=== PATIENT | female | born 1960 | race Caucasian/White ===

== ENCOUNTER → 2018-12-06 | Outpatient (CLI) | payer MEDICAID, SELFPAY ==
[2018-12-04 07:07] VITALS: BMI 18.3
--- NOTE | 2018-12-06 15:07 | PFTCOMP ---
COMPLETE PULMONARY FUNCTION TEST INTERPRETATION Brief HPI: Patient is a 58 year old female, currently under the care of Dr. Castillo, who presents to [facility] for complete pulmonary function tests secondary to diagnosis of COPD. Respiratory therapist reports good effort and reproducible results. Interpretation: Forced expiration spirometry shows a very severe large airways obstructive ventilatory defect with an FEV1 of 24% predicted. There is a significant bronchodilator response in FVC by strict ATS criteria. Spirograms are of good quality and plateau slowly, indicating slowly emptying areas of the lungs. The respiratory flow volume loop shows decreased expiratory flow rates at all lung volumes consistent with airway obstruction. Lung volumes by body plethysmography show an elevated total lung capacity at 6.96 L, 154% predicted. FRC and RV are elevated out of proportion. Lung volume measurements are consistent with hyperinflation and air-trapping. Diffusion capacity by carbon monoxide is decreased at 30% predicted. The airway resistance is elevated. No previous pulmonary function tests were available for review. Impression: Partially reversible very severe large airways obstructive ventilatory defect with a symmetric reduction diffusing capacity, resulting in air trapping with hyperinflation, and in a pattern consistent with advanced COPD.
--- NOTE | 2018-12-06 15:11 | PFTCOMP_ITS ---
COMPLETE PULMONARY FUNCTION TEST INTERPRETATION Brief HPI: Patient is a 58 year old female, currently under the care of Dr. Castillo, who presents to [facility] for complete pulmonary function tests secondary to diagnosis of COPD. Respiratory therapist reports good effort and reproducible results. Interpretation: Forced expiration spirometry shows a very severe large airways obstructive ventilatory defect with an FEV1 of 24% predicted. There is a significant bronchodilator response in FVC by strict ATS criteria. Spirograms are of good quality and plateau slowly, indicating slowly emptying areas of the lungs. The respiratory flow volume loop shows decreased expiratory flow rates at all lung volumes consistent with airway obstruction. Lung volumes by body plethysmography show an elevated total lung capacity at 6.96 L, 154% predicted. FRC and RV are elevated out of proportion. Lung volume measurements are consistent with hyperinflation and air-trapping. Diffusion capacity by carbon monoxide is decreased at 30% predicted. The airway resistance is elevated. No previous pulmonary function tests were available for review. Impression: Partially reversible very severe large airways obstructive ventilatory defect with a symmetric reduction diffusing capacity, resulting in air trapping with hyperinflation, and in a pattern consistent with advanced COPD.
== END | disposition home or self-care (01) ==
LOC: PSN 07:18
PROVIDERS: Family Provider Nurse Practitioner Family; PCP Nurse Practitioner Family; Referring Provider Internal Medicine Critical Care Medicine; Visit Provider Internal Medicine Critical Care Medicine
DX: J44.9 Chronic obstructive pulmonary disease, unspecified (principal)
CPT/HCPCS: 94060; 94726; 94729

== ENCOUNTER → 2018-12-11 | Outpatient (CLI) | payer MEDICAID, SELFPAY ==
[2018-12-04 07:07] VITALS: BMI 18.3
[2018-12-11 08:30] VITALS: PULSE 100; PULSE 117; PULSE 120; PULSE 124; PULSE 136; PULSE 137; O2SAT 83; O2SAT 90; O2SAT 92; O2SAT 93
--- NOTE | 2018-12-11 09:08 | CPS ---
Pt arrived via wheelchair for her six minute walk. Pt arrived wearing 3L pulse dose oxygen and her SPO2 was 93%. Pt was then taken off of her home oxygen and her pulse ox remained at 92%. The six minute walk was initiated on room air and minute two pt was 83% on room air. Pt was placed on 3L and recovered to 92%. The rest of the walk was continued with 3L continuous flow oxygen. No assistive devices were used during the walk.
--- NOTE | 2018-12-12 10:24 | PCM.PSN.6M ---
PSN 6 Minute Walk Test - 6 Minute Walk Test 6 Minute Walk Test: 6 Minute Walk Test PSN:6-Minute Walk Test Start: 12/11/18 09:05 Freq: Status: Active Protocol: RESP.6MINW Document 12/11/18 08:30 [facility] (Rec: 12/11/18 09:10 [facility] [id number]) 6 Minute Walk Test Date Performed 12/11/18 Time Performed 08:30 Height 5 ft 2 in Weight: 100 lb Weight in Pounds 100.[address]: Manish Castillo Assistive device used: None Pre-test Oxygen Delivery Method Room Air Pulse Ox (%) 92 Pulse Rate (60-100 beats/min) 117 H Dyspnea Christopher Scale (0-10) 3 Exertion Christopher Scale (6-20) 8 1st minute Oxygen Delivery Method Room Air Pulse Ox (%) 90 Pulse Rate (60-100 beats/min) 136 H Reported Symptoms Increased Work of Breathing 2nd minute Oxygen Delivery Method Room Air Pulse Ox (%) 83 Pulse Rate (60-100 beats/min) 137 H Number of Rests Taken 1 Reported Symptoms Cyanotic Increased Work of Breathing 3rd minute Oxygen Flow Rate (L/min) (L/min) 3 Oxygen Delivery Method Nasal Cannula Pulse Ox (%) 93 Pulse Rate (60-100 beats/min) 120 H Number of Rests Taken 0 4th minute Oxygen Flow Rate (L/min) (L/min) 3 Oxygen Delivery Method Nasal Cannula Pulse Ox (%) 93 Pulse Rate (60-100 beats/min) 124 H Number of Rests Taken 0 5th minute Oxygen Flow Rate (L/min) (L/min) 3 Oxygen Delivery Method Nasal Cannula Pulse Ox (%) 90 Pulse Rate (60-100 beats/min) 117 H Number of Rests Taken 1 Reported Symptoms Increased Work of Breathing 6th minute Oxygen Flow Rate (L/min) (L/min) 3 Oxygen Delivery Method Nasal Cannula Pulse Ox (%) 92 Pulse Rate (60-100 beats/min) 124 H Number of Rests Taken 1 Reported Symptoms Increased Work of Breathing Post-test Oxygen Flow Rate (L/min) (L/min) 3 Oxygen Delivery Method Nasal Cannula Pulse Ox (%) 92 Pulse Rate (60-100 beats/min) 100 Dyspnea Christopher Scale (0-10) 5 Exertion Christopher Scale (6-20) 18 Full Laps Walked 6 Partial Lap, Number of Tiles Walked 30 Total Distance Walked (ft) 384 12/11/18 09:08 Cardiopulmonary Services by Precious Dasilva Pt arrived via wheelchair for her six minute walk. Pt arrived wearing 3L pulse dose oxygen and her SPO2 was 93%. Pt was then taken off of her home oxygen and her pulse ox remained at 92%. The six minute walk was initiated on room air and minute two pt was 83% on room air. Pt was placed on 3L and recovered to 92%. The rest of the walk was continued with 3L continuous flow oxygen. No assistive devices were used during the walk. Initialized on 12/11/18 09:08 - END OF NOTE - Interpretation Interpretation: The patient ambulated 384 feet over the course of 6 minutes beginning on room air without assistive devices. Pretesting oxygen saturation was noted to be 92% on room air. With ambulation, the edna oxygen saturation was 83%. 3 L/min of continuous flow supplemental oxygen was applied and the patient was able to complete the remainder of the test while maintaining appropriate oxygen saturations. The patient did develop physiologic tachycardia with exertion. There was evidence of impaired walk distance. - Recommendations Recommendations: 3 L/min of continuous flow supplemental oxygen should be utilized with exertion.
== END | disposition home or self-care (01) ==
LOC: PSN 08:20
PROVIDERS: Family Provider Nurse Practitioner Family; PCP Nurse Practitioner Family; Referring Provider Internal Medicine Critical Care Medicine; Visit Provider Internal Medicine Critical Care Medicine
DX: J96.11 Chronic respiratory failure with hypoxia (principal)
CPT/HCPCS: 94618

== ENCOUNTER → 2019-01-22 | Outpatient (CLI) | payer MEDICAID, SELFPAY ==
[2018-12-04 07:07] VITALS: BMI 18.3
--- NOTE | 2019-01-22 06:53 | CT_ITS ---
HISTORY: LUNG MASS, HX 20 YR SMOKER 1-2 PPD, QUIT 2012, COPD-OXYGEN 13/03 TECHNIQUE: Helically acquired images were obtained of the chest following the intravenous administration of 100 ml of Isovue 300 Iodinated contrast. as per pulmonary angiogram protocol with 2D MIP reconstructions. A radiation dose optimization technique was used for this scan. COMPARISON: None FINDINGS: # of images incl. paperwork: [id number] Pulmonary emphysema. 2 right upper lobe adjacent complex spiculated nodules. The more inferior lateral of these lesions is hyper enhancing centrally.. I believe this is contrast enhancement within a pulmonary artery, but could be calcification. As measured on the coronal images, the more inferior lateral of these 2 lesions, as measured on lung windows, measures 2.3 x 2.2 cm. Also measured on the coronal series, lung windows, the confluent adjoining more superior medial lesion within the right upper lobe measures 2 x 1.3 cm. There is some volume loss and extension of disease to the pleural margin. More peripherally and inferiorly within the right upper lobe, series 4 image 42, also as measured on the lung windows there is a 4 x 3 mm pulmonary nodule. With in the anterior aspect of the left lobe of the thyroid gland there is a hypodense lesion measuring 5 mm, that is likely a benign cyst. No effusions. Within the thoracic spinethere is a mild kyphosis. Some degenerative disc disease is present but minimal degree. Vertebral body height is mostly preserved. There is a subacute superior endplate fracture to the T5 vertebral body with some loss of height. There is additional old superior endplate vertebral body fractures to the T7 and T8 vertebral bodies with minimal wedging. Facets are well aligned. A right posterior-lateral T9 rib fracture is still healing. Heart is not enlarged. Thoracic aorta elongated with atherosclerotic plaque. No aneurysms, stenoses, dissections, nor occlusions. No axillary or mediastinal adenopathy. No pulmonary emboli. Within the lateral segment of the left hepatic lobe there is a 5 x 8 mm hypodense lesion. The adrenal glands are not enlarged. Visualized portions of the pancreas, and spleen are normal. Hypodense cortical lesion within the left kidney statistically represents a benign cyst Some atherosclerotic disease is present within the right renal artery near its origin causing a stenosis of less than 50%. CT/Chest WITH Contrast IMPRESSION: No pulmonary embolism, aortic aneurysm, or aortic dissection. 2 adjacent right upper lobe spiculated pulmonary nodules. One of these measures 2.3 x 2.2 cm. Most superior posterior medially, the second lesion measures 2 x 1.3 cm. These are suspicious for lung malignancy in this patient with severe pulmonary emphysema. It is possible that there is some calcification within the more inferior of the 2 lesions, which would indicate a more benign, non-malignant process Similar hyperdense areas are much less conspicuous within the second lesion. I believe the hyperdense portions of these lesions are arterial enhancement, but they could be calcifications. Comparison then a previous imaging to assess for change would be useful. A noncontrast CT just through these areas to assess for calcification versus enhancement may be beneficial. A PET/CT could also be beneficial. Individualized dose optimization techniques were used for this CT. at 2995 Reported and signed by: Farhad Schmidt MD Electronically Signed: Farhad Schmidt MD at 21:53 EDT Tel , Service support ,
== END | disposition home or self-care (01) ==
PROVIDERS: Family Provider Nurse Practitioner Family; PCP Nurse Practitioner Family; Referring Provider Internal Medicine Critical Care Medicine; Visit Provider Internal Medicine Critical Care Medicine
DX: R91.8 Other nonspecific abnormal finding of lung field (principal)
CPT/HCPCS: 71260; Q9967

== ENCOUNTER → 2019-02-18 | Outpatient (CLI) | payer MEDICAID, SELFPAY ==
[2019-01-28 08:28] VITALS: BMI 20.8
--- NOTE | 2019-02-18 08:15 | PET_ITS ---
EXAMINATION: FDG PET/CT INDICATIONS: A 68-year-old female with reported history of pulmonary nodularity. COMPARISON EXAMINATION: CT of the chest report dated 01/22/19 INDEX LESION SIZE SUV INTERPRETATION Right upper hemithorax, right upper lobe 22.4-mm (frame 190) 5.2 Fulfills quantitative criteria for viable neoplasm Left thoracic perihilum 9.5-mm (frame 176) 3.4 Fulfills borderline quantitative criteria for viable neoplasm Right upper hemithorax, linear 1.6 Quantitative criteria for viable neoplasm are not fulfilled TECHNIQUE: Following the intravenous administration of 12.32 mCi of F-18 deoxyglucose via the left antecubital fossa, multiplanar image acquisitions of the neck, chest, abdomen and pelvis to level of mid thigh, obtained at one hour post radiopharmaceutical administration contemporaneously interpreted with the current CT of the neck, chest, abdomen and pelvis to level of mid thigh, dated 02/18/[address] of the chest report dated 01/22/19 reveal: SERUM GLUCOSE LEVEL: 110 mg/dl. HEIGHT: 62 inches. WEIGHT: 110 lbs. FINDINGS: 1. Focal increased glucose metabolism is demonstrated in the right mid posterior lung field, right upper lobe, adjacent to the major fissure generating a calculated maximal standard uptake value of 5.2. The maximal axial diameter of the corresponding parenchymal density on review of CT of the chest dated 02/18/19 is 22.4-mm (AP). 2. Asymmetric enhanced FDG distribution is demonstrated in the left thoracic perihilum rendering a calculated maximal standard uptake value of 3.4. Borderline quantitative criteria for centrally located thoracic/mediastinal viable neoplasm are fulfilled. The maximal axial diameter of the corresponding metabolic, morphologic abnormality on review of CT of the chest dated 02/18/19 is 9.5-mm. 3. A linear increase in radiopharmaceutical concentration is defined in the right upper hemithorax pulmonary parenchyma, right upper lobe, contiguous and/or adjacent to the aforementioned right lung abnormality. The calculated maximal standard uptake value is 1.6. 4. Normal physiologic distribution of the radiopharmaceutical is apparent in the hepatic (2.5) and splenic parenchyma, both renal units, bladder and visualized intestinal tract. The visualized portion of the cerebral cortex demonstrate symmetric and preserved glucose metabolism. Diffuse radiopharmaceutical concentration is noted in all four quadrants of the abdomen and pelvis. Pertinent CT findings are as follows: CHEST: Emphysematous change is noted in the bilateral upper-mid lung zones. There are no additional parenchymal densities-nodules defined in the right-left hemithorax demonstrating discernible increased glucose metabolism. There is atherosclerotic calcification defined in the thoracic aorta without evidence of dilatation-aneurysm formation. Coronary arterial calcification is observed. Bilateral axillary and mediastinal soft tissue densities are non-glucose avid. ABDOMEN AND PELVIS: There is atherosclerotic calcification defined in the abdominal aorta without evidence of dilatation-aneurysm formation. Pelvic arterial calcification is observed. Bilateral inguinal soft tissue densities with fatty hilus formation are non-glucose avid. SKELETAL: Degenerative changes are noted in the cervical, thoracic and lumbar spine. PET/PET/CT Tumor Base -Thigh Init IMPRESSION: 1. ABNORMAL EXAMINATION INDICATIVE OF MALIGNANT VIABLE NEOPLASM. 2. Increased glucose concentration noted in the right mid hemithorax pulmonary parenchyma, right upper lobe, fulfills quantitative criteria for viable neoplasm. 3. Facilitated FDG uptake noted in the left thoracic perihilum fulfills borderline quantitative criteria for viable neoplasm. (Aletha et al, Journal of Clinical Oncology 16:2142, 1998). 4. The linear increase in FDG concentration noted in the right upper hemithorax pulmonary parenchyma, right upper lobe, oriented in the longitudinal plane, does not fulfill quantitative criteria for malignant transformation. 5. No other quantitatively significant hypermetabolic abnormalities are noted. There is no definitive scintigraphic evidence of distant metastatic disease. Electronic Signature Hermann Resendiz D.O. Electronically Signed: Hermann Resendiz DO at 8:01 EDT Tel , Service support ,
== END | disposition home or self-care (01) ==
LOC: ONC 07:42
PROVIDERS: Family Provider Nurse Practitioner Family; PCP Nurse Practitioner Family; Referring Provider Internal Medicine Critical Care Medicine; Visit Provider Internal Medicine Critical Care Medicine
DX: R91.1 Solitary pulmonary nodule (principal)
CPT/HCPCS: 78815; A9552

== ENCOUNTER → 2019-07-01 | Outpatient (CLI) | payer MEDICAID, SELFPAY ==
[2019-04-26 09:42] VITALS: BMI 20.8
[2019-06-18 08:57] VITALS: BMI 21.9
--- NOTE | 2019-07-01 08:30 | PET_ITS ---
EXAMINATION: FDG PET CT INDICATIONS: A 59-year-old female with history of pulmonary nodularity. COMPARISON EXAMINATION: Prior FDG PET study dated 02/18/19. INDEX LESION SIZE SUV INTERPRETATION PERSISTENT: Right upper hemithorax pulmonary parenchyma-right upper lobe 11.5 mm nodular (frame 192) compared to 12.9 mm, 02/18/19 3.2 compared to 5.2, 02/18/19 Fulfills quantitative criteria for viable neoplasm, short-term reevaluation with FDG PET CT imaging recommended at a minimum PREVIOUS: Left thoracic perihilum Demonstrates metabolic resolution on the current examination TECHNIQUE: Following the intravenous administration of 15 mCi of F-18 deoxyglucose, multiplanar image acquisitions of the neck, chest, abdomen and pelvis to level of mid thigh, obtained at one hour post radiopharmaceutical administration contemporaneously interpreted with the current CT of the neck, chest, abdomen and pelvis to level of mid thigh, dated 07/01/19 via coregistration and prior FDG PET study dated 02/18/19 reveal: FINDINGS: 1. Redefined increased glucose concentration is observed in the right upper hemithorax pulmonary parenchyma-right upper lobe generating a current calculated maximum standard uptake value is 3.2 compared to 5.2 defined on the FDG PET study dated 02/18/19. The maximal axial diameter of the nodular component of the current parenchymal density on review of CT of the chest dated 07/01/19 is 11.5 mm (AP). 2. Normal physiologic distribution of the radiopharmaceutical is apparent in the hepatic (2.8/2.6) and splenic parenchyma, both renal units, bladder and visualized intestinal tract. There is uniform distribution of the radiopharmaceutical concentration defined in the visualized cerebellar hemispheres and cerebral cortical structures.? Diffuse intestinal tract activity is noted throughout all four quadrants of the abdominal-pelvic retroperitoneum, mesentery consistent with normal physiologic distribution of the radiopharmaceutical. The previously described left thoracic perihilar increase in FDG distribution noted on the FDG PET study dated 02/18/19 is not apparent on the current examination. The prior defined morphologic-anatomic changes noted on CT of the neck, chest, abdomen and pelvis manifest on the FDG PET CT study dated 02/18/19 are essentially unchanged on the present examination. PET/PET/CT Tumor Base -Thigh Init IMPRESSION: 1. Facilitated FDG concentration redefined in the right upper hemithorax pulmonary parenchyma, right upper lobe continues to fulfill quantitative criteria for viable neoplasm, which may necessitate histopathologic investigation. If a conservative management approach is undertaken in view of the decrease in the quantitative degree of uptake on the present examination, repeat FDG PET CT imaging in three-six months is recommended. (Kathleenu, Journal of Nuclear Medicine 45:88, P2004. Sakshi, Seminars in Thoracic and Cardiovascular Surgery 14:292, 2002). 2. There is interim metabolic resolution of the prior defined left thoracic perihilar hypermetabolic focus. 3. Overall, compared to the prior FDG PET study dated 02/18/19, there is continued demonstration of viable neoplasm within the context right upper hemithorax-right upper lobe, which may necessitate histopathologic investigation. If a conservative management is undertaken, repeat FDG PET CT imaging in three-six months is recommended. There is interim metabolic resolution of the left thoracic perihilar hypermetabolic abnormality. Electronic Signature Hermann Resendiz D.O. Electronically Signed: Hermann Resendiz DO at 23:50 EST Tel , Service support ,
== END | disposition home or self-care (01) ==
PROVIDERS: Family Provider Nurse Practitioner Family; PCP Nurse Practitioner Family; Referring Provider Internal Medicine Critical Care Medicine; Visit Provider Internal Medicine Critical Care Medicine
DX: R91.1 Solitary pulmonary nodule (principal)
CPT/HCPCS: 78815; A9552

== ENCOUNTER 2023-06-03 09:00 | Emergency (ER) | payer MEDICAID, SELFPAY ==
[2019-04-26 09:42] VITALS: BMI 20.8
[2023-06-03 09:01] VITALS: BP 136/91; PULSE 115; RESP 26; TEMP 36.6; O2SAT 95
--- NOTE | 2023-06-03 09:17 | EKG12_ITS ---
Test Reason : SOB Blood Pressure : / mmHG Vent. Rate : 099 BPM Atrial Rate : 099 BPM P-R Int : 122 ms QRS Dur : 078 ms QT Int : 344 ms P-R-T Axes : 080 073 083 degrees QTc Int : 441 ms Normal sinus rhythm with sinus arrhythmia Normal ECG Confirmed by PHILIP SAHA, DIONNA ([id number]), editor trade journal ROSA PATEL ([id number]) on 06/05/2023 2:25:31 PM Referred By: Confirmed By:DIONNA PALACIOS MD
--- NOTE | 2023-06-03 09:17 | RAD_ITS ---
INDICATION: dyspnea EXAMINATION/TECHNIQUE: X-RAY - XR Chest 1 View COMPARISON: FINDINGS: LINES/DEVICES: None. LUNGS: There is severe over aeration consistent with COPD. There is a left suprahilar left suprahilar opacity 2.03 cm transverse which could represent scarring or tiny focus of infiltrate. Other etiology cannot be excluded. MEDIASTINUM AND CARDIOVASCULAR STRUCTURES: Cardiac silhouette not enlarged. Central airways and mediastinal contour are unremarkable. BONES AND SOFT TISSUES: Unremarkable. RAD/Chest 1 View (Portable) IMPRESSION: Severe COPD. Left upper lobe scarring versus small focus of infiltrate. Mass cannot be completely excluded. Electronically Signed: Vishal López MD at 10:10 EDT ,
--- NOTE | 2023-06-03 09:18 | ED.VIS.DYS ---
HPI History of Present Illness Chief Complaint: Shortness of Breath Informant: patient and spouse/S.O. Narrative Narrative: Very pleasant 62-year-old female presenting to the emergency room with chief complaint of dyspnea. Patient has a longstanding history of COPD, former smoker, and wears 2 to 3 L nasal cannula normally. She saw her primary care doctor on Monday was given a prescription for tapering dose of prednisone as well as azithromycin. She states she has finished the azithromycin but has not had any change in her breathing. Her sputum production has been unchanged. She notes she took a breathing treatment of DuoNeb this morning. She denies any fever. Patient has not had to go up on her oxygen. She is not experiencing any URI symptoms. No vomiting or diarrhea. [facility] Medical History Acute abdominal pain Acute exacerbation of emphysema Anxiety Arthritis Atypical chest pain Bacteremia Breast mass Bronchitis COPD (chronic obstructive pulmonary disease) Dependence on supplemental oxygen GERD (gastroesophageal reflux disease) Lung mass Lung nodule Mass of multiple sites of right breast Neck pain Osteopenia Osteoporosis Otalgia of right ear Palate abnormality Pre-operative cardiovascular examination Rhinosinusitis Rib fracture Rib pain Tick bite Wasting generalized Wheezing Home Medications albuterol sulfate 2.5 mg/3 mL (0.083 %) solution for nebulization 2.5 mg inhalation Q4H PRN Sob &/Or Wheezing 10/03/18 [History Last Taken Unknown] albuterol sulfate 90 mcg/actuation aerosol inhaler (Ventolin HFA) 2 puff inhalation Q4H PRN Sob &/Or Wheezing 10/03/18 [History Last Taken Unknown] ipratropium 0.5 mg-albuterol 3 mg (2.5 mg base)/3 mL nebulization soln 3 ml inhalation Q8H 10/03/18 [History Last Taken Unknown] Allergy/AdvReac Type Severity Reaction Status Date / Time ciprofloxacin [From Cipro] Allergy Intermediate SOB Verified 06/03/23 09:05 fluticasone Allergy Mild Ashtma, Verified 06/03/23 09:04 [From Advair Diskus] Itching, Pruritus, Rash metronidazole [From Flagyl] Allergy Mild Verified 06/03/23 09:04 penicillin G Allergy Mild Verified 06/03/23 09:04 salmeterol Allergy Mild Ashtma, Verified 06/03/23 09:04 [From Advair Diskus] Itching, Pruritus, Rash sulfamethoxazole Allergy Mild Rash Verified 06/03/23 09:04 [From Bactrim] trimethoprim [From Bactrim] Allergy Mild Rash Verified 06/03/23 09:04 Penicillins Allergy Swelling Verified 06/03/23 09:04 Family History Father Colon cancer Surgical History History of bilateral tubal ligation History of colonoscopy History of partial colectomy Social History Smoking Status: Former smoker Tobacco: How many years used: 20 how long ago did patient quit smokin years second hand exposure: No alcohol intake: current alcohol intake frequency: holidays/special occasions only substance use type: does not use caffeine: Yes ROS ROS ED Constitutional Constitutional ED: Denies chills, fever(s) or weight loss Eyes Eyes: Denies change in vision or diplopia ENT ENT ED: Denies ear pain, rhinorrhea or sore throat Cardiovascular Cardiovascular: Denies chest pain, orthopnea, palpitations or racing heartbeat Respiratory/Chest Respiratory/Chest: Reports cough, dyspnea, dyspnea on exertion and sputum; Denies orthopnea Gastrointestinal Gastrointestinal: Denies abdominal pain, diarrhea, melena, nausea or vomiting Genitourinary Genitourinary ED: Denies dysuria, hematuria or urinary frequency Musculoskeletal Musculoskeletal: Denies arthralgias or myalgias Integumentary Denies abscess or rash Neurologic Neurologic: Denies headache(s) or weakness Psychiatric Psychiatric: Denies anxiety, depression, suicidal ideation or suicidal thoughts Endocrine Endocrinology: Denies polydipsia, polyphagia or polyuria Allergic/Immunologic Allergic/Immunologic ED: Denies mouth swelling, tongue swelling or urticaria EXAM Physical Exam Const Vital Signs: 06/03/23 09:01 06/03/23 09:38 06/03/23 09:38 Temperature 98 F Temperature Source Temporal Pulse Rate 115 H 97 Respiratory Rate 26 H 18 Respiratory Effort Respiratory Depth Respiratory Pattern Normal Blood Pressure 136/91 H Blood Pressure Mean 106 Pulse Ox 95 96 Oxygen Delivery Method Nasal Cannula Nasal Cannula Oxygen Flow Rate (L/min) 2 06/03/23 09:46 06/03/23 09:47 06/03/23 09:47 Temperature 97.0 F L Temperature Source Temporal Pulse Rate 100 Respiratory Rate 14 Respiratory Effort Short of Breath Respiratory Depth Normal Respiratory Pattern Normal Blood Pressure 132/84 H Blood Pressure Mean 100 Pulse Ox 97 Oxygen Delivery Method Nasal Cannula Nasal Cannula Nasal Cannula Oxygen Flow Rate (L/min) 2.5 2.5 2.5 Positive well nourished, well developed and cachectic General Appearance ED: well developed and cachectic Nutritional Appearance: cachectic HEENT Reports normocephalic, head/scalp atraumatic and moist mucous membranes Eyes PERRL and EOMs intact bilaterally Neck no lymphadenopathy, supple and no JVD Resp Resp Narrative: Patient has conversational dyspnea. She is wearing 3 L nasal cannula. No rhonchi noted. She does have some pursed lip breathing. Auscultation: diminished lung sounds Cardio regular rate, regular rhythm and no murmurs Rate: tachycardic GI normal to inspection, nondistended, normoactive bowel sounds and non-tender Palpation: soft Back/Spine no CVA tenderness and normal ROM Extremity normal to inspection General Extremety ED: Negative for edema General Extremity: Negative for edema Neuro oriented x3 and CN's II-XII intact bilaterally Sensorium / Orientation: alert Motor Exam: strength 5/5 throughout Psych mental status grossly normal Mood & Affect: Negative for depressed or tearful Skin no rashes or lesions noted and no wounds MDM MDM Lab Data Attestation: I reviewed the patient's lab results. Labs: Laboratory Results - last 24 hr 06/03/23 09:32 WBC 6.5 RBC 4.62 Hgb 13.6 Hct 41.8 MCV 90.5 MCH 29.4 MCHC 32.5 RDW Std Deviation 39.9 RDW Coeff of Stephanie 12.1 Plt Count 381 MPV 9.1 Immature Gran % (Auto) 0.300 Neut % (Auto) 60.1 Lymph % (Auto) 30.0 [place] % (Auto) 9.4 Eos % (Auto) 0.0 Baso % (Auto) 0.2 Absolute Neuts (auto) 3.9 Absolute Lymphs (auto) 1.95 Nucleated RBC % 0 EKG Initial EKG: Attestation: I personally reviewed and interpreted this EKG as follows: Comments: Normal sinus rhythm with a ventricular rate of 99 bpm. No concerning features of ACS noted Discharge Plan Triage Chief Complaint: Shortness of Breath ED Provider: Jose Stringer Dx/Rx/DC Orders Prescriptions: No Action ipratropium-albuterol 0.5 mg-3 mg(2.5 mg base)/3 mL solution for nebulization 3 ml INHALATION Q8H albuterol sulfate 2.5 mg /3 mL (0.083 %) solution for nebulization 2.5 mg INHALATION Q4H PRN (Reason: Sob &/Or Wheezing) Ventolin HFA 90 mcg/actuation HFA aerosol inhaler 2 puff INHALATION Q4H PRN (Reason: Sob &/Or Wheezing) Primary Care Provider: Maci Thibodeaux NP Referrals: Maci Thibodeaux NP, [employer] [Primary Care Provider] -
--- NOTE | 2023-06-03 09:25 | NURSING ---
NO OLD EKGS
[2023-06-03] MEDS: Albuterol 2.5 MG/3 ML VIAL.NEB. INHALATION (09:34)
[2023-06-03] MEDS: Ipratropium/Albuterol Sulfate 3 ML AMPUL.NEB INHALATION (09:34)
[2023-06-03 09:38] VITALS: PULSE 97; RESP 18; O2SAT 96
[2023-06-03 09:42] LABS: Absolute Lymphocyte Count 1.95 X10^3/uL (0.83-4.51); Absolute Neutrophil Count 3.9 X10^3/uL (2.0-7.7); Basophil# 0.01 X10^3/uL; Basophil% 0.2 % (0-1); Hematocrit 41.8 % (37-47); Hemoglobin 13.6 g/dL (12.0-15.0); Lymphocyte # 1.95 X10^3/ul (0.83-4.51); Mean Corp Hgb Conc 32.5 g/dL (32-36); Mean Corpuscular Hgb 29.4 pg (27.0-32.0); Mean Corpuscular Volume 90.5 fL (81-99); Mean Platelet Vol. 9.1 fl (6.2-12.0); Monocyte# 0.61 X10^3/uL; Monocyte% 9.4 % (0-10); NRBC Flagged by Analyzer 0 % (0-5); Neutrophil % 60.1 % (47-70); Platelet Count 381 K/mm3 (150-450); RBC Distribution Width CV 12.1 % (11.6-14.6); RBC Distribution Width SD 39.9 fl (35.1-43.9); Red Blood Count 4.62 M/mm3 (4.2-5.4); White Blood Count 6.5 K/mm3 (4.4-11.0)
[2023-06-03] MEDS: MethylPREDNISolone 125 MG/2 ML Vial IV (09:44)
[2023-06-03 09:45] VITALS: BMI 15.2
[2023-06-03 09:46] VITALS: BP 132/84; PULSE 100; RESP 14; TEMP 36.1; O2SAT 97
[2023-06-03 10:11] LABS: Anion Gap 6 (5-15); BUN 6 mg/dL (7-18); BUN/Creat Ratio 25.6 RATIO (10-20); Calcium,Total 6.5 mg/dL (8.5-10.1); Chloride 116 mmol/L (98-107); Creatinine, Serum 0.23 mg/dL (0.55-1.02); EST Glomerular Filtration Rate 320 mL/min (>60); Est Glom Filt Rate - Afr Amer 388 mL/min (>60); Estimated Creatinine Clearance 155.22 ml/min; Glucose 79 mg/dL (74-106); Potassium 2.6 mmol/L (3.5-5.1); Sodium Level 144 mmol/L (136-145); Troponin-I HS < 3 pg/mL (3.0-54.0)
[2023-06-03 10:42] LABS: Magnesium 1.6 mg/dL (1.6-2.6)
[2023-06-03 10:48] LABS: AST(SGOT) 8 U/L (15-37); Alanine Aminotransfer ALT/SGPT 18 U/L (13-56); Albumin, Serum 2.5 g/dL (3.2-5.0); Alkaline Phosphatase 63 U/L (45-117); Bilirubin, Direct 0.11 mg/dL (0.00-0.30); Globulin 2.3 g/dL (2.2-4.2); Protein, Total 4.8 g/dL (6.4-8.2)
[2023-06-03 11:03] LABS: Ionized Calcium 5.05 mg/dL (4.36-5.20)
[2023-06-03 11:40] VITALS: BP 142/86; PULSE 116; RESP 24; O2SAT 96
[2023-06-03] MEDS: Potassium Chloride 10mEq/100mL 10 MEQ/100 ML IV.SOLN. 100 MEQ IV BOLUS (11:46)
[2023-06-03] MEDS: Potassium Chloride Oral Soln 20 MEQ/15 ML UDC 40 MEQ PO (11:46)
[2023-06-03] MEDS: Calcium Gluconate IV 1 GM in 0.9% Normal Saline (100mL Bag) 100 ML IV (11:57)
[2023-06-03] MEDS: 0.9% Normal Saline (1000mL) 1,000 ML 100 ML IV (11:57)
[2023-06-03 13:18] VITALS: PULSE 88; RESP 20
== END 2023-06-03 13:41 | disposition home or self-care (01) ==
PROVIDERS: Emergency Provider Emergency Medicine; PCP Nurse Practitioner Family; Visit Provider Emergency Medicine
DX: J43.9 Emphysema, unspecified (principal); Z87.891 Personal history of nicotine dependence; Z99.81 Dependence on supplemental oxygen
CPT/HCPCS: 36415; 71045; 80048; 80076; 82330; 83735; 84484; 85025; 93005; 94640; 96365; 96366; 96368; 96375; 99283; J7030; A4216; J0612

== ENCOUNTER 2023-12-13 14:03 | Emergency (ER) | payer MEDICAID, SELFPAY ==
[2019-04-26 09:42] VITALS: BMI 20.8
[2023-12-13 14:04] VITALS: BP 110/95; PULSE 109; RESP 14; TEMP 36.6; O2SAT 93
--- NOTE | 2023-12-13 14:43 | EX.ED.DYSGE1 ---
HPI History of Present Illness Chief Complaint: Abd Pain [facility] Medical History (Updated 12/13/23 @ 17:[address] Kulwinder Rockwell, DO) Acute abdominal pain Acute exacerbation of emphysema Anxiety Arthritis Atypical chest pain Bacteremia Breast mass Bronchitis COPD (chronic obstructive pulmonary disease) Dependence on supplemental oxygen GERD (gastroesophageal reflux disease) Lung mass Lung nodule Mass of multiple sites of right breast Neck pain Osteopenia Osteoporosis Otalgia of right ear Palate abnormality Pre-operative cardiovascular examination Rhinosinusitis Rib fracture Rib pain Tick bite Wasting generalized Wheezing Home Medications albuterol sulfate 2.5 mg/3 mL (0.083 %) solution for nebulization 2.5 mg inhalation Q4H PRN Sob &/Or Wheezing 10/03/18 [History Last Taken Unknown] albuterol sulfate 90 mcg/actuation aerosol inhaler (Ventolin HFA) 2 puff inhalation Q4H PRN Sob &/Or Wheezing 10/03/18 [History Last Taken Unknown] ipratropium 0.5 mg-albuterol 3 mg (2.5 mg base)/3 mL nebulization soln 3 ml inhalation Q8H 10/03/18 [History Last Taken Unknown] calcium carbonate 1,200 mg (2 x 600 mg calcium (1,500 mg)) PO DAILY #20 tabs 06/03/23 [Rx Last Taken Unknown] potassium chloride 20 mEq tablet,extended release 40 meq (2 x 20 mEq) PO DAILY #14 tabs 06/03/23 [Rx Last Taken Unknown] prednisone 20 mg tablet 60 mg (3 x 20 mg) PO DAILY #15 TABLETS 06/03/23 [Rx Last Taken Unknown] Allergy/AdvReac Type Severity Reaction Status Date / Time ciprofloxacin [From Cipro] Allergy Intermediate SOB Verified 12/13/23 14:04 fluticasone Allergy Mild Ashtma, Verified 12/13/23 14:04 [From Advair Diskus] Itching, Pruritus, Rash metronidazole [From Flagyl] Allergy Mild Verified 12/13/23 14:04 penicillin G Allergy Mild Verified 12/13/23 14:04 salmeterol Allergy Mild Ashtma, Verified 12/13/23 14:04 [From Advair Diskus] Itching, Pruritus, Rash sulfamethoxazole Allergy Mild Rash Verified 12/13/23 14:04 [From Bactrim] trimethoprim [From Bactrim] Allergy Mild Rash Verified 12/13/23 14:04 Penicillins Allergy Swelling Verified 12/13/23 14:04 Family History Father Colon cancer Surgical History History of bilateral tubal ligation History of colonoscopy History of partial colectomy Social History Smoking Status: Former smoker Tobacco: How many years used: 20 how long ago did patient quit smokin years second hand exposure: No alcohol intake: current alcohol intake frequency: holidays/special occasions only substance use type: does not use caffeine: Yes EXAM Physical Exam Const Vital Signs: 12/13/23 14:04 12/13/23 14:04 12/13/23 16:00 Temperature 97.9 F 97.9 F Temperature Source Temporal Temporal Pulse Rate 109 H 109 H 102 H Respiratory Rate 14 14 18 Respiratory Pattern Blood Pressure 110/95 H 110/95 H 119/82 H Blood Pressure Mean 100 100 93 Pulse Ox 93 93 97 Oxygen Delivery Method Nasal Cannula Nasal Cannula Oxygen Flow Rate (L/min) 3 3 12/13/23 17:23 12/13/23 17:22 Temperature 98.7 F Temperature Source Pulse Rate 111 H 107 H Respiratory Rate 18 18 Respiratory Pattern Normal Blood Pressure 95/77 Blood Pressure Mean 83 Pulse Ox 94 Oxygen Delivery Method Oxygen Flow Rate (L/min) MDM MDM MDM Narrative Medical decision making narrative: HISTORY OF PRESENT ILLNESS: 63-year-old female presents with abdominal pain and constipation. Notes 4 days of abdominal pain and decreased bowel movements. Last bowel movement was 2 days ago. She denies any melena hematochezia. She denies any vomiting. Denies any fever. No chest pain. Notes history of GERD, breast cancer. Denies any vaginal bleeding or discharge. REVIEW OF SYSTEMS: Pertinent positives: Abdominal pain, constipation Pertinent negatives: Chest pain, fever, urinary complaints, back pain, syncope PHYSICAL EXAM: Nursing triage notes reviewed, Vital signs reviewed Constitutional: please see mdm HENT: MMM Eyes: Pupils equal round and reactive to light, Extraocular muscles intact Neck: No stridor, no JVD, full neck ROM Lungs: Clear to auscultation, No wheezing or rales. No increased work of breathing, no conversational dyspnea, no accessory muscle use, no nasal flaring. No respiratory distress noted Heart: Regular rate and rhythm, No murmurs, No rubs and No gallops, 2+ distal pulses (radial, femoral, posterior tibial) in all extremities Abdomen: Soft, there is no obvious or reproducible tenderness, rigidity, rebound or guarding, no obvious peritoneal signs, no palpable pulsatile abdominal masses, no auscultated abdominal bruit : No CVAT Extremities: No edema Neuro: No focal neurological deficits, cranial nerves II through XII intact, 5/5 strength in all extremities. Intact sensation to light touch in all extremities, 2+ reflexes bilateral patella tendons. Normal gait. No ataxia. Skin: No rash or lesions noted MEDICAL DECISION MAKING: Chief Complaint: Abdominal pain External records reviewed: CT scan of the abdomen pelvis from 2016 shows sigmoid diverticulitis with abscess involving the wall of the colon and microperforation Factors affecting care: History of diverticulitis, history of multiple abdominal surgeries including a partial colectomy Social determinants of health: none History obtained from others: The patient's Consults: none [facility] Narrative: Patient was initially tachycardic otherwise afebrile nontoxic-appearing saturating well on baseline 3 L oxygen. Abdominal exam was overall benign without peritoneal signs, intact bowel sounds, no distention or obvious tenderness palpated. I considered the following differential diagnosis: AAA, small bowel obstruction, abdominal perforation, appendicitis, pancreatitis, hepatobiliary pathology (acute cholecystitis), mesenteric ischemia, pathology (ie nephrolithiasis, pyelonephritis). I obtained a broad lab and imaging workup to further elucidate the etiology of the patient complaint ALL IMAGES (IF OBTAINED) HAVE BEEN PERSONALLY REVIEWED AND INTERPRETED BY MYSELF. CT scan of the abdomen pelvis shows no concerning surgical abnormalities Lipase is wnl indicating no pancreatic inflammation. CBC without leukocytosis, severe anemia, no thrombocytopenia. BMP with mild hyponatremia, no electrolyte abnormalities, there is no anion gap to suggest endorgan perfusion and no signs of metabolic acidosis LFTs show no evidence of hepatobiliary pathology. Urinalysis shows no evidence of urinary inflammation suggestive of UTI The synthesis of the patient's history, physical exam, labs images suggest no acute left abdomen etiology. The likely pathology the patient presentation is secondary to constipation. Will prescribe a bowel regimen and give strict return precautions and follow-up instructions. The patient and/or family, caregivers express understanding. The patient and/or family, caregivers agrees with the plan. Shared decision making: I will have a discussion with the patient and or visitors regarding risk/benefits of further testing or admission. They will be made aware of of the risk/benefits inherent in this decision they will be given the opportunity to voice understanding. Total critical care time today provided was at least 0 minutes. This excludes separately billable procedures. Critical care time (if documented) is secondary to the patient having high probability of clinically significant/life threatening deterioration in the patient's condition which required my urgent intervention. Impression: 1. abdominal pain 2. Hyponatremia 3. Constipation Dispo: Discharge home This note was generated with [employer] dictation software. It may contain incorrect words, spelling, and punctuation that were not noted in review of the chart prior to signing. Lab Data Labs: Laboratory Results - last 24 hr 12/13/23 12/13/23 15:00 16:55 WBC 5.2 RBC 4.60 Hgb 13.4 Hct 40.3 MCV 87.6 MCH 29.1 MCHC 33.3 RDW Std Deviation 39.8 RDW Coeff of Stephanie 12.5 Plt Count 251 MPV 9.0 Immature Gran % (Auto) 0.400 Neut % (Auto) 55.5 Lymph % (Auto) 32.1 [place] % (Auto) 9.3 Eos % (Auto) 1.9 Baso % (Auto) 0.8 Absolute Neuts (auto) 2.9 Absolute Lymphs (auto) 1.66 Nucleated RBC % 0 Sodium 135 L Potassium 3.7 Chloride 103 Carbon Dioxide 27.0 Anion Gap 5 BUN 5 L Creatinine 0.39 L Estim Creat Clear Calc 86.33 Est GFR (MDRD) Af Amer 212 Est GFR (MDRD) Non-Af 175 BUN/Creatinine Ratio 12.7 Glucose 94 Lactic Acid 0.7 Calcium 8.8 Total Bilirubin 0.90 Direct Bilirubin 0.23 AST 13 L ALT 16 Alkaline Phosphatase 63 Total Protein 6.9 Albumin 3.7 Globulin 3.2 Urine Color Yellow Urine Clarity Clear Urine pH 7.0 Ur Specific [place] 1.010 Urine Protein Negative Urine Glucose (UA) Normal Urine Ketones 5 H Urine Occult Blood Negative Urine Nitrite Negative Urine Bilirubin Negative Urine Urobilinogen Normal Ur Leukocyte Esterase Negative Urine RBC 0 SEEN Urine WBC 0 SEEN Ur Squamous Epith Cells 0 SEEN Urine Bacteria 0 SEEN Urine Mucus 0 SEEN Radiography Diagnostic Testing: Clinical Impression(s) from Imaging Studies Abdomen/Pelvis CT 12/13/23 14:45 IMPRESSION: No bowel obstruction or inflammation. Normal appendix. Constipation. No urinary calculi. No hydronephrosis. Atherosclerosis. Emphysema. Electronically Signed: Tawanda Richter MD at 16:37 EDT , Discharge Plan Triage Chief Complaint: Abd Pain ED Provider: Kulwinder Rockwell Dx/Rx/DC Orders Clinical Impression: Constipation Instructions: ED Constipation (Adult) Prescriptions: No Action ipratropium-albuterol 0.5 mg-3 mg(2.5 mg base)/3 mL solution for nebulization 3 ml INHALATION Q8H albuterol sulfate 2.5 mg /3 mL (0.083 %) solution for nebulization 2.5 mg INHALATION Q4H PRN (Reason: Sob &/Or Wheezing) Ventolin HFA 90 mcg/actuation HFA aerosol inhaler 2 puff INHALATION Q4H PRN (Reason: Sob &/Or Wheezing) prednisone 20 mg tablet 60 mg PO DAILY Qty: 15 0RF potassium chloride 20 mEq tablet extended release 40 meq PO DAILY Qty: 14 0RF calcium carbonate 600 mg calcium (1,500 mg) tablet 1,200 mg PO DAILY Qty: 20 0RF Primary Care Provider: Maci Thibodeaux NP Referrals: Maci Thibodeaux NP, CARDIOLOGY NURSE PRACTITIONER-C [Primary Care Provider] - Activity Restrictions/Additional Instructions: Thank you for trusting us with your care today! Your lab and imaging workup was reassuring today. There is no signs of acute life-threatening or surgical pathology in your abdomen. Your CT scan was consistent with constipation. I recommend beginning a bowel regimen which consists of MiraLAX, Colace, senna as well as fiber 1 cereal daily until desired consistency of bowels are achieved. Please take Tylenol (2 pills, 650 mg), ibuprofen (2 pills, 400 mg) every 6 hours as needed for pain and fever control. Please return to the emergency department if your symptoms change or worsen. Please follow with your primary care physician for further outpatient evaluation and management. Disposition Disposition: Home, Self Care
--- NOTE | 2023-12-13 14:45 | CT_ITS ---
STUDY: CT ABDOMEN AND PELVIS WITH CONTRAST REASON FOR EXAM: Female, 63 years old. Abdominal pain. Constipation. RADIATION DOSAGE (If Supplied By Facility): CTDIvol = ( 5 ) mGy, DLP = ( 209 ) mGycm TECHNIQUE: Transaxial images were obtained through the abdomen and pelvis without oral contrast. 75 ml of Isovue-370 contrast was administered. Sagittal and coronal images were reconstructed. Individualized dose optimization techniques were used for this CT. COMPARISON: No relevant prior comparison study available FINDINGS: LOWER THORAX: There is atelectasis at the lung bases. There are emphysematous changes noted. The visualized portions of the heart and pericardium are within normal limits. GALLBLADDER / BILE DUCTS: There are no calcified gallstones present. There is no intrahepatic biliary duct dilatation. The common bile duct is normal in caliber. There are no calcified ductal stones. LIVER: The liver is within normal limits. There are no suspicious hepatic lesions. SPLEEN: The spleen is normal in size. PANCREAS: The pancreas is within normal limits. ADRENAL GLANDS: The adrenal glands are within normal limits. KIDNEYS / BLADDER: There are no renal or ureteral stones. There is no hydronephrosis. There is a simple cyst in the left kidney. This is benign and does not require follow-up. The urinary bladder is partially distended and appears grossly unremarkable. STOMACH / BOWEL: Normal visualized stomach. There are surgical clips noted in the sigmoid colon, consistent with prior bowel resection. There is no bowel obstruction or inflammation. There is a large amount of stool in the colon, consistent with constipation. The appendix is visualized and appears normal. PERITONEUM/RETROPERITONEUM: There is no abdominal or pelvic free air, free fluid or fluid collection. There is no abnormal soft tissue mass identified. There is no abdominal or pelvic lymphadenopathy. VESSELS: There are atherosclerotic calcifications noted in the aorta and its branches. The aorta is normal in caliber. The IVC is unremarkable. BONES: There are no destructive osseous lesions. SOFT TISSUES: The visualized soft tissues are within normal limits. CT/Abdomen/Pelvis W IV Cont ONLY IMPRESSION: No bowel obstruction or inflammation. Normal appendix. Constipation. No urinary calculi. No hydronephrosis. Atherosclerosis. Emphysema. Electronically Signed: Tawanda Richter MD at 16:37 EDT ,
[2023-12-13] MEDS: 0.9% Normal Saline (1000mL) 1,000 ML 1000 ML IV (15:04)
[2023-12-13] MEDS: Ketorolac 15 MG/ML Vial IV (15:04)
[2023-12-13] MEDS: Ondansetron 4 MG/2 ML Vial IV (15:04)
[2023-12-13 15:06] VITALS: BMI 14.6
[2023-12-13 15:14] LABS: Absolute Lymphocyte Count 1.66 X10^3/uL (0.83-4.51); Absolute Neutrophil Count 2.9 X10^3/uL (2.0-7.7); Basophil# 0.04 X10^3/uL; Basophil% 0.8 % (0-1); Eosinophils% 1.9 % (0-5); Hematocrit 40.3 % (37-47); Hemoglobin 13.4 g/dL (12.0-15.0); Lymphocyte # 1.66 X10^3/ul (0.83-4.51); Lymphocyte % 32.1 % (19-41); Mean Corp Hgb Conc 33.3 g/dL (32-36); Mean Corpuscular Hgb 29.1 pg (27.0-32.0); Mean Corpuscular Volume 87.6 fL (81-99); Monocyte# 0.48 X10^3/uL; Monocyte% 9.3 % (0-10); NRBC Flagged by Analyzer 0 % (0-5); Neutrophil # 2.87 X10^3/uL (2.7-7.7); Neutrophil % 55.5 % (47-70); Platelet Count 251 K/mm3 (150-450); RBC Distribution Width CV 12.5 % (11.6-14.6); RBC Distribution Width SD 39.8 fl (35.1-43.9); White Blood Count 5.2 K/mm3 (4.4-11.0)
[2023-12-13 15:35] LABS: AST(SGOT) 13 U/L (15-37); Alanine Aminotransfer ALT/SGPT 16 U/L (13-56); Albumin, Serum 3.7 g/dL (3.2-5.0); Alkaline Phosphatase 63 U/L (45-117); Anion Gap 5 (5-15); BUN 5 mg/dL (7-18); BUN/Creat Ratio 12.7 RATIO (10-20); Bilirubin, Direct 0.23 mg/dL (0.00-0.30); Calcium,Total 8.8 mg/dL (8.5-10.1); Chloride 103 mmol/L (98-107); Creatinine, Serum 0.39 mg/dL (0.55-1.02); EST Glomerular Filtration Rate 175 mL/min (>60); Est Glom Filt Rate - Afr Amer 212 mL/min (>60); Estimated Creatinine Clearance 86.33 ml/min; Globulin 3.2 g/dL (2.2-4.2); Glucose 94 mg/dL (74-106); Potassium 3.7 mmol/L (3.5-5.1); Protein, Total 6.9 g/dL (6.4-8.2); Sodium Level 135 mmol/L (136-145)
[2023-12-13 15:37] LABS: Lactic Acid 0.7 mmol/L (0.4-1.9)
[2023-12-13 16:00] VITALS: BP 119/82; PULSE 102; RESP 18; O2SAT 97
[2023-12-13 17:00] LABS: Bacteria 0 SEEN /hpf (None Seen); Mucous, Urine 0 SEEN /hpf (<or=2+); Red Blood Cells-Urine 0 SEEN /hpf (0-5); Squamous Epithelial Cells - UA 0 SEEN /hpf (5-10); White Blood Cells 0 SEEN /hpf (0-5)
[2023-12-13 17:04] LABS: Color, Urine Yellow (Yellow); Glucose, Dipstick Normal (Normal); Ketone-Dipstick 5 mg/dl (Negative); Leukocyte Esterase-Dipstick Negative /ul (Negative); Nitrite-Dipstick Negative (Negative); Occult Blood-Urine Negative /ul (Negative); Protein-Dipstick Negative (Negative); Urine Bilirubin Dipstick Negative (Negative); Urine Clarity Clear (Clear); Urine Urobilinogen Normal (Normal)
[2023-12-13] MEDS: Ipratropium/Albuterol Sulfate 3 ML AMPUL.NEB INHALATION (17:20)
[2023-12-13 17:22] VITALS: PULSE 107; RESP 18
[2023-12-13 17:23] VITALS: BP 95/77; PULSE 111; RESP 18; TEMP 37.1; O2SAT 94
== END 2023-12-13 18:00 | disposition home or self-care (01) ==
PROVIDERS: Emergency Provider Emergency Medicine; PCP Nurse Practitioner Family; Visit Provider Emergency Medicine
DX: K59.00 Constipation, unspecified (principal); J43.9 Emphysema, unspecified; E87.1 Hypo-osmolality and hyponatremia; Z87.891 Personal history of nicotine dependence; K21.9 Gastro-esophageal reflux disease without esophagitis; Z90.49 Acquired absence of other specified parts of digestive tract; Z87.19 Personal history of other diseases of the digestive system
CPT/HCPCS: 74177; 80048; 80076; 81001; 83605; 85025; 94640; 96361; 96374; 96375; 99282; J7030; Q9967; J2405

== ENCOUNTER 2024-01-30 08:49 | Emergency (ER) | payer MEDICAID, SELFPAY ==
[2019-04-26 09:42] VITALS: BMI 20.8
[2024-01-30] VITALS (9 sets, daily range): BP systolic 95–131; BP diastolic 72–97; PULSE 81–117; RESP 16–20; TEMP 36.4–36.7; O2SAT 90–99; BMI 20.2
--- NOTE | 2024-01-30 08:59 | EX.ED.DYSGE1 ---
HPI History of Present Illness Chief Complaint: Abd Pain [facility] Medical History (Updated 12/21/23 @ 00:01 by Background Russ) Wasting generalized Anxiety Otalgia of right ear Rhinosinusitis Bronchitis Acute exacerbation of emphysema COPD (chronic obstructive pulmonary disease) GERD (gastroesophageal reflux disease) Arthritis Neck pain Osteoporosis Osteopenia Mass of multiple sites of right breast Breast mass Palate abnormality Wheezing Rib pain Atypical chest pain Acute abdominal pain Bacteremia Lung nodule Lung mass Tick bite Rib fracture Pre-operative cardiovascular examination Dependence on supplemental oxygen Home Medications ?Medication ?Instructions ?Recorded ?Last Taken ?Type albuterol sulfate 2.5 mg/3 mL 2.5 mg inhalation Q4H PRN Sob &/Or 10/03/18 Unknown History (0.083 %) solution for nebulization Wheezing albuterol sulfate 90 mcg/actuation 2 puff inhalation Q4H PRN Sob &/Or 10/03/18 Unknown History aerosol inhaler (Ventolin HFA) Wheezing ipratropium 0.5 mg-albuterol 3 mg 3 ml inhalation Q8H 10/03/18 Unknown History (2.5 mg base)/3 mL nebulization soln calcium carbonate 1,200 mg (2 x 600 mg calcium 06/03/23 Unknown Rx (1,500 mg)) PO DAILY #20 tabs potassium chloride 20 mEq 40 meq (2 x 20 mEq) PO DAILY #14 06/03/23 Unknown Rx tablet,extended release tabs prednisone 20 mg tablet 60 mg (3 x 20 mg) PO DAILY #15 06/03/23 Unknown Rx TABLETS Allergy/AdvReac Type Severity Reaction Status Date / Time ciprofloxacin (From Cipro) Allergy Intermediate SOB Verified 01/30/24 08:50 fluticasone (From Advair Allergy Mild Ashtma, Verified 01/30/24 08:50 Diskus) Itching, Pruritus, Rash metronidazole (From Flagyl) Allergy Mild Verified 01/30/24 08:50 penicillin G Allergy Mild Verified 01/30/24 08:50 salmeterol (From Advair Allergy Mild Ashtma, Verified 01/30/24 08:50 Diskus) Itching, Pruritus, Rash sulfamethoxazole (From Allergy Mild Rash Verified 01/30/24 08:50 Bactrim) trimethoprim (From Bactrim) Allergy Mild Rash Verified 01/30/24 08:50 Penicillins Allergy Swelling Verified 01/30/24 08:50 Family History Father Colon cancer Surgical History History of colonoscopy History of bilateral tubal ligation History of partial colectomy Social History Smoking Status: Former smoker Tobacco: How many years used: 20 how long ago did patient quit smokin years second hand exposure: No alcohol intake: current alcohol intake frequency: holidays/special occasions only substance use type: does not use caffeine: Yes EXAM Physical Exam Const Vital Signs: 01/30/24 08:50 01/30/24 10:41 01/30/24 11:57 Temperature 98.1 F 97.6 F L Temperature Source Temporal Pulse Rate 117 H 103 H 81 Respiratory Rate 20 H 16 18 Blood Pressure 131/97 H 108/82 H 110/79 Blood Pressure Mean 108 91 89 Pulse Ox 90 98 98 Oxygen Delivery Method Nasal Cannula Nasal Cannula Oxygen Flow Rate (L/min) 3 MDM MDM MDM Narrative Medical decision making narrative: HISTORY OF PRESENT ILLNESS: 63 year old female presents with abdominal pain. Notes 1 week of worsening abdominal pain, rectal pain. Notes no vomiting, no fever, notes decreased urination along the same time course. Notes pain acutely worsened last night. Notes pain in her rectum. Denies any hematochezia or melena. Denies any burning with urination, frequency or urgency. Denies any vaginal bleeding or discharge. Reports prior history of partial colectomy. States she has been taking a bowel regimen every other day. REVIEW OF SYSTEMS: All other systems reviewed and are negative except as noted in the history of present illness. At least 10 review of systems reviewed and are negative except as noted in history of present illness. PHYSICAL EXAM: Nursing triage notes reviewed, Vital signs reviewed Constitutional: please see mdm HENT: MMM Eyes: Pupils equal round and reactive to light, Extraocular muscles intact Neck: No stridor, no JVD, full neck ROM Lungs: Clear to auscultation, No wheezing or rales. No increased work of breathing, no conversational dyspnea, no accessory muscle use, no nasal flaring. No respiratory distress noted Heart: Regular rate and rhythm, No murmurs, No rubs and No gallops, 2+ distal pulses (radial, femoral, posterior tibial) in all extremities Abdomen: Soft, no appreciable tenderness. No rigidity, rebound or guarding, no obvious peritoneal signs, no palpable pulsatile abdominal masses, no auscultated abdominal bruit : No CVAT Extremities: No edema Neuro: No focal neurological deficits, cranial nerves II through XII intact, 5/5 strength in all extremities. Intact sensation to light touch in all extremities, 2+ reflexes bilateral patella tendons. Normal gait. No ataxia. Skin: No rash or lesions noted MEDICAL DECISION MAKING: Chief Complaint: abdominal pain External records reviewed: T scan of the abdomen pelvis from November 2023 shows no bowel obstruction or inflammation, normal appendix, noted constipation Factors affecting care: History of partial colectomy COPD, constipation, GERD Social determinants of health: History obtained from others: Consults: none MDM Narrative: Patient was initially tachycardic otherwise hemodynamically stable saturating well on 3 L nasal cannula (baseline oxygen). Abdominal exam benign with no appreciable tenderness distention guarding or rebound. No peritoneal signs. I considered the following differential diagnosis: AAA, small bowel obstruction, abdominal perforation, appendicitis, pancreatitis, hepatobiliary pathology (acute cholecystitis), mesenteric ischemia, abnormalities such as pyelonephritis, nephrolithiasis I obtained a broad lab and imaging workup to further elucidate the etiology patient complaints. Treat patient medically with IV fluid, Toradol and Zofran ALL IMAGES (IF OBTAINED) HAVE BEEN PERSONALLY REVIEWED AND INTERPRETED BY MYSELF. CT scan of the abdomen pelvis shows no evidence of obvious obstruction and perforation, no evidence of constipation or fecal impaction Urinalysis shows no evidence of urinary inflammation suggestive of UTI LFTs without evidence of pedal bleed obstruction although there is noted mild hyperbilirubinemia BMP without evidence of significant electrolyte abnormalities, no anion gap, no acute kidney injury. Lipase is wnl indicating no pancreatic inflammation. CBC without leukocytosis, severe anemia, no thrombocytopenia. The synthesis of the patient's history, physical exam, abdomen suggest constipation. Will give Fleet enema, mag citrate and bowel regiment for home-going. Strict return precaution were discussed. GI follow-up discussed. I see nothing that would suggest an acute abdomen at this time. Based on history physical exam, risk factors, my suspicion for bowel obstruction, incarcerated hernia, perforated viscus, acute cholecystitis, appendicitis is very low. There is no evidence of peritonitis sepsis or toxicity at this time. I feel the patient can be managed as an outpatient with follow-up with her/his primary physician in the next 24 to 48 hours or soon as possible. Instructions have been given for the patient to return to the ED for worsening pain, anorexia, high fevers, intractable vomiting or bleeding. The patient and/or family, caregivers express understanding. The patient and/or family, caregivers agrees with the plan. Total critical care time today provided was at least 0 minutes. This excludes separately billable procedures. Critical care time (if documented) is secondary to the patient having high probability of clinically significant/life threatening deterioration in the patient's condition which required my urgent intervention. Shared decision making: I will have a discussion with the patient and or visitors regarding risk/benefits of further testing or admission. They will be made aware of of the risk/benefits inherent in this decision they will be given the opportunity to voice understanding. Impression: 1. Constipation 2. Hyponatremia 3. Hyperbilirubinemia Disposition: Discharge Kulwinder Rockwell DO This note was generated with [employer] dictation software. It may contain incorrect words, spelling, and punctuation that were not noted in review of the chart prior to signing. Lab Data Labs: Laboratory Results - last 24 hr 01/30/24 01/30/24 09:30 10:34 WBC 6.7 RBC 5.06 Hgb 15.1 H Hct 45.2 MCV 89.3 MCH 29.8 MCHC 33.4 RDW Std Deviation 39.3 RDW Coeff of Stephanie 12.0 Plt Count 289 MPV 8.9 Immature Gran % (Auto) 1.700 H Neut % (Auto) 66.9 Lymph % (Auto) 21.5 [place] % (Auto) 9.2 Eos % (Auto) 0.5 Baso % (Auto) 0.2 Absolute Neuts (auto) 4.5 Absolute Lymphs (auto) 1.43 Nucleated RBC % 0 Sodium 130 L Potassium 4.6 Chloride 100 Carbon Dioxide 26.0 Anion Gap 4 L BUN 8 Creatinine 0.48 L Est GFR (MDRD) Af Amer 170 Est GFR (MDRD) Non-Af 140 BUN/Creatinine Ratio 16.7 Glucose 99 Calcium 9.4 Total Bilirubin 1.20 H AST 26 ALT 27 Alkaline Phosphatase 53 Total Protein 6.8 Albumin 3.6 Globulin 3.2 Albumin/Globulin Ratio 1.1 Lipase 16 Urine Color Yellow Urine Clarity Cloudy Urine pH 8.0 Ur Specific [place] 1.015 Urine Protein Negative Urine Glucose (UA) Normal Urine Ketones Negative Urine Occult Blood Negative Urine Nitrite Negative Urine Bilirubin Negative Urine Urobilinogen Normal Ur Leukocyte Esterase Negative Urine RBC 0 SEEN Urine WBC 0-5 SEEN Ur Squamous Epith Cells 0 SEEN Amorphous Sediment 2+ Urine Bacteria 1+ Urine Mucus 0 SEEN Radiography Diagnostic Testing: Clinical Impression(s) from Imaging Studies Abdomen/Pelvis CT 01/30/24 10:50 IMPRESSION: Stable examination. No acute abnormality is seen. Electronically Signed: Froilan Frye MD at 11:14 EDT , Discharge Plan Triage Chief Complaint: Abd Pain ED Provider: Kulwinder Rockwell Dx/Rx/DC Orders Instructions: ED Constipation (Adult) Prescriptions: No Action ipratropium-albuterol 0.5 mg-3 mg(2.5 mg base)/3 mL solution for nebulization 3 ml INHALATION Q8H albuterol sulfate 2.5 mg /3 mL (0.083 %) solution for nebulization 2.5 mg INHALATION Q4H PRN (Reason: Sob &/Or Wheezing) Ventolin HFA 90 mcg/actuation HFA aerosol inhaler 2 puff INHALATION Q4H PRN (Reason: Sob &/Or Wheezing) prednisone 20 mg tablet 60 mg PO DAILY Qty: 15 0RF potassium chloride 20 mEq tablet extended release 40 meq PO DAILY Qty: 14 0RF calcium carbonate 600 mg calcium (1,500 mg) tablet 1,200 mg PO DAILY Qty: 20 0RF Primary Care Provider: Maci Thibodeaux NP Referrals: Darvin Henao DO [Med Staff - Active Staff] - Maci Thibodeaux NP, [facility] [Primary Care Provider] - Activity Restrictions/Additional Instructions: Thank you for trusting us with your care today! Please begin a daily bowel regimen. This consists of Colace, senna, MiraLAX, Metamucil daily, every day until desired consistency of stool is reached. In addition to bowel regimen please go to local grocery store and obtain fiber 1 cereal. Please eat a bowl of fiber 1 cereal daily. Please return to the emergency department if your symptoms change or worsen. Please follow with your Gastroenterology for further outpatient evaluation and management. Print Language: Albanian Disposition Disposition: Home, Self Care
[2024-01-30] MEDS: 0.9% Normal Saline (1000mL) 1,000 ML 999 ML IV (09:31)
--- NOTE | 2024-01-30 09:31 | EKG12_ITS ---
Test Reason : SOB Blood Pressure : / mmHG Vent. Rate : 060 BPM Atrial Rate : 060 BPM P-R Int : 204 ms QRS Dur : 120 ms QT Int : 444 ms P-R-T Axes : 085 -66 003 degrees QTc Int : 444 ms Atrial-paced rhythm Left axis deviation Pulmonary disease pattern Right bundle branch block Abnormal ECG Confirmed by Saurav Cooper [id number]), graphics editor CESAR QUESADA ([id number]) on 01/31/2024 8:56:29 AM Also confirmed by Saurav Cooper [id number]), graphics editor CESAR QUESADA ([id number]) on 04/04/2024 10:21:26 AM Referred By: FABIEN Confirmed By:Saurav Cooper
[2024-01-30] MEDS: Ondansetron 4 MG/2 ML Vial IV (09:32)
[2024-01-30] MEDS: Ketorolac 15 MG/ML Vial IV (09:33)
[2024-01-30 09:50] LABS: Absolute Lymphocyte Count 1.43 X10^3/uL (0.83-4.51); Absolute Neutrophil Count 4.5 X10^3/uL (2.0-7.7); Basophil# 0.01 X10^3/uL; Basophil% 0.2 % (0-1); Eosinophil# 0.03 X10^3/uL; Eosinophils% 0.5 % (0-5); Hematocrit 45.2 % (37-47); Hemoglobin 15.1 g/dL (12.0-15.0); Lymphocyte # 1.43 X10^3/ul (0.83-4.51); Lymphocyte % 21.5 % (19-41); Mean Corp Hgb Conc 33.4 g/dL (32-36); Mean Corpuscular Hgb 29.8 pg (27.0-32.0); Mean Corpuscular Volume 89.3 fL (81-99); Mean Platelet Vol. 8.9 fl (6.2-12.0); Monocyte# 0.61 X10^3/uL; Monocyte% 9.2 % (0-10); NRBC Flagged by Analyzer 0 % (0-5); Neutrophil # 4.46 X10^3/uL (2.7-7.7); Neutrophil % 66.9 % (47-70); Platelet Count 289 K/mm3 (150-450); RBC Distribution Width SD 39.3 fl (35.1-43.9); Red Blood Count 5.06 M/mm3 (4.2-5.4); White Blood Count 6.7 K/mm3 (4.4-11.0)
[2024-01-30 10:27] LABS: ALB/GLOB Ratio 1.1 RATIO (0.9-2.4); AST(SGOT) 26 U/L (15-37); Alanine Aminotransfer ALT/SGPT 27 U/L (13-56); Albumin, Serum 3.6 g/dL (3.2-5.0); Alkaline Phosphatase 53 U/L (45-117); Anion Gap 4 (5-15); BUN 8 mg/dL (7-18); BUN/Creat Ratio 16.7 RATIO (10-20); Calcium,Total 9.4 mg/dL (8.5-10.1); Chloride 100 mmol/L (98-107); Creatinine, Serum 0.48 mg/dL (0.55-1.02); EST Glomerular Filtration Rate 140 mL/min (>60); Est Glom Filt Rate - Afr Amer 170 mL/min (>60); Globulin 3.2 g/dL (2.2-4.2); Glucose 99 mg/dL (74-106); Lipase 16 U/L (13-75); Potassium 4.6 mmol/L (3.5-5.1); Protein, Total 6.8 g/dL (6.4-8.2); Sodium Level 130 mmol/L (136-145)
[2024-01-30 10:39] LABS: Mucous, Urine 0 SEEN /hpf (<or=2+); Red Blood Cells-Urine 0 SEEN /hpf (0-5); Squamous Epithelial Cells - UA 0 SEEN /hpf (5-10)
[2024-01-30 10:42] LABS: Color, Urine Yellow (Yellow); Glucose, Dipstick Normal (Normal); Ketone-Dipstick Negative (Negative); Leukocyte Esterase-Dipstick Negative /ul (Negative); Nitrite-Dipstick Negative (Negative); Occult Blood-Urine Negative /ul (Negative); Protein-Dipstick Negative (Negative); Specific Gravity, Urine 1.015 (1.002-1.030); Urine Bilirubin Dipstick Negative (Negative); Urine Clarity Cloudy (Clear); Urine Urobilinogen Normal (Normal)
[2024-01-30 10:47] LABS: Amorphous Sediment 2+; Bacteria 1+ /hpf (None Seen); White Blood Cells 0-5 SEEN /hpf (0-5)
--- NOTE | 2024-01-30 10:50 | CT_ITS ---
STUDY: CT ABDOMEN AND PELVIS WITH CONTRAST REASON FOR EXAM: Female, 63 years old. Abdominal pain RADIATION DOSAGE (If Supplied By Facility): CTDIvol = ( 7.22 ) mGy, DLP = ( 200.52 ) mGycm TECHNIQUE: Transaxial images were obtained from the dome of the diaphragm to the symphysis pubis without oral contrast. IV 70mL Isovue-300 was administered. Sagittal and coronal images were reconstructed. Individualized dose optimization techniques were used for this CT. COMPARISON: Comparison is made with prior study December 13, 2023. FINDINGS: The visualized lung bases are unremarkable. The visualized portions of the heart are within normal limits. Normal liver. Normal gallbladder and extrahepatic biliary system. Normal spleen. Normal pancreas. Normal bilateral adrenal glands. Normal right kidney. Stable left renal cysts. Normal visualized stomach. Normal small intestine. Surgical anastomosis is seen in the region of the sigmoid colon. The appendix is visualized and appears normal. There is diffuse atherosclerotic calcification of the abdominal aorta, without a demonstrated aneurysm. Normal inferior vena cava. Normal retroperitoneum. Normal urinary bladder. Normal abdominal wall. Loss of the normal lumbar lordosis. CT/Abdomen/Pelvis W IV Cont ONLY IMPRESSION: Stable examination. No acute abnormality is seen. Electronically Signed: Froilan Frye MD at 11:14 EDT ,
[2024-01-30] MEDS: Fleet Enema 133 ML RC (11:55)
[2024-01-30] MEDS: Magnesium Citrate 300 ML 150 ML PO (11:55)
== END 2024-01-30 12:13 | disposition home or self-care (01) ==
PROVIDERS: Emergency Provider Emergency Medicine; PCP Nurse Practitioner Family; Visit Provider Emergency Medicine
DX: R10.9 Unspecified abdominal pain (principal); J44.9 Chronic obstructive pulmonary disease, unspecified; E87.1 Hypo-osmolality and hyponatremia; Z87.891 Personal history of nicotine dependence; E80.6 Other disorders of bilirubin metabolism; K59.00 Constipation, unspecified; K21.9 Gastro-esophageal reflux disease without esophagitis; Z90.49 Acquired absence of other specified parts of digestive tract
CPT/HCPCS: 74177; 80053; 81001; 83690; 85025; 93005; 96361; 96374; 96375; 99282; J7030; Q9967; A4216; J2405

== ENCOUNTER 2024-04-01 09:02 | Inpatient (IN) | payer MEDICAID, SELFPAY ==
[2019-04-26 09:42] VITALS: BMI 20.8
[2024-04-01] VITALS (51 sets, daily range): BP systolic 70–135; BP diastolic 51–94; PULSE 87–130; RESP 12–94; TEMP 36.1–37; O2SAT 93–100; BMI 16.0; BMI 14.7
--- NOTE | 2024-04-01 09:05 | CPS ---
Patient placed on BiPAP. Patient only tolerated for 2-3 minutes.
--- NOTE | 2024-04-01 09:09 | EKG12_ITS ---
Test Reason : SOB Blood Pressure : / mmHG Vent. Rate : 121 BPM Atrial Rate : 121 BPM P-R Int : 136 ms QRS Dur : 074 ms QT Int : 314 ms P-R-T Axes : 086 077 082 degrees QTc Int : 445 ms Sinus tachycardia Nonspecific ST abnormality Abnormal ECG Confirmed by PHILIP SAHA, DIONNA ([id number]), editor school photograph VLAD LU ([id number]) on 04/03/2024 9:30:19 AM Referred By: Confirmed By:DIONNA PALACIOS MD
--- NOTE | 2024-04-01 09:11 | EDS_ITS ---
HPI History of Present Illness Chief Complaint: Shortness of Breath Informant: patient and EMS Narrative Narrative: 63-year-old female history of oxygen dependent COPD presenting to the emergency room with respiratory failure. Patient states that yesterday she began to experience breathing difficulty. This progressed throughout the night. She called EMS who noted that her oxygen levels were around 80%. Patient typically wears 3 L nasal cannula. She notes a slight increase in cough as well as nausea without vomiting. She does not have a transplant case manager. She denies any history of coronary artery disease/CHF. She does not wear BiPAP/CPAP at night. No r eported fever. [facility] Medical History (Updated 04/01/24 @ 14:[address] Jose Stringer, ) Wasting generalized Anxiety Otalgia of right ear Rhinosinusitis Bronchitis Acute exacerbation of emphysema COPD (chronic obstructive pulmonary disease) GERD (gastroesophageal reflux disease) Arthritis Neck pain Osteoporosis Osteopenia Mass of multiple sites of right breast Breast mass Palate abnormality Wheezing Rib pain Atypical chest pain Acute abdominal pain Bacteremia Lung nodule Lung mass Tick bite Rib fracture Pre-operative cardiovascular examination Dependence on supplemental oxygen Home Medications ?Medication ?Instructions ?Recorded ?Last Taken ?Type albuterol sulfate 2.5 mg/3 mL 2.5 mg inhalation Q4H PRN Sob &/Or 10/03/18 Unknown History (0.083 %) solution for nebulization Wheezing albuterol sulfate 90 mcg/actuation 2 puff inhalation Q4H PRN Sob &/Or 10/03/18 Unknown History aerosol inhaler (Ventolin HFA) Wheezing ipratropium 0.5 mg-albuterol 3 mg 3 ml inhalation Q8H 10/03/18 Unknown History (2.5 mg base)/3 mL nebulization soln calcium carbonate 1,200 mg (2 x 600 mg calcium 06/03/23 Unknown Rx (1,500 mg)) PO DAILY #20 tabs potassium chloride 20 mEq 40 meq (2 x 20 mEq) PO DAILY #14 06/03/23 Unknown Rx tablet,extended release tabs prednisone 20 mg tablet 60 mg (3 x 20 mg) PO DAILY #15 06/03/23 Unknown Rx TABLETS Allergy/AdvReac Type Severity Reaction Status Date / Time ciprofloxacin (From Cipro) Allergy Intermediate SOB Verified 04/01/24 09:10 fluticasone (From Advair Allergy Mild Ashtma, Verified 04/01/24 09:10 Diskus) Itching, Pruritus, Rash metronidazole (From Flagyl) Allergy Mild Verified 04/01/24 09:10 penicillin G Allergy Mild Verified 04/01/24 09:10 salmeterol (From Advair Allergy Mild Ashtma, Verified 04/01/24 09:10 Diskus) Itching, Pruritus, Rash sulfamethoxazole (From Allergy Mild Rash Verified 04/01/24 09:10 Bactrim) trimethoprim (From Bactrim) Allergy Mild Rash Verified 04/01/24 09:10 Penicillins Allergy Swelling Verified 04/01/24 09:10 Family History Father Colon cancer Surgical History History of colonoscopy History of bilateral tubal ligation History of partial colectomy Social History Smoking Status: Former smoker Tobacco: How many years used: 20 how long ago did patient quit smokin years second hand exposure: No alcohol intake: current alcohol intake frequency: holidays/special occasions only substance use type: does not use caffeine: Yes ROS ROS ED Constitutional Constitutional ED: Denies chills, fever(s) or weight loss Eyes Eyes: Denies change in vision or diplopia ENT ENT ED: Denies ear pain, rhinorrhea or sore throat Cardiovascular Cardiovascular: Denies chest pain, orthopnea, palpitations or racing heartbeat Respiratory/Chest Respiratory/Chest: Reports cough, dyspnea and dyspnea on exertion; Denies orthopnea Gastrointestinal Gastrointestinal: Denies abdominal pain, diarrhea, nausea or vomiting Genitourinary Genitourinary ED: Denies dysuria, hematuria or urinary frequency Musculoskeletal Musculoskeletal: Denies arthralgias or myalgias Integumentary Denies abscess or rash Neurologic Neurologic: Denies headache(s) or weakness Psychiatric Psychiatric: Denies anxiety, depression, suicidal ideation or suicidal thoughts Endocrine Endocrinology: Denies polydipsia, polyphagia or polyuria Allergic/Immunologic Allergic/Immunologic ED: Denies mouth swelling, tongue swelling or urticaria EXAM Physical Exam Const Vital Signs: 04/01/24 09:05 04/01/24 09:06 04/01/24 09:09 Temperature 96.9 F L Temperature Source Temporal Pulse Rate 125 H Respiratory Rate 42 H Respiratory Effort Respiratory Depth Respiratory Pattern Blood Pressure 135/80 H Blood Pressure Mean 98 Pulse Ox 95 95 Oxygen Delivery Method Nasal Cannula Nasal Cannula Oxygen Flow Rate (L/min) 4 4 Fraction of Inspired Oxygen (FIO2) 35 04/01/24 09:11 04/01/24 09:20 04/01/24 09:45 Temperature Temperature Source Pulse Rate 130 H Respiratory Rate 21 H Respiratory Effort Short of Breath Labored Respiratory Depth Shallow Respiratory Pattern Tachypnea Blood Pressure Blood Pressure Mean Pulse Ox 96 Oxygen Delivery Method Nasal Cannula Nasal Cannula Oxygen Flow Rate (L/min) 4 4 Fraction of Inspired Oxygen (FIO2) 04/01/24 09:50 04/01/24 10:05 04/01/24 10:37 Temperature Temperature Source Pulse Rate 123 H 125 H Respiratory Rate 18 12 Respiratory Effort Respiratory Depth Respiratory Pattern Normal Blood Pressure 126/83 H Blood Pressure Mean 97 Pulse Ox 93 93 93 Oxygen Delivery Method Nasal Cannula Room Air Oxygen Flow Rate (L/min) 3 Fraction of Inspired Oxygen (FIO2) 35 04/01/24 10:37 04/01/24 10:39 04/01/24 10:42 Temperature Temperature Source Pulse Rate 122 H 128 H 121 H Respiratory Rate 94 H 24 H 25 H Respiratory Effort Respiratory Depth Respiratory Pattern Blood Pressure 134/86 H 119/76 112/70 Blood Pressure Mean 102 90 84 Pulse Ox 98 97 Oxygen Delivery Method Nasal Cannula Mechanical Ventilator Mechanical Ventilator Oxygen Flow Rate (L/min) 4 Fraction of Inspired Oxygen (FIO2) 04/01/24 10:55 04/01/24 10:55 04/01/24 11:10 Temperature Temperature Source Pulse Rate 121 H 102 H Respiratory Rate 14 14 13 Respiratory Effort Respiratory Depth Respiratory Pattern Blood Pressure 93/74 108/69 Blood Pressure Mean 80 82 Pulse Ox 98 98 Oxygen Delivery Method Mechanical Ventilator Mechanical Ventilator Oxygen Flow Rate (L/min) Fraction of Inspired Oxygen (FIO2) 35 04/01/24 11:15 04/01/24 11:37 04/01/24 11:50 Temperature Temperature Source Pulse Rate 128 H 108 H 114 H Respiratory Rate 14 16 13 Respiratory Effort Respiratory Depth Respiratory Pattern Blood Pressure 106/94 H 83/59 L 93/69 Blood Pressure Mean 98 67 77 Pulse Ox 98 97 98 Oxygen Delivery Method Mechanical Ventilator Mechanical Ventilator Mechanical Ventilator Oxygen Flow Rate (L/min) Fraction of Inspired Oxygen (FIO2) 04/01/24 12:00 04/01/24 12:09 04/01/24 12:24 Temperature 97.9 F Temperature Source Pulse Rate 110 H 110 H 101 H Respiratory Rate 14 14 12 Respiratory Effort Respiratory Depth Respiratory Pattern Blood Pressure 94/68 94/68 74/57 L Blood Pressure Mean 76 76 62 Pulse Ox 97 98 100 Oxygen Delivery Method Mechanical Ventilator Mechanical Ventilator Oxygen Flow Rate (L/min) Fraction of Inspired Oxygen (FIO2) 04/01/24 12:34 04/01/24 13:00 04/01/24 13:51 Temperature Temperature Source Pulse Rate 101 H 101 H 101 H Respiratory Rate 12 14 12 Respiratory Effort Respiratory Depth Respiratory Pattern Blood Pressure 81/62 L 89/65 L Blood Pressure Mean 68 73 Pulse Ox 99 99 100 Oxygen Delivery Method Mechanical Ventilator Mechanical Ventilator Oxygen Flow Rate (L/min) Fraction of Inspired Oxygen (FIO2) 35 04/01/24 14:00 Temperature Temperature Source Pulse Rate 95 Respiratory Rate 18 Respiratory Effort Respiratory Depth Respiratory Pattern Blood Pressure 99/72 Blood Pressure Mean 81 Pulse Ox 100 Oxygen Delivery Method Mechanical Ventilator Oxygen Flow Rate (L/min) Fraction of Inspired Oxygen (FIO2) Positive well nourished, well developed and cachectic General Appearance ED: well developed and cachectic Nutritional Appearance: cachectic HEENT Reports normocephalic, head/scalp atraumatic and moist mucous membranes Eyes PERRL and EOMs intact bilaterally Neck no lymphadenopathy, supple and no JVD Resp Resp Narrative: Patient has significantly increased work of breathing. Minimal air movement. Cardio regular rate, regular rhythm and no murmurs Rate: tachycardic GI normal to inspection, nondistended, normoactive bowel sounds and non-tender Palpation: soft Back/Spine no CVA tenderness and normal ROM Extremity normal to inspection General Extremety ED: Negative for edema General Extremity: Negative for edema Neuro oriented x3 and CN's II-XII intact bilaterally Sensorium / Orientation: alert Motor Exam: strength 5/5 throughout Psych mental status grossly normal Mood & Affect: Negative for depressed or tearful Skin no rashes or lesions noted and no wounds MDM MDM MDM Narrative Medical decision making narrative: Differential diagnosis includes but not limited to COPD exacerbation, cardiac dysrhythmia, CHF, pneumonia, viral syndrome, bronchitis, acid-base disturbance, pneumothorax, ACS, Patient was unable to tolerate BiPAP. She received breathing treatments and supplemental oxygen and Solu-Medrol. ABG shows a pH of 7.327 pCO2 59.2 pO2 126 bicarb 31 White count returns at 14.6 hemoglobin 13.7 platelet count of 292. Anion gap of 5 BUN of 14 creatinine 0.36. Lactic acid 1.6 total CK1 2 08/21/2011 troponin is 60 my independent interpretation of the chest x-ray is COPD changes with possible small apical pneumothorax noted on the right. Patient developed hypoxemia into the low 80s. I discussed with her and the patient regarding her next steps. The patient states she is becoming fatigued and having a harder time breathing. She does not wish BiPAP and I mentioned that the really the next option would be intubation. I explained her this would not be involved to being placed on a ventilator and sedated. She notes understanding and consents to this. Patient to underwent RSI using etomidate and succinylcholine. Endotracheal tube was placed without any difficulty and secured. Good color change was noted. Diminished breath sounds again noticed bilaterally. My independent interpretation of the postintubation films is again probable right apical pneumothorax with endotracheal tube placement. Patient had an extremely hard time being sedated. We tried propofol with minimal success. We tried to fentanyl and Precedex. She responded well with Versed and eventually was kept sedated using fentanyl and the Precedex. CTA of the chest demonstrates right-sided pneumothorax no pulmonary embolism. Spoke with the who consents to chest tube placement. I spoke with Dr. Gomez from general surgery who will be following the chest tube. We can place a 20 [place] chest tube. Patient received a bolus of Versed and rocuronium. The right chest wall was washed with Betadine and allowed to dry. He was sterilely prepped. Chest landmarks identified and using the standard technique a right sided 20 [place] chest tube was placed and sutured into place. A [place] of air was heard when I entered the pleural space. Petroleum gauze placed and then chest tube secured. Plaintiff interpretation of the post chest tube placement x-ray demonstrates adequate placement of the chest tube. There is improvement of the pneumothorax. At this point patient will be admitted to the intensive care unit. History & Record Review Discussion w/independent historian: EMS personnel, Patient and Significant other Lab Data Attestation: I reviewed the patient's lab results. Labs: Laboratory Results - last 24 hr 04/01/24 09:25 WBC 14.6 H RBC 4.54 Hgb 13.7 Hct 41.7 MCV 91.9 MCH 30.2 MCHC 32.9 RDW Std Deviation 42.0 RDW Coeff of Stephanie 12.5 Plt Count 292 MPV 9.0 Immature Gran % (Auto) 0.300 Neut % (Auto) 90.3 H Lymph % (Auto) 4.0 L Mcminn % (Auto) 5.3 Eos % (Auto) 0.0 Baso % (Auto) 0.1 Absolute Neuts (auto) 13.2 H Absolute Lymphs (auto) 0.59 L Nucleated RBC % 0 Sodium 137 Potassium 4.1 Chloride 101 Carbon Dioxide 31.0 Anion Gap 5 BUN 14 Creatinine 0.36 L Estim Creat Clear Calc 102.85 Est GFR (MDRD) Af Amer 234 Est GFR (MDRD) Non-Af 193 BUN/Creatinine Ratio 38.7 H Glucose 125 H Lactic Acid 1.6 Calcium 9.3 Total Bilirubin 0.80 Direct Bilirubin 0.22 AST 68 H ALT 35 Alkaline Phosphatase 70 Total Creatine Kinase 1211 H Troponin I High Sens 60 H Total Protein 7.9 Albumin 4.2 Globulin 3.7 Triglycerides 32 ABG Data ABG results: ABG 04/01/24 04/01/24 09:27 11:48 Specimen Type ART Cancelled Sample Site L Radial Cancelled pH 7.33 L Cancelled Bicarbonate Actual 31.0 H Cancelled Total CO2 33 Cancelled Base Excess 5 H Cancelled O2 Saturation 99 Cancelled O2 % 4.0 Cancelled ABG pCO2 59.2 H Cancelled ABG pO2 126 H Cancelled Pj Test Cancelled Respiration Rate Cancelled O2 Delivery Device Cannula Cancelled Liter Flow Cancelled Minute Volume Cancelled Vent Mode Not entered Cancelled Inspiratory Time Cancelled Expiratory Time Cancelled Tidal Volume Cancelled Mean Airway Pressure Cancelled POC PEEP Cancelled Peak Inspir Pressure Cancelled POC Pressure Suppt Cancelled Pressure Control Cancelled Pressure High Cancelled Pressure Low Cancelled Time High Cancelled Time Low Cancelled EPAP Cancelled IPAP Cancelled Blood Gas Comments Cancelled Crit Call To/Read Back Cancelled Blood Gas Notified Whom Cancelled Blood Gas Notified Time Cancelled Clinical Comments Cancelled Radiography Diagnostic Testing: Clinical Impression(s) from Imaging Studies Chest X-Ray 04/01/24 09:39 IMPRESSION: Hyperinflation and COPD with right apical pneumothorax. Correlation with a CT scan is recommended. Electronically Signed: Froilan Frye MD at 9:58 EDT , Chest CTA 04/01/24 10:34 IMPRESSION: Hyperinflation and emphysematous changes worse in the upper lobes. Fibrocalcific scarring in the right upper lobe as well as a irregular density with scirrhous appearance in the posterior right upper lobe. A neoplastic process should BE ruled out. Increased markings at the lung bases suggestive of scarring. Right pneumothorax as described. No evidence of pulmonary embolism. Electronically Signed: Froilan Frye MD at 13:32 EDT , Chest X-Ray 04/01/24 10:40 IMPRESSION: The tip of the endotracheal tube is at 7.4 cm proximal to the zarina. An orogastric tube is seen with the tip below the left hemidiaphragm. Stable persistent right apical pneumothorax. Loculated pneumothorax in the right costophrenic angle. Electronically Signed: Froilan Frye MD at 11:05 EDT , EKG Initial EKG: Attestation: I personally reviewed and interpreted this EKG as follows: Comments: Sinus tachycardia ventricular rate of 121 bpm Management Discussion w/another healthcare provider: Hospitalist (Dr. Lucas) and Gasoline Finisher (Dr. Gomez) Discharge Plan Dx/Rx/DC Orders Clinical Impression: COPD with acute exacerbation, Pneumothorax on right, Respiratory failure Disposition Disposition: Acute Care [facility]
[2024-04-01] MEDS: Ondansetron 4 MG/2 ML Vial IV (09:20)
[2024-04-01] MEDS: MethylPREDNISolone 125 MG/2 ML Vial 60 MG IV (09:21)
[2024-04-01] MEDS: Ipratropium/Albuterol Sulfate 3 ML AMPUL.NEB INHALATION ×4 (09:22→22:05)
[2024-04-01] MEDS: Albuterol 2.5 MG/3 ML VIAL.NEB. INHALATION (09:22)
[2024-04-01] MEDS: 0.9% Normal Saline (1000mL) 1,000 ML 150 ML IV (09:23)
[2024-04-01 09:30] LABS: Base Excess 5 mmol/L (-2 to +2); Blood Gas Specimen Type ART; Mode Not entered; O2 Delivery Device Cannula; PO2 126 mmHG (75-100); SITE L Radial; SO2 99 % (95-99); Total Carbon Dioxide 33 mmol/L; pCO2 59.2 mmHg (35-45); pH 7.33 (7.35-7.45)
[2024-04-01 09:33] LABS: Absolute Lymphocyte Count 0.59 X10^3/uL (0.83-4.51); Absolute Neutrophil Count 13.2 X10^3/uL (2.0-7.7); Basophil# 0.02 X10^3/uL; Basophil% 0.1 % (0-1); Hematocrit 41.7 % (37-47); Hemoglobin 13.7 g/dL (12.0-15.0); Lymphocyte # 0.59 X10^3/ul (0.83-4.51); Mean Corp Hgb Conc 32.9 g/dL (32-36); Mean Corpuscular Hgb 30.2 pg (27.0-32.0); Mean Corpuscular Volume 91.9 fL (81-99); Monocyte# 0.78 X10^3/uL; Monocyte% 5.3 % (0-10); NRBC Flagged by Analyzer 0 % (0-5); Neutrophil # 13.19 X10^3/uL (2.7-7.7); Neutrophil % 90.3 % (47-70); POSITIVE DIFFERENTIAL YES; Platelet Count 292 K/mm3 (150-450); RBC Distribution Width CV 12.5 % (11.6-14.6); Red Blood Count 4.54 M/mm3 (4.2-5.4); White Blood Count 14.6 K/mm3 (4.4-11.0)
--- NOTE | 2024-04-01 09:39 | RAD_ITS ---
STUDY: X-RAY CHEST REASON FOR EXAM: Female, 63 years old. Respiratory failure TECHNIQUE: Single AP portable view of the chest. COMPARISON: Comparison is made with prior study June 03, 2023. FINDINGS: EKG electrodes are seen. There is hyperinflation of the lungs consistent with chronic obstructive lung disease (COPD). Findings suggestive of a small right apical pneumothorax measuring approximately 5%. There is evidence of scarring at the lung bases with blunting of both costophrenic angles. A linear density seen along the medial aspect of the right upper lobe suggestive of scarring. Questionable 1.3 cm nodule in the medial right upper lobe. Correlation with a CT scan is recommended for further evaluation. Normal size heart. Normal mediastinum and scarlet. There is prominence of the pulmonary hilar arteries without peripheral pulmonary vascular congestion, suggesting pulmonary hypertension. There is atherosclerotic calcification of the aortic arch with tortuosity. There are diffuse degenerative changes of the visualized thoracic spine. Normal visualized ribs, clavicles, and shoulders. There is no demonstrated abnormality of the visualized soft tissue structures of the upper abdomen. RAD/Chest 1 View (Portable) IMPRESSION: Hyperinflation and COPD with right apical pneumothorax. Correlation with a CT scan is recommended. Electronically Signed: Froilan Frye MD at 9:58 EDT ,
[2024-04-01 10:00] LABS: AST(SGOT) 68 U/L (15-37); Alanine Aminotransfer ALT/SGPT 35 U/L (13-56); Albumin, Serum 4.2 g/dL (3.2-5.0); Alkaline Phosphatase 70 U/L (45-117); Anion Gap 5 (5-15); BUN 14 mg/dL (7-18); BUN/Creat Ratio 38.7 RATIO (10-20); Bilirubin, Direct 0.22 mg/dL (0.00-0.30); Calcium,Total 9.3 mg/dL (8.5-10.1); Chloride 101 mmol/L (98-107); Creatinine, Serum 0.36 mg/dL (0.55-1.02); EST Glomerular Filtration Rate 193 mL/min (>60); Est Glom Filt Rate - Afr Amer 234 mL/min (>60); Estimated Creatinine Clearance 102.85 ml/min; Globulin 3.7 g/dL (2.2-4.2); Glucose 125 mg/dL (74-106); Potassium 4.1 mmol/L (3.5-5.1); Protein, Total 7.9 g/dL (6.4-8.2); Sodium Level 137 mmol/L (136-145); Troponin-I HS 60 pg/mL (3.0-54.0)
[2024-04-01 10:03] LABS: Lactic Acid 1.6 mmol/L (0.4-1.9)
--- NOTE | 2024-04-01 10:34 | CT_ITS ---
STUDY: CTA CHEST REASON FOR EXAM: Female, 63 years old. Possible pulmonary embolism. RADIATION DOSAGE (If Supplied By Facility): CTDIvol = ( 3.67 ) mGy, DLP = ( 121.48 ) mGycm TECHNIQUE: The examination was performed with the intravenous administration of IV 100mL [id number]-370. Post-processing of the angiographic images was performed, with multiplanar reformation and 3D reconstruction. Individualized dose optimization techniques were used for this CT. COMPARISON: None. FINDINGS: An endotracheal tube is in situ. An orogastric tube is seen with the tip in the stomach. Normal enhancement of the main pulmonary artery and right and left pulmonary arteries. Normal enhancement of the bilateral peripheral pulmonary arteries. There is no demonstrated pulmonary embolism. There is atherosclerotic calcification of the aortic arch with tortuosity. There is no demonstrated aortic dissection. There are calcifications of the coronary arteries. Normal mediastinum. Normal hilar regions. Normal visualized trachea and bronchi. The lungs are hyper expanded, with flattening of the hemidiaphragms. Diffuse emphysematous changes with multiple bulla formation worse in the upper lobes. There is a right apical pneumothorax measuring approximately 5-10%. This extends laterally into the lateral aspect of the right lower lobe anteriorly. There is a 1 cm x 1.7 cm fibrocalcific density in the right upper lobe. There is evidence of scarring in the posterior aspect of the right lower lobe with the sclera''s appearance. A neoplastic process cannot be excluded. Correlation with a PET scan is recommended if clinically indicated. Normal chest wall structures. Osteopenia of the thoracic vertebrae. 50% loss of height of the T1 and T5 vertebrae. Normal visualized upper abdomen. CT/CTA Chest W/WO Contrast IMPRESSION: Hyperinflation and emphysematous changes worse in the upper lobes. Fibrocalcific scarring in the right upper lobe as well as a irregular density with scirrhous appearance in the posterior right upper lobe. A neoplastic process should BE ruled out. Increased markings at the lung bases suggestive of scarring. Right pneumothorax as described. No evidence of pulmonary embolism. Electronically Signed: Froilan Frye MD at 13:32 EDT ,
[2024-04-01] MEDS: Etomidate 20 MG/10 ML Vial 12 MG IV (10:37)
[2024-04-01] MEDS: Succinylcholine Chloride 200 MG/10 ML Vial 50 MG IV (10:37)
--- NOTE | 2024-04-01 10:40 | RAD_ITS ---
STUDY: X-RAY CHEST REASON FOR EXAM: Female, 63 years old. Intubation TECHNIQUE: Single AP portable view of the chest. COMPARISON: Comparison is made with prior study done earlier today. FINDINGS: An endotracheal tube is in situ. The tip is at 7.4 cm proximal to zarina. An orogastric tube is seen with the tip below left hemidiaphragm. Stable hyperinflation and COPD. Stable 5% right apical pneumothorax. Loculated pneumothorax in the right costophrenic angle. Normal size heart. Normal mediastinum and scarlet. Normal visualized pulmonary arteries. There is atherosclerotic calcification of the aortic arch with tortuosity. Normal visualized thoracic spine. Normal visualized ribs, clavicles, and shoulders. There is no demonstrated abnormality of the visualized soft tissue structures of the upper abdomen. RAD/Chest 1 View (Portable) IMPRESSION: The tip of the endotracheal tube is at 7.4 cm proximal to the zarina. An orogastric tube is seen with the tip below the left hemidiaphragm. Stable persistent right apical pneumothorax. Loculated pneumothorax in the right costophrenic angle. Electronically Signed: Froilan Frye MD at 11:05 EDT ,
[2024-04-01] MEDS: Propofol 10MG/Ml 1,000 MG/100 ML Bottle 2.4 MG CONT INF (10:42)
[2024-04-01] MEDS: Propofol 200 MG/20 ML Vial 40 MG IV BOLUS (10:46)
[2024-04-01] MEDS: fentaNYL 100 MCG/2 ML Ampul 50 MCG IV ×2 (10:55→11:23)
[2024-04-01] MEDS: fentaNYL drip 100 ML 5 MCG CONT INF (11:01)
[2024-04-01] MEDS: dexMEDEtomidine 400 MCG in 0.9% Normal Saline (100mL Bag) 96 ML CONT INF (11:09)
[2024-04-01] MEDS: Midazolam 5 MG/ML Syringe IV ×2 (11:59→13:58)
--- NOTE | 2024-04-01 12:10 | ED.RN ---
DR. WYMAN, RT, CHARGE NURSE AND MEDIC AT BEDSIDE FOR INTUBATION. AT 1037 12 OF ETOMIDATE AND 50 OF SUCCINYLCHOLINE WERE GIVEN. DR WYMAN PLACED A 7.5 ET TUBE AT 22CM. A 16F OG WAS ALSO PLACED. RESTRAINTS INITIATED AT 1040. PROPOFOL DRIP STARTED AT 1042. PT STILL RESTLESS AND AGITATED, MD AWARE. ADDITIONAL MEDS ORDERED AND GIVEN TO HELP (SEE MAR). PRECEDEX AND FENTANYL DRIPS INITIATED WHEN ABLE AND TRITIATED UP NEEDED/PER PROTOCOL PER PATIENTS RASS SCORE. MD AWARE OF PATIENT AGITATION, MORE ONE TIME DOSE MEDS ORDERED (SEE MAR). PATIENT CURRENTLY RESTING COMFORTABLY. PRIMARY RN, RT AND CHARGE NURSE STILL AT BEDSIDE.
[2024-04-01 13:30] LABS: CPK Total, Creatine Kinase 1211 U/L (26-192); Triglycerides 32 mg/dL
[2024-04-01] MEDS: Lidocaine 1% (20 ml mdv) 20 ML Vial 5 ML INFILT (13:32)
[2024-04-01] MEDS: Rocuronium Bromide 50 MG/5 ML Vial 40 MG IV (13:58)
--- NOTE | 2024-04-01 14:19 | RAD_ITS ---
STUDY: X-RAY CHEST REASON FOR EXAM: Female, 63 years old. CHEST TUBE PLACEMENT TECHNIQUE: Single AP portable view of the chest. COMPARISON: Comparison is made with prior study done earlier today. FINDINGS: A right-sided chest tube has been placed with the tip in the superior medial aspect of the right upper lobe. Hyperinflation. No evidence of a pneumothorax at this time. The tip of the endotracheal tube is at 4.5 sinus proximal to the zarina. Nasogastric tube is seen with the tip in the body of the stomach just distal to the gastroesophageal junction. RAD/Chest 1 View IMPRESSION: Status post right-sided chest tube placement. The tip is in the medial aspect of the right upper lobe. No evidence of pneumothorax on this time. Electronically Signed: Froilan Frye MD at 14:37 EDT ,
--- NOTE | 2024-04-01 14:35 | PCM.HP.STD ---
HPI - General General Date of Admission: 04/01/24 Date of Service: 04/01/24 Chief Complaint: Shortness of breath HPI Narrative KENA CORONA, is a 63 F who presented to the emergency department at [facility] on 04/01/2024 with a chief complaint of shortness of breath. Unable to get any history from the patient as she was intubated and sedated at time of my evaluation however ER documentation indicates that her shortness of breath started the day prior to presentation and progressed through the night. She called EMS and was noted that her oxygen levels were around 80% on her baseline 3 L nasal cannula. She also reported some slight increase in cough as well as some nausea without vomiting. 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 She denied any fever. She did not tolerate BiPAP and eventually required intubation and mechanical ventilation in the emergency department. She underwent rapid sequence intubation using abdominally and succinylcholine and the ET tube was placed without any difficulty. CTA of the chest and postintubation x-ray show right-sided pneumothorax for which a chest tube was placed but was negative for PE. General surgery was called from the emergency department and Dr. Stringer spoke with Dr. Gomez who agreed with large bore chest tube placement and will follow on the floor. Vital signs showed sats that were initially stable on on 4 L nasal cannula however the patient was fatiguing and she was trialed on BiPAP however did not tolerate this. Due to her worsening respiratory status she was intubated and placed on mechanical ventilation. Her heart rate was initially 125 but improved into the low 100s after intubation., Blood pressure was 135/80, respiratory was 42. CBC showed a slight leukocytosis with a white count of 14.6 and a left shift with a 90.3% neutrophilia. Her ABG showed a pH of 7.33 with a pCO2 of 59.2 and a pO2 of 126. We have no previous ABG for comparison. Chemistry panel showed normal electrolytes, renal function. Her AST was slightly elevated at 68 with normal ALT. Bilirubin was normal. CK was slightly elevated at 1211 and initial troponin was 60 with no EKG changes. Her BNP was 120. [facility] Medical History (Updated 04/01/24 @ 14:[address] Radha Lucas DO) Wasting generalized Anxiety Otalgia of right ear Rhinosinusitis Bronchitis Acute exacerbation of emphysema COPD (chronic obstructive pulmonary disease) GERD (gastroesophageal reflux disease) Arthritis Neck pain Osteoporosis Osteopenia Mass of multiple sites of right breast Breast mass Palate abnormality Wheezing Rib pain Atypical chest pain Acute abdominal pain Bacteremia Lung nodule Lung mass Tick bite Rib fracture Pre-operative cardiovascular examination Dependence on supplemental oxygen Home Medications ?Medication ?Instructions ?Recorded ?Last Taken ?Type albuterol sulfate 2.5 mg/3 mL 2.5 mg inhalation Q4H PRN Sob &/Or 10/03/18 Unknown History (0.083 %) solution for nebulization Wheezing albuterol sulfate 90 mcg/actuation 2 puff inhalation Q4H PRN Sob &/Or 10/03/18 Unknown History aerosol inhaler (Ventolin HFA) Wheezing ipratropium 0.5 mg-albuterol 3 mg 3 ml inhalation Q8H 10/03/18 Unknown History (2.5 mg base)/3 mL nebulization soln calcium carbonate 1,200 mg (2 x 600 mg calcium 06/03/23 Unknown Rx (1,500 mg)) PO DAILY #20 tabs potassium chloride 20 mEq 40 meq (2 x 20 mEq) PO DAILY #14 06/03/23 Unknown Rx tablet,extended release tabs prednisone 20 mg tablet 60 mg (3 x 20 mg) PO DAILY #15 06/03/23 Unknown Rx TABLETS Allergy/AdvReac Type Severity Reaction Status Date / Time ciprofloxacin (From Cipro) Allergy Intermediate SOB Verified 04/01/24 09:10 fluticasone (From Advair Allergy Mild Ashtma, Verified 04/01/24 09:10 Diskus) Itching, Pruritus, Rash metronidazole (From Flagyl) Allergy Mild Verified 04/01/24 09:10 penicillin G Allergy Mild Verified 04/01/24 09:10 salmeterol (From Advair Allergy Mild Ashtma, Verified 04/01/24 09:10 Diskus) Itching, Pruritus, Rash sulfamethoxazole (From Allergy Mild Rash Verified 04/01/24 09:10 Bactrim) trimethoprim (From Bactrim) Allergy Mild Rash Verified 04/01/24 09:10 Penicillins Allergy Swelling Verified 04/01/24 09:10 Family History Father Colon cancer Surgical History History of colonoscopy History of bilateral tubal ligation History of partial colectomy Social History Smoking Status: Former smoker Tobacco: How many years used: 20 how long ago did patient quit smokin years second hand exposure: No alcohol intake: current alcohol intake frequency: holidays/special occasions only substance use type: does not use caffeine: Yes ROS Review of Systems ROS Unobtainable: due to endotracheal tube Vital Signs Vital Signs Vital Signs: 04/01/24 09:05 04/01/24 09:06 04/01/24 09:09 Temperature 96.9 F L Temperature Source Temporal Pulse Rate 125 H Respiratory Rate 42 H Respiratory Effort Respiratory Depth Respiratory Pattern Blood Pressure 135/80 H Blood Pressure Mean 98 Pulse Ox 95 95 Oxygen Delivery Method Nasal Cannula Nasal Cannula Oxygen Flow Rate (L/min) 4 4 Fraction of Inspired Oxygen (FIO2) 35 04/01/24 09:11 04/01/24 09:20 04/01/24 09:45 Temperature Temperature Source Pulse Rate 130 H Respiratory Rate 21 H Respiratory Effort Short of Breath Labored Respiratory Depth Shallow Respiratory Pattern Tachypnea Blood Pressure Blood Pressure Mean Pulse Ox 96 Oxygen Delivery Method Nasal Cannula Nasal Cannula Oxygen Flow Rate (L/min) 4 4 Fraction of Inspired Oxygen (FIO2) 04/01/24 09:50 04/01/24 10:05 04/01/24 10:37 Temperature Temperature Source Pulse Rate 123 H 125 H Respiratory Rate 18 12 Respiratory Effort Respiratory Depth Respiratory Pattern Normal Blood Pressure 126/83 H Blood Pressure Mean 97 Pulse Ox 93 93 93 Oxygen Delivery Method Nasal Cannula Room Air Oxygen Flow Rate (L/min) 3 Fraction of Inspired Oxygen (FIO2) 35 04/01/24 10:37 04/01/24 10:39 04/01/24 10:42 Temperature Temperature Source Pulse Rate 122 H 128 H 121 H Respiratory Rate 94 H 24 H 25 H Respiratory Effort Respiratory Depth Respiratory Pattern Blood Pressure 134/86 H 119/76 112/70 Blood Pressure Mean 102 90 84 Pulse Ox 98 97 Oxygen Delivery Method Nasal Cannula Mechanical Ventilator Mechanical Ventilator Oxygen Flow Rate (L/min) 4 Fraction of Inspired Oxygen (FIO2) 04/01/24 10:55 04/01/24 10:55 04/01/24 11:10 Temperature Temperature Source Pulse Rate 121 H 102 H Respiratory Rate 14 14 13 Respiratory Effort Respiratory Depth Respiratory Pattern Blood Pressure 93/74 108/69 Blood Pressure Mean 80 82 Pulse Ox 98 98 Oxygen Delivery Method Mechanical Ventilator Mechanical Ventilator Oxygen Flow Rate (L/min) Fraction of Inspired Oxygen (FIO2) 35 04/01/24 11:15 04/01/24 11:37 04/01/24 11:50 Temperature Temperature Source Pulse Rate 128 H 108 H 114 H Respiratory Rate 14 16 13 Respiratory Effort Respiratory Depth Respiratory Pattern Blood Pressure 106/94 H 83/59 L 93/69 Blood Pressure Mean 98 67 77 Pulse Ox 98 97 98 Oxygen Delivery Method Mechanical Ventilator Mechanical Ventilator Mechanical Ventilator Oxygen Flow Rate (L/min) Fraction of Inspired Oxygen (FIO2) 04/01/24 12:00 04/01/24 12:09 04/01/24 12:24 Temperature 97.9 F Temperature Source Pulse Rate 110 H 110 H 101 H Respiratory Rate 14 14 12 Respiratory Effort Respiratory Depth Respiratory Pattern Blood Pressure 94/68 94/68 74/57 L Blood Pressure Mean 76 76 62 Pulse Ox 97 98 100 Oxygen Delivery Method Mechanical Ventilator Mechanical Ventilator Oxygen Flow Rate (L/min) Fraction of Inspired Oxygen (FIO2) 04/01/24 12:34 04/01/24 13:00 04/01/24 13:51 Temperature Temperature Source Pulse Rate 101 H 101 H 101 H Respiratory Rate 12 14 12 Respiratory Effort Respiratory Depth Respiratory Pattern Blood Pressure 81/62 L 89/65 L Blood Pressure Mean 68 73 Pulse Ox 99 99 100 Oxygen Delivery Method Mechanical Ventilator Mechanical Ventilator Oxygen Flow Rate (L/min) Fraction of Inspired Oxygen (FIO2) 35 04/01/24 14:00 Temperature Temperature Source Pulse Rate 95 Respiratory Rate 18 Respiratory Effort Respiratory Depth Respiratory Pattern Blood Pressure 99/72 Blood Pressure Mean 81 Pulse Ox 100 Oxygen Delivery Method Mechanical Ventilator Oxygen Flow Rate (L/min) Fraction of Inspired Oxygen (FIO2) Weight Weight: 39.7 kg Body Mass Index (BMI) 16.0 Physical Exam Const no apparent distress; Negative for alert, oriented x3, average body habitus, healthy appearing or well nourished Constitutional Narrative: Cachectic, white female, lying in bed intubated and sedated, appears stable on mechanical ventilation, appears chronically ill HEENT normocephalic, head/scalp atraumatic and moist oral mucous membranes HEENT Narrative: ET tube and OG in place, dentition is poor, temporal wasting is present Eyes Eyes Narrative: Pupils are pinpoint, significant arcus senilis, scleral icterus Neck no lymphadenopathy and supple Neck Narrative: Trachea midline, no thyroid enlargement Resp no retractions and no use of accessory muscles Resp Narrative: Markedly diminished diffusely, poor air movement Auscultation: Negative for rales, rhonchi or wheezes Cardio regular rate, regular rhythm, S1 normal heart sound, S2 normal heart sound, no murmurs, no rub, no gallops and no clicks GI normal to inspection, nondistended, normoactive bowel sounds, soft to palpation and non-tender GI Narrative: Scaphoid abdomen Extremity no clubbing, cyanosis or edema Extremity Narrative: Markedly decreased muscle mass Skin skin turgor normal, no jaundice, no petechiae and no mottling Skin Narrative: Skin is thin with scattered ecchymosis, no significant wounds noted Neuro Neuro Narrative: Patient is intubated and sedated Psych Psych Narrative: Patient is intubated and sedated Results Lab / Micro Data 04/01/24 09:25 04/01/24 09:25 Labs: Laboratory Results - last 24 hr 04/01/24 09:25: WBC 14.6 H, RBC 4.54, Hgb 13.7, Hct 41.7, MCV 91.9, MCH 30.2, MCHC 32.9, RDW Std Deviation 42.0, RDW Coeff of Stephanie 12.5, Plt Count 292, MPV 9.0, Immature Gran % (Auto) 0.300, Neut % (Auto) 90.3 H, Lymph % (Auto) 4.0 L, Izard % (Auto) 5.3, Eos % (Auto) 0.0, Baso % (Auto) 0.1, Absolute Neuts (auto) 13.2 H, Absolute Lymphs (auto) 0.59 L, Nucleated RBC % 0, Sodium 137, Potassium 4.1, Chloride 101, Carbon Dioxide 31.0, Anion Gap 5, BUN 14, Creatinine 0.36 L, Estim Creat Clear Calc 102.85, Est GFR (MDRD) Af Amer 234, Est GFR (MDRD) Non-Af 193, BUN/Creatinine Ratio 38.7 H, Glucose 125 H, Lactic Acid 1.6, Calcium 9.3, Total Bilirubin 0.80, Direct Bilirubin 0.22, AST 68 H, ALT 35, Alkaline Phosphatase 70, Total Creatine Kinase 1211 H, Troponin I High Sens 60 H, Total Protein 7.9, Albumin 4.2, Globulin 3.7, Triglycerides 32 ABG Data ABG results: ABG 04/01/24 04/01/24 09:27 11:48 Specimen Type ART Cancelled Sample Site L Radial Cancelled pH 7.33 L Cancelled Bicarbonate Actual 31.0 H Cancelled Total CO2 33 Cancelled Base Excess 5 H Cancelled O2 Saturation 99 Cancelled O2 % 4.0 Cancelled ABG pCO2 59.2 H Cancelled ABG pO2 126 H Cancelled Pj Test Cancelled Respiration Rate Cancelled O2 Delivery Device Cannula Cancelled Liter Flow Cancelled Minute Volume Cancelled Vent Mode Not entered Cancelled Inspiratory Time Cancelled Expiratory Time Cancelled Tidal Volume Cancelled Mean Airway Pressure Cancelled POC PEEP Cancelled Peak Inspir Pressure Cancelled POC Pressure Suppt Cancelled Pressure Control Cancelled Pressure High Cancelled Pressure Low Cancelled Time High Cancelled Time Low Cancelled EPAP Cancelled IPAP Cancelled Blood Gas Comments Cancelled Crit Call To/Read Back Cancelled Blood Gas Notified Whom Cancelled Blood Gas Notified Time Cancelled Clinical Comments Cancelled Imaging Radiology Impression Chest X-Ray 04/01/24 09:39 IMPRESSION: Hyperinflation and COPD with right apical pneumothorax. Correlation with a CT scan is recommended. Electronically Signed: Froilan Frye MD at 9:58 EDT , Chest CTA 04/01/24 10:34 IMPRESSION: Hyperinflation and emphysematous changes worse in the upper lobes. Fibrocalcific scarring in the right upper lobe as well as a irregular density with scirrhous appearance in the posterior right upper lobe. A neoplastic process should BE ruled out. Increased markings at the lung bases suggestive of scarring. Right pneumothorax as described. No evidence of pulmonary embolism. Electronically Signed: Froilan Frye MD at 13:32 EDT , Chest X-Ray 04/01/24 10:40 IMPRESSION: The tip of the endotracheal tube is at 7.4 cm proximal to the zarina. An orogastric tube is seen with the tip below the left hemidiaphragm. Stable persistent right apical pneumothorax. Loculated pneumothorax in the right costophrenic angle. Electronically Signed: Froilan Frye MD at 11:05 EDT , Assessment & Plan Assessment/Plan (1) Acute on chronic respiratory failure with hypoxia and hypercapnia: (2) Pneumothorax on right: (3) Severe chronic obstructive pulmonary disease: (4) COPD with acute exacerbation: (5) Leukocytosis: (6) Pulmonary cachexia due to COPD: (7) Elevated CK: PLAN: Plan Acute on chronic hypoxic and hypercapnic respiratory failure secondary to acute exacerbation of COPD/+/-superimposed infection -Based on ABG-hypercapnia appears to be chronic -Based on PFTs from 2019 patient would meet criteria for hospice and extubation may be very difficult -FEV1 was 24% predicted -Patient requires 3 L of oxygen [id number] at baseline -Etiology for acute exacerbation is unclear at this time -Will check cultures--> urine is UA suggestive of infection, sputum, and blood -Start broad-spectrum antibiotics-With vancomycin, Zosyn, and azithromycin for now and narrow as able -IV steroids 40 every 8 for now -Check respiratory viral panel -Check strep pneumo and Legionella antigens -Scheduled and as needed nebulizers -Daily sedation vacation with mechanical ventilation weaning protocol -Continue fentanyl and Precedex for now as blood pressure and heart rate seem to be stable after intubation -Check echocardiogram -Pulmonary/critical care medicine consultation Elevated CK -etiology is unclear -will cycle Elevated troponin -Cycle cardiac enzymes -Check echocardiogram -highly suspicious that this is related to acute process with hypoxia Right-sided pneumothorax -Chest tube in place -Wall suction -Consult general surgery for assistance with chest tube management per discussion with ER physician his case was already discussed with Dr. Gomez -Check a.m. chest x-ray Leukocytosis -Likely related to the above -Rule out infection -may be stress response from hypoxia Pulmonary cachexia -highly suspect severe malnutrition -consult dietitian -Start tube feed as soon as possible COPD -Most recent PFTs we have here are from 2019 at which time she had an FEV1 of 24% predicted -Based on this patient would qualify for hospice -Pulmonary toilet as above -It appears patient has been noncompliant with visits as of late DVT prophylaxis -Enoxaparin as ordered CODE STATUS -Full as was verified by emergency department physician prior to intubation and chest tube placement however overall prognosis extremely poor and the patient does not show clinical improvement hospice conversation would be extremely reasonable CCT >35'min without procedures Charges/Coding Procedures Hospitalists Procedures: [id number] Critical Care 1st Hr
[2024-04-01] MEDS: Cefazolin 1 GM/50 ML BAG IV (14:44)
--- NOTE | 2024-04-01 15:58 | ECHOD_ITS ---
Reason For Study: SOB Procedure This was a 2D Doppler, Color Flow transthoracic echocardiogram. Exam performed portable in ICU/CCU. Patient scanned sitting upright. Left Ventricle Normal LV size. Left ventricular systolic function is normal. The left ventricular ejection fraction is 65 %. No regional wall motion abnormalities noted. Right Ventricle Normal RV size. Normal systolic function. Atria Normal left atrium. Normal right atrium. Mitral Valve Normal mitral valve. Tricuspid Valve Normal tricuspid valve. Mild tricuspid valve insufficiency. Pulmonary artery systolic pressure is 25 mmHg. Aortic Valve Trisinus/trileaflet aortic valve. Pulmonic Valve Normal pulmonic valve. Great Vessels Normal aortic root. The pulmonary artery is normal size. Normal inferior vena cava. Pericardium/Pleural No pericardial effusion. MMode/2D Measurements & Calculations LVIDd: 3.4 cm IVSd: 0.68 cm Ao root diam: 2.4 cm LVIDs: 1.9 cm LVPWd: 0.78 cm RVDd: 2.8 cm FS: 43.3 % LAV(MOD-bp): 25.5 ml LA A4 area: 12.1 cm2 LA dimension(2D): 2.1 cm LAV(MOD-bp) Indexed: 19.7 ml/m2 LAV(MOD-sp2): 24.2 ml LAV(MOD-sp4): 25.4 ml TAPSE: 2.5 cm RA A4 area: 7.2 cm2 Doppler Measurements & Calculations MV E max rock: 74.6 cm/sec Lat Peak E' Rock: 16.2 cm/sec Med Peak E' Rock: 17.7 cm/sec MV A max rock: 69.4 cm/sec E/E' lat: 4.6 E/E' med: 4.2 MV E/A: 1.1 Ao V2 max: 111.7 cm/sec LV V1 max: 107.5 cm/sec PA V2 max: 83.4 cm/sec Ao max P.0 mmHg LV V1 max P.6 mmHg PI end-d rock: 162.5 cm/sec TR max rock: 237.1 cm/sec TR max P.5 mmHg ECHO/Echo Complete Interpretation Summary Normal LV size. Left ventricular systolic function is normal. No regional wall motion abnormalities noted. The left ventricular ejection fraction is 65 %. Structurally normal valves. Ordering Physician: Radha Lucas Referring Physician: Maci Thibodeaux Performed By: Mackenzie Salas RDCS
[2024-04-01 16:10] LABS: Mucous, Urine 0 SEEN /hpf (<or=2+); Squamous Epithelial Cells - UA 0 SEEN /hpf (5-10)
[2024-04-01 16:14] LABS: Base Excess 1 mmol/L (-2 to +2); Bicarbonate 27.7 mmol/L (22-26); Blood Gas Specimen Type ART; Mode AC; O2 Delivery Device Not entered; PEEP 5; PO2 59 mmHG (75-100); RR 12; SITE R Brach; SO2 84 % (95-99); Total Carbon Dioxide 30 mmol/L; pCO2 63.3 mmHg (35-45); pH 7.25 (7.35-7.45)
[2024-04-01 16:17] LABS: Color, Urine Yellow (Yellow); Glucose, Dipstick Normal (Normal); Ketone-Dipstick 50 mg/dl (Negative); Leukocyte Esterase-Dipstick 25 /ul (Negative); Nitrite-Dipstick Negative (Negative); Occult Blood-Urine 250 /ul (Negative); Protein-Dipstick 30 mg/dl (Negative); Urine Bilirubin Dipstick Negative (Negative); Urine Clarity Clear (Clear); Urine Urobilinogen Normal (Normal)
[2024-04-01] MEDS: Cefepime HCl 2 GM in 0.9% Normal Saline (100mL MB+) 100 ML IV ×2 (16:25→22:06)
[2024-04-01 16:29] LABS: Bacteria 1+ /hpf (None Seen); Red Blood Cells-Urine 25-50 SEEN /hpf (0-5); White Blood Cells 10-25 SEEN /hpf (0-5)
[2024-04-01] MEDS: 0.9% Normal Saline (1000mL) 1,000 ML 999 ML IV (16:32)
[2024-04-01 16:39] LABS: Troponin-I HS 67 pg/mL (3.0-54.0)
[2024-04-01 16:44] LABS: CPK Total, Creatine Kinase 875 U/L (26-192)
[2024-04-01] MEDS: Pantoprazole Sodium 40 MG in 0.9% Normal Saline (100mL MB+) 100 ML 330 MG IV (17:08)
--- NOTE | 2024-04-01 17:36 | EX.PCM.CON.S ---
Assessment & Plan Assessment/Plan (1) Pneumothorax on right: PLAN: Patient is 63-year-old female who presented with right pneumothorax in the setting of respiratory failure. Patient was emergently intubated and then a thoracostomy tube was placed by emergency medicine. Patient is found in the ICU in relatively stable condition with a normal heart rate and blood pressure on the monitor. Most recent blood gases does suggest ongoing respiratory acidosis and some hypoxemia. Chest tube appears to be in good position with review of patient's most recent chest x-ray and I do not see any signs of air leak on her waterseal chamber. Agree with current settings at -20 cm water and continuous suction. Given patient's probable variable ventilator demands would not recommend weaning the chest tube until patient is either extubated or vent settings appear stable. Please obtain chest x-ray for a.m. Will continue to follow. Saurav Gomez MD General Surgery Endocrine Surgery Pager: [facility] [address] [place] [address], [facility], [address] [place] [id number] Office: [phone] HPI Consult Data Date of Consult: 04/01/24 HPI Narrative Reason for Consultation: Right pneumothorax HPI Narrative: KENA CORONA, is a 63 F who presented to [facility] earlier today in respiratory failure. She ultimately required emergent intubation by emergency medicine. During her workup chest x-ray found her to exhibit evidence of a right pneumothorax but CT follow-up was recommended by radiology. The CT scan was obtained and indeed showed presence of a apical right pneumothorax. It was at this time that emergency medicine reached out and consult to me to discuss management of the situation and I readily agreed that a thoracostomy tube was prudent given that the patient would be on positive pressure ventilation for an undetermined period of time. Chest tube was placed by emergency medicine and the hospitalist service admitted the patient to the ICU. Patient has apparent history of COPD and is dependent on home oxygen therapy at baseline. Given her sedated status she is of limited help as a historian but denies any prior experience of pneumothorax. FORMERLY [facility], [facility] Medical History (Updated 04/01/24 @ 14:[address] Radha Lucas DO) Wasting generalized Anxiety Otalgia of right ear Rhinosinusitis Bronchitis Acute exacerbation of emphysema COPD (chronic obstructive pulmonary disease) GERD (gastroesophageal reflux disease) Arthritis Neck pain Osteoporosis Osteopenia Mass of multiple sites of right breast Breast mass Palate abnormality Wheezing Rib pain Atypical chest pain Acute abdominal pain Bacteremia Lung nodule Lung mass Tick bite Rib fracture Pre-operative cardiovascular examination Dependence on supplemental oxygen Home Medications ?Medication ?Instructions ?Recorded ?Last Taken ?Type albuterol sulfate 2.5 mg/3 mL 2.5 mg inhalation Q4H PRN Sob &/Or 10/03/18 Unknown History (0.083 %) solution for nebulization Wheezing albuterol sulfate 90 mcg/actuation 2 puff inhalation Q4H PRN Sob &/Or 10/03/18 Unknown History aerosol inhaler (Ventolin HFA) Wheezing ipratropium 0.5 mg-albuterol 3 mg 3 ml inhalation Q8H 10/03/18 Unknown History (2.5 mg base)/3 mL nebulization soln calcium carbonate 1,200 mg (2 x 600 mg calcium 06/03/23 Unknown Rx (1,500 mg)) PO DAILY #20 tabs potassium chloride 20 mEq 40 meq (2 x 20 mEq) PO DAILY #14 06/03/23 Unknown Rx tablet,extended release tabs prednisone 20 mg tablet 60 mg (3 x 20 mg) PO DAILY #15 06/03/23 Unknown Rx TABLETS Allergy/AdvReac Type Severity Reaction Status Date / Time ciprofloxacin (From Cipro) Allergy Intermediate SOB Verified 04/01/24 09:10 fluticasone (From Advair Allergy Mild Ashtma, Verified 04/01/24 09:10 Diskus) Itching, Pruritus, Rash metronidazole (From Flagyl) Allergy Mild Verified 04/01/24 09:10 penicillin G Allergy Mild Verified 04/01/24 09:10 salmeterol (From Advair Allergy Mild Ashtma, Verified 04/01/24 09:10 Diskus) Itching, Pruritus, Rash sulfamethoxazole (From Allergy Mild Rash Verified 04/01/24 09:10 Bactrim) trimethoprim (From Bactrim) Allergy Mild Rash Verified 04/01/24 09:10 Penicillins Allergy Swelling Verified 04/01/24 09:10 Family History Father Colon cancer Surgical History History of colonoscopy History of bilateral tubal ligation History of partial colectomy Social History Smoking Status: Former smoker Tobacco: How many years used: 20 how long ago did patient quit smokin years second hand exposure: No alcohol intake: current alcohol intake frequency: holidays/special occasions only substance use type: does not use caffeine: Yes Physical Exam Const Constitutional Narrative: Initially alert and tries to communicate despite having a endotracheal tube in place Nutritional Appearance: cachectic Chest Chest Narrative: Chest tube with right-sided thoracostomy in place. There is scant serosanguineous drainage in the tubing. Connections all appear appropriate. Patient's thoracostomy is placed to Pleur-evac system at -20 cm water. There is no visible airleak in the waterseal chamber. Resp Resp Narrative: Normal respiratory rate Lab / Micro Data 04/01/24 09:25 04/01/24 09:25 Labs: Laboratory Results - last 24 hr 04/01/24 09:25: WBC 14.6 H, RBC 4.54, Hgb 13.7, Hct 41.7, MCV 91.9, MCH 30.2, MCHC 32.9, RDW Std Deviation 42.0, RDW Coeff of Stephanie 12.5, Plt Count 292, MPV 9.0, Immature Gran % (Auto) 0.300, Neut % (Auto) 90.3 H, Lymph % (Auto) 4.0 L, [place] % (Auto) 5.3, Eos % (Auto) 0.0, Baso % (Auto) 0.1, Absolute Neuts (auto) 13.2 H, Absolute Lymphs (auto) 0.59 L, Nucleated RBC % 0, Sodium 137, Potassium 4.1, Chloride 101, Carbon Dioxide 31.0, Anion Gap 5, BUN 14, Creatinine 0.36 L, Estim Creat Clear Calc 102.85, Est GFR (MDRD) Af Amer 234, Est GFR (MDRD) Non-Af 193, BUN/Creatinine Ratio 38.7 H, Glucose 125 H, Lactic Acid 1.6, Calcium 9.3, Total Bilirubin 0.80, Direct Bilirubin 0.22, AST 68 H, ALT 35, Alkaline Phosphatase 70, Total Creatine Kinase 1211 H, Troponin I High Sens 60 H, B-Natriuretic Peptide 120.0 H, Total Protein 7.9, Albumin 4.2, Globulin 3.7, Triglycerides 32 04/01/24 15:50: Total Creatine Kinase 875 H, Troponin I High Sens 67 H, Urine Color Yellow, Urine Clarity Clear, Urine pH 6.0, Ur Specific [place] 1.010, Urine Protein 30 H, Urine Glucose (UA) Normal, Urine Ketones 50 H, Urine Occult Blood 250 H, Urine Nitrite Negative, Urine Bilirubin Negative, Urine Urobilinogen Normal, Ur Leukocyte Esterase 25 H, Urine RBC 25-50 SEEN, Urine WBC 10-25 SEEN, Ur Squamous Epith Cells 0 SEEN, Urine Bacteria 1+, Urine Mucus 0 SEEN Micro: Microbiology 04/01/24 15:30 Mucosa - Nose SARS-CoV-2, Influenza & RSV (PCR) - Final ABG Data ABG results: ABG 04/01/24 04/01/24 04/01/24 09:27 11:48 16:09 Specimen Type ART Cancelled ART Sample Site L Radial Cancelled R Brach pH 7.33 L Cancelled 7.25 L Bicarbonate Actual 31.0 H Cancelled 27.7 H Total CO2 33 Cancelled 30 Base Excess 5 H Cancelled 1 O2 Saturation 99 Cancelled 84 L O2 % 4.0 Cancelled 30.0 ABG pCO2 59.2 H Cancelled 63.3 H ABG pO2 126 H Cancelled 59 L Pj Test Cancelled Respiration Rate Cancelled 12 O2 Delivery Device Cannula Cancelled Not entered Liter Flow Cancelled Minute Volume Cancelled Vent Mode Not entered Cancelled AC Inspiratory Time Cancelled Expiratory Time Cancelled Tidal Volume Cancelled 300.0 Mean Airway Pressure Cancelled POC PEEP Cancelled 5 Peak Inspir Pressure Cancelled POC Pressure Suppt Cancelled Pressure Control Cancelled Pressure High Cancelled Pressure Low Cancelled Time High Cancelled Time Low Cancelled EPAP Cancelled IPAP Cancelled Blood Gas Comments Cancelled Crit Call To/Read Back Cancelled Blood Gas Notified Whom Cancelled Blood Gas Notified Time Cancelled Clinical Comments Cancelled Imaging Radiology Impression Chest X-Ray 04/01/24 09:39 IMPRESSION: Hyperinflation and COPD with right apical pneumothorax. Correlation with a CT scan is recommended. Electronically Signed: Froilan Frye MD at 9:58 EDT , Chest CTA 04/01/24 10:34 IMPRESSION: Hyperinflation and emphysematous changes worse in the upper lobes. Fibrocalcific scarring in the right upper lobe as well as a irregular density with scirrhous appearance in the posterior right upper lobe. A neoplastic process should BE ruled out. Increased markings at the lung bases suggestive of scarring. Right pneumothorax as described. No evidence of pulmonary embolism. Electronically Signed: Froilan Frye MD at 13:32 EDT , Chest X-Ray 04/01/24 10:40 IMPRESSION: The tip of the endotracheal tube is at 7.4 cm proximal to the zarina. An orogastric tube is seen with the tip below the left hemidiaphragm. Stable persistent right apical pneumothorax. Loculated pneumothorax in the right costophrenic angle. Electronically Signed: Froilan Frye MD at 11:05 EDT , Chest X-Ray 04/01/24 14:19 IMPRESSION: Status post right-sided chest tube placement. The tip is in the medial aspect of the right upper lobe. No evidence of pneumothorax on this time. Electronically Signed: Froilan Frye MD at 14:37 EDT , Charges/Coding Visit Charges Inpatient E&M: 05888 Init Hosp L2
[2024-04-01 17:37] LABS: Base Excess -2 mmol/L (-2 to +2); Bicarbonate 24.6 mmol/L (22-26); Blood Gas Specimen Type ART; Mode AC; O2 Delivery Device Not entered; PEEP 5; PO2 68 mmHG (75-100); RR 12; SITE R Brach; SO2 91 % (95-99); Total Carbon Dioxide 26 mmol/L; pCO2 51.2 mmHg (35-45); pH 7.29 (7.35-7.45)
[2024-04-01 17:42] LABS: M R Staph aureus DNA By PCR Negative (Negative); Probe Check PASS; Specimen Processing Control PASS
[2024-04-01] MEDS: Vancomycin IV 1,000 MG/200 ML BAG 200 MG IV (17:42)
[2024-04-01 18:40] LABS: Troponin-I HS 63 pg/mL (3.0-54.0)
[2024-04-01 18:47] LABS: Lactic Acid 1.6 mmol/L (0.4-1.9)
--- NOTE | 2024-04-01 20:08 | PCM.RX.CS ---
Consult Antibiotic Management Pharmacy has been consulted to manage selected antibiotic: Vancomycin Type of Intervention Type of Consult: New start Suspected Infection Suspected Infection: Pneumonia Labs Labs: Sodium 137 mmol/L (136-145) 04/01/24 09:25 Potassium 4.1 mmol/L (3.5-5.1) 04/01/24 09:25 Chloride 101 mmol/L (98-107) 04/01/24 09:25 Carbon Dioxide 31.0 mmol/L (21.0-32.0) 04/01/24 09:25 Anion Gap 5 (5-15) 04/01/24 09:25 BUN 14 mg/dL (7-18) 04/01/24 09:25 Creatinine 0.36 mg/dL (0.55-1.02) L 04/01/24 09:25 Est GFR (MDRD) Af Amer 234 mL/min (>60) 04/01/24 09:25 Est GFR (MDRD) Non-Af 193 mL/min (>60) 04/01/24 09:25 BUN/Creatinine Ratio 38.7 RATIO (10-20) H 04/01/24 09:25 Glucose 125 mg/dL (74-106) H 04/01/24 09:25 Microbiology Microbiology: Microbiology 04/01/24 15:30 Mucosa - Nose Respiratory Panel (PCR) - Final 04/01/24 15:30 Mucosa - Nose SARS-CoV-2, Influenza & RSV (PCR) - Final Goal Trough Goal Trough: 15-20 mcg/mL Pharmacy Plan for Drug Dosing Pharmacy Plan for Drug Dosing: NEW START IV VANCOMYCIN Consulting Physician: Dr. Mirian Lucas Indication: respiratory failure/ pneumonia Goal Trough: 15-20 SrCr: 0.36 CrCl: 102 mL/min Comments: Patient had loading dose of 1000mg IV x1 ordered and administered 04/01 @1742 Vancomycin Dose: 500mg IV Q8h to start 04/02/24 @0200 Pending Level: 04/02/24 @1730, prior to 4th total dose per protocol Pharmacy Service will continue to monitor and adjust dosing as required.
[2024-04-01] MEDS: Norepinephrine 8 MG in 0.9% Normal Saline (250mL Bag) 242 ML 9.4 MG CONT INF (21:15)
[2024-04-01] MEDS: Chlorhexidine 15 ML PO (22:06)
[2024-04-01] MEDS: fentaNYL drip 100 ML 7.5 MCG CONT INF (23:09)
[2024-04-01] MEDS: Azithromycin 500 MG in Dextrose 5%-Water (250mL Bag) 250 ML 250 MG IV (23:17)
[2024-04-01 23:24] LABS: Troponin-I HS 48 pg/mL (3.0-54.0)
[2024-04-02] VITALS (44 sets, daily range): BP systolic 76–141; BP diastolic 55–87; PULSE 77–135; RESP 8–24; TEMP 36–36.8; O2SAT 91–100; BMI 16.2
[2024-04-02] MEDS: Vancomycin IV 500 MG/100 ML BAG 100 MG IV ×3 (01:51→22:40)
[2024-04-02] MEDS: Ipratropium/Albuterol Sulfate 3 ML AMPUL.NEB INHALATION ×6 (02:28→22:08)
[2024-04-02] MEDS: dexMEDEtomidine 400 MCG in 0.9% Normal Saline (100mL Bag) 96 ML 6.9 MCG CONT INF (04:00)
--- NOTE | 2024-04-02 05:55 | RAD_ITS ---
INDICATION: R PTX EXAMINATION/TECHNIQUE: X-RAY - XR Chest 1 View COMPARISON: April 01, 2024. FINDINGS: LINES/DEVICES: Endotracheal tube 4.7 cm above the zarina. . Enteric tube tip projects in the stomach with side port in the distal esophagus. Right thoracostomy tube remains in place. LUNGS: Lungs symmetrically hyperexpanded. No visible pneumothorax. Mild bilateral costophrenic angle atelectasis. No consolidation or florid edema. MEDIASTINUM AND CARDIOVASCULAR STRUCTURES: Cardiac silhouette not enlarged. Mild aortic atherosclerosis. BONES AND SOFT TISSUES: Unremarkable. RAD/Chest 1 View (Portable) IMPRESSION: Right thoracostomy tube remains in place without visible pneumothorax. Hyperlucent lungs and hyperexpansion compatible with chronic obstructive pulmonary disease. Finding may limit visualization of small pneumothoraces. Enteric tube tip projects in the stomach with side port in the distal esophagus. Consider 6 cm advancement and reimaging if gastric side port placement is desired. Electronically Signed: Tung Mercer MD at 6:04 EDT ,
[2024-04-02 05:59] LABS: Absolute Lymphocyte Count 0.45 X10^3/uL (0.83-4.51); Absolute Neutrophil Count 8.9 X10^3/uL (2.0-7.7); Basophil# 0.01 X10^3/uL; Basophil% 0.1 % (0-1); Hematocrit 33.8 % (37-47); Hemoglobin 11.1 g/dL (12.0-15.0); Lymphocyte # 0.45 X10^3/ul (0.83-4.51); Lymphocyte % 4.6 % (19-41); Mean Corp Hgb Conc 32.8 g/dL (32-36); Mean Corpuscular Hgb 30.3 pg (27.0-32.0); Mean Corpuscular Volume 92.3 fL (81-99); Mean Platelet Vol. 9.4 fl (6.2-12.0); Monocyte# 0.43 X10^3/uL; Monocyte% 4.4 % (0-10); NRBC Flagged by Analyzer 0 % (0-5); Neutrophil # 8.86 X10^3/uL (2.7-7.7); Neutrophil % 90.4 % (47-70); POSITIVE DIFFERENTIAL YES; Platelet Count 173 K/mm3 (150-450); RBC Distribution Width CV 12.4 % (11.6-14.6); RBC Distribution Width SD 42.1 fl (35.1-43.9); Red Blood Count 3.66 M/mm3 (4.2-5.4); White Blood Count 9.8 K/mm3 (4.4-11.0)
--- NOTE | 2024-04-02 06:16 | EX.PCM.CONCC ---
Assessment & Plan Assessment/Plan (1) Pulmonary cachexia due to COPD: (2) Acute on chronic respiratory failure with hypoxia and hypercapnia: (3) Pneumothorax on right: (4) COPD with acute exacerbation: PLAN: Plan RECOMMENDATIONS: 1. Proceed with a trial of extubation this morning. 2. Once extubated, wean supplemental oxygen to maintain saturations at or above 90%. 3. Bedside swallow evaluation with dietary advancement as tolerated. 4. PT/OT evaluations. 5. Continue scheduled bronchodilators and IV steroids. 6. Continue empiric antibiotics, pending finalized infectious workup. 7. Chest tube to waterseal with plans to obtain follow-up chest imaging tomorrow morning. IMPRESSIONS: 1. Acute on chronic respiratory failure with hypoxemia and hypercapnia/spontaneous pneumothorax The patient presented to the hospital with shortness of breath in the setting of the known history of end-stage obstructive lung disease and chronic hypoxemic respiratory failure with a baseline 3 L/min oxygen requirement. She is already on maximum triple therapy inhaler regimen as an outpatient. The patient was initiated on antimicrobials, bronchodilators and steroids. Her presentation was complicated by the development of a small right apical pneumothorax, which required tube thoracotomy. Her pneumothorax has resolved. The patient has done well from a respiratory perspective and passed her spontaneous breathing trial this morning. Accordingly, plan to proceed with a trial of extubation. Her follow-up chest x-ray demonstrates no evidence of residual pneumothorax. Therefore, chest tube can be placed to waterseal. 2. End-stage COPD with pulmonary cachexia and known lung mass The patient would certainly be a candidate for referral to palliative care medicine and/or initiation of hospice care services, based upon her limited lung function and residual symptoms, despite being on maximum therapy. This can be discussed further with the patient upon successful extubation. TIME: 40 minutes of critical care time, independent of procedures, was spent addressing the patient's acute on chronic respiratory failure with hypoxemia and hypercapnia, spontaneous pneumothorax, review of all data and collaboration with the care team. HPI Consult Data Date of Consult: 04/02/24 HPI Narrative Reason for Consultation: Respiratory failure HPI Narrative: The patient is a 63-year-old female, with a history as outlined below, who presented to the emergency department via EMS on April 01 with shortness of breath. History pertinent to her hospitalization was obtained primarily via chart review, as the patient is currently intubated and mechanically ventilated. The patient was previously under the care of myself in the pulmonary medicine clinic, but has been lost to routine follow-up since May 2020. She has a known history of end-stage COPD and was previously on triple therapy inhaler regimen with Symbicort and Spiriva. In addition, she has a history of chronic hypoxemic respiratory failure with a baseline oxygen requirement of 3 L/min in 2019. The patient has a well-documented history of a lung mass which had been present for multiple years. Despite the suspicious nature of the mass, the patient elected not to pursue any form of workup. On presentation to the emergency department, the patient was documented to be afebrile but was notably tachycardic and tachypneic. Initial laboratory evaluation revealed an elevated white blood cell count of 15,000. Chemistry profile was unremarkable. Lactate was within normal limits. Troponin was mildly increased at 60 with a BNP of 120. Urinalysis was positive for leukocyte esterase and 1+ urine bacteria. Blood and urine cultures were collected. Respiratory viral panel was negative. COVID PCR was negative. The patient's respiratory status continued to decompensate in the emergency department. The patient refused BiPAP but was agreeable to intubation, which was ultimately performed. CTA chest showed no evidence for pulmonary embolism. The lungs were hyperinflated with diffuse emphysematous changes along with a 1.7 cm density in the right upper lobe and a right apical pneumothorax, which was small. A chest tube was subsequently placed. The patient was initiated on empiric antimicrobials along with scheduled bronchodilators and steroids. She was admitted to the medical intensive care unit for further management. This morning, the patient was alert and appropriately interactive. She did well on her spontaneous breathing trial. There is no definitive evidence of residual pneumothorax noted on chest imaging. No airleak was noted in the patient's Pleur-evac. Therefore, the patient was extubated without complication. ON LICENSE OF [facility] Medical History (Updated 04/01/24 @ 14:[address] Radha Lucas DO) Wasting generalized Anxiety Otalgia of right ear Rhinosinusitis Bronchitis Acute exacerbation of emphysema COPD (chronic obstructive pulmonary disease) GERD (gastroesophageal reflux disease) Arthritis Neck pain Osteoporosis Osteopenia Mass of multiple sites of right breast Breast mass Palate abnormality Wheezing Rib pain Atypical chest pain Acute abdominal pain Bacteremia Lung nodule Lung mass Tick bite Rib fracture Pre-operative cardiovascular examination Dependence on supplemental oxygen Home Medications ?Medication ?Instructions ?Recorded ?Last Taken ?Type albuterol sulfate 2.5 mg/3 mL 2.5 mg inhalation Q4H PRN Sob &/Or 10/03/18 Unknown History (0.083 %) solution for nebulization Wheezing albuterol sulfate 90 mcg/actuation 2 puff inhalation Q4H PRN Sob &/Or 10/03/18 Unknown History aerosol inhaler (Ventolin HFA) Wheezing ipratropium 0.5 mg-albuterol 3 mg 3 ml inhalation Q8H 10/03/18 Unknown History (2.5 mg base)/3 mL nebulization soln calcium carbonate 1,200 mg (2 x 600 mg calcium 06/03/23 Unknown Rx (1,500 mg)) PO DAILY #20 tabs potassium chloride 20 mEq 40 meq (2 x 20 mEq) PO DAILY #14 06/03/23 Unknown Rx tablet,extended release tabs prednisone 20 mg tablet 60 mg (3 x 20 mg) PO DAILY #15 06/03/23 Unknown Rx TABLETS Allergy/AdvReac Type Severity Reaction Status Date / Time ciprofloxacin (From Cipro) Allergy Intermediate SOB Verified 04/01/24 09:10 fluticasone (From Advair Allergy Mild Ashtma, Verified 04/01/24 09:10 Diskus) Itching, Pruritus, Rash metronidazole (From Flagyl) Allergy Mild Verified 04/01/24 09:10 penicillin G Allergy Mild Verified 04/01/24 09:10 salmeterol (From Advair Allergy Mild Ashtma, Verified 04/01/24 09:10 Diskus) Itching, Pruritus, Rash sulfamethoxazole (From Allergy Mild Rash Verified 04/01/24 09:10 Bactrim) trimethoprim (From Bactrim) Allergy Mild Rash Verified 04/01/24 09:10 Penicillins Allergy Swelling Verified 04/01/24 09:10 Family History Father Colon cancer Surgical History History of colonoscopy History of bilateral tubal ligation History of partial colectomy Social History Smoking Status: Former smoker Tobacco: How many years used: 20 how long ago did patient quit smokin years second hand exposure: No alcohol intake: current alcohol intake frequency: holidays/special occasions only substance use type: does not use caffeine: Yes ROS Review of Systems ROS Unobtainable: due to endotracheal tube Physical Exam Const Constitutional Narrative: Intubated and mechanically ventilated. Currently tolerating spontaneous mode mechanical ventilation. HEENT normocephalic and head/scalp atraumatic Mouth: endotracheal tube in place and OG tube in place Eyes PERRL, EOMs intact bilaterally and conjunctivae normal Neck supple General: trachea midline Chest Chest Narrative: Increased AP diameter Resp Auscultation: diminished lung sounds; Negative for rales, rhonchi or wheezes Cardio regular rate and regular rhythm GI normal to inspection, nondistended, normoactive bowel sounds Extremity no clubbing, cyanosis or edema Skin no rashes or lesions noted Neuro Neuro Narrative: Alert and able to follow commands appropriately. Lab / Micro Data 04/02/24 05:45 04/02/24 05:20 Labs: Laboratory Results - last 24 hr 04/01/24 09:25: WBC 14.6 H, RBC 4.54, Hgb 13.7, Hct 41.7, MCV 91.9, MCH 30.2, MCHC 32.9, RDW Std Deviation 42.0, RDW Coeff of Stephanie 12.5, Plt Count 292, MPV 9.0, Immature Gran % (Auto) 0.300, Neut % (Auto) 90.3 H, Lymph % (Auto) 4.0 L, Josephine % (Auto) 5.3, Eos % (Auto) 0.0, Baso % (Auto) 0.1, Absolute Neuts (auto) 13.2 H, Absolute Lymphs (auto) 0.59 L, Nucleated RBC % 0, Sodium 137, Potassium 4.1, Chloride 101, Carbon Dioxide 31.0, Anion Gap 5, BUN 14, Creatinine 0.36 L, Estim Creat Clear Calc 102.85, Est GFR (MDRD) Af Amer 234, Est GFR (MDRD) Non-Af 193, BUN/Creatinine Ratio 38.7 H, Glucose 125 H, Lactic Acid 1.6, Calcium 9.3, Total Bilirubin 0.80, Direct Bilirubin 0.22, AST 68 H, ALT 35, Alkaline Phosphatase 70, Total Creatine Kinase 1211 H, Troponin I High Sens 60 H, B-Natriuretic Peptide 120.0 H, Total Protein 7.9, Albumin 4.2, Globulin 3.7, Triglycerides 32 04/01/24 15:50: Total Creatine Kinase 875 H, Troponin I High Sens 67 H, Urine Color Yellow, Urine Clarity Clear, Urine pH 6.0, Ur Specific Elmer 1.010, Urine Protein 30 H, Urine Glucose (UA) Normal, Urine Ketones 50 H, Urine Occult Blood 250 H, Urine Nitrite Negative, Urine Bilirubin Negative, Urine Urobilinogen Normal, Ur Leukocyte Esterase 25 H, Urine RBC 25-50 SEEN, Urine WBC 10-25 SEEN, Ur Squamous Epith Cells 0 SEEN, Urine Bacteria 1+, Urine Mucus 0 SEEN, MRSA (PCR) Negative 04/01/24 18:05: Lactic Acid 1.6, Troponin I High Sens 63 H 04/01/24 22:40: Troponin I High Sens 48 04/02/24 05:45: WBC 9.8, RBC 3.66 L, Hgb 11.1 L, Hct 33.8 L, MCV 92.3, MCH 30.3, MCHC 32.8, RDW Std Deviation 42.1, RDW Coeff of Stephanie 12.4, Plt Count 173, MPV 9.4, Immature Gran % (Auto) 0.500, Neut % (Auto) 90.4 H, Lymph % (Auto) 4.6 L, Josephine % (Auto) 4.4, Eos % (Auto) 0.0, Baso % (Auto) 0.1, Absolute Neuts (auto) 8.9 H, Absolute Lymphs (auto) 0.45 L, Nucleated RBC % 0 Micro: Microbiology 04/01/24 15:50 Urine Catheter - Gray Streptococcus pneumoniae Antigen (M - Final 04/01/24 15:50 Urine Catheter - Gray Legionella Antigen - Final 04/01/24 15:30 Mucosa - Nose Respiratory Panel (PCR) - Final 04/01/24 15:30 Mucosa - Nose SARS-CoV-2, Influenza & RSV (PCR) - Final ABG Data ABG results: ABG 04/01/24 04/01/24 04/01/24 09:27 11:48 16:09 Specimen Type ART Cancelled ART Sample Site L Radial Cancelled R Brach pH 7.33 L Cancelled 7.25 L Bicarbonate Actual 31.0 H Cancelled 27.7 H Total CO2 33 Cancelled 30 Base Excess 5 H Cancelled 1 O2 Saturation 99 Cancelled 84 L O2 % 4.0 Cancelled 30.0 ABG pCO2 59.2 H Cancelled 63.3 H ABG pO2 126 H Cancelled 59 L Pj Test Cancelled Respiration Rate Cancelled 12 O2 Delivery Device Cannula Cancelled Not entered Liter Flow Cancelled Minute Volume Cancelled Vent Mode Not entered Cancelled AC Inspiratory Time Cancelled Expiratory Time Cancelled Tidal Volume Cancelled 300.0 Mean Airway Pressure Cancelled POC PEEP Cancelled 5 Peak Inspir Pressure Cancelled POC Pressure Suppt Cancelled Pressure Control Cancelled Pressure High Cancelled Pressure Low Cancelled Time High Cancelled Time Low Cancelled EPAP Cancelled IPAP Cancelled Blood Gas Comments Cancelled Crit Call To/Read Back Cancelled Blood Gas Notified Whom Cancelled Blood Gas Notified Time Cancelled Clinical Comments Cancelled 04/01/24 17:34 Specimen Type ART Sample Site R Brach pH 7.29 L Bicarbonate Actual 24.6 Total CO2 26 Base Excess -2 O2 Saturation 91 L O2 % 30.0 ABG pCO2 51.2 H ABG pO2 68 L Pj Test Respiration Rate 12 O2 Delivery Device Not entered Liter Flow Minute Volume Vent Mode AC Inspiratory Time Expiratory Time Tidal Volume 400.0 Mean Airway Pressure POC PEEP 5 Peak Inspir Pressure POC Pressure Suppt Pressure Control Pressure High Pressure Low Time High Time Low EPAP IPAP Blood Gas Comments Crit Call To/Read Back Blood Gas Notified Whom Blood Gas Notified Time Clinical Comments Imaging Radiology Impression Chest X-Ray 04/01/24 09:39 IMPRESSION: Hyperinflation and COPD with right apical pneumothorax. Correlation with a CT scan is recommended. Electronically Signed: Froilan Frye MD at 9:58 EDT , Chest CTA 04/01/24 10:34 IMPRESSION: Hyperinflation and emphysematous changes worse in the upper lobes. Fibrocalcific scarring in the right upper lobe as well as a irregular density with scirrhous appearance in the posterior right upper lobe. A neoplastic process should BE ruled out. Increased markings at the lung bases suggestive of scarring. Right pneumothorax as described. No evidence of pulmonary embolism. Electronically Signed: Froilan Frye MD at 13:32 EDT , Chest X-Ray 04/01/24 10:40 IMPRESSION: The tip of the endotracheal tube is at 7.4 cm proximal to the zarina. An orogastric tube is seen with the tip below the left hemidiaphragm. Stable persistent right apical pneumothorax. Loculated pneumothorax in the right costophrenic angle. Electronically Signed: Froilan Frye MD at 11:05 EDT , Chest X-Ray 04/01/24 14:19 IMPRESSION: Status post right-sided chest tube placement. The tip is in the medial aspect of the right upper lobe. No evidence of pneumothorax on this time. Electronically Signed: Froilan Frye MD at 14:37 EDT , Chest X-Ray 04/02/24 05:55 IMPRESSION: Right thoracostomy tube remains in place without visible pneumothorax. Hyperlucent lungs and hyperexpansion compatible with chronic obstructive pulmonary disease. Finding may limit visualization of small pneumothoraces. Enteric tube tip projects in the stomach with side port in the distal esophagus. Consider 6 cm advancement and reimaging if gastric side port placement is desired. Electronically Signed: Tung Mercer MD at 6:04 EDT , Charges/Coding Procedures Hospitalists Procedures: 10366 Critical Care 1st Hr
[2024-04-02 06:18] LABS: AST(SGOT) 55 U/L (15-37); Alanine Aminotransfer ALT/SGPT 36 U/L (13-56); Albumin, Serum 2.8 g/dL (3.2-5.0); Alkaline Phosphatase 47 U/L (45-117); Anion Gap 4 (5-15); BUN 10 mg/dL (7-18); BUN/Creat Ratio 31.9 RATIO (10-20); Calcium,Total 7.6 mg/dL (8.5-10.1); Chloride 109 mmol/L (98-107); Creatinine, Serum 0.31 mg/dL (0.55-1.02); EST Glomerular Filtration Rate 228 mL/min (>60); Est Glom Filt Rate - Afr Amer 276 mL/min (>60); Estimated Creatinine Clearance 120.09 ml/min; Globulin 2.8 g/dL (2.2-4.2); Glucose 143 mg/dL (74-106); Phosphorus 1.8 mg/dL (2.5-4.9); Potassium 3.6 mmol/L (3.5-5.1); Protein, Total 5.6 g/dL (6.4-8.2); Sodium Level 136 mmol/L (136-145); Thyroid Stim Hormone (TSH) 0.19 uIU/mL (0.358-3.74)
[2024-04-02] MEDS: Cefepime HCl 2 GM in 0.9% Normal Saline (100mL MB+) 100 ML IV ×3 (06:20→20:52)
[2024-04-02] MEDS: 0.9% Saline Lock 10 ML Syringe IV (06:20)
[2024-04-02] MEDS: Pantoprazole Sodium 40 MG in 0.9% Normal Saline (100mL MB+) 100 ML 330 MG IV (09:05)
[2024-04-02] MEDS: Potassium Phosphate 30 MMOL in 0.9% Normal Saline (250mL Bag) 250 ML 42 MMOL IV (09:35)
[2024-04-02] MEDS: Enoxaparin 30 MG/0.3 ML Syringe SC (09:36)
--- NOTE | 2024-04-02 09:44 | PN.HOSP_ITS ---
Subjective Subjective Doing well, she was extubated this morning. Chest tube was transition to waterseal Objective Data Objective Data Vital Signs: Vital Signs Temp Pulse Resp BP Pulse Ox O2 Del Method O2 Flow Rate 96.8 F L 83 14 83/63 L 100 Mechanical Ventilator 30 04/02/24 06:00 04/02/24 07:00 04/02/24 07:00 04/02/24 07:00 04/02/24 07:00 04/02/24 07:00 04/02/24 00:00 FiO2 30 04/02/24 07:00 Oxygen Flow Rate (L/min) 30 Oxygen Delivery Method Mechanical Ventilator Weight: 88 lb Body Mass Index (BMI) 16.2 Intake & Output: Intake and Output for Last 24 Hours 04/01/24 04/02/24 04/03/24 03:59 03:59 03:59 Intake Total 3170.70 / 3182.00 247.01 / 247.01 Output Total 350 / 350 300 / 300 Balance 2820.70 / 2832.00 -52.99 / -52.99 Lab / Micro Data 04/02/24 05:45 04/02/24 05:20 Labs: Laboratory Results - last 24 hr 04/01/24 09:25: Sodium 137, Potassium 4.1, Chloride 101, Carbon Dioxide 31.0, Anion Gap 5, BUN 14, Creatinine 0.36 L, Estim Creat Clear Calc 102.85, Est GFR (MDRD) Af Amer 234, Est GFR (MDRD) Non-Af 193, BUN/Creatinine Ratio 38.7 H, G lucose 125 H, Lactic Acid 1.6, Calcium 9.3, Total Bilirubin 0.80, Direct Bilirubin 0.22, AST 68 H, ALT 35, Alkaline Phosphatase 70, Total Creatine Kinase 1211 H, Troponin I High Sens 60 H, B-Natriuretic Peptide 120.0 H, Total Protein 7.9, Albumin 4.2, Globulin 3.7, Triglycerides 32 04/01/24 15:50: Total Creatine Kinase 875 H, Troponin I High Sens 67 H, Urine Color Yellow, Urine Clarity Clear, Urine pH 6.0, Ur Specific Ell[place] 1.010, U rine Protein 30 H, Urine Glucose (UA) Normal, Urine Ketones 50 H, Urine Occult Blood 250 H, Urine Nitrite Negative, Urine Bilirubin Negative, Urine Urobilinogen Normal, Ur Leukocyte Esterase 25 H, Urine RBC 25-50 SEEN, Urine WBC 10-25 SEEN, Ur Squamous Epith Cells 0 SEEN, Urine Bacteria 1+, Urine Mucus 0 SEEN, MRSA (PCR) Negative 04/01/24 18:05: Lactic Acid 1.6, Troponin I High Sens 63 H 04/01/24 22:40: Troponin I High Sens 48 04/02/24 05:20: Sodium 136, Potassium 3.6, Chloride 109 H, Carbon Dioxide 23.0, Anion Gap 4 L, BUN 10, Creatinine 0.31 L, Estim Creat Clear Calc 120.09, Est GFR (MDRD) Af Amer 276, Est GFR (MDRD) Non-Af 228, BUN/Creatinine Ratio 31.9 H, G lucose 143 H, Calcium 7.6 L, Phosphorus 1.8 L, Magnesium 2.0, Total Bilirubin 0.70, AST 55 H, ALT 36, Alkaline Phosphatase 47, Total Protein 5.6 L, Albumin 2.8 L, Globulin 2.8, Albumin/Globulin Ratio 1.0, TSH 0.19 L 04/02/24 05:45: WBC 9.8, RBC 3.66 L, Hgb 11.1 L, Hct 33.8 L, MCV 92.3, MCH 30.3, MCHC 32.8, RDW Std Deviation 42.1, RDW Coeff of Stephanie 12.4, Plt Count 173, MPV 9.4, Immature Gran % (Auto) 0.500, Neut % (Auto) 90.4 H, Lymph % (Auto) 4.6 L, O'Brien % (Auto) 4.4, Eos % (Auto) 0.0, Baso % (Auto) 0.1, Absolute Neuts (auto) 8.9 H, Absolute Lymphs (auto) 0.45 L, Nucleated RBC % 0 Micro: Microbiology 04/01/24 15:35 Sputum, Induced/Lukens Gram Stain - Final 04/01/24 15:50 Urine Catheter - Gray Streptococcus pneumoniae Antigen (M - Final 04/01/24 15:50 Urine Catheter - Gray Legionella Antigen - Final 04/01/24 15:30 Mucosa - Nose Respiratory Panel (PCR) - Final 04/01/24 15:30 Mucosa - Nose SARS-CoV-2, Influenza & RSV (PCR) - Final ABG Data ABG results: ABG 04/01/24 04/01/24 04/01/24 11:48 16:09 17:34 Specimen Type Cancelled ART ART Sample Site Cancelled R Brach R Brach pH Cancelled 7.25 L 7.29 L Bicarbonate Actual Cancelled 27.7 H 24.6 Total CO2 Cancelled 30 26 Base Excess Cancelled 1 -2 O2 Saturation Cancelled 84 L 91 L O2 % Cancelled 30.0 30.0 ABG pCO2 Cancelled 63.3 H 51.2 H ABG pO2 Cancelled 59 L 68 L Pj Test Cancelled Respiration Rate Cancelled 12 12 O2 Delivery Device Cancelled Not entered Not entered Liter Flow Cancelled Minute Volume Cancelled Vent Mode Cancelled AC AC Inspiratory Time Cancelled Expiratory Time Cancelled Tidal Volume Cancelled 300.0 400.0 Mean Airway Pressure Cancelled POC PEEP Cancelled 5 5 Peak Inspir Pressure Cancelled POC Pressure Suppt Cancelled Pressure Control Cancelled Pressure High Cancelled Pressure Low Cancelled Time High Cancelled Time Low Cancelled EPAP Cancelled IPAP Cancelled Blood Gas Comments Cancelled Crit Call To/Read Back Cancelled Blood Gas Notified Whom Cancelled Blood Gas Notified Time Cancelled Clinical Comments Cancelled Radiography Diagnostic Testing: Radiology Impression Chest X-Ray 04/01/24 09:39 IMPRESSION: Hyperinflation and COPD with right apical pneumothorax. Correlation with a CT scan is recommended. Electronically Signed: Froilan Frye MD at 9:58 EDT , Chest CTA 04/01/24 10:34 IMPRESSION: Hyperinflation and emphysematous changes worse in the upper lobes. Fibrocalcific scarring in the right upper lobe as well as a irregular density with scirrhous appearance in the posterior right upper lobe. A neoplastic process should BE ruled out. Increased markings at the lung bases suggestive of scarring. Right pneumothorax as described. No evidence of pulmonary embolism. Electronically Signed: Froilan Frye MD at 13:32 EDT , Chest X-Ray 04/01/24 10:40 IMPRESSION: The tip of the endotracheal tube is at 7.4 cm proximal to the zarina. An orogastric tube is seen with the tip below the left hemidiaphragm. Stable persistent right apical pneumothorax. Loculated pneumothorax in the right costophrenic angle. Electronically Signed: Froilan Frye MD at 11:05 EDT , Chest X-Ray 04/01/24 14:19 IMPRESSION: Status post right-sided chest tube placement. The tip is in the medial aspect of the right upper lobe. No evidence of pneumothorax on this time. Electronically Signed: Froilan Frye MD at 14:37 EDT , Chest X-Ray 04/02/24 05:55 IMPRESSION: Right thoracostomy tube remains in place without visible pneumothorax. Hyperlucent lungs and hyperexpansion compatible with chronic obstructive pulmonary disease. Finding may limit visualization of small pneumothoraces. Enteric tube tip projects in the stomach with side port in the distal esophagus. Consider 6 cm advancement and reimaging if gastric side port placement is desired. Electronically Signed: Tung Mercer MD at 6:04 EDT , Physical Exam Narrative General: Alert, Oriented x3, Cooperative, No apparent distress HEENT: Atraumatic, PERRLA, EOMI, Normocephalic Oral: Moist Mucosa Neck: Supple, No JVD Lungs: Diminished, poor air movement, No rhonchi, No wheeze, No rales Cardiovascular: Regular rate, Regular Rhythm, Normal S1, Normal S2, No murmurs Abdomen: Soft, Non Tender, Non-Distended, No Hepato-splenomegaly Extremities: No edema, Capillary Refill Less than 3 Seconds Skin: No rashes, No breakdown Musculoskeletal: No Tenderness to Palpation of Joints or Extremities Neurological: No focal neurological deficits, Motor Exam 5/5 strength throughout, Sensory exam intact to light touch and pain Psych/Mental Status: Normal Affect, Appropriate Assessment & Plan Assessment/Plan (1) Acute on chronic respiratory failure with hypoxia and hypercapnia: (2) Pneumothorax on right: (3) COPD with acute exacerbation: PLAN: Plan 1. Acute on chronic hypoxic and hypercapnic respiratory failure secondary to acute exacerbation of COPD with a right pneumothorax ? She was intubated in the ER on admission however this morning she was extubated and doing well. ? Pneumothorax has resolved and her chest tube was placed on waterseal ? Appreciate general surgery's assistance ? Cultures are pending for possible pneumonia, UA was suggestive of possible infection as well ? Continue with broad-spectrum antibiotics until culture data is available ? Continue with breathing treatments and Solu-Medrol ? Appreciate pulmonology's assistance ? Echo is pending, she did have elevated troponins which is also likely related to her elevated CK which is improving ? PFTs in 2019 demonstrated FEV1 of 24% 2. Low TSH ? Will obtain a T3 and T4 DVT: Lovenox Charges/Coding Visit Charges Inpatient E&M: 03754 Subs Hosp L2
--- NOTE | 2024-04-02 10:02 | PN.SURG_ITS ---
Subjective Subjective Patient evaluated resting comfortably in bed. She has been extubated this morning. She is currently on 3 liters of O2. She notes some shortness of breath, however she said it is her baseline. No concerns with the chest tube over night. Objective Data Objective Data Vital Signs: Vital Signs Temp Pulse Resp BP Pulse Ox O2 Del Method O2 Flow Rate 96.8 F L 83 14 83/63 L 100 Mechanical Ventilator 30 04/02/24 06:00 04/02/24 07:00 04/02/24 07:00 04/02/24 07:00 04/02/24 07:00 04/02/24 07:00 04/02/24 00:00 FiO2 30 04/02/24 07:00 Oxygen Flow Rate (L/min) 30 Oxygen Delivery Method Mechanical Ventilator Weight: 88 lb Body Mass Index (BMI) 16.2 Intake & Output: Intake and Output for Last 24 Hours 03/31/24 04/01/24 04/02/24 23:59 23:59 23:59 Intake Total 2743.56 / 2752.62 674.15 / 674.15 Output Total 350 / 350 300 / 300 Balance 2393.56 / 2402.62 374.15 / 374.15 Lab / Micro Data 04/02/24 05:45 04/02/24 05:20 Labs: Laboratory Results - last 24 hr 04/01/24 09:25: Lactic Acid 1.6, Total Creatine Kinase 1211 H, B-Natriuretic Peptide 120.0 H, Triglycerides 32 04/01/24 15:50: Total Creatine Kinase 875 H, Troponin I High Sens 67 H, Urine Color Yellow, Urine Clarity Clear, Urine pH 6.0, Ur Specific Parks 1.010, U rine Protein 30 H, Urine Glucose (UA) Normal, Urine Ketones 50 H, Urine Occult Blood 250 H, Urine Nitrite Negative, Urine Bilirubin Negative, Urine Urobilinogen Normal, Ur Leukocyte Esterase 25 H, Urine RBC 25-50 SEEN, Urine WBC 10-25 SEEN, Ur Squamous Epith Cells 0 SEEN, Urine Bacteria 1+, Urine Mucus 0 SEEN, MRSA (PCR) Negative 04/01/24 18:05: Lactic Acid 1.6, Troponin I High Sens 63 H 04/01/24 22:40: Troponin I High Sens 48 04/02/24 05:20: Sodium 136, Potassium 3.6, Chloride 109 H, Carbon Dioxide 23.0, Anion Gap 4 L, BUN 10, Creatinine 0.31 L, Estim Creat Clear Calc 120.09, Est GFR (MDRD) Af Amer 276, Est GFR (MDRD) Non-Af 228, BUN/Creatinine Ratio 31.9 H, G lucose 143 H, Calcium 7.6 L, Phosphorus 1.8 L, Magnesium 2.0, Total Bilirubin 0.70, AST 55 H, ALT 36, Alkaline Phosphatase 47, Total Protein 5.6 L, Albumin 2.8 L, Globulin 2.8, Albumin/Globulin Ratio 1.0, TSH 0.19 L 04/02/24 05:45: WBC 9.8, RBC 3.66 L, Hgb 11.1 L, Hct 33.8 L, MCV 92.3, MCH 30.3, MCHC 32.8, RDW Std Deviation 42.1, RDW Coeff of Stephanie 12.4, Plt Count 173, MPV 9.4, Immature Gran % (Auto) 0.500, Neut % (Auto) 90.4 H, Lymph % (Auto) 4.6 L, Frio % (Auto) 4.4, Eos % (Auto) 0.0, Baso % (Auto) 0.1, Absolute Neuts (auto) 8.9 H, Absolute Lymphs (auto) 0.45 L, Nucleated RBC % 0 Micro: Microbiology 04/01/24 15:35 Sputum, Induced/Lukens Gram Stain - Final 04/01/24 15:35 Sputum, Induced/Lukens Respiratory Culture - Preliminary GNR Poss Pseudomonas sp 04/01/24 15:50 Urine Catheter - Gray Streptococcus pneumoniae Antigen (M - Final 04/01/24 15:50 Urine Catheter - Gray Legionella Antigen - Final 04/01/24 15:30 Mucosa - Nose Respiratory Panel (PCR) - Final 04/01/24 15:30 Mucosa - Nose SARS-CoV-2, Influenza & RSV (PCR) - Final ABG Data ABG results: ABG 04/01/24 04/01/24 04/01/24 11:48 16:09 17:34 Specimen Type Cancelled ART ART Sample Site Cancelled R Brach R Brach pH Cancelled 7.25 L 7.29 L Bicarbonate Actual Cancelled 27.7 H 24.6 Total CO2 Cancelled 30 26 Base Excess Cancelled 1 -2 O2 Saturation Cancelled 84 L 91 L O2 % Cancelled 30.0 30.0 ABG pCO2 Cancelled 63.3 H 51.2 H ABG pO2 Cancelled 59 L 68 L Pj Test Cancelled Respiration Rate Cancelled 12 12 O2 Delivery Device Cancelled Not entered Not entered Liter Flow Cancelled Minute Volume Cancelled Vent Mode Cancelled AC AC Inspiratory Time Cancelled Expiratory Time Cancelled Tidal Volume Cancelled 300.0 400.0 Mean Airway Pressure Cancelled POC PEEP Cancelled 5 5 Peak Inspir Pressure Cancelled POC Pressure Suppt Cancelled Pressure Control Cancelled Pressure High Cancelled Pressure Low Cancelled Time High Cancelled Time Low Cancelled EPAP Cancelled IPAP Cancelled Blood Gas Comments Cancelled Crit Call To/Read Back Cancelled Blood Gas Notified Whom Cancelled Blood Gas Notified Time Cancelled Clinical Comments Cancelled Radiography Diagnostic Testing: Radiology Impression Chest CTA 04/01/24 10:34 IMPRESSION: Hyperinflation and emphysematous changes worse in the upper lobes. Fibrocalcific scarring in the right upper lobe as well as a irregular density with scirrhous appearance in the posterior right upper lobe. A neoplastic process should BE ruled out. Increased markings at the lung bases suggestive of scarring. Right pneumothorax as described. No evidence of pulmonary embolism. Electronically Signed: Froilan Frye MD at 13:32 EDT , Chest X-Ray 04/01/24 10:40 IMPRESSION: The tip of the endotracheal tube is at 7.4 cm proximal to the zarina. An orogastric tube is seen with the tip below the left hemidiaphragm. Stable persistent right apical pneumothorax. Loculated pneumothorax in the right costophrenic angle. Electronically Signed: Froilan Frye MD at 11:05 EDT , Chest X-Ray 04/01/24 14:19 IMPRESSION: Status post right-sided chest tube placement. The tip is in the medial aspect of the right upper lobe. No evidence of pneumothorax on this time. Electronically Signed: Froilan Frye MD at 14:37 EDT , Chest X-Ray 04/02/24 05:55 IMPRESSION: Right thoracostomy tube remains in place without visible pneumothorax. Hyperlucent lungs and hyperexpansion compatible with chronic obstructive pulmonary disease. Finding may limit visualization of small pneumothoraces. Enteric tube tip projects in the stomach with side port in the distal esophagus. Consider 6 cm advancement and reimaging if gastric side port placement is desired. Electronically Signed: Tung Mercer MD at 6:04 EDT , Physical Exam Chest Chest Narrative: Right chest- chest tube intact. No air leak noted. No discomfort or pain noted. Assessment & Plan Assessment/Plan (1) Pneumothorax on right: PLAN: I am seeing this patient in conjunction with Dr. Gomez. He has independently evaluated this patient. Chest tube placed to waterseal for today CXR ordered for tomorrow morning Probable removal of chest tube tomorrow We will continue to monitor this patient Charges/Coding Visit Charges Inpatient E&M: 01452 [facility] L1
--- NOTE | 2024-04-02 10:03 | CASEMGMT ---
SERGIO ESPINAL Assessment: Face to Face with pt for initial transition planning/care coordination assessment. RN KYLIE introduced self and role at [facility], pt voices understanding and consents to assessment. Pt is A&O x4 and answers all questions appropriately at this time. Pt sitting up in bed in no distress. Pt sitting at bedside, pt agreeable to answering questions with in room. Care providers, pharmacy, and demographics verified/updated. Strata: 2 Admitting Dx: SOB PCP: Carlos Eduardo Specialists: Denies Preferred Pharmacy: [facility] Insurance: [place] [facility] Prescription Benefit: yes LNOK: Living Arrangements: Pt lives with in a 1 story home with 2 steps to enter. ADLs: Pt I with ADLs and IADLs. Transportation: Pt states family provides transportation. DME: Portable tank, concentrator, rollator, shower bench. HHC/SNF: Denies Hx of SNF, states previously used HHC does not recall agency. States she is not interested in HHC again. Pt states no concerns with going home at time of dc. Pt states no further concerns/needs. Pt states uses [facility] for oxygen needs. CM to follow. Advised pt to ask CM if any further question/concerns/needs arise, voices understanding. Pt Goal: Home Plan: Home, CM to follow therapy and plan of care. Johanna HILL CM
[2024-04-02 11:25] LABS: Free T3 1.2 pg/mL (2.18-3.98)
[2024-04-02] MEDS: 0.9% Normal Saline (250mL Bag) 250 ML 15 ML IV (22:41)
[2024-04-03] VITALS (21 sets, daily range): BP systolic 102–138; BP diastolic 69–89; PULSE 94–121; RESP 8–25; TEMP 36.4–36.8; O2SAT 93–100
[2024-04-03] MEDS: Ipratropium/Albuterol Sulfate 3 ML AMPUL.NEB INHALATION (03:03)
[2024-04-03] MEDS: Vancomycin Trough/Random Due 1 LAB MC (03:54)
[2024-04-03 04:13] LABS: Vancomycin, Trough Level 13.4 ug/mL (5.0-15.0)
--- NOTE | 2024-04-03 04:35 | PCM.RX.CS ---
Consult Antibiotic Management Pharmacy has been consulted to manage selected antibiotic: Vancomycin Type of Intervention Type of Consult: Follow-up Suspected Infection Suspected Infection: Pneumonia Prior Doses of Antibiotics Prior Doses of Antibiotics Received/Current Regimen: Last dose of vancomycin 500 mg IV given 04/02 @ 2240 Labs Labs: Sodium 136 mmol/L (136-145) 04/02/24 05:20 Potassium 3.6 mmol/L (3.5-5.1) 04/02/24 05:20 Chloride 109 mmol/L (98-107) H 04/02/24 05:20 Carbon Dioxide 23.0 mmol/L (21.0-32.0) 04/02/24 05:20 Anion Gap 4 (5-15) L 04/02/24 05:20 BUN 10 mg/dL (7-18) 04/02/24 05:20 Creatinine 0.31 mg/dL (0.55-1.02) L 04/02/24 05:20 Est GFR (MDRD) Af Amer 276 mL/min (>60) 04/02/24 05:20 Est GFR (MDRD) Non-Af 228 mL/min (>60) 04/02/24 05:20 BUN/Creatinine Ratio 31.9 RATIO (10-20) H 04/02/24 05:20 Glucose 143 mg/dL (74-106) H 04/02/24 05:20 Vancomycin Trough 13.4 ug/mL (5.0-15.0) 04/03/24 03:45 Microbiology Microbiology: Microbiology 04/01/24 15:35 Sputum, Induced/Lukens Gram Stain - Final 04/01/24 15:35 Sputum, Induced/Lukens Respiratory Culture - Preliminary GNR Poss Pseudomonas sp 04/01/24 15:50 Urine Catheter - Gray Streptococcus pneumoniae Antigen (M - Final 04/01/24 15:50 Urine Catheter - Gray Legionella Antigen - Final 04/01/24 15:30 Mucosa - Nose Respiratory Panel (PCR) - Final 04/01/24 15:30 Mucosa - Nose SARS-CoV-2, Influenza & RSV (PCR) - Final Dosing Weight Weight used for dosin.9 kg Estimated Creatinine Clearance Estimated Creatinine Clearance: ~120 Goal Trough Goal Trough: 15-20 mcg/mL Pharmacy Plan for Drug Dosing Pharmacy Plan for Drug Dosing: Vancomycin trough = 13.4, drawn 5 hours after previous dose, will increase to 750 mg Q8H Pharmacy Service will continue to monitor and adjust dosing as required. Follow-Up Labs Follow-Up Labs: Trough: Vancomycin Date/Time Labs Ordered Labs to be done on [date and time ordered]: 04/04 @ 0400
[2024-04-03] MEDS: Vancomycin HCl 750 MG in 0.9% Normal Saline (250mL Bag) 250 ML 250 MG IV (04:36)
--- NOTE | 2024-04-03 05:00 | RAD_ITS ---
INDICATION: right pneumothorax -- PORTABLE EXAMINATION/TECHNIQUE: X-RAY - XR Chest 1 View COMPARISON: Prior study dated: 04/02/2024 FINDINGS: LINES/DEVICES: Endotracheal tube removed. Right-sided chest tube in place. Cardiac leads overlie the chest. LUNGS: The lungs are hyperexpanded. Blunted costophrenic angles, similar to prior. No consolidation. No pneumothorax seen. MEDIASTINUM AND CARDIOVASCULAR STRUCTURES: Cardiac silhouette not enlarged. Central airways and mediastinal contour are unremarkable. BONES AND SOFT TISSUES: No acute abnormality. RAD/Chest 1 View (Portable) IMPRESSION: No acute pulmonary finding. No pneumothorax visualized, with chest tube in place. Electronically Signed: Gorge Shore MD at 6:17 EDT ,
[2024-04-03] MEDS: Cefepime HCl 2 GM in 0.9% Normal Saline (100mL MB+) 100 ML IV ×3 (05:46→21:04)
--- NOTE | 2024-04-03 07:06 | PN.HOSP_ITS ---
Reason for Visit Reason for Visit: Diagnoses Elevated white blood cell count, unspecified (04/01/24) Chronic obstructive pulmonary disease with (acute) exacerbation (04/01/24) Chronic obstructive pulmonary disease, unspecified (04/01/24) Pneumothorax, unspecified (04/01/24) Acute and chronic respiratory failure with hypoxia (04/01/24) Acute and chronic respiratory failure with hypercapnia (04/01/24) Cachexia (04/01/24) Abnormal levels of other serum enzymes (04/01/24) Subjective Subjective Chest tube removed today. Shortly after, patient started becoming very short of breath despite being on 3 L and high 90% saturations. Objective Data Objective Data Vital Signs: Vital Signs Temp Pulse Resp BP Pulse Ox O2 Del Method O2 Flow Rate 36.8 C 94 21 H 126/77 H 100 Nasal Cannula 3 04/03/24 05:00 04/03/24 07:00 04/03/24 07:00 04/03/24 07:00 04/03/24 07:00 04/03/24 07:00 04/03/24 07:00 FiO2 30 04/02/24 07:00 Oxygen Flow Rate (L/min) 3 Oxygen Delivery Method Nasal Cannula Weight: 39.916 kg Body Mass Index (BMI) 16.2 Intake & Output: Intake and Output for Last 24 Hours 04/01/24 04/02/24 04/03/24 23:59 23:59 23:59 Intake Total 2743.56 / 2752.62 2422.99 / 2422.99 465 / 465 Output Total 350 / 350 1100 / 1100 Balance 2393.56 / 2402.62 1322.99 / 1322.99 465 / 465 Lab / Micro Data Attestation: I reviewed the patient's lab results. 04/02/24 05:45 04/02/24 05:20 Labs: Laboratory Results - last 24 hr 04/02/24 05:20: Free T4 1.10, Free T3 pg/dL 1.2 L 04/03/24 03:45: Vancomycin Trough 13.4 Micro: Microbiology 04/01/24 15:35 Sputum, Induced/Lukens Gram Stain - Final 04/01/24 15:35 Sputum, Induced/Lukens Respiratory Culture - Preliminary GNR Poss Pseudomonas sp 04/01/24 15:50 Urine Catheter - Gray Streptococcus pneumoniae Antigen (M - Final 04/01/24 15:50 Urine Catheter - Gray Legionella Antigen - Final 04/01/24 15:30 Mucosa - Nose Respiratory Panel (PCR) - Final 04/01/24 15:30 Mucosa - Nose SARS-CoV-2, Influenza & RSV (PCR) - Final Radiography Diagnostic Testing: Radiology Impression Echocardiogram 04/01/24 15:58 Interpretation Summary Normal LV size. Left ventricular systolic function is normal. No regional wall motion abnormalities noted. The left ventricular ejection fraction is 65 %. Structurally normal valves. Ordering Physician: Radha Lucas Referring Physician: Maci Thibodeaux Performed By: Mackenzie Salas ROBER Chest X-Ray 04/03/24 05:00 IMPRESSION: No acute pulmonary finding. No pneumothorax visualized, with chest tube in place. Electronically Signed: Gorge Shore MD at 6:17 EDT Reading Location ID and State: [address] [place] [address] Tel , Service support , Physical Exam Const alert and no apparent distress Constitutional Narrative: Up in chair. Tachypneic. Conversational dyspnea. HEENT head/scalp atraumatic Resp Resp Narrative: Diminished breath sounds throughout. Faint wheeze. Cardio regular rate, regular rhythm, S1 normal heart sound and S2 normal heart sound GI normal to inspection, nondistended, normoactive bowel sounds, soft to palpation, non-tender and non-distended Extremity normal to inspection and no clubbing, cyanosis or edema Skin Skin Narrative: No rashes or lesions. Neuro no focal motor deficits Sensorium / Orientation: awake Psych affect normal Assessment & Plan Assessment/Plan (1) Acute on chronic respiratory failure with hypoxia and hypercapnia: (2) Pneumothorax on right: (3) COPD with acute exacerbation: PLAN: Plan Acute on chronic hypoxic and hypercapnic respiratory failure * baseline 3l/m oxygen requirement. * secondary to acute exacerbation of COPD with a right pneumothorax * She was intubated in the ER on the , extubated on the . * on empiric abx * CCM following. * acute dyspnea on the after CT removed. Follow up CXR showed no recurrence of PTX. * Add PRN albuterol nebs. Pneumothorax * noted on admission CXR. Likely 2/2 COPD. * since resolved. CT placed to [facility]. CT removed 04/03 Acute COPD exacerbation * on end-stage COPD. PFTs from 12/06/18: FEV1 24%. * on BDs, methylpred * wean oxygen as tolerated Gram negative pneumonia * sputum cutlure showing GNR, possible Pseudomonas * on abx with cefepime and vancomycin. Could discontinue vancomycin. Keep cefepime on until sensitivities identified. Elevated troponins * mild elevation likely due to demand ischemia from respiratory failure. * echo shows an EF 65% * no additional work up necessary. Low TSH * FT4 WNL. No additional work up. Severe protein calorie malnutrition * 2/2 to end-stage COPD * Ensure plus w meals. VTE prophylaxis: enoxaparin. Transfer to PCU. Charges/Coding Visit Charges Inpatient E&M: 55782 Subs Hosp L3
--- NOTE | 2024-04-03 07:25 | PN.CC_ITS ---
Assessment & Plan Assessment/Plan (1) Pulmonary cachexia due to COPD: (2) Acute on chronic respiratory failure with hypoxia and hypercapnia: (3) Pneumothorax on right: (4) COPD with acute exacerbation: PLAN: Plan RECOMMENDATIONS: 1. Continue supplemental oxygen at 3 L/min, per baseline requirement. 2. Discontinue vancomycin. Continue cefepime for now. 3. Transition from IV steroids to prednisone 40 mg daily, beginning this morning. 4. Although general surgery is following, I would be okay with removal of chest tube today. 5. Transition from DuoNebs to scheduled Atrovent aerosols. 6. Encourage incentive spirometer use and mobilize patient as tolerated. 7. The patient is medically stable for transfer out of the intensive care unit. IMPRESSIONS: 1. Acute on chronic respiratory failure with hypoxemia and hypercapnia/spontaneous pneumothorax The patient presented to the hospital with shortness of breath in the setting of a known history of end-stage obstructive lung disease and chronic hypoxemic respiratory failure with a baseline 3 L/min oxygen requirement. She is already on maximum triple therapy inhaler regimen as an outpatient. She appears to have an underlying gram-negative pneumonia, which is likely exacerbated her baseline obstructive lung disease. The patient was initiated on antimicrobials, bronchodilators and steroids. Her presentation was complicated by the development of a small right apical pneumothorax, which required tube thoracotomy. Her pneumothorax has resolved. Clinically, the patient improved from a respiratory perspective and was able to be extubated on April 02. She is doing well postextubation from a respiratory perspective. Chest tube can be removed today from my perspective. 2. End-stage COPD with pulmonary cachexia and known lung mass The patient would certainly be a candidate for referral to palliative care medicine and/or initiation of hospice care services, based upon her limited lung function and residual symptoms, despite being on maximum therapy. This note was generated with [employer] dictation software. It may contain incorrect words, spelling, and punctuation that were not noted in checking the note before signing. Subjective Subjective The patient was seen and examined at the bedside this morning. Events from the last 24 hours have been reviewed. The patient is currently afebrile, hemodynamically stable and maintaining appropriate oxygen saturations on 3 L/min via nasal cannula, which is her baseline requirement. No overnight issues were identified by the nursing staff. The patient has no overt complaints this morning. The patient does become tremulous and tachycardic with DuoNeb administration. Therefore, her aerosol treatment was transitioned to Atrovent this morning. The patient has been maintained on waterseal for the last 24 hours with no residual pneumothorax noted on chest imaging this morning. Objective Data Objective Data The patient's most recent lab work, culture data and imaging studies have all been personally reviewed. Preliminary sputum culture dated April 01 demonstrated a gram-negative danielle, possible Pseudomonas. Vital Signs: Vital Signs Temp Pulse Resp BP Pulse Ox O2 Del Method O2 Flow Rate 98.2 F 94 21 H 126/77 H 100 Nasal Cannula 3 04/03/24 05:00 04/03/24 07:00 04/03/24 07:00 04/03/24 07:00 04/03/24 07:00 04/03/24 07:00 04/03/24 07:00 FiO2 30 04/02/24 07:00 Oxygen Flow Rate (L/min) 3 Oxygen Delivery Method Nasal Cannula Weight: 88 lb Body Mass Index (BMI) 16.2 Intake & Output: Intake and Output for Last 24 Hours 04/01/24 04/02/24 04/03/24 23:59 23:59 23:59 Intake Total 2743.56 / 2752.62 2422.99 / 2422.99 465 / 465 Output Total 350 / 350 1100 / 1100 Balance 2393.56 / 2402.62 1322.99 / 1322.99 465 / 465 Lab / Micro Data Attestation: I reviewed the patient's lab results. 04/02/24 05:45 04/02/24 05:20 Labs: Laboratory Results - last 24 hr 04/02/24 05:20: Free T4 1.10, Free T3 pg/dL 1.2 L 04/03/24 03:45: Vancomycin Trough 13.4 Micro: Microbiology 04/01/24 15:35 Sputum, Induced/Lukens Gram Stain - Final 04/01/24 15:35 Sputum, Induced/Lukens Respiratory Culture - Preliminary GNR Poss Pseudomonas sp 04/01/24 15:50 Urine Catheter - Gray Streptococcus pneumoniae Antigen (M - Final 04/01/24 15:50 Urine Catheter - Gray Legionella Antigen - Final 04/01/24 15:30 Mucosa - Nose Respiratory Panel (PCR) - Final 04/01/24 15:30 Mucosa - Nose SARS-CoV-2, Influenza & RSV (PCR) - Final Radiography Diagnostic Testing: Radiology Impression Echocardiogram 04/01/24 15:58 Interpretation Summary Normal LV size. Left ventricular systolic function is normal. No regional wall motion abnormalities noted. The left ventricular ejection fraction is 65 %. Structurally normal valves. Ordering Physician: Radha Lucas Referring Physician: Maci Thibodeaux Performed By: Mackenzie Salas RDCS Chest X-Ray 04/03/24 05:00 IMPRESSION: No acute pulmonary finding. No pneumothorax visualized, with chest tube in place. Electronically Signed: Gorge Sohre MD at 6:17 EDT , Physical Exam Const alert and no apparent distress General Appearance: cooperative and frail HEENT normocephalic, head/scalp atraumatic and moist oral mucous membranes Eyes PERRL, EOMs intact bilaterally and conjunctivae normal Neck supple General: trachea midline Chest Chest Narrative: Increased AP diameter Chest: chest tube Resp Auscultation: diminished lung sounds; Negative for rales, rhonchi or wheezes Cardio regular rate and regular rhythm GI normal to inspection, nondistended, normoactive bowel sounds Extremity no clubbing, cyanosis or edema Skin no rashes or lesions noted Neuro oriented x3, CN's II-XII intact bilaterally and moves all extremities Psych cooperative and affect normal Charges/Coding Visit Charges Inpatient E&M: 81893 Subs Hosp L3
[2024-04-03] MEDS: Ipratropium 0.5 MG/2.5 ML SOLUTION INHALATION ×4 (07:41→19:46)
--- NOTE | 2024-04-03 09:30 | PCM.PN.SRG ---
Subjective Subjective Patient is a 63 y/o F I am following in conjunction with Dr. Gomez. Patient notes some difficulty this morning with shortness of breath. CXR this morning demonstrates right pneumothorax has resolved. She notes discomfort at the chest tube site. Objective Data Objective Data Vital Signs: Vital Signs Temp Pulse Resp BP Pulse Ox O2 Del Method O2 Flow Rate 97.7 F L 118 H 18 115/72 96 Nasal Cannula 1 04/03/24 08:00 04/03/24 08:00 04/03/24 08:00 04/03/24 08:00 04/03/24 08:00 04/03/24 08:00 04/03/24 08:00 FiO2 30 04/02/24 07:00 Oxygen Flow Rate (L/min) 1 Oxygen Delivery Method Nasal Cannula Weight: 88 lb Body Mass Index (BMI) 16.2 Intake & Output: Intake and Output for Last 24 Hours 04/01/24 04/02/24 04/03/24 23:59 23:59 23:59 Intake Total 2743.56 / 2752.62 2422.99 / 2422.99 465 / 465 Output Total 350 / 350 1100 / 1100 Balance 2393.56 / 2402.62 1322.99 / 1322.99 465 / 465 Lab / Micro Data 04/02/24 05:45 04/02/24 05:20 Labs: Laboratory Results - last 24 hr 04/02/24 05:20: Free T4 1.10, Free T3 pg/dL 1.2 L 04/03/24 03:45: Vancomycin Trough 13.4 Micro: Microbiology 04/01/24 15:35 Sputum, Induced/Lukens Gram Stain - Final 04/01/24 15:35 Sputum, Induced/Lukens Respiratory Culture - Final Pseudomonas aeruginosa 04/01/24 15:50 Urine Catheter - Gray Streptococcus pneumoniae Antigen (M - Final 04/01/24 15:50 Urine Catheter - Gray Legionella Antigen - Final 04/01/24 15:30 Mucosa - Nose Respiratory Panel (PCR) - Final 04/01/24 15:30 Mucosa - Nose SARS-CoV-2, Influenza & RSV (PCR) - Final Radiography Diagnostic Testing: Radiology Impression Echocardiogram 04/01/24 15:58 Interpretation Summary Normal LV size. Left ventricular systolic function is normal. No regional wall motion abnormalities noted. The left ventricular ejection fraction is 65 %. Structurally normal valves. Ordering Physician: Radha Lucas Referring Physician: Maci Thibodeaux Performed By: Mackenzie Salas RDCS Chest X-Ray 04/03/24 05:00 IMPRESSION: No acute pulmonary finding. No pneumothorax visualized, with chest tube in place. Electronically Signed: Gorge Shore MD at 6:17 EDT , Physical Exam Resp Resp Narrative: Right chest tube- Canister was connected to suction. No air leak was noted. Silk sutures were trimmed. Chest tube was completely pulled. Pressure dressing was applied with layered Vaseline gauze followed by Telfa and two Tegaderms. Single silk suture was left in place. Effort and Inspection: pursed lip breathing, labored and tripod positioning Auscultation: diminished lung sounds bilateral lower Assessment & Plan Assessment/Plan (1) Pneumothorax on right: PLAN: I am following this patient in conjunction with Dr. Gomez. He has independently evaluated this patient. CXR this morning showed resolution of the right pneumothorax Dr. Gomez pulled right chest tube this morning at bedside Plan to obtain repeat CXR in 6 hours We will continue to monitor this patient Charges/Coding Visit Charges Inpatient E&M: 79661 Subs Hosp L1
[2024-04-03] MEDS: Pantoprazole Sodium 40 MG in 0.9% Normal Saline (100mL MB+) 100 ML 300 MG IV (09:56)
[2024-04-03] MEDS: Enoxaparin 30 MG/0.3 ML Syringe SC (10:14)
--- NOTE | 2024-04-03 10:30 | RAD_ITS ---
INDICATION: tachypnea, post removal of chest tube EXAMINATION/TECHNIQUE: X-RAY - XR Chest 1 View COMPARISON: Previous of the same date done earlier. FINDINGS: LINES/DEVICES: Right chest tube has been removed. LUNGS: Lungs remain hyperinflated. Persistent blunting of the right costophrenic angle. No evidence of pneumothorax. MEDIASTINUM AND CARDIOVASCULAR STRUCTURES: Cardiac silhouette not enlarged. Central airways and mediastinal contour are unremarkable. BONES AND SOFT TISSUES: Stable soft tissues and osseous structures. RAD/Chest 1 View (Portable) IMPRESSION: Status post removal of right chest tube. No evidence of pneumothorax. Otherwise no significant change. Electronically Signed: Guerrero Alegre MD at 11:06 EDT ,
--- NOTE | 2024-04-03 14:00 | RAD_ITS ---
INDICATION: right pneumothorax -- PORTABLE EXAMINATION/TECHNIQUE: X-RAY - XR Chest 1 View COMPARISON: Prior study dated: 04/03/2024, 10:27 AM FINDINGS: LINES/DEVICES: None. LUNGS: The lungs remain hyperinflated. No definite pneumothorax. Persistent blunting of the right costophrenic angle. MEDIASTINUM AND CARDIOVASCULAR STRUCTURES: Cardiac silhouette not enlarged. Central airways and mediastinal contour are unremarkable. BONES AND SOFT TISSUES: Changes osseous structures. RAD/Chest 1 View (Portable) IMPRESSION: No significant change. No definite pneumothorax. Electronically Signed: Guerrero Alegre MD at 15:06 EDT ,
[2024-04-03] MEDS: 0.9% Normal Saline (250mL Bag) 250 ML 15 ML IV (14:50)
[2024-04-03] MEDS: Albuterol 2.5 MG/3 ML VIAL.NEB. INHALATION (19:55)
[2024-04-03] MEDS: 0.9% Saline Lock 10 ML Syringe IV (21:00)
[2024-04-04] VITALS (15 sets, daily range): BP systolic 118–132; BP diastolic 74–85; PULSE 86–115; RESP 16–26; TEMP 36.1–37.4; O2SAT 82–100
[2024-04-04] MEDS: Ipratropium 0.5 MG/2.5 ML SOLUTION INHALATION ×5 (02:32→19:21)
[2024-04-04] MEDS: 0.9% Saline Lock 10 ML Syringe IV ×2 (05:45→08:15)
[2024-04-04] MEDS: Cefepime HCl 2 GM in 0.9% Normal Saline (100mL MB+) 100 ML IV ×3 (05:45→21:29)
--- NOTE | 2024-04-04 07:35 | PN.SURG_ITS ---
Subjective Subjective Patient reports no changes overnight Objective Data Objective Data Vital Signs: Vital Signs Temp Pulse Resp BP Pulse Ox O2 Del Method O2 Flow Rate 97.2 F L 87 16 118/74 100 Nasal Cannula 2 04/04/24 04:48 04/04/24 04:48 04/04/24 04:48 04/04/24 04:48 04/04/24 04:48 04/04/24 04:48 04/04/24 04:48 FiO2 30 04/02/24 07:00 Oxygen Flow Rate (L/min) 2 Oxygen Delivery Method Nasal Cannula Weight: 88 lb Body Mass Index (BMI) 16.2 Intake & Output: Intake and Output for Last 24 Hours 04/02/24 04/03/24 04/04/24 23:59 23:59 23:59 Intake Total 2422.99 / 2422.99 1268.75 / 1268.75 100 / 100 Output Total 1100 / 1100 Balance 1322.99 / 1322.99 1268.75 / 1268.75 100 / 100 Lab / Micro Data 04/02/24 05:45 04/02/24 05:20 Micro: Microbiology 04/01/24 15:50 Blood Culture (Wb) - Left Forearm Blood Culture - Preliminary No growth in 48 hours. 04/01/24 15:35 Sputum, Induced/Lukens Gram Stain - Final 04/01/24 15:35 Sputum, Induced/Lukens Respiratory Culture - Final Pseudomonas aeruginosa 04/01/24 15:50 Urine Catheter - Gray Streptococcus pneumoniae Antigen (M - Final 04/01/24 15:50 Urine Catheter - Gray Legionella Antigen - Final 04/01/24 15:30 Mucosa - Nose Respiratory Panel (PCR) - Final 04/01/24 15:30 Mucosa - Nose SARS-CoV-2, Influenza & RSV (PCR) - Final Radiography Diagnostic Testing: Radiology Impression Chest X-Ray 04/03/24 10:30 IMPRESSION: Status post removal of right chest tube. No evidence of pneumothorax. Otherwise no significant change. Electronically Signed: Guerrero Alegre MD at 11:06 EDT , Chest X-Ray 04/03/24 14:00 IMPRESSION: No significant change. No definite pneumothorax. Electronically Signed: Guerrero Alegre MD at 15:06 EDT , Physical Exam Const oriented x3 and no apparent distress Resp normal respiratory effort Cardio regular rate and regular rhythm GI soft to palpation and non-tender Assessment & Plan Assessment/Plan (1) Pneumothorax on right: PLAN: Patient chest x-ray yesterday afternoon that showed no pneumothorax after chest tube removal. The patient reports no acute issues overnight. Okay for DC when okay with medicine. Juanito Christiansen MD Pager: [facility] [address] [place] [address], [address] [place] [address] Office:
--- NOTE | 2024-04-04 07:45 | PN.HOSP_ITS ---
Reason for Visit Reason for Visit: Diagnoses Elevated white blood cell count, unspecified (04/01/24) Chronic obstructive pulmonary disease with (acute) exacerbation (04/01/24) Chronic obstructive pulmonary disease, unspecified (04/01/24) Pneumothorax, unspecified (04/01/24) Acute and chronic respiratory failure with hypoxia (04/01/24) Acute and chronic respiratory failure with hypercapnia (04/01/24) Cachexia (04/01/24) Abnormal levels of other serum enzymes (04/01/24) Subjective Subjective Has been short of breath since yesterday. Objective Data Objective Data Vital Signs: Vital Signs Temp Pulse Resp BP Pulse Ox O2 Del Method O2 Flow Rate 36.2 C L 87 16 118/74 100 Nasal Cannula 2 04/04/24 04:48 04/04/24 04:48 04/04/24 04:48 04/04/24 04:48 04/04/24 04:48 04/04/24 04:48 04/04/24 04:48 FiO2 30 04/02/24 07:00 Oxygen Flow Rate (L/min) 2 Oxygen Delivery Method Nasal Cannula Weight: 39.916 kg Body Mass Index (BMI) 16.2 Intake & Output: Intake and Output for Last 24 Hours 04/02/24 04/03/24 04/04/24 23:59 23:59 23:59 Intake Total 2422.99 / 2422.99 1268.75 / 1268.75 100 / 100 Output Total 1100 / 1100 Balance 1322.99 / 1322.99 1268.75 / 1268.75 100 / 100 Lab / Micro Data 04/02/24 05:45 04/02/24 05:20 Micro: Microbiology 04/01/24 15:50 Blood Culture (Wb) - Left Forearm Blood Culture - Preliminary No growth in 48 hours. 04/01/24 15:35 Sputum, Induced/Lukens Gram Stain - Final 04/01/24 15:35 Sputum, Induced/Lukens Respiratory Culture - Final Pseudomonas aeruginosa 04/01/24 15:50 Urine Catheter - Gray Streptococcus pneumoniae Antigen (M - Final 04/01/24 15:50 Urine Catheter - Gray Legionella Antigen - Final 04/01/24 15:30 Mucosa - Nose Respiratory Panel (PCR) - Final 04/01/24 15:30 Mucosa - Nose SARS-CoV-2, Influenza & RSV (PCR) - Final Radiography Diagnostic Testing: Radiology Impression Chest X-Ray 04/03/24 10:30 IMPRESSION: Status post removal of right chest tube. No evidence of pneumothorax. Otherwise no significant change. Electronically Signed: Guerrero Alegre MD at 11:06 EDT Reading Location ID and State: [facility] / [place] Tel , Service support , Chest X-Ray 04/03/24 14:00 IMPRESSION: No significant change. No definite pneumothorax. Electronically Signed: Guerrero Alegre MD at 15:06 EDT , Physical Exam Const Constitutional Narrative: Up in bed, pursed lip breathing. alert. Resp Resp Narrative: diminished BS bilaterally. Cardio regular rate, regular rhythm, S1 normal heart sound and S2 normal heart sound GI normal to inspection, nondistended, normoactive bowel sounds, soft to palpation, non-tender and non-distended Neuro Sensorium / Orientation: awake and alert Assessment & Plan Assessment/Plan (1) Acute on chronic respiratory failure with hypoxia and hypercapnia: (2) Pneumothorax on right: (3) COPD with acute exacerbation: PLAN: Plan Acute on chronic hypoxic and hypercapnic respiratory failure * baseline 3l/m oxygen requirement. * secondary to acute exacerbation of COPD with a right pneumothorax * She was intubated in the ER on the , extubated on the . * on empiric abx * CCM following. * acute dyspnea on the after CT removed. Follow up CXR showed no recurrence of PTX. * Add PRN albuterol nebs. Pneumothorax * noted on admission CXR. Likely 2/2 COPD. * since resolved. CT placed to [facility]. CT removed 04/03 Acute COPD exacerbation * on end-stage COPD. PFTs from 12/06/18: FEV1 24%. * on BDs, methylpred * wean oxygen as tolerated Gram negative (pseudomonas) pneumonia * sputum cutlure showing GNR, possible Pseudomonas * on abx with cefepime. Could discontinue vancomycin. Keep cefepime on until sensitivities identified. Elevated troponins * mild elevation likely due to demand ischemia from respiratory failure. * echo shows an EF 65% * no additional work up necessary. Low TSH * FT4 WNL. No additional work up. Severe protein calorie malnutrition * 2/2 to end-stage COPD * Ensure plus w meals. VTE prophylaxis: enoxaparin. prognosis: long-term is poor. Recommended palliative treatment with liquid morphine and lorazepam to help with her dyspnea. Informed her that it will not fix the underlying process, but rather the intent is to make her comfortable. She was aggreable and also agreable to meeting with palliative care (she understands that this will be as outpt.) Charges/Coding Visit Charges Inpatient E&M: 32888 Subs Hosp L2
[2024-04-04] MEDS: predniSONE 20 MG Tablet 40 MG PO (08:14)
[2024-04-04] MEDS: Enoxaparin 30 MG/0.3 ML Syringe SC (08:14)
[2024-04-04] MEDS: Pantoprazole Sodium 40 MG in 0.9% Normal Saline (100mL MB+) 100 ML 330 MG IV (08:14)
[2024-04-04] MEDS: Ensure Plus High Protein 120 ML LIQUID PO ×3 (08:16→17:56)
[2024-04-04] MEDS: Albuterol 2.5 MG/3 ML VIAL.NEB. INHALATION ×3 (10:34→19:21)
[2024-04-04] MEDS: morphine (oral solution) 10MG/0.5ML Syringe 10 MG SL/PO ×2 (15:39→21:37)
--- NOTE | 2024-04-04 16:14 | CHAPLAIN ---
Type of Pastoral Visit _x__ Initial Visit ___ Follow-up Visit ___ On-call Visit ___ General Patient Visit ___ Spiritual Assessment ___ Family Conference ___ Bereavement ___ Rapid Response ___ Code Blue ___ Other (describe below) Pastoral Care Referral From _x__ Patient ___ Family ___ Nurse ___ Physician ___ Tableau Architect ___ Cyberathlete ___ Other (describe below) Sacrament/Intervention _x__ Active listening ___ Anointing ___ Mandaeism ___ Bereavement ___ Communion _x__ Karyn exploration ___ _x__ Life review _x__ Prayer ___ Reconciliation ___ Sacrament of Sick _x__ Supportive presence ___ Wedding ___ Other (describe below) Pastoral Comments patient is eager to speak to this millstone cleaner and makes statements that are positive and hopeful about karyn and knowing that God is helping me through this; pt is engaged in talking and reveals that her son recently and that it is very hard for her; pt has a mother that is also worried about her and still acts like the momma; pt gives credit to her mother for raising her to believe in God and his care for her; pt has regrets in life that she expresses but focus goes back to the positive blessings and the ways of karyn that guide her; pt welcomes prayer; pt is tearful after prayer and expresses thanks for the support
[2024-04-05] VITALS (14 sets, daily range): BP systolic 102–116; BP diastolic 68–79; PULSE 87–99; RESP 18–20; TEMP 36.5–37.2; O2SAT 92–99
[2024-04-05] MEDS: Albuterol 2.5 MG/3 ML VIAL.NEB. INHALATION ×2 (00:09→20:35)
[2024-04-05] MEDS: Cefepime HCl 2 GM in 0.9% Normal Saline (100mL MB+) 100 ML IV ×3 (05:41→21:54)
[2024-04-05] MEDS: morphine (oral solution) 10MG/0.5ML Syringe 10 MG SL/PO ×2 (05:48→14:17)
[2024-04-05 06:03] LABS: Absolute Lymphocyte Count 1.87 X10^3/uL (0.83-4.51); Absolute Neutrophil Count 3.6 X10^3/uL (2.0-7.7); Eosinophil# 0.03 X10^3/uL; Eosinophils% 0.5 % (0-5); Hematocrit 33.7 % (37-47); Hemoglobin 11.1 g/dL (12.0-15.0); Lymphocyte # 1.87 X10^3/ul (0.83-4.51); Lymphocyte % 30.5 % (19-41); Mean Corp Hgb Conc 32.9 g/dL (32-36); Mean Corpuscular Hgb 30.1 pg (27.0-32.0); Mean Corpuscular Volume 91.3 fL (81-99); Monocyte# 0.67 X10^3/uL; Monocyte% 10.9 % (0-10); NRBC Flagged by Analyzer 0 % (0-5); Neutrophil # 3.55 X10^3/uL (2.7-7.7); Neutrophil % 57.9 % (47-70); Platelet Count 201 K/mm3 (150-450); RBC Distribution Width CV 12.1 % (11.6-14.6); RBC Distribution Width SD 40.7 fl (35.1-43.9); Red Blood Count 3.69 M/mm3 (4.2-5.4); White Blood Count 6.1 K/mm3 (4.4-11.0)
[2024-04-05 06:36] LABS: Anion Gap 2 (5-15); BUN 11 mg/dL (7-18); BUN/Creat Ratio 33.5 RATIO (10-20); Calcium,Total 8.1 mg/dL (8.5-10.1); Chloride 102 mmol/L (98-107); Creatinine, Serum 0.33 mg/dL (0.55-1.02); EST Glomerular Filtration Rate 216 mL/min (>60); Est Glom Filt Rate - Afr Amer 262 mL/min (>60); Estimated Creatinine Clearance 112.81 ml/min; Glucose 86 mg/dL (74-106); Potassium 2.9 mmol/L (3.5-5.1); Sodium Level 138 mmol/L (136-145)
[2024-04-05] MEDS: Ipratropium 0.5 MG/2.5 ML SOLUTION INHALATION ×4 (07:10→19:50)
--- NOTE | 2024-04-05 08:10 | PN.HOSP_ITS ---
Reason for Visit Reason for Visit: Diagnoses Elevated white blood cell count, unspecified (04/01/24) Chronic obstructive pulmonary disease with (acute) exacerbation (04/01/24) Chronic obstructive pulmonary disease, unspecified (04/01/24) Pneumothorax, unspecified (04/01/24) Acute and chronic respiratory failure with hypoxia (04/01/24) Acute and chronic respiratory failure with hypercapnia (04/01/24) Cachexia (04/01/24) Abnormal levels of other serum enzymes (04/01/24) Subjective Subjective Feels that she is breathing better today. Feels that the morphine is helping her. Objective Data Objective Data Vital Signs: Vital Signs Temp Pulse Resp BP Pulse Ox O2 Del Method O2 Flow Rate 36.7 C 92 20 H 109/73 93 Nasal Cannula 2 04/05/24 04:04 04/05/24 04:04 04/05/24 04:04 04/05/24 04:04 04/05/24 04:04 04/05/24 04:04 04/05/24 04:04 FiO2 30 04/02/24 07:00 Oxygen Flow Rate (L/min) 2 Oxygen Delivery Method Nasal Cannula Weight: 39.916 kg Body Mass Index (BMI) 16.2 Intake & Output: Intake and Output for Last 24 Hours 04/03/24 04/04/24 04/05/24 23:59 23:59 23:59 Intake Total 1268.75 / 1268.75 1045 / 1045 100 / 100 Balance 1268.75 / 1268.75 1045 / 1045 100 / 100 Lab / Micro Data 04/05/24 05:29 04/05/24 05:29 Labs: Laboratory Results - last 24 hr 04/05/24 05:29: WBC 6.1, RBC 3.69 L, Hgb 11.1 L, Hct 33.7 L, MCV 91.3, MCH 30.1, MCHC 32.9, RDW Std Deviation 40.7, RDW Coeff of Stephanie 12.1, Plt Count 201, MPV 9.0, Immature Gran % (Auto) 0.200, Neut % (Auto) 57.9, Lymph % (Auto) 30.5, Davis % (Auto) 10.9 H, Eos % (Auto) 0.5, Baso % (Auto) 0.0, Absolute Neuts (auto) 3.6, Absolute Lymphs (auto) 1.87, Nucleated RBC % 0, Sodium 138, Potassium 2.9 L, Chloride 102, Carbon Dioxide 34.0 H, Anion Gap 2 L, BUN 11, Creatinine 0.33 L, Estim Creat Clear Calc 112.81, Est GFR (MDRD) Af Amer 262, Est GFR (MDRD) Non-Af 216, BUN/Creatinine Ratio 33.5 H, Glucose 86, Calcium 8.1 L Micro: Microbiology 04/01/24 15:50 Urine Catheter - Gray Urine Culture - Final Culture exhibits no growth. 04/01/24 15:50 Blood Culture (Wb) - Left Forearm Blood Culture - Preliminary No growth in 48 hours. 04/01/24 15:35 Sputum, Induced/Lukens Gram Stain - Final 04/01/24 15:35 Sputum, Induced/Lukens Respiratory Culture - Final Pseudomonas aeruginosa 04/01/24 15:50 Urine Catheter - Gray Streptococcus pneumoniae Antigen (M - Final 04/01/24 15:50 Urine Catheter - Gray Legionella Antigen - Final 04/01/24 15:30 Mucosa - Nose Respiratory Panel (PCR) - Final 04/01/24 15:30 Mucosa - Nose SARS-CoV-2, Influenza & RSV (PCR) - Final Physical Exam Const alert and no apparent distress Constitutional Narrative: Appears more comfortable. No conversational dyspnea. Is still doing some of the pursed lip breathing but not as consistent as it has been in the days prior. HEENT head/scalp atraumatic and moist oral mucous membranes Resp normal respiratory effort and no retractions Resp Narrative: Slightly improved aeration bilaterally. Cardio regular rate, regular rhythm, S1 normal heart sound and S2 normal heart sound GI normal to inspection, nondistended, normoactive bowel sounds, soft to palpation, non-tender and non-distended Neuro Sensorium / Orientation: awake and alert Assessment & Plan Assessment/Plan (1) Acute on chronic respiratory failure with hypoxia and hypercapnia: (2) Pneumothorax on right: (3) COPD with acute exacerbation: PLAN: Plan Acute on chronic hypoxic and hypercapnic respiratory failure * baseline 3l/m oxygen requirement. * secondary to acute exacerbation of COPD with a right pneumothorax * She was intubated in the ER on the , extubated on the . * on empiric abx * CCM following. * acute dyspnea on the [address] Follow up CXR showed no recurrence of PTX. * Add PRN albuterol nebs. Pneumothorax * noted on admission CXR. Likely 2/2 COPD. * [facility] resolved. [facility]03 Acute COPD exacerbation * on end-stage COPD. PFTs from 12/06/18: FEV1 24%. * on BDs, methylpred * wean oxygen as tolerated Gram negative (pseudomonas) pneumonia * sputum cutlure showing GNR, possible Pseudomonas * on abx with cefepime. Could discontinue vancomycin. Keep cefepime on until sensitivities identified. Elevated troponins * mild elevation likely due to demand ischemia from respiratory failure. * echo shows an EF 65% * no additional work up necessary. Low TSH * FT4 WNL. No additional work up. Severe protein calorie malnutrition * 2/2 to end-stage COPD * Ensure plus w meals. hypokalemia * replace VTE prophylaxis: enoxaparin. CODE STATUS: Verified with the patient. Previously was noted full code but she states that she actually has a DNR. Patient wishes to be DNR Comfort Care arrest no intubation. Disposition: To be determined. Patient still very tachypneic and does live by herself. I would like to give her at least another day or 2 if possible see how she does response to the steroids. Patient has noted increased aeration and air movement on exam. Plan will be for the patient to go home with palliative care and palliative care with see her at home. Charges/Coding Visit Charges Inpatient E&M: 25542 Subs Hosp L2
[2024-04-05] MEDS: Potassium Chloride Oral Tablet 20 MEQ 40 MEQ PO ×2 (08:22→17:09)
[2024-04-05] MEDS: Sodium Chloride 0.65% 1 SPRAY SPRAY.BTL NASAL (08:22)
[2024-04-05] MEDS: Enoxaparin 30 MG/0.3 ML Syringe SC (08:23)
[2024-04-05] MEDS: Ensure Plus High Protein 120 ML LIQUID PO ×2 (08:23→17:09)
[2024-04-05] MEDS: Senna/Docusate Sodium 1 Tablet 2 TABLET GT (08:23)
[2024-04-05] MEDS: predniSONE 20 MG Tablet 40 MG PO (08:23)
--- NOTE | 2024-04-05 10:07 | PCM.PN.INT ---
Assessment & Plan Assessment/Plan (1) Pulmonary cachexia due to COPD: (2) Acute on chronic respiratory failure with hypoxia and hypercapnia: (3) Pneumothorax on right: (4) COPD with acute exacerbation: PLAN: Plan RECOMMENDATIONS: 1. Continue supplemental oxygen at 3 L/min, per baseline requirement. 2. Okay to transition to Levaquin to complete 7 days of therapy. 3. Continue prednisone 40 mg daily, with plans for taper at discharge. 4. Continue scheduled aerosol treatments. 5. Encourage incentive spirometer use and mobilize patient as tolerated. 6. Agree with referral to palliative care medicine on outpatient basis. 7. The patient is medically stable from my perspective for discharge. Will sign off at this time. Please call with any additional questions. IMPRESSIONS: 1. Acute on chronic respiratory failure with hypoxemia and hypercapnia/spontaneous pneumothorax The patient presented to the hospital with shortness of breath in the setting of a known history of end-stage obstructive lung disease and chronic hypoxemic respiratory failure with a baseline 3 L/min oxygen requirement. She is already on maximum triple therapy inhaler regimen as an outpatient. She appears to have an underlying gram-negative pneumonia, which is likely exacerbated her baseline obstructive lung disease. The patient was initiated on antimicrobials, bronchodilators and steroids. Her presentation was complicated by the development of a small right apical pneumothorax, which required tube thoracotomy. Her pneumothorax has resolved. Clinically, the patient improved from a respiratory perspective and was able to be extubated on April 02. She is doing well postextubation from a respiratory perspective. Chest tube has been removed. Recommend continuing Levaquin to complete 7 days of therapy. The patient will require a prednisone taper at discharge. I agree with outpatient referral to palliative care medicine given the end-stage nature of her lung disease. 2. End-stage COPD with pulmonary cachexia and known lung mass The patient would certainly be a candidate for referral to palliative care medicine and/or initiation of hospice care services, based upon her limited lung function and residual symptoms, despite being on maximum therapy. This note was generated with [employer] dictation software. It may contain incorrect words, spelling, and punctuation that were not noted in checking the note before signing. Subjective Subjective The patient was seen and examined at the bedside this morning. Events from the last 24 hours have been reviewed. The patient is currently afebrile, hemodynamically stable and maintaining appropriate oxygen saturations on 2 L/min via nasal cannula. The patient is doing well from a respiratory perspective. I did have a conversation with her regarding her residual respiratory symptoms, despite being on a triple therapy inhaler regimen. I advocated that she proceed with outpatient evaluation by palliative care medicine, and the patient is in agreement. Objective Data Objective Data The patient's most recent lab work, culture data and imaging studies have all been personally reviewed. Sputum culture dated April 01 was positive for pansensitive Pseudomonas. Vital Signs: Vital Signs Temp Pulse Resp BP Pulse Ox O2 Del Method O2 Flow Rate 98.2 F 97 20 H 110/68 96 Nasal Cannula 2 04/05/24 08:15 04/05/24 08:15 04/05/24 08:41 04/05/24 08:15 04/05/24 08:41 04/05/24 08:41 04/05/24 08:41 FiO2 30 04/02/24 07:00 Oxygen Flow Rate (L/min) 2 Oxygen Delivery Method Nasal Cannula Weight: 88 lb Body Mass Index (BMI) 16.2 Intake & Output: Intake and Output for Last 24 Hours 04/03/24 04/04/24 04/05/24 23:59 23:59 23:59 Intake Total 1268.75 / 1268.75 1045 / 1045 100 / 100 Balance 1268.75 / 1268.75 1045 / 1045 100 / 100 Lab / Micro Data Attestation: I reviewed the patient's lab results. 04/05/24 05:29 04/05/24 05:29 Labs: Laboratory Results - last 24 hr 04/05/24 05:29: WBC 6.1, RBC 3.69 L, Hgb 11.1 L, Hct 33.7 L, MCV 91.3, MCH 30.1, MCHC 32.9, RDW Std Deviation 40.7, RDW Coeff of Stephanie 12.1, Plt Count 201, MPV 9.0, Immature Gran % (Auto) 0.200, Neut % (Auto) 57.9, Lymph % (Auto) 30.5, Guthrie % (Auto) 10.9 H, Eos % (Auto) 0.5, Baso % (Auto) 0.0, Absolute Neuts (auto) 3.6, Absolute Lymphs (auto) 1.87, Nucleated RBC % 0, Sodium 138, Potassium 2.9 L, Chloride 102, Carbon Dioxide 34.0 H, Anion Gap 2 L, BUN 11, Creatinine 0.33 L, Estim Creat Clear Calc 112.81, Est GFR (MDRD) Af Amer 262, Est GFR (MDRD) Non-Af 216, BUN/Creatinine Ratio 33.5 H, Glucose 86, Calcium 8.1 L Micro: Microbiology 04/01/24 15:50 Urine Catheter - Gray Urine Culture - Final Culture exhibits no growth. 04/01/24 15:50 Blood Culture (Wb) - Left Forearm Blood Culture - Preliminary No growth in 48 hours. 04/01/24 15:35 Sputum, Induced/Lukens Gram Stain - Final 04/01/24 15:35 Sputum, Induced/Lukens Respiratory Culture - Final Pseudomonas aeruginosa 04/01/24 15:50 Urine Catheter - Gray Streptococcus pneumoniae Antigen (M - Final 04/01/24 15:50 Urine Catheter - Gray Legionella Antigen - Final 04/01/24 15:30 Mucosa - Nose Respiratory Panel (PCR) - Final 04/01/24 15:30 Mucosa - Nose SARS-CoV-2, Influenza & RSV (PCR) - Final Radiography Diagnostic Testing: Radiology Impression Echocardiogram 04/01/24 15:58 Interpretation Summary Normal LV size. Left ventricular systolic function is normal. No regional wall motion abnormalities noted. The left ventricular ejection fraction is 65 %. Structurally normal valves. Ordering Physician: Radha Lucas Referring Physician: Maci Thibodeaux Performed By: Mackenzie Salas, RACHEL Chest X-Ray 04/03/24 05:00 IMPRESSION: No acute pulmonary finding. No pneumothorax visualized, with chest tube in place. Electronically Signed: Gorge Shore MD at 6:17 EDT Reading Location ID and State: [facility] / [place] Tel , Service support , Physical Exam Const alert and no apparent distress General Appearance: cooperative and frail HEENT normocephalic, head/scalp atraumatic and moist oral mucous membranes Eyes PERRL, EOMs intact bilaterally and conjunctivae normal Neck supple General: trachea midline Chest Chest Narrative: Increased AP diameter Chest: chest tube Resp Auscultation: diminished lung sounds; Negative for rales, rhonchi or wheezes Cardio regular rate and regular rhythm GI normal to inspection, nondistended, normoactive bowel sounds Extremity no clubbing, cyanosis or edema Skin no rashes or lesions noted Neuro oriented x3, CN's II-XII intact bilaterally and moves all extremities Psych Mood & Affect: anxious Charges/Coding Visit Charges Inpatient E&M: 15449 Subs Hosp L2
[2024-04-05] MEDS: Pantoprazole Sodium 40 MG in 0.9% Normal Saline (100mL MB+) 100 ML 330 MG IV (10:25)
[2024-04-05] MEDS: Ondansetron 4 MG/2 ML Vial IV (14:12)
[2024-04-05] MEDS: Acetaminophen 650 MG/20 ML UDC PO (21:52)
[2024-04-05] MEDS: 0.9% Saline Lock 10 ML Syringe IV (21:56)
[2024-04-06] VITALS (11 sets, daily range): BP systolic 106–125; BP diastolic 70–78; PULSE 75–111; RESP 14–22; TEMP 36.2–36.7; O2SAT 94–97
[2024-04-06] MEDS: Ipratropium 0.5 MG/2.5 ML SOLUTION INHALATION ×6 (00:47→23:10)
[2024-04-06] MEDS: 0.9% Saline Lock 10 ML Syringe IV ×3 (05:01→21:06)
[2024-04-06] MEDS: Cefepime HCl 2 GM in 0.9% Normal Saline (100mL MB+) 100 ML IV ×3 (05:02→21:07)
[2024-04-06 07:51] LABS: Anion Gap 3 (5-15); BUN 12 mg/dL (7-18); BUN/Creat Ratio 36.9 RATIO (10-20); Calcium,Total 8.1 mg/dL (8.5-10.1); Chloride 100 mmol/L (98-107); Creatinine, Serum 0.32 mg/dL (0.55-1.02); EST Glomerular Filtration Rate 219 mL/min (>60); Est Glom Filt Rate - Afr Amer 265 mL/min (>60); Estimated Creatinine Clearance 116.34 ml/min; Glucose 95 mg/dL (74-106); Potassium 3.5 mmol/L (3.5-5.1); Sodium Level 137 mmol/L (136-145)
--- NOTE | 2024-04-06 08:57 | PN.HOSP_ITS ---
Reason for Visit Reason for Visit: Diagnoses Elevated white blood cell count, unspecified (04/01/24) Chronic obstructive pulmonary disease with (acute) exacerbation (04/01/24) Chronic obstructive pulmonary disease, unspecified (04/01/24) Pneumothorax, unspecified (04/01/24) Acute and chronic respiratory failure with hypoxia (04/01/24) Acute and chronic respiratory failure with hypercapnia (04/01/24) Cachexia (04/01/24) Abnormal levels of other serum enzymes (04/01/24) Subjective Subjective Breathing better. Objective Data Objective Data Vital Signs: Vital Signs Temp Pulse Resp BP Pulse Ox O2 Del Method O2 Flow Rate 36.6 C 91 18 106/70 94 Nasal Cannula 2 04/06/24 05:00 04/06/24 07:15 04/06/24 07:15 04/06/24 05:00 04/06/24 07:15 04/06/24 07:15 04/06/24 07:15 FiO2 30 04/02/24 07:00 Oxygen Flow Rate (L/min) 2 Oxygen Delivery Method Nasal Cannula Weight: 39.916 kg Body Mass Index (BMI) 16.2 Intake & Output: Intake and Output for Last 24 Hours 04/04/24 04/05/24 04/06/24 23:59 23:59 23:59 Intake Total 1045 / 1045 1530 / 1530 300 / 300 Balance 1045 / 1045 1530 / 1530 300 / 300 Lab / Micro Data 04/05/24 05:29 04/06/24 07:19 Labs: Laboratory Results - last 24 hr 04/06/24 07:19: Sodium 137, Potassium 3.5, Chloride 100, Carbon Dioxide 34.0 H, Anion Gap 3 L, BUN 12, Creatinine 0.32 L, Estim Creat Clear Calc 116.34, Est GFR (MDRD) Af Amer 265, Est GFR (MDRD) Non-Af 219, BUN/Creatinine Ratio 36.9 H, Glucose 95, Calcium 8.1 L Micro: Microbiology 04/01/24 15:50 Urine Catheter - Gray Urine Culture - Final Culture exhibits no growth. 04/01/24 15:50 Blood Culture (Wb) - Left Forearm Blood Culture - Preliminary No growth in 48 hours. 04/01/24 15:35 Sputum, Induced/Lukens Gram Stain - Final 04/01/24 15:35 Sputum, Induced/Lukens Respiratory Culture - Final Pseudomonas aeruginosa 04/01/24 15:50 Urine Catheter - Gray Streptococcus pneumoniae Antigen (M - Final 04/01/24 15:50 Urine Catheter - Gray Legionella Antigen - Final 04/01/24 15:30 Mucosa - Nose Respiratory Panel (PCR) - Final 04/01/24 15:30 Mucosa - Nose SARS-CoV-2, Influenza & RSV (PCR) - Final Physical Exam Const alert and no apparent distress Constitutional Narrative: up in bed. no respiratory distress. no conversational dyspnea. no pursed lip breathing. Resp normal respiratory effort and no retractions Resp Narrative: diminished BS bilaterally. Cardio regular rate, regular rhythm, S1 normal heart sound and S2 normal heart sound Neuro Sensorium / Orientation: awake Assessment & Plan Assessment/Plan (1) Acute on chronic respiratory failure with hypoxia and hypercapnia: (2) Pneumothorax on right: (3) COPD with acute exacerbation: PLAN: Plan Acute on chronic hypoxic and hypercapnic respiratory failure * baseline 3l/m oxygen requirement. * secondary to acute exacerbation of COPD with a right pneumothorax * She was intubated in the ER on the , extubated on the . * on empiric abx * CCM following. * acute dyspnea on the after CT removed. Follow up CXR showed no recurrence of PTX. * Add PRN albuterol nebs. Pneumothorax * noted on admission CXR. Likely 2/2 COPD. * since resolved. CT placed to [facility]. CT removed 04/03 Acute COPD exacerbation * on end-stage COPD. PFTs from 12/06/18: FEV1 24%. * on BDs, methylpred * wean oxygen as tolerated Gram negative (pseudomonas) pneumonia * sputum cutlure showing GNR, possible Pseudomonas * on abx with cefepime. Could discontinue vancomycin. Keep cefepime on until sensitivities identified. Elevated troponins * mild elevation likely due to demand ischemia from respiratory failure. * echo shows an EF 65% * no additional work up necessary. Low TSH * FT4 WNL. No additional work up. Severe protein calorie malnutrition * 2/2 to end-stage COPD * Ensure plus w meals. hypokalemia * replace VTE prophylaxis: enoxaparin. CODE STATUS: Verified with the patient. Previously was noted full code but she states that she actually has a DNR. Patient wishes to be DNR Comfort Care arrest no intubation. Disposition: Anticipate discharge on 04/07 Charges/Coding Visit Charges Inpatient E&M: 66922 Subs Hosp L2
[2024-04-06] MEDS: predniSONE 20 MG Tablet 40 MG PO (09:32)
[2024-04-06] MEDS: Ensure Plus High Protein 120 ML LIQUID PO ×4 (09:32→21:05)
--- NOTE | 2024-04-06 11:39 | CASEMGMT ---
GUI received a call from Ada with [facility]. Ada said they received a referral for Hospice for patient. They reached out to patient's sister, but do not have a time to meet yet. GUI reviewed chart as SW was under the impression the referral was for Palliative and not Hospice. Physician was sitting by GUI and he confirmed referral was for Palliative, however patient was not interested. GUI let Ada know this information. Angelina Martinez MUSIC BOX MECHANIC [employer]ER
[2024-04-06] MEDS: Albuterol 2.5 MG/3 ML VIAL.NEB. INHALATION (14:36)
--- NOTE | 2024-04-06 18:46 | NURSING ---
Reviewed charting with Nuris Calderon RN
[2024-04-07] VITALS (7 sets, daily range): BP systolic 94–102; BP diastolic 70–77; PULSE 80–109; RESP 14–20; TEMP 36.2–36.9; O2SAT 95–99
[2024-04-07] MEDS: Ipratropium 0.5 MG/2.5 ML SOLUTION INHALATION ×3 (02:55→10:21)
[2024-04-07] MEDS: Cefepime HCl 2 GM in 0.9% Normal Saline (100mL MB+) 100 ML IV (05:47)
[2024-04-07] MEDS: 0.9% Saline Lock 10 ML Syringe IV (05:47)
[2024-04-07] MEDS: Ensure Plus High Protein 120 ML LIQUID PO (09:45)
[2024-04-07] MEDS: predniSONE 20 MG Tablet 40 MG PO (09:48)
--- NOTE | 2024-04-07 09:54 | NURSING ---
Pt refused Lovenox shot educated on the importance of taking this medication verbalized understanding. States that she gets nose bleeds when given Lovenox shot.
[2024-04-07] MEDS: Albuterol 2.5 MG/3 ML VIAL.NEB. INHALATION (10:17)
--- NOTE | 2024-04-07 10:22 | PCM.DC.SUM ---
Providers Date of Admission: 04/01/24 Primary Care Physician: ELIAS Ramirez Consultations 04/01/24 15:46 Consult: General Surgery Routine Consulting Provider: Saurav Gomez Reason for Consult: Right pneumothorax EMERGENT Consult: No MD Notified: Yes Date Notified: 04/01/24 Time Notified: 14:49 Method of Notification: ED Physician Initiated Consult: Manager Nuclear / Pulmonary Medicine Routine Consulting Provider: Intensivists/Pulmonary Med Reason for Consult: Acute on chronic hypoxic and hypercapnic respiratory failure EMERGENT Consult: No MD Notified: Yes Date Notified: 04/01/24 Time Notified: 16:07 Method of Notification: Verbal 04/04/24 12:13 Consult: Hospice / Palliative Care Routine Consulting Provider: [facility] Reason for Consult: palliative care. End-stage COPD. EMERGENT Consult: No MD Notified: Yes Date Notified: 04/04/24 Time Notified: 16:49 Method of Notification: Answering Service Reason For Visit: sob Diagnosis Discharge Diagnosis (1) Acute on chronic respiratory failure with hypoxia and hypercapnia: Status: Chronic Code(s): J96.21 - Acute and chronic respiratory failure with hypoxia; J96.22 - Acute and chronic respiratory failure with hypercapnia (2) Pneumothorax on right: Status: Acute Code(s): J93.9 - Pneumothorax, unspecified (3) COPD with acute exacerbation: Status: Chronic Code(s): J44.1 - Chronic obstructive pulmonary disease with (acute) exacerbation Plan Acute on chronic hypoxic and hypercapnic respiratory failure baseline 3l/m oxygen requirement. secondary to acute exacerbation of COPD with a right pneumothorax She was intubated in the ER on the , extubated on the . on empiric abx CCM following. acute dyspnea on the after CT removed. Follow up CXR showed no recurrence of PTX. Add PRN albuterol nebs. Pneumothorax noted on admission CXR. Likely 2/[address] placed to [facility]. CT removed 04/03 Acute COPD exacerbation on end-stage COPD. PFTs from 12/06/18: FEV1 24%. on BDs, prednisone taper wean oxygen as tolerated Gram negative (pseudomonas) pneumonia sputum cutlure showing Pseudomonas on abx with cefepime. Change to levofloxacin to complete 7 days of abx Elevated troponins mild elevation likely due to demand ischemia from respiratory failure. echo shows an EF 65% no additional work up necessary. Low TSH FT4 WNL. No additional work up. Severe protein calorie malnutrition 2/2 to end-stage COPD Ensure plus w meals. hypokalemia replace VTE prophylaxis: enoxaparin. CODE STATUS: Verified with the patient. Previously was noted full code but she states that she actually has a DNR. Patient wishes to be DNR Comfort Care arrest no intubation. Medications at Discharge Home Medications albuterol sulfate 2.5 mg/3 mL (0.083 %) solution for nebulization 2.5 mg inhalation Q4H PRN Sob &/Or Wheezing 10/03/18 albuterol sulfate 90 mcg/actuation aerosol inhaler (Ventolin HFA) 2 puff inhalation Q4H PRN Sob &/Or Wheezing 10/03/18 ipratropium 0.5 mg-albuterol 3 mg (2.5 mg base)/3 mL nebulization soln 3 ml inhalation Q8H 10/03/18 calcium carbonate 1,200 mg (2 x 600 mg calcium (1,500 mg)) PO DAILY #20 tabs 06/03/23 acetaminophen 650 mg/20.3 mL oral solution 1,000 mg (31.2308 mL) PO Q8H PRN PRN Pain 1-10 Or Fever #0 mL 04/07/24 food supplemt, lactose-reduced 0.08 gram-1.5 kcal/mL oral liquid (Ensure Plus High Protein) 120 ml PO 4X/DAY #30 mL 04/07/24 levofloxacin 500 mg tablet 500 mg PO DAILY #2 tabs 04/07/24 morphine concentrate 10 mg/0.5 mL oral syringe (FOR ORAL USE ONLY) 10 mg (0.5 mL) PO/SL Q2H PRN PRN dyspnea 5 days #50 ea 04/07/24 prednisone 10 mg tablet 10 mg PO DAILY #30 tabs 04/07/24 Hospital Course Procedures Intubation and - (Chest tube) Summary of Care Provided Minutes Spent on Discharge: 35 Hospital Course: Patient presents with shortness of breath diagnosed with a COPD exacerbation. Will start on antibiotics with cefepime. Patient developed a pneumothorax when she was here and did require chest tube. Chest tube subcu removed. Patient was slow to improve and was treated for COPD with bronchodilators as well as methylprednisolone. Suspect transitioned over to prednisone and has continued to do well. Patient will be discharged with 2 more days of levofloxacin. Is noted that she gets short of breath with her ciprofloxacin but to be 2 more days of levofloxacin as well as treating her COPD with prednisone taper. In all, her patient is pneumothorax is likely due to a burst of bleb from her COPD. With the patient's very advanced COPD, it was recommended for palliative care and patient was open to having palliative medication for her COPD. We did offer palliative care consult as outpatient but she subsequently declined that stating that she had been involved with palliative care previously. Patient is doing well enough to be discharged home, however given her very advanced COPD she has a high recidivism likelihood. Patient is hospice appropriate but not ready for hospice at this point in time. Physical Exam Const Constitutional Narrative: Up in a chair. On bronchodilators. HEENT normocephalic and head/scalp atraumatic Resp Resp Narrative: Diminished but overall improved aeration. Weight / BMI Weight Weight: 39.916 kg Body Mass Index (BMI) 16.2 ABG / Lab / Microbiology Data 04/05/24 05:29 04/06/24 07:19 Microbiology: Microbiology 04/01/24 15:50 Blood Culture (Wb) - Left Forearm Blood Culture - Final No growth in 5 days. 04/01/24 15:50 Urine Catheter - Gray Urine Culture - Final Culture exhibits no growth. 04/01/24 15:35 Sputum, Induced/Lukens Gram Stain - Final 04/01/24 15:35 Sputum, Induced/Lukens Respiratory Culture - Final Pseudomonas aeruginosa 04/01/24 15:50 Urine Catheter - Gray Streptococcus pneumoniae Antigen (M - Final 04/01/24 15:50 Urine Catheter - Gray Legionella Antigen - Final 04/01/24 15:30 Mucosa - Nose Respiratory Panel (PCR) - Final 04/01/24 15:30 Mucosa - Nose SARS-CoV-2, Influenza & RSV (PCR) - Final D/C Instructions Discharge Diet: No restrictions Meaningful Use Info Meaningful Use Meaningful Use Diagnoses (Choose all that apply): None applicable Ischemic Stroke Statin Dosing Therapy Reference: STATIN DOSE THERAPY REFERENCE: * Patients > 75 years receive moderate or high dose statin therapy. * Patients 75 years or YOUNGER should receive HIGH intensity statin dose unless contraindicated. You will be required to document reason for non-treatment if statin daily dose does not meet guidelines. HIGH DOSE STATIN THERAPY DAILY Atorvastatin > than or = to 40 mg Rosuvastatin > than or = to 20 mg Amlodipine + Atorvastatin > than or = to 2.5/40 mg Ezetimibe + Simvastatin 10/80 mg Simvastatin 80mg Discharge Plan Admission Admit Date/Time: 04/01/24 14:44 Primary Reason for Your Visit: Pneumothorax. Pneumonia. Attending Provider: Helio Brice Primary Care Provider: Maci Thibodeaux NP Consulting Providers: Radha Lucas; Uvaldo Medeiros; Saurav Gomez; Stan Dela Cruz; Cherie Ross; Nancy Tinsley; Corrine Alejandro AEROSPACE PHYSIOLOGICAL TECHNICIAN Instructions Additional Instructions / Restrictions: You had a pneumothorax, air outside your lung, that was likely due to a burst bleb from your COPD. That sealed itself off but you did require the chest tube release at air until that could happen. Complicating this is your flareup of your COPD to which will be on prednisone to help calm down the inflammation. Additionally you have a pneumonia which should have 2 more days of antibiotics. Because of your advanced COPD I started you on some medication, morphine, to help with symptoms. Side effects the underlying process but if you are having issues with shortness of breath it may help alleviate some of the symptoms though it will not correct the underlying process. Given this earlier COPD, as you know, it will not take much to get you worse. If you are feeling acutely short of breath, notify your physician or return to the emergency room. Discharge Orders/Prescriptions Prescriptions: New acetaminophen 650 mg/20.3 mL Solution 1,000 mg PO Q8H PRN PRN (Reason: Pain 1-10 Or Fever) Qty: 0 0RF Ensure Plus High Protein 0.08 gram-1.5 kcal/mL Liquid 120 ml PO 4X/DAY Qty: 30 0RF morphine concentrate 10 mg/0.5 mL Syringe 10 mg PO/SL Q2H PRN PRN (Reason: dyspnea) 5 Days Qty: 50 0RF levofloxacin 500 mg tablet 500 mg PO DAILY Qty: 2 0RF prednisone 10 mg tablet 10 mg PO DAILY Qty: 30 0RF Rx Instructions: 4 tabs daily for 3 days, then 3 tabs daily for 3 days, then 2 tabs daily for 3 days, then 1 tab daily for 3 days Continued ipratropium-albuterol 0.5 mg-3 mg(2.5 mg base)/3 mL solution for nebulization 3 ml INHALATION Q8H albuterol sulfate 2.5 mg /3 mL (0.083 %) solution for nebulization 2.5 mg INHALATION Q4H PRN (Reason: Sob &/Or Wheezing) Ventolin HFA 90 mcg/actuation HFA aerosol inhaler 2 puff INHALATION Q4H PRN (Reason: Sob &/Or Wheezing) calcium carbonate 600 mg calcium (1,500 mg) tablet 1,200 mg PO DAILY Qty: 20 0RF Discontinued prednisone 20 mg tablet 60 mg PO DAILY Qty: 15 0RF potassium chloride 20 mEq tablet extended release 40 meq PO DAILY Qty: 14 0RF Referrals / Follow Up: Maci Thibodeaux AEROSPACE PHYSIOLOGICAL TECHNICIAN, AEROSPACE PHYSIOLOGICAL TECHNICIAN-C [Primary Care Provider] - Within 2 Weeks Disposition Disposition (needs filled in before D/C Order can be placed): Home, Self Care
--- NOTE | 2024-04-08 13:33 | CASEMGMT ---
PA submitted through [facility] video for the Rx for the Ensure Enlive liquid. At this time, the PA was declined as Electronic prior authorization not supported as NDC is not payable. TC to [employer] and the associate gave the phone # for [facility]. TC to [facility] who states that they do not cover any form of the liquid protein drinks including the Ensure Enlive liquid. TC to the pt at this time. Pt states that she understands and that she is OK with paying OOP for this. The pt states that she already had bought some at [facility]. Pt was also educated about further purchasing options. Pt denies further questions or concerns at this time.
== END 2024-04-07 12:15 | disposition home or self-care (01) | DRG 133 ==
LOC: ED 14:29 → ICU 17:08 → PCU 04-03 13:37
PROVIDERS: Family Medicine; Internal Medicine; Admitting Provider Internal Medicine; Emergency Provider Emergency Medicine; PCP Nurse Practitioner Family
DX: J96.21 Acute and chronic respiratory failure with hypoxia (principal); E43 Unspecified severe protein-calorie malnutrition; J15.1 Pneumonia due to Pseudomonas; R64 Cachexia; I24.89 Other forms of acute ischemic heart disease; Z99.81 Dependence on supplemental oxygen; J44.1 Chronic obstructive pulmonary disease with (acute) exacerbation; J93.83 Other pneumothorax; J96.22 Acute and chronic respiratory failure with hypercapnia; E87.6 Hypokalemia; R94.6 Abnormal results of thyroid function studies; R91.8 Other nonspecific abnormal finding of lung field; Z68.1 Body mass index [BMI] 19.9 or less, adult; Z66 Do not resuscitate; Z79.51 Long term (current) use of inhaled steroids; Z79.52 Long term (current) use of systemic steroids; Z79.899 Other long term (current) drug therapy; Z87.891 Personal history of nicotine dependence
CPT/HCPCS: 31500; 31720; 36415; 36600; 71045; 71275; 80048; 80053; 80076; 80202; 81001; 82550; 82803; 83605; 83735; 83880; 84100; 84439; 84443; 84478; 84481; 84484; 85025; 87040; 87070; 87077; 87086; 87186; 87205; 87449; 87631; 87633; 87641; 93005; 93306; 94002; 94003; 94640; 94668; 97110; 97162; 97166; 97530; 97535; 99252; 99285; J7030; J7050; Q9967; A4216; G0463; J0330; J2405

== ENCOUNTER 2024-05-11 00:14 | Inpatient (IN) | payer MEDICAID, SELFPAY ==
[2019-04-26 09:42] VITALS: BMI 20.8
[2024-05-11] VITALS (49 sets, daily range): BP systolic 81–163; BP diastolic 60–117; PULSE 94–138; RESP 8–39; TEMP 36.1–37.1; O2SAT 91–100; BMI 14.8; BMI 15.7
--- NOTE | 2024-05-11 00:19 | ED.VIS.DYS ---
HPI History of Present Illness Chief Complaint: Shortness of Breath [facility] Medical History (Updated 05/11/24 @ 03:[address] Bouchra Randall MD) Pulmonary cachexia due to COPD Respiratory failure Severe chronic obstructive pulmonary disease Nicotine dependence, cigarettes, in remission Chronic hypoxemic respiratory failure Unintentional weight loss Wasting generalized Anxiety Otalgia of right ear Rhinosinusitis Bronchitis Acute exacerbation of emphysema COPD (chronic obstructive pulmonary disease) GERD (gastroesophageal reflux disease) Arthritis Neck pain Osteoporosis Osteopenia Mass of multiple sites of right breast Breast mass Palate abnormality Wheezing Rib pain Atypical chest pain Acute abdominal pain Bacteremia Lung nodule Lung mass Tick bite Rib fracture Pre-operative cardiovascular examination Dependence on supplemental oxygen Home Medications ?Medication ?Instructions ?Recorded ?Last Taken ?Type albuterol sulfate 2.5 mg/3 mL 2.5 mg inhalation Q4H PRN Sob &/Or 10/03/18 Unknown History (0.083 %) solution for nebulization Wheezing albuterol sulfate 90 mcg/actuation 2 puff inhalation Q4H PRN Sob &/Or 10/03/18 Unknown History aerosol inhaler (Ventolin HFA) Wheezing ipratropium 0.5 mg-albuterol 3 mg 3 ml inhalation Q8H 10/03/18 Unknown History (2.5 mg base)/3 mL nebulization soln calcium carbonate 1,200 mg (2 x 600 mg calcium 06/03/23 Unknown Rx (1,500 mg)) PO DAILY #20 tabs acetaminophen 650 mg/20.3 mL oral 1,000 mg (31.2308 mL) PO Q8H PRN 04/07/24 Unknown Rx solution PRN Pain 1-10 Or Fever #0 mL food supplemt, lactose-reduced 120 ml PO 4X/DAY #30 mL 04/07/24 Unknown Rx 0.08 gram-1.5 kcal/mL oral liquid (Ensure Plus High Protein) levofloxacin 500 mg tablet 500 mg PO DAILY #2 tabs 04/07/24 Unknown Rx morphine concentrate 10 mg/0.5 mL 10 mg (0.5 mL) PO/SL Q2H PRN PRN 04/07/24 Unknown Rx oral syringe (FOR ORAL USE ONLY) dyspnea 5 days #50 ea prednisone 10 mg tablet 10 mg PO DAILY #30 tabs 04/07/24 Unknown Rx Allergy/AdvReac Type Severity Reaction Status Date / Time ciprofloxacin (From Cipro) Allergy Intermediate SOB Verified 05/11/24 00:57 fluticasone (From Advair Allergy Mild Ashtma, Verified 05/11/24 00:57 Diskus) Itching, Pruritus, Rash metronidazole (From Flagyl) Allergy Mild Verified 05/11/24 00:57 penicillin G Allergy Mild Verified 05/11/24 00:57 salmeterol (From Advair Allergy Mild Ashtma, Verified 05/11/24 00:57 Diskus) Itching, Pruritus, Rash sulfamethoxazole (From Allergy Mild Rash Verified 05/11/24 00:57 Bactrim) trimethoprim (From Bactrim) Allergy Mild Rash Verified 05/11/24 00:57 Penicillins Allergy Swelling Verified 05/11/24 00:57 Family History Father Colon cancer Surgical History (Updated 04/15/24 @ 00:02 by Matheus Solano) History of colonoscopy History of bilateral tubal ligation History of partial colectomy Social History Smoking Status: Former smoker Tobacco: How many years used: 20 how long ago did patient quit smokin years second hand exposure: No alcohol intake: current alcohol intake frequency: holidays/special occasions only substance use type: does not use caffeine: Yes EXAM Physical Exam Const Vital Signs: 05/11/24 00:15 05/11/24 00:19 05/11/24 00:19 Temperature 97.7 F L 97.7 F L Temperature Source Temporal Temporal Pulse Rate 121 H 121 H Respiratory Rate 30 H 30 H Respiratory Effort Short of Breath Labored Accessory Muscle Use Nasal Flaring Retracting Respiratory Depth Normal Respiratory Pattern Normal Blood Pressure 163/117 H 163/117 H Blood Pressure Mean 132 132 Pulse Ox 96 95 Oxygen Delivery Method Nasal Cannula Nasal Cannula Nasal Cannula Oxygen Flow Rate (L/min) 4 4 Fraction of Inspired Oxygen (FIO2) 05/11/24 00:29 05/11/24 01:00 05/11/24 01:19 Temperature 98.2 F Temperature Source Oral Pulse Rate 128 H 126 H Respiratory Rate 20 H 25 H Respiratory Effort Respiratory Depth Respiratory Pattern Normal Blood Pressure 151/114 H Blood Pressure Mean 126 Pulse Ox 92 93 Oxygen Delivery Method Nasal Cannula Bi-pap Oxygen Flow Rate (L/min) 3 Fraction of Inspired Oxygen (FIO2) 30 05/11/24 01:28 05/11/24 02:10 05/11/24 02:12 Temperature Temperature Source Pulse Rate 117 H 138 H Respiratory Rate 24 H 26 H Respiratory Effort Short of Breath Accessory Muscle Use [place] Respiratory Depth Shallow Respiratory Pattern Tachypnea Tachypnea Blood Pressure 139/109 H Blood Pressure Mean 119 Pulse Ox 95 Oxygen Delivery Method Bi-pap Oxygen Flow Rate (L/min) Fraction of Inspired Oxygen (FIO2) 100 05/11/24 02:24 05/11/24 02:29 05/11/24 02:30 Temperature 98.7 F 97.0 F L Temperature Source Temporal Temporal Pulse Rate 111 H 121 H 121 H Respiratory Rate 10 L 20 H 20 H Respiratory Effort Respiratory Depth Respiratory Pattern Normal Blood Pressure 108/72 108/72 Blood Pressure Mean 84 84 Pulse Ox 100 100 98 Oxygen Delivery Method Mechanical Ventilator Mechanical Ventilator Oxygen Flow Rate (L/min) Fraction of Inspired Oxygen (FIO2) 100 100 100 05/11/24 02:40 Temperature 97.5 F L Temperature Source Temporal Pulse Rate 117 H Respiratory Rate 15 Respiratory Effort Respiratory Depth Respiratory Pattern Blood Pressure 140/89 H Blood Pressure Mean 106 Pulse Ox 99 Oxygen Delivery Method Mechanical Ventilator Oxygen Flow Rate (L/min) Fraction of Inspired Oxygen (FIO2) 100 MDM MDM MDM Narrative Medical decision making narrative: HISTORY OF PRESENT ILLNESS: 63-year-old female history of COPD, hypoxic respiratory failure presents with shortness of breath. Per EMS patient was 80% on arrival on 4 L. Per EMS gave 1 DuoNeb and route. The patient states she has had acute onset of shortness breath earlier today. She notes pain in the right side of her chest. Denies fever cough or chills. The patient denies recent surgery in the last 4 weeks or immobilization in the last 3 days, denies previous diagnosis of DVT or PE, hemoptysis, unilateral leg swelling or malignancy with treatment the last 6 months or palliative. No estrogen use noted. REVIEW OF SYSTEMS: Pertinent positives: Shortness of breath Pertinent negatives: leg swelling PHYSICAL EXAM: Nursing triage notes reviewed, Vital signs reviewed Constitutional: please see mdm HENT: MMM Eyes: Pupils equal round and reactive to light, Extraocular muscles intact Neck: No stridor, no JVD, full neck ROM Lungs: Increased work of breathing, conversational dyspnea, socially muscle use, tripoding, diminished breath sounds throughout, slight wheezing noted in bilateral lung saleem. Bilateral breath sounds Heart: Regular rate and rhythm, No murmurs, No rubs and No gallops, 2+ distal pulses (radial, femoral, posterior tibial) in all extremities Abdomen: Soft, there is no tenderness, rigidity, rebound or guarding, no obvious peritoneal signs, no palpable pulsatile abdominal masses, no auscultated abdominal bruit : No CVAT Extremities: No edema Neuro: No focal neurological deficits, cranial nerves II through XII intact, 5/5 strength in all extremities. Intact sensation to light touch in all extremities, 2+ reflexes bilateral patella tendons. Normal gait. No ataxia. Skin: No rash or lesions noted MEDICAL DECISION MAKING: Chief Complaint: Shortness of breath External records reviewed: Reviewed prior hospitalization, reviewed prior imaging, Factors affecting care: COPD, lung mass, pneumothorax Social determinants of health: none History obtained from others: Consults: n internal medicine (Dr. Randall), general surgery () MDM Narrative: The patient was initially hypertensive with a blood pressure 163/117, tachycardic with a heart rate of 121, tachypneic rate of 30 saturating 95% on nasal cannula at 4 L. Patient is cachectic and chronically ill in acute distress. The patient displayed increased work of breathing and as such was started patient on rescue BiPAP. Gave empiric COPD treatments (Solu-Medrol, DuoNebs) given poor air movement and physical exam suggestive of COPD exacerbation. I considered the following differential diagnosis: COPD exacerbation, pneumonia, COVID, ACS, arrhythmia, anemia, CHF, PE I obtained a broad lab and imaging workup to further elucidate etiology of patient complaint ALL IMAGES (IF OBTAINED) HAVE BEEN PERSONALLY REVIEWED AND INTERPRETED BY MYSELF. Chest x-ray was read and reviewed myself shows evidence of right-sided pneumothorax. Radiologist read my interpretation. ABG with respiratory acidosis with low pH and elevated CO2 patient continued to decompensate despite being on BiPAP. Her mental status became worse. The decision was made to intubate the patient. Please see below procedure note for Intubation went well. Patient tolerated well. No events while placing the patient on positive pressure ventilation. Chest tube was then placed in the right thorax. EKG showed sinus tachycardia rate of 118, left axis deviation, no STEMI High-sensitivity troponin is negative, no evidence of myocardial ischemia CBC without leukocytosis, severe anemia, no thrombocytopenia. BMP without hyponatremia, no other electrolyte maladies, no acute kidney injury BNP within normal suggestive of no heart failure The synthesis of the patient's history, physical exam, labs images suggest COPD exacerbation likely secondary to spontaneous pneumothorax. Given need for mechanical ventilation and chest tube management patient will need admission. Did discuss with general surgery Dr. Terry who agreed to a manage the patient's chest tube. Discussed case with Dr. Randall. Intubation: The procedure was performed by myself. Indications: altered mental status, hypoxia Procedure Description: Preoxygenated with BiPAP, use succinylcholine and etomidate, used video laryngoscopy, had a grade 1 view of the cords with first-pass success. Post-Procedure Assessment: Tracheal intubation was confirmed with breath sounds auscultated equally bilaterally; appropriate color change with end tidal CO2 detector and waveform capnography. The patient tolerated the procedure well with no immediate complications. Chest tube placement: Indications: Pneumothorax Consent: Healthcare agent Timeout: A timeout was performed The right chest wall was washed with chlorhexidine and allowed to dry. He was sterilely prepped. Chest landmarks identified and using the standard technique a right sided 8 Turkish chest tube was placed and sutured into place. A [place] of air was heard when I entered the pleural space. Petroleum gauze placed and then chest tube secured. My interpretation of the post chest tube placement x-ray demonstrates adequate placement of the chest tube with interval improvement of the pneumothorax. The patient and/or family, caregivers express understanding. The patient and/or family, caregivers agrees with the plan. Shared decision making: I will have a discussion with the patient and or visitors regarding risk/benefits of further testing or admission. They will be made aware of of the risk/benefits inherent in this decision they will be given the opportunity to voice understanding. Total critical care time today provided was at least 35 minutes. This excludes separately billable procedures. Critical care time (if documented) is secondary to the patient having high probability of clinically significant/life threatening deterioration in the patient's condition which required my urgent intervention. Impression: 1. Acute hypercapnic/hypoxic respiratory failure 2. History of COPD 3. Spontaneous pneumothorax Dispo: Admit to ICU This note was generated with [employer] [place] dictation software. It may contain incorrect words, spelling, and punctuation that were not noted in review of the chart prior to signing. Lab Data Labs: Laboratory Results - last 24 hr 05/11/24 00:40 WBC 10.2 RBC 4.47 Hgb 13.4 Hct 41.8 MCV 93.5 MCH 30.0 MCHC 32.1 RDW Std Deviation 42.8 RDW Coeff of Stephanie 12.4 Plt Count 396 MPV 8.3 Immature Gran % (Auto) 0.600 Neut % (Auto) 59.0 Lymph % (Auto) 29.5 [place]ade % (Auto) 9.7 Eos % (Auto) 0.4 Baso % (Auto) 0.8 Absolute Neuts (auto) 6.0 Absolute Lymphs (auto) 3.01 Nucleated RBC % 0 Sodium 134 L Potassium 4.1 Chloride 98 Carbon Dioxide 31.0 Anion Gap 5 BUN 8 Creatinine 0.37 L Estim Creat Clear Calc 92.76 Est GFR (MDRD) Af Amer 226 Est GFR (MDRD) Non-Af 186 BUN/Creatinine Ratio 21.4 H Glucose 166 H Calcium 9.6 Phosphorus 4.7 Magnesium 2.1 Troponin I High Sens < 3 L B-Natriuretic Peptide 13.1 ABG Data ABG results: ABG 05/11/24 00:37 Specimen Type ART Sample Site R Radial pH 7.24 L Bicarbonate Actual 32.1 H Total CO2 34 Base Excess 5 H O2 Saturation 97 O2 % 3.0 ABG pCO2 74.4 H* ABG pO2 105 H Pj Test Positive O2 Delivery Device Cannula Vent Mode Not entered Crit Call To/Read Back Yes Blood Gas Notified Whom Luli Blood Gas Notified Time 00:39:09 Radiography Diagnostic Testing: Clinical Impression(s) from Imaging Studies Chest X-Ray 05/11/24 00:27 IMPRESSION: Moderate right lateral pneumothorax with underlying chronic obstructive pulmonary disease Electronically Signed: Tung Mercer MD at 1:51 EDT , ADDENDUM: 05/11/24 0205 IMPRESSION: Moderate right lateral pneumothorax with underlying chronic obstructive pulmonary disease N.B. : The above Results were Read Back by Tung Mercer MD to Dr. Kulwinder Rockwell DO, and understanding confirmed on 05/11/2024 01:58:55 (ET). Electronically Signed: Tung Mercer MD at 1:51 EDT , Discharge Plan Triage Chief Complaint: Shortness of Breath ED Provider: Kulwinder Rockwell Dx/Rx/DC Orders Primary Care Provider: Maci Thibodeaux [employer]
--- NOTE | 2024-05-11 00:27 | EKG12_ITS ---
Test Reason : DYSRHYTHMIA Blood Pressure : / mmHG Vent. Rate : 118 BPM Atrial Rate : 118 BPM P-R Int : 132 ms QRS Dur : 078 ms QT Int : 326 ms P-R-T Axes : 089 056 090 degrees QTc Int : 456 ms Sinus tachycardia Otherwise normal ECG Confirmed by Saurav Cooper ([id number]), associate editor VLAD LU ([id number]) on 05/13/2024 10:50:38 AM Referred By: FABIEN Confirmed By:Saurav Cooper
--- NOTE | 2024-05-11 00:27 | RAD_ITS ---
We are attempting to reach an attending provider to discuss findings. An addendum with communication details will be sent when the communication is complete. INDICATION: SOB EXAMINATION/TECHNIQUE: X-RAY - XR Chest 1 View COMPARISON: April 03, 2024. FINDINGS: LINES/DEVICES: None. LUNGS: Moderate right lateral pneumothorax. Underlying bilateral pulmonary hyperexpansion with interstitial coarsening. No consolidation, edema or effusion. . MEDIASTINUM AND CARDIOVASCULAR STRUCTURES: Mediastinum is grossly midline. Cardiac silhouette not enlarged. Mild aortic atherosclerosis. BONES AND SOFT TISSUES: Unremarkable. RAD/Chest 1 View (Portable) IMPRESSION: Moderate right lateral pneumothorax with underlying chronic obstructive pulmonary disease Electronically Signed: Tung Mercer MD at 1:51 EDT ,
[2024-05-11 00:42] LABS: Allen Test Positive; Base Excess 5 mmol/L (-2 to +2); Bicarbonate 32.1 mmol/L (22-26); Blood Gas Specimen Type ART; Mode Not entered; O2 Delivery Device Cannula; PO2 105 mmHG (75-100); SITE R Radial; SO2 97 % (95-99); Total Carbon Dioxide 34 mmol/L; pCO2 74.4 mmHg (35-45); pH 7.24 (7.35-7.45)
[2024-05-11 00:47] LABS: Absolute Lymphocyte Count 3.01 X10^3/uL (0.83-4.51); Basophil# 0.08 X10^3/uL; Basophil% 0.8 % (0-1); Eosinophil# 0.04 X10^3/uL; Eosinophils% 0.4 % (0-5); Hematocrit 41.8 % (37-47); Hemoglobin 13.4 g/dL (12.0-15.0); Lymphocyte # 3.01 X10^3/ul (0.83-4.51); Lymphocyte % 29.5 % (19-41); Mean Corp Hgb Conc 32.1 g/dL (32-36); Mean Corpuscular Volume 93.5 fL (81-99); Mean Platelet Vol. 8.3 fl (6.2-12.0); Monocyte# 0.99 X10^3/uL; Monocyte% 9.7 % (0-10); NRBC Flagged by Analyzer 0 % (0-5); Neutrophil # 6.03 X10^3/uL (2.7-7.7); Platelet Count 396 K/mm3 (150-450); RBC Distribution Width CV 12.4 % (11.6-14.6); RBC Distribution Width SD 42.8 fl (35.1-43.9); Red Blood Count 4.47 M/mm3 (4.2-5.4); White Blood Count 10.2 K/mm3 (4.4-11.0)
[2024-05-11] MEDS: MethylPREDNISolone 125 MG/2 ML Vial IV (00:52)
[2024-05-11 01:02] LABS: BNP,B-Type NATRIURETIC PEPTIDE 13.1 pg/mL (0-100)
[2024-05-11 01:06] LABS: Anion Gap 5 (5-15); BUN 8 mg/dL (7-18); BUN/Creat Ratio 21.4 RATIO (10-20); Calcium,Total 9.6 mg/dL (8.5-10.1); Chloride 98 mmol/L (98-107); Creatinine, Serum 0.37 mg/dL (0.55-1.02); EST Glomerular Filtration Rate 186 mL/min (>60); Est Glom Filt Rate - Afr Amer 226 mL/min (>60); Estimated Creatinine Clearance 92.76 ml/min; Glucose 166 mg/dL (74-106); Potassium 4.1 mmol/L (3.5-5.1); Sodium Level 134 mmol/L (136-145); Troponin-I HS < 3 pg/mL (3.0-54.0)
[2024-05-11] MEDS: Ipratropium/Albuterol Sulfate 3 ML AMPUL.NEB INHALATION ×7 (01:28→22:42)
[2024-05-11] MEDS: Etomidate 20 MG/10 ML Vial 30 MG IV (02:14)
[2024-05-11] MEDS: Succinylcholine Chloride 200 MG/10 ML SYRINGE 100 MG IV (02:14)
--- NOTE | 2024-05-11 02:19 | RAD_ITS ---
INDICATION: SOB EXAMINATION/TECHNIQUE: X-RAY - XR Chest 1 View COMPARISON: Chest radiograph earlier on same day.. Subsequent chest radiograph on same day. FINDINGS: LINES/DEVICES: Endotracheal tube tip projects 5.6 cm above the zarina. Enteric tube subdiaphragmatic extending off the inferior study margin. LUNGS: Increased large right pneumothorax with partial right lung collapse. Underlying hyperlucent lungs, hyperexpansion and coarsened interstitium MEDIASTINUM AND CARDIOVASCULAR STRUCTURES: Cardiac silhouette not enlarged. Aortic atherosclerosis. BONES AND SOFT TISSUES: Unremarkable. RAD/Chest 1 View (Portable) IMPRESSION: Increased, large right pneumothorax with partial right lung atelectasis. Underlying chronic obstructive pulmonary disease. Support apparatus as above.. Electronically Signed: Tung Mercer MD at 3:47 EDT ,
[2024-05-11] MEDS: 0.9% Normal Saline (1000mL) 1,000 ML 999 ML IV (02:20)
[2024-05-11] MEDS: fentaNYL drip 100 ML 2.5 MCG CONT INF (02:35)
[2024-05-11] MEDS: Midazolam 5 MG/ML Syringe IV ×2 (02:43→03:06)
[2024-05-11] MEDS: Midazolam 50 MG in 0.9% Normal Saline (100mL Bag) 90 ML CONT INF (02:58)
[2024-05-11] MEDS: 0.9% Normal Saline (1000mL) 1,000 ML 125 ML IV (02:59)
--- NOTE | 2024-05-11 03:03 | PCM.HP.STD ---
HPI - General General Date of Admission: 05/11/24 Date of Service: 05/11/24 Chief Complaint: Dyspnea, right sided chest pain. HPI Narrative The patient is a 63 y/o F w/ PMHx: Severe protein calorie malnutrition, COPD w/ Chronic Hypoxic Respiratory Failure (home 3L NC baseline), Anxiety and Depression, GERD, Former tobacco use, recent discharge 04/07/2024 following acute on chronic hypoxic and hypercapnic respiratory failure presentation with a right pneumothorax with COPD acute exacerbation requiring transient intubation with associated concurrent gram-negative Pseudomonas pneumonia who presents to the [facility] ED on 05/11/24 with history of sudden acute onset dyspnea prompting EMS call noted to be 80% on 4 L nasal cannula with administration of DuoNeb on route with also noted right sided chest discomfort with no recent fevers, markedly changed or productive cough or chills prompting eventual ED evaluation. In the ED upon arrival patient was reported to have increased work of breathing with accessory muscle usage and conversational dyspnea with BiPAP initiated and ABG obtained with respiratory acidosis evident. Additional workup in the ED included T98.2, heart rate 126, BP 151/114, respiratory rate 25, knee 3% on BiPAP with 100% FiO2, T97.7, heart rate 121, BP 163/117, respiratory rate 30, 96% on 4 L initially, CBC with WBC 10.2, hemoglobin 13.4, MCV 8.3 without marked shift, ABG with pH 7.24, bicarb 32.1, pCO2 74.4, pO2 105 on nasal cannula, BMP with sodium 134, BUN/creatinine 8/0.37, glucose 166, troponin less than 3, BNP 13.1, chest x-ray with a moderate right lateral pneumothorax with underlying chronic obstructive pulmonary disease, rapid SARS COVID/influenza/RSV negative. In the ED patient ministered DuoNeb therapy as well as IV Solu-Medrol. Given patient's significant respiratory distress despite BiPAP usage patient administered Sustol choline as well as etomidate 30 mg IV x 1 and intubated and Gray catheter also placed. ED discussed case with General surgery and plan of care will be placement of pigtail for PTX per ED and surgery to manage on the floor with plan for chest tube to low intermittent wall suction. [facility] Medical History Pulmonary cachexia due to COPD Respiratory failure Severe chronic obstructive pulmonary disease Nicotine dependence, cigarettes, in remission Chronic hypoxemic respiratory failure Unintentional weight loss Wasting generalized Anxiety Otalgia of right ear Rhinosinusitis Bronchitis Acute exacerbation of emphysema COPD (chronic obstructive pulmonary disease) GERD (gastroesophageal reflux disease) Arthritis Neck pain Osteoporosis Osteopenia Mass of multiple sites of right breast Breast mass Palate abnormality Wheezing Rib pain Atypical chest pain Acute abdominal pain Bacteremia Lung nodule Lung mass Tick bite Rib fracture Pre-operative cardiovascular examination Dependence on supplemental oxygen Home Medications ?Medication ?Instructions ?Recorded ?Last Taken ?Type albuterol sulfate 2.5 mg/3 mL 2.5 mg inhalation Q4H PRN Sob &/Or 10/03/18 Unknown History (0.083 %) solution for nebulization Wheezing albuterol sulfate 90 mcg/actuation 2 puff inhalation Q4H PRN Sob &/Or 10/03/18 Unknown History aerosol inhaler (Ventolin HFA) Wheezing ipratropium 0.5 mg-albuterol 3 mg 3 ml inhalation Q8H 10/03/18 Unknown History (2.5 mg base)/3 mL nebulization soln calcium carbonate 1,200 mg (2 x 600 mg calcium 06/03/23 Unknown Rx (1,500 mg)) PO DAILY #20 tabs acetaminophen 650 mg/20.3 mL oral 1,000 mg (31.2308 mL) PO Q8H PRN 04/07/24 Unknown Rx solution PRN Pain 1-10 Or Fever #0 mL food supplemt, lactose-reduced 120 ml PO 4X/DAY #30 mL 04/07/24 Unknown Rx 0.08 gram-1.5 kcal/mL oral liquid (Ensure Plus High Protein) levofloxacin 500 mg tablet 500 mg PO DAILY #2 tabs 04/07/24 Unknown Rx morphine concentrate 10 mg/0.5 mL 10 mg (0.5 mL) PO/SL Q2H PRN PRN 04/07/24 Unknown Rx oral syringe (FOR ORAL USE ONLY) dyspnea 5 days #50 ea prednisone 10 mg tablet 10 mg PO DAILY #30 tabs 04/07/24 Unknown Rx Allergy/AdvReac Type Severity Reaction Status Date / Time ciprofloxacin (From Cipro) Allergy Intermediate SOB Verified 05/11/24 00:57 fluticasone (From Advair Allergy Mild Ashtma, Verified 05/11/24 00:57 Diskus) Itching, Pruritus, Rash metronidazole (From Flagyl) Allergy Mild Verified 05/11/24 00:57 penicillin G Allergy Mild Verified 05/11/24 00:57 salmeterol (From Advair Allergy Mild Ashtma, Verified 05/11/24 00:57 Diskus) Itching, Pruritus, Rash sulfamethoxazole (From Allergy Mild Rash Verified 05/11/24 00:57 Bactrim) trimethoprim (From Bactrim) Allergy Mild Rash Verified 05/11/24 00:57 Penicillins Allergy Swelling Verified 05/11/24 00:57 Family History Father Colon cancer Mother Heart disease Surgical History History of colonoscopy History of bilateral tubal ligation History of partial colectomy Social History (Updated 05/11/24 @ 03:[address] Bouchra Randall MD) household members: spouse Smoking Status: Former smoker Tobacco: How many years used: 20 how long ago did patient quit smokin years second hand exposure: No alcohol intake: current alcohol intake frequency: holidays/special occasions only substance use type: does not use caffeine: Yes ROS Review of Systems ROS Unobtainable: due to endotracheal tube Vital Signs Vital Signs Vital Signs: 05/11/24 00:15 05/11/24 00:19 05/11/24 00:19 Temperature 97.7 F L 97.7 F L Temperature Source Temporal Temporal Pulse Rate 121 H 121 H Respiratory Rate 30 H 30 H Respiratory Effort Short of Breath Labored Accessory Muscle Use Nasal Flaring Retracting Respiratory Depth Normal Respiratory Pattern Normal Blood Pressure 163/117 H 163/117 H Blood Pressure Mean 132 132 Pulse Ox 96 95 Oxygen Delivery Method Nasal Cannula Nasal Cannula Nasal Cannula Oxygen Flow Rate (L/min) 4 4 Fraction of Inspired Oxygen (FIO2) 05/11/24 00:29 05/11/24 01:00 05/11/24 01:19 Temperature 98.2 F Temperature Source Oral Pulse Rate 128 H 126 H Respiratory Rate 20 H 25 H Respiratory Effort Respiratory Depth Respiratory Pattern Normal Blood Pressure 151/114 H Blood Pressure Mean 126 Pulse Ox 92 93 Oxygen Delivery Method Nasal Cannula Bi-pap Oxygen Flow Rate (L/min) 3 Fraction of Inspired Oxygen (FIO2) 30 05/11/24 01:28 05/11/24 02:10 05/11/24 02:12 Temperature Temperature Source Pulse Rate 117 H 138 H Respiratory Rate 24 H 26 H Respiratory Effort Short of Breath Accessory Muscle Use Head [place] Respiratory Depth Shallow Respiratory Pattern Tachypnea Tachypnea Blood Pressure 139/109 H Blood Pressure Mean 119 Pulse Ox 95 Oxygen Delivery Method Bi-pap Oxygen Flow Rate (L/min) Fraction of Inspired Oxygen (FIO2) 100 05/11/24 02:24 05/11/24 02:29 05/11/24 02:40 Temperature 98.7 F 97.0 F L 97.5 F L Temperature Source Temporal Temporal Temporal Pulse Rate 111 H 121 H 117 H Respiratory Rate 10 L 20 H 15 Respiratory Effort Respiratory Depth Respiratory Pattern Blood Pressure 108/72 108/72 140/89 H Blood Pressure Mean 84 84 106 Pulse Ox 100 100 99 Oxygen Delivery Method Mechanical Ventilator Mechanical Ventilator Mechanical Ventilator Oxygen Flow Rate (L/min) Fraction of Inspired Oxygen (FIO2) 100 100 100 Weight Weight: 81 lb 2.082 oz Body Mass Index (BMI) 14.8 Physical Exam Narrative Physical Examination: General: Status post intubation, sedated, status post right-sided chest pigtail catheter placement, respiratory distress lessens since initial ED arrival. Skin: Normal color, normal turgor, no icterus, no cyanosis except for occasional stage ecchymoses, abrasion. HEENT: AT/NC, EOM unable to be assessed well given intubated and sedated status, PERRLA, moderately dry MM, intubated, no carotid bruits or JVD noted. Lungs: Severely diminished, greater bases, intubated, symmetric rise, still ongoing end expiratory wheezing, no marked rales or rhonchi, respiratory distress improved since initial ED arrival status post intubation. Heart: Mildly tachycardic with regular rhythm; no gallop, rub audible. Abdomen: Soft, cachectic habitus, no grimacing with palpation but intubated and sedated, no obvious distention, hypoactive BS, no appreciated HSM Extremities: No cyanosis, clubbing, or edema, evidence of muscle wasting, fat loss. Neurological: Status post intubation, sedated, status post right-sided chest pigtail catheter placement, respiratory distress lessens since initial ED arrival, cognitive function not baseline intact; pupils equally reactive to light and accommodation, cranial nerves unable to be assessed well given intubated and sedated status, strength accordingly severely globally decreased. Psychiatric: Affect appears sedated, no acute evidence of depressive or anxiety feelings. Results Lab / Micro Data 05/11/24 00:40 05/11/24 00:40 Labs: Laboratory Results - last 24 hr 05/11/24 00:40: WBC 10.2, RBC 4.47, Hgb 13.4, Hct 41.8, MCV 93.5, MCH 30.0, MCHC 32.1, RDW Std Deviation 42.8, RDW Coeff of Stephanie 12.4, Plt Count 396, MPV 8.3, Immature Gran % (Auto) 0.600, Neut % (Auto) 59.0, Lymph % (Auto) 29.5, Vance % (Auto) 9.7, Eos % (Auto) 0.4, Baso % (Auto) 0.8, Absolute Neuts (auto) 6.0, Absolute Lymphs (auto) 3.01, Nucleated RBC % 0, Sodium 134 L, Potassium 4.1, Chloride 98, Carbon Dioxide 31.0, Anion Gap 5, BUN 8, Creatinine 0.37 L, Estim Creat Clear Calc 92.76, Est GFR (MDRD) Af Amer 226, Est GFR (MDRD) Non-Af 186, BUN/Creatinine Ratio 21.4 H, Glucose 166 H, Calcium 9.6, Troponin I High Sens < 3 L, B-Natriuretic Peptide 13.1 Micro: Microbiology 05/11/24 00:35 Mucosa - Nasopharyngeal SARS-CoV-2, Influenza & RSV (PCR) - Final ABG Data ABG results: ABG 05/11/24 00:37 Specimen Type ART Sample Site R Radial pH 7.24 L Bicarbonate Actual 32.1 H Total CO2 34 Base Excess 5 H O2 Saturation 97 O2 % 3.0 ABG pCO2 74.4 H* ABG pO2 105 H Pj Test Positive O2 Delivery Device Cannula Vent Mode Not entered Crit Call To/Read Back Yes Blood Gas Notified Whom Luli Blood Gas Notified Time 00:39:09 Imaging Radiology Impression Chest X-Ray 05/11/24 00:27 IMPRESSION: Moderate right lateral pneumothorax with underlying chronic obstructive pulmonary disease Electronically Signed: Tung Mercer MD at 1:51 EDT , ADDENDUM: 05/11/24 0205 IMPRESSION: Moderate right lateral pneumothorax with underlying chronic obstructive pulmonary disease N.B. : The above Results were Read Back by Tung Mercer MD to Dr. Kulwinder Rockwell , DO, and understanding confirmed on 05/11/2024 01:58:55 (ET). Electronically Signed: Tung Mercer MD at 1:51 EDT , Assessment & Plan Assessment/Plan (1) Acute hypoxic on chronic hypercapnic respiratory failure: (2) COPD exacerbation: (3) Pneumothorax on right: PLAN: Plan The patient is a 63 y/o F w/ PMHx: Severe protein calorie malnutrition, COPD w/ Chronic Hypoxic Respiratory Failure (home 3L NC baseline), Anxiety and Depression, GERD, Former tobacco use, recent discharge 04/07/2024 following acute on chronic hypoxic and hypercapnic respiratory failure presentation with a right pneumothorax with COPD acute exacerbation requiring transient intubation with associated concurrent gram-negative Pseudomonas pneumonia who presents to the [facility] ED on 05/11/24 with history of sudden acute onset dyspnea prompting EMS call noted to be 80% on 4 L nasal cannula with administration of DuoNeb on route with also noted right sided chest discomfort with no recent fevers, markedly changed or productive cough or chills prompting eventual ED evaluation. #1. Acute Hypoxic and Hypercarbic Respiratory Failure on Chronic Hypoxic Respiratory Failure secondary to Acute on Chronic COPD Exacerbation and Concurrent Recurrent Acute Moderate Lateral Right Sided PTX: Will admit to the ICU, will request mixing machine operator consultation, will continue consultation with general surgery to manage chest tube, will continue intubated and sedated status, will continue surgery consultation initiated per ED for right sided pneumothorax management with planned repeat CXR in AM, maintain on ATC duonebs, PRN albuterol, IV methylprednisolone, HOB, IS parameters, to be cautious although presentation more likely secondary to PTX will obtain sputum Cx, respiratory viral panel, procalcitonin, MRSA screen requested, will hold on immediately abx therapy but low threshold to add if appropriate given suspect PTX primary catalyst but will defer to mixing machine operator. PT/OT/case management consulted for discharge planning. #2. Hyperglycemia, suspect stress response: Admission glucose 166, suspect stress response but to be cautious will obtain hemoglobin A1c. #3. Severe protein calorie malnutrition: Significant reduced BMI of 14, obvious muscle and fat loss, cachexia evident likely secondary to her underlying pulmonary disease, nutrition consulted for recommendations. #4. Known lung mass: Most recent CTPA 04/01/2024 with 1 cm x 1.7 cm fibrocalcific density in the right upper lobe with evidence of scarring the posterior aspect of the right lower lobe with a scleral's appearance, per pulmonary last evaluation recommendation for palliative care medicine involvement on an outpatient basis. #5. Anxiety and depression: Per current list does not appear to be on regimen but clarifying, will add if appropriate. #6. Former tobacco use: Encourage continued tobacco cessation. #7. GERD: Per current list does not appear to be on chronic regimen, will have as needed Mylanta regimen. #8. DVT prophylaxis: SCDs, hold chemoprophylaxis in case of intervention necessary per surgery given PTX. #9. CODE status: Patient HCPOA and living will are not in place but her is her medical decision-maker. He notes that she has been wanting to set these items up therefore discussed options and recommended they review with case management once able. Discussed CODE status at length including difference between FULL code, DNR-CCA and DNR-CC status. Following discussions about the differences in these status, requested DNR-CCA with intubation. Advanced Care Planning Face to Face Time: 16 minutes. Charges/Coding Visit Charges Inpatient E&M: 72357 Init Hosp L3 Procedures Hospitalists Procedures: [id number] Advncd Care Plan 30 Min
--- NOTE | 2024-05-11 03:08 | RAD_ITS ---
INDICATION: CHEST TUBE PLACEMENT EXAMINATION/TECHNIQUE: X-RAY - XR Chest 1 View COMPARISON: Chest radiographs earlier on same day.. FINDINGS: LINES/DEVICES: Endotracheal tube 5.3 cm above the zarina. Enteric tube extends subdiaphragmatic off the inferior study margin. Interval right thoracostomy tube placement.. LUNGS: Significantly decreased right pneumothorax and right lung reexpansion with minimal residual pneumothorax at the right costophrenic angle. Mild right basilar atelectasis. Underlying pulmonary hyperexpansion and interstitial coarsening. No effusion. MEDIASTINUM AND CARDIOVASCULAR STRUCTURES: Cardiac silhouette not enlarged. Aortic atherosclerosis. BONES AND SOFT TISSUES: Unremarkable. RAD/Chest 1 View (Portable) IMPRESSION: Right thoracostomy tube placement with significantly decreased pneumothorax and right lung reexpansion. Mild right basilar atelectasis. Electronically Signed: Tung Mercer MD at 3:49 EDT ,
[2024-05-11 03:29] LABS: Magnesium 2.1 mg/dL (1.6-2.6); Phosphorus 4.7 mg/dL (2.5-4.9)
--- NOTE | 2024-05-11 03:43 | ED.RN ---
updated on patient condition and has left for the evening
[2024-05-11 04:04] LABS: Procalcitonin 0.04 ng/mL (0.00-0.09)
--- NOTE | 2024-05-11 04:09 | CPS ---
[0037] Critical ABG results reported back to Dr. Rockwell in ER: PCO2=74.4. Dr. Rockwell agreeable to placing pt. on BiPAP due to pt.'s tripoding & evident breathing concerns.
[2024-05-11] MEDS: 0.9% Normal Saline (1000mL) 1,000 ML 100 ML IV (04:41)
[2024-05-11] MEDS: Pantoprazole Sodium 40 MG in 0.9% Normal Saline (100mL MB+) 100 ML 330 MG IV ×3 (04:41→22:25)
[2024-05-11] MEDS: Chlorhexidine 15 ML PO ×2 (04:44→08:30)
--- NOTE | 2024-05-11 04:48 | CON.PCM.CC_ITS ---
HPI Consult Data Date of Consult: 05/11/24 HPI Narrative HPI Narrative: Ms. Dukes is a 63 year-old female with severe emphysematous COPD, chronic hypoxemic and hypercapnic respiratory failure, GERD, active tobacco abuse and dependence, and cachexia who presents with acute on chronic hypoxemic and hypercapnic respiratory failure and recurrent right-sided pneumothorax. She was recently discharged on 04/07 after an admission at [place] for a right-sided pneumothorax, COPD exacerbation, and pseudomonas pneumonia vs. tracheitis, and she returns today after experiencing acute shortness of breath. Upon arrival to [facility], imaging was remarkable for another right-sided pneumothorax in the setting of respiratory distress and increased work of breathing, therefore she was transitioned from BiPAP to invasive mechanical ventilation after an ABG on supplemental oxygen revealed 7.//105. Chest tube was subsequently placed on the right side. On my examination, she is intubated, sedated, and with stable vital signs. [facility] Medical History Pulmonary cachexia due to COPD Respiratory failure Severe chronic obstructive pulmonary disease Nicotine dependence, cigarettes, in remission Chronic hypoxemic respiratory failure Unintentional weight loss Wasting generalized Anxiety Otalgia of right ear Rhinosinusitis Bronchitis Acute exacerbation of emphysema COPD (chronic obstructive pulmonary disease) GERD (gastroesophageal reflux disease) Arthritis Neck pain Osteoporosis Osteopenia Mass of multiple sites of right breast Breast mass Palate abnormality Wheezing Rib pain Atypical chest pain Acute abdominal pain Bacteremia Lung nodule Lung mass Tick bite Rib fracture Pre-operative cardiovascular examination Dependence on supplemental oxygen Home Medications ?Medication ?Instructions ?Recorded ?Last Taken ?Type albuterol sulfate 2.5 mg/3 mL 2.5 mg inhalation Q4H PRN Sob &/Or 10/03/18 Unknown History (0.083 %) solution for nebulization Wheezing albuterol sulfate 90 mcg/actuation 2 puff inhalation Q4H PRN Sob &/Or 10/03/18 Unknown History aerosol inhaler (Ventolin HFA) Wheezing ipratropium 0.5 mg-albuterol 3 mg 3 ml inhalation Q8H 10/03/18 Unknown History (2.5 mg base)/3 mL nebulization soln calcium carbonate 1,200 mg (2 x 600 mg calcium 06/03/23 Unknown Rx (1,500 mg)) PO DAILY #20 tabs acetaminophen 650 mg/20.3 mL oral 1,000 mg (31.2308 mL) PO Q8H PRN 04/07/24 Unknown Rx solution PRN Pain 1-10 Or Fever #0 mL food supplemt, lactose-reduced 120 ml PO 4X/DAY #30 mL 04/07/24 Unknown Rx 0.08 gram-1.5 kcal/mL oral liquid (Ensure Plus High Protein) levofloxacin 500 mg tablet 500 mg PO DAILY #2 tabs 04/07/24 Unknown Rx morphine concentrate 10 mg/0.5 mL 10 mg (0.5 mL) PO/SL Q2H PRN PRN 04/07/24 Unknown Rx oral syringe (FOR ORAL USE ONLY) dyspnea 5 days #50 ea prednisone 10 mg tablet 10 mg PO DAILY #30 tabs 04/07/24 Unknown Rx Allergy/AdvReac Type Severity Reaction Status Date / Time ciprofloxacin (From Cipro) Allergy Intermediate SOB Verified 05/11/24 00:57 fluticasone (From Advair Allergy Mild Ashtma, Verified 05/11/24 00:57 Diskus) Itching, Pruritus, Rash metronidazole (From Flagyl) Allergy Mild Verified 05/11/24 00:57 penicillin G Allergy Mild Verified 05/11/24 00:57 salmeterol (From Advair Allergy Mild Ashtma, Verified 05/11/24 00:57 Diskus) Itching, Pruritus, Rash sulfamethoxazole (From Allergy Mild Rash Verified 05/11/24 00:57 Bactrim) trimethoprim (From Bactrim) Allergy Mild Rash Verified 05/11/24 00:57 Penicillins Allergy Swelling Verified 05/11/24 00:57 Family History Father Colon cancer Mother Heart disease Surgical History History of colonoscopy History of bilateral tubal ligation History of partial colectomy Social History (Updated 05/11/24 @ 03:[address] Bouchra Randall MD) household members: spouse Smoking Status: Former smoker Tobacco: How many years used: 20 how long ago did patient quit smokin years second hand exposure: No alcohol intake: current alcohol intake frequency: holidays/special occasions only substance use type: does not use caffeine: Yes ROS ROS Narrative UNABLE TO OBTAIN PATIENT INTUBATED AND SEDATED Review of Systems ROS Unobtainable: due to endotracheal tube and due to mental status Objective Data Objective Data Vital Signs: Vital Signs Last response 3 Temperature 36.6 C 05/11/24 03:33 Temperature Source Temporal 05/11/24 03:33 Pulse Rate 126 H 05/11/24 04:25 Respiratory Rate 12 05/11/24 04:25 Respiratory Effort Short of Breath, Accessory Muscle Use, Head Bobbing 05/11/24 02:12 Respiratory Depth Shallow 05/11/24 02:12 Respiratory Pattern Normal 05/11/24 03:38 Blood Pressure 117/71 05/11/24 04:25 Blood Pressure Mean 86 05/11/24 04:25 Blood Pressure Source Monitor 05/11/24 04:25 Blood Pressure Position Semi-Fowlers 05/11/24 04:25 Blood Pressure Location Right Arm 05/11/24 04:25 Pulse Ox 95 05/11/24 04:25 Oxygen Delivery Method Mechanical Ventilator 05/11/24 04:25 Oxygen Flow Rate (L/min) 3 05/11/24 00:29 Fraction of Inspired Oxygen (FIO2) 30 05/11/24 04:25 I&O: I&O Last 24 Hours 3 05/10/24 05/10/24 05/11/24 11:59 23:59 11:59 Intake Total 1000.42 / 1000.42 Balance 1000.42 / 1000.42 I&O: Total Stay 3 05/11/24 00:14 thru 05/11/24 04:25 Intake Total 1000.42 Balance 1000.42 Current Meds Ordered / Administered: Current meds ordered / Administered 3 Generic Name Dose Route Start Last Admin Trade Name Elizabeth PRN Reason Stop Dose Admin Acetaminophen 650 mg 05/11/24 04:07 Acetaminophen 650 Mg Suppository RC Q4H PRN PRN Fever, pain 1-10 w/ NPO Acetaminophen 650 mg 05/11/24 04:07 Acetaminophen 325 Mg Tablet PO Q4H PRN PRN Fever, pain 1-10/10 Al Hydrox/Mg Hydrox/Simethicone 30 ml 05/11/24 04:07 Mag /Aluminum/Simeth Wch Udc 30 Ml Oral.Susp PO Q6H PRN PRN Gastric Burning Albuterol Sulfate 2.5 mg 05/11/24 04:07 Albuterol 2.5 Mg/3 Ml Vial.Neb. INHALATION Q2H PRN PRN Dyspnea, wheezing Albuterol/Ipratropium 3 ml 05/11/24 04:07 Ipratropium/Albuterol Sulfate 3 Ml Ampul.Neb INHALATION Q4HWA.RT ADWOA Calamine/Phenol 1 applic 05/11/24 10:00 Menthol/Lanolin/Calamine/Znox 113 Gm Tube TOPICAL 4X/DAY ADWOA Protocol Chlorhexidine Gluconate 15 ml 05/11/24 04:07 Chlorhexidine 15 Ml PO BID ADWOA Enoxaparin Sodium 40 mg 05/11/24 10:00 Enoxaparin 40 Mg/0.4 Ml Syringe SC DAILY ADWOA Guaifenesin 10 ml 05/11/24 04:07 Guaifenesin 10 Ml Udc (200mg/10ml) PO Q4H PRN PRN COUGH Hydralazine HCl 10 mg 05/11/24 04:07 Hydralazine 20 Mg/Ml Vial IV Q4H PRN PRN SBP > 160 Protocol Sodium Chloride 1,000 mls @ 100 mls/hr 05/11/24 04:07 05/11/24 04:41 IV 05/11/24 14:06 100 mls/hr .Q10H ADWOA Administration Pantoprazole Sodium 40 mg/ 110 mls @ 330 mls/hr 05/11/24 04:07 05/11/24 04:41 Sodium Chloride IV 330 mls/hr Q12 ADWOA Administration Propofol 1,000 mg in 100 mls @ 2.208 mls/hr 05/11/24 04:07 Diprivan CONT INF .Q12H ADWOA Protocol 10 MCG/KG/MIN Fentanyl 100 mls @ 5 mls/hr 05/11/24 04:07 CONT INF UD ADWOA Protocol 50 MCG/HR Sodium Chloride 250 mls @ 15 mls/hr 05/11/24 04:28 IV .[id number] PRN Additional IVPB Infusion Sodium Chloride 250 mls @ 15 mls/hr 05/11/24 04:28 IV .[id number] PRN Saline Flush Melatonin 3 mg 05/11/24 04:07 Melatonin 3 Mg Tablet PO QHS PRN PRN INSOMNIA Methylprednisolone 40 mg 05/11/24 06:00 Methylprednisolone 40 Mg/Ml Vial IV Q8 ADWOA Ondansetron HCl 4 mg 05/11/24 04:07 Ondansetron 4 Mg/2 Ml Vial IV Q8H PRN PRN NAUSEA/VOMITING Prochlorperazine Edisylate 5 mg 05/11/24 04:07 Prochlorperazine 10 Mg/2 Ml Vial IV Q4H PRN PRN Breakthrough Nausea/Vomiting Senna/Docusate Sodium 2 tablet 05/11/24 04:07 Senna/Docusate Sodium 1 Tablet PO BID PRN PRN Constipation Sodium Chloride 5 ml 05/11/24 04:07 Sodium Cl For Inhalation 15 Ml Vial.Neb. INHALATION Q5M PRN Suctioning Sodium Chloride 10 - 40 ml 05/11/24 04:28 0.9% Saline Lock 10 Ml Syringe IV UD PRN SALINE FLUSH Physical Exam Const Constitutional Narrative: INTUBATED AND SEDATED HEENT normocephalic Eyes PERRL, conjunctivae normal and no scleral icterus Neck no JVD Chest inspection of chest normal Chest: chest tube Resp Auscultation: wheezes Cardio regular rate and regular rhythm GI normal to inspection, nondistended, normoactive bowel sounds Extremity no clubbing, cyanosis or edema Skin no rashes or lesions noted Neuro Neuro Narrative: DEFERRED Lab / Micro Data 05/11/24 00:40 05/11/24 00:40 Labs: Laboratory Results - last 24 hr 05/11/24 00:40: WBC 10.2, RBC 4.47, Hgb 13.4, Hct 41.8, MCV 93.5, MCH 30.0, MCHC 32.1, RDW Std Deviation 42.8, RDW Coeff of Stephanie 12.4, Plt Count 396, MPV 8.3, Immature Gran % (Auto) 0.600, Neut % (Auto) 59.0, Lymph % (Auto) 29.5, Sevier % (Auto) 9.7, Eos % (Auto) 0.4, Baso % (Auto) 0.8, Absolute Neuts (auto) 6.0, Absolute Lymphs (auto) 3.01, Nucleated RBC % 0, Sodium 134 L, Potassium 4.1, Chloride 98, Carbon Dioxide 31.0, Anion Gap 5, BUN 8, Creatinine 0.37 L, Estim Creat Clear Calc 92.76, Est GFR (MDRD) Af Amer 226, Est GFR (MDRD) Non-Af 186, B UN/Creatinine Ratio 21.4 H, Glucose 166 H, Calcium 9.6, Phosphorus 4.7, Magnesium 2.1, Troponin I High Sens < 3 L, B-Natriuretic Peptide 13.1 05/11/24 03:23: Procalcitonin 0.04 Micro: Microbiology 05/11/24 00:35 Mucosa - Nasopharyngeal SARS-CoV-2, Influenza & RSV (PCR) - Final ABG Data ABG results: ABG 05/11/24 00:37 Specimen Type ART Sample Site R Radial pH 7.24 L Bicarbonate Actual 32.1 H Total CO2 34 Base Excess 5 H O2 Saturation 97 O2 % 3.0 ABG pCO2 74.4 H* ABG pO2 105 H Pj Test Positive O2 Delivery Device Cannula Vent Mode Not entered Crit Call To/Read Back Yes Blood Gas Notified Whom Luli Blood Gas Notified Time 00:39:09 Imaging Radiology Impression Chest X-Ray 05/11/24 00:27 IMPRESSION: Moderate right lateral pneumothorax with underlying chronic obstructive pulmonary disease Electronically Signed: Tung Mercer MD at 1:51 EDT , ADDENDUM: 05/11/24 0205 IMPRESSION: Moderate right lateral pneumothorax with underlying chronic obstructive pulmonary disease N.B. : The above Results were Read Back by Tung Mercer MD to Dr. Kulwinder Rockwell DO, and understanding confirmed on 05/11/2024 01:58:55 (ET). Electronically Signed: Tung Mercer MD at 1:51 EDT , Assessment and Plan . Assessment and plan: DRIPS Fentanyl Versed ANTIBIOTICS AND STEROIDS Solumedrol VENTILATOR AC/400/12/P5/30% ASSESSMENT 1. Acute on Chronic Hypercapnic and Hypoxemic Respiratory Failure 2. Recurrent Right-Sided Pneumothorax 3. Acute on Chronic Emphysematous COPD Exacerbation 4. Pulmonary Nodule 5. Gastroesophageal Reflux Disease 6. Active Tobacco Abuse and Dependence PLAN 1. Vent check made; ABG pending 2. Steroids + Duonebs 3. Respiratory viral panel negative; MRSA pending; sputum pending; hold on antibiotics for now - CXR without airspace disease 4. Continue chest tube to suction; there is active air leak; recommend pleurodesis prior to discharge as she has terrible structural lung disease with now a second spontaneous PTX 5. Pulmonary Nodule needs follow-up with PET scan 6. Smoking cessation Lovenox/PPI Critical Care Time: 60 Minutes The entirety of this encounter was done via Telemedicine using both audio and visual Consent was not obtained for the telemedicine encounter due to the patient being sedated and intubated Ravindra Higuera MD Pulmonary and Critical Care Medicine
[2024-05-11 04:52] LABS: CPK Total, Creatine Kinase 30 U/L (26-192); Triglycerides 101 mg/dL
[2024-05-11 05:02] LABS: Base Excess 2 mmol/L (-2 to +2); Bicarbonate 27.6 mmol/L (22-26); Blood Gas Specimen Type ART; Mode AC; O2 Delivery Device Adult Vent; PEEP 5; PO2 65 mmHG (75-100); RR 12; SITE L Brach; SO2 91 % (95-99); Total Carbon Dioxide 29 mmol/L; pCO2 49.9 mmHg (35-45); pH 7.35 (7.35-7.45)
[2024-05-11] MEDS: 0.9% Saline Lock 10 ML Syringe IV ×2 (05:07→22:02)
[2024-05-11] MEDS: Propofol 10MG/Ml 1,000 MG/100 ML Bottle 2.2 MG CONT INF (05:07)
[2024-05-11 05:18] LABS: Absolute Lymphocyte Count 0.32 X10^3/uL (0.83-4.51); Basophil# 0.03 X10^3/uL; Basophil% 0.2 % (0-1); Eosinophil# 4.56 X10^3/uL; Hematocrit 36.6 % (37-47); Hemoglobin 11.8 g/dL (12.0-15.0); Lymphocyte # 0.32 X10^3/ul (0.83-4.51); Lymphocyte % 1.8 % (19-41); Mean Corp Hgb Conc 32.2 g/dL (32-36); Mean Corpuscular Hgb 29.9 pg (27.0-32.0); Mean Corpuscular Volume 92.9 fL (81-99); Mean Platelet Vol. 8.6 fl (6.2-12.0); Monocyte# 0.33 X10^3/uL; Monocyte% 1.8 % (0-10); NRBC Flagged by Analyzer 0 % (0-5); Neutrophil # 12.96 X10^3/uL (2.7-7.7); Neutrophil % 70.9 % (47-70); POSITIVE DIFFERENTIAL YES; POSITIVE MORPHOLOGY YES; Platelet Count 280 K/mm3 (150-450); RBC Distribution Width CV 12.3 % (11.6-14.6); Red Blood Count 3.94 M/mm3 (4.2-5.4); White Blood Count 18.3 K/mm3 (4.4-11.0)
--- NOTE | 2024-05-11 05:22 | NURSING ---
ER nurse reported that on the way up to the unit, pt began waking up and attempting to pull at ET tube. Bilateral wrist restraints applied after arrival to maintain tube safety.
[2024-05-11 05:46] LABS: Differential Indicated SCAN CRITERIA MET
[2024-05-11 06:06] LABS: ALB/GLOB Ratio 1.1 RATIO (0.9-2.4); AST(SGOT) 59 U/L (15-37); Alanine Aminotransfer ALT/SGPT 37 U/L (13-56); Alkaline Phosphatase 52 U/L (45-117); Anion Gap 6 (5-15); BUN 9 mg/dL (7-18); BUN/Creat Ratio 20.8 RATIO (10-20); Calcium,Total 8.4 mg/dL (8.5-10.1); Chloride 102 mmol/L (98-107); Creatinine, Serum 0.43 mg/dL (0.55-1.02); EST Glomerular Filtration Rate 157 mL/min (>60); Est Glom Filt Rate - Afr Amer 190 mL/min (>60); Estimated Creatinine Clearance 79.17 ml/min; Globulin 2.7 g/dL (2.2-4.2); Glucose 129 mg/dL (74-106); Potassium 4.8 mmol/L (3.5-5.1); Protein, Total 5.7 g/dL (6.4-8.2); Sodium Level 134 mmol/L (136-145)
[2024-05-11 06:46] LABS: Differential Comment SCANNED
--- NOTE | 2024-05-11 08:10 | RAD_ITS ---
EXAM: XR CHEST, 1 VIEW CLINICAL INDICATION: Dyspnea. Follow-up pneumothorax. TECHNIQUE: Frontal view of the chest. COMPARISON: 05/11/2024. FINDINGS: LUNGS AND PLEURAL SPACES: Small recurrent right upper peripheral pneumothorax. Multicystic lung disease and bullous emphysema in the upper lobes. Pulmonary hyperinflation and flattening of the hemidiaphragms. Central scarring in the right upper lobe and minimal linear atelectases near the left hilum. No effusion. HEART: Microcardia secondary to COPD. MEDIASTINUM: Central airways and mediastinal contour are unremarkable. BONES/JOINTS: Unremarkable. No acute fracture. SOFT TISSUES: Mild increase soft tissue air emphysema in the right lateral chest wall. TUBES, LINES AND DEVICES: ET tube and OG tube remain in good position. Small percutaneous drain catheter in the right mid chest is unchanged. RAD/Chest 1 View (Portable) IMPRESSION: 1. Small recurrent right upper peripheral pneumothorax, not visible on comparison chest 05/11/2024. 2. 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 3. Mild increase in right lateral chest wall soft tissue air emphysema when compared to 05/11/2024. Electronically Signed: Rajinder Tolentino MD at 9:03 EDT ,
[2024-05-11] MEDS: Enoxaparin 40 MG/0.4 ML Syringe SC (08:30)
[2024-05-11] MEDS: Menthol/Lanolin/Calamine/Znox 113 GM Tube 1 APPLIC TOPICAL ×4 (08:30→22:03)
[2024-05-11 09:34] LABS: Hemoglobin A1c 5.2 % (3.8-5.6)
--- NOTE | 2024-05-11 12:56 | EX.PCM.CON.S ---
Assessment & Plan Assessment/Plan (1) Pneumothorax on right: PLAN: The patient is a 63-year-old female admitted with respiratory failure and a right sided pneumothorax. Right-sided chest tube was placed by ED physician. Chest tube appears to be in good positioning and seems to have improved the pneumothorax. I would recommend continuing -20 suction to the chest tube while intubated. Once extubated, chest tube can be placed to waterseal if pneumothorax continues to be resolved. Given her significant pulmonary history of COPD, blebs, and emphysema, she would be elevated risk for further pneumothorax recurrences. She ultimately may need intervention at a tertiary center if these pneumothoraces continue or if this pneumothorax does not resolve entirely. Will continue to follow and advise accordingly. HPI Consult Data Date of Consult: 05/11/24 HPI Narrative Reason for Consultation: Right-sided pneumothorax-chest tube management HPI Narrative: The patient is a 63-year-old female with multiple medical problems including severe emphysema, COPD, respiratory failure, GERD, tobacco abuse. She presented last evening to the emergency department with acute on chronic respiratory failure. She was also noted to have a right-sided pneumothorax. She was admitted about a month ago also for a right sided pneumothorax Along with COPD exacerbation and pneumonia. Upon arrival to [facility], she had significant shortness of breath and eventually was intubated and a chest tube was placed on the right. Today she is stable in the intensive care unit. Chest tube remains in place. Surgical consultation was obtained for assistance in chest tube management. . [facility] Medical History Pulmonary cachexia due to COPD Respiratory failure Severe chronic obstructive pulmonary disease Nicotine dependence, cigarettes, in remission Chronic hypoxemic respiratory failure Unintentional weight loss Wasting generalized Anxiety Otalgia of right ear Rhinosinusitis Bronchitis Acute exacerbation of emphysema COPD (chronic obstructive pulmonary disease) GERD (gastroesophageal reflux disease) Arthritis Neck pain Osteoporosis Osteopenia Mass of multiple sites of right breast Breast mass Palate abnormality Wheezing Rib pain Atypical chest pain Acute abdominal pain Bacteremia Lung nodule Lung mass Tick bite Rib fracture Pre-operative cardiovascular examination Dependence on supplemental oxygen Home Medications ?Medication ?Instructions ?Recorded ?Last Taken ?Type albuterol sulfate 2.5 mg/3 mL 2.5 mg inhalation Q4H PRN Sob &/Or 10/03/18 Unknown History (0.083 %) solution for nebulization Wheezing albuterol sulfate 90 mcg/actuation 2 puff inhalation Q4H PRN Sob &/Or 10/03/18 Unknown History aerosol inhaler (Ventolin HFA) Wheezing ipratropium 0.5 mg-albuterol 3 mg 3 ml inhalation Q8H 10/03/18 Unknown History (2.5 mg base)/3 mL nebulization soln calcium carbonate 1,200 mg (2 x 600 mg calcium 06/03/23 Unknown Rx (1,500 mg)) PO DAILY #20 tabs acetaminophen 650 mg/20.3 mL oral 1,000 mg (31.2308 mL) PO Q8H PRN 04/07/24 Unknown Rx solution PRN Pain 1-10 Or Fever #0 mL food supplemt, lactose-reduced 120 ml PO 4X/DAY #30 mL 04/07/24 Unknown Rx 0.08 gram-1.5 kcal/mL oral liquid (Ensure Plus High Protein) levofloxacin 500 mg tablet 500 mg PO DAILY #2 tabs 04/07/24 Unknown Rx morphine concentrate 10 mg/0.5 mL 10 mg (0.5 mL) PO/SL Q2H PRN PRN 04/07/24 Unknown Rx oral syringe (FOR ORAL USE ONLY) dyspnea 5 days #50 ea prednisone 10 mg tablet 10 mg PO DAILY #30 tabs 04/07/24 Unknown Rx Allergy/AdvReac Type Severity Reaction Status Date / Time ciprofloxacin (From Cipro) Allergy Intermediate SOB Verified 05/11/24 00:57 fluticasone (From Advair Allergy Mild Ashtma, Verified 05/11/24 00:57 Diskus) Itching, Pruritus, Rash metronidazole (From Flagyl) Allergy Mild Verified 05/11/24 00:57 penicillin G Allergy Mild Verified 05/11/24 00:57 salmeterol (From Advair Allergy Mild Ashtma, Verified 05/11/24 00:57 Diskus) Itching, Pruritus, Rash sulfamethoxazole (From Allergy Mild Rash Verified 05/11/24 00:57 Bactrim) trimethoprim (From Bactrim) Allergy Mild Rash Verified 05/11/24 00:57 Penicillins Allergy Swelling Verified 05/11/24 00:57 Family History Father Colon cancer Mother Heart disease Surgical History History of colonoscopy History of bilateral tubal ligation History of partial colectomy Social History household members: spouse Smoking Status: Former smoker Tobacco: How many years used: 20 how long ago did patient quit smokin years second hand exposure: No alcohol intake: current alcohol intake frequency: holidays/special occasions only substance use type: does not use caffeine: Yes ROS Review of Systems ROS Unobtainable: due to endotracheal tube Physical Exam Const alert and no apparent distress Constitutional Narrative: Patient does open her eyes when awakened. HEENT normocephalic Eyes PERRL Chest Chest Narrative: Examination of the chest reveals a right sided chest tube to be in place. Dressing appears to be intact. I did not appreciate any obvious air leak when suction was removed. Chest tube return to -20 suction. Lab / Micro Data 05/11/24 05:12 05/11/24 05:12 Labs: Laboratory Results - last 24 hr 05/11/24 00:40: WBC 10.2, RBC 4.47, Hgb 13.4, Hct 41.8, MCV 93.5, MCH 30.0, MCHC 32.1, RDW Std Deviation 42.8, RDW Coeff of Stephanie 12.4, Plt Count 396, MPV 8.3, Immature Gran % (Auto) 0.600, Neut % (Auto) 59.0, Lymph % (Auto) 29.5, Ritchie % (Auto) 9.7, Eos % (Auto) 0.4, Baso % (Auto) 0.8, Absolute Neuts (auto) 6.0, Absolute Lymphs (auto) 3.01, Nucleated RBC % 0, Sodium 134 L, Potassium 4.1, Chloride 98, Carbon Dioxide 31.0, Anion Gap 5, BUN 8, Creatinine 0.37 L, Estim Creat Clear Calc 92.76, Est GFR (MDRD) Af Amer 226, Est GFR (MDRD) Non-Af 186, BUN/Creatinine Ratio 21.4 H, Glucose 166 H, Hemoglobin A1c 5.2, Calcium 9.6, Phosphorus 4.7, Magnesium 2.1, Total Creatine Kinase 30, Troponin I High Sens < 3 L, B-Natriuretic Peptide 13.1, Triglycerides 101 05/11/24 03:23: Procalcitonin 0.04 05/11/24 05:12: WBC 18.3 H, RBC 3.94 L, Hgb 11.8 L, Hct 36.6 L, MCV 92.9, MCH 29.9, MCHC 32.2, RDW Std Deviation 42.0, RDW Coeff of Stephanie 12.3, Plt Count 280, MPV 8.6, Immature Gran % (Auto) 0.300, Neut % (Auto) 70.9 H, Lymph % (Auto) 1.8 L, Ritchie % (Auto) 1.8, Eos % (Auto) 25.0 H, Baso % (Auto) 0.2, Absolute Neuts (auto) 13.0 H, Absolute Lymphs (auto) 0.32 L, Nucleated RBC % 0, Differential Comment SCANNED, Sodium 134 L, Potassium 4.8, Chloride 102, Carbon Dioxide 26.0, Anion Gap 6, BUN 9, Creatinine 0.43 L, Estim Creat Clear Calc 79.17, Est GFR (MDRD) Af Amer 190, Est GFR (MDRD) Non-Af 157, BUN/Creatinine Ratio 20.8 H, Glucose 129 H, Calcium 8.4 L, Total Bilirubin 1.50 H, AST 59 H, ALT 37, Alkaline Phosphatase 52, Total Protein 5.7 L, Albumin 3.0 L, Globulin 2.7, Albumin/Globulin Ratio 1.1 Micro: Microbiology 05/11/24 04:30 Nasal Secretion MRSA (PCR) - Final 05/11/24 03:22 Mucosa - Nasopharyngeal Respiratory Panel (PCR) - Final 05/11/24 00:35 Mucosa - Nasopharyngeal SARS-CoV-2, Influenza & RSV (PCR) - Final ABG Data ABG results: ABG 05/11/24 05/11/24 00:37 04:57 Specimen Type ART ART Sample Site R Radial L Brach pH 7.24 L 7.35 Bicarbonate Actual 32.1 H 27.6 H Total CO2 34 29 Base Excess 5 H 2 O2 Saturation 97 91 L O2 % 3.0 30.0 ABG pCO2 74.4 H* 49.9 H ABG pO2 105 H 65 L Pj Test Positive N/A Respiration Rate 12 O2 Delivery Device Cannula Adult Vent Vent Mode Not entered AC Tidal Volume 400.0 POC PEEP 5 Crit Call To/Read Back Yes Blood Gas Notified Whom Luli Blood Gas Notified Time 00:39:09 Imaging Radiology Impression Chest X-Ray 05/11/24 00:27 IMPRESSION: Moderate right lateral pneumothorax with underlying chronic obstructive pulmonary disease Electronically Signed: Tung Mercer MD at 1:51 EDT Reading Location ID and State: [facility] / [place] Tel , Service support , ADDENDUM: 05/11/24 0205 IMPRESSION: Moderate right lateral pneumothorax with underlying chronic obstructive pulmonary disease N.B. : The above Results were Read Back by Tung Mercer MD to Dr. Kulwinder Rockwell DO, and understanding confirmed on 05/11/2024 01:58:55 (ET). Electronically Signed: Tung Mercer MD at 1:51 EDT Reading Location ID and State: [facility] / [place] Tel , Service support , Chest X-Ray 05/11/24 02:19 IMPRESSION: Increased, large right pneumothorax with partial right lung atelectasis. Underlying chronic obstructive pulmonary disease. Support apparatus as above.. Electronically Signed: Tung Mercer MD at 3:47 EDT Reading Location ID and State: [facility] / [place] Tel , Service support , Chest X-Ray 05/11/24 03:08 IMPRESSION: Right thoracostomy tube placement with significantly decreased pneumothorax and right lung reexpansion. Mild right basilar atelectasis. Electronically Signed: Tung Mercer MD at 3:49 EDT , Chest X-Ray 05/11/24 08:10 IMPRESSION: 1. Small recurrent right upper peripheral pneumothorax, not visible on comparison chest 05/11/2024. 2. 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 3. Mild increase in right lateral chest wall soft tissue air emphysema when compared to 05/11/2024. Electronically Signed: Rajinder Tolentino MD at 9:03 EDT , Charges/Coding Visit Charges Inpatient E&M: 20217 Init Hosp L3
--- NOTE | 2024-05-11 14:41 | PCM.PN.TICU ---
Objective Data Objective Data Vital Signs: Vital Signs Last response Temperature 36.6 C 05/11/24 12:00 Temperature Source Temporal 05/11/24 12:00 Pulse Rate 112 H 05/11/24 14:00 Respiratory Rate 11 L 05/11/24 14:00 Respiratory Effort Mechanically Ventilated 05/11/24 11:49 Respiratory Depth Normal 05/11/24 11:49 Respiratory Pattern Normal 05/11/24 11:49 Blood Pressure 83/68 L 05/11/24 14:00 Blood Pressure Mean 73 05/11/24 14:00 Blood Pressure Source Monitor 05/11/24 14:00 Blood Pressure Position Semi-Fowlers 05/11/24 14:00 Blood Pressure Location Right Arm 05/11/24 14:00 Pulse Ox 94 05/11/24 14:00 Oxygen Delivery Method Mechanical Ventilator 05/11/24 14:00 Oxygen Flow Rate (L/min) 3 05/11/24 00:29 Fraction of Inspired Oxygen (FIO2) 30 05/11/24 14:00 I&O: I&O Last 24 Hours 05/10/24 05/11/24 05/11/24 23:59 11:59 23:59 Intake Total 1569.92 / 1602.32 32.4 / 1602.32 Output Total 700 / 700 Balance 869.92 / 902.32 32.4 / 902.32 I&O: Total Stay 05/11/24 00:14 thru 05/11/24 14:00 Intake Total 1602.32 Output Total 700 Balance 902.32 Current Meds Ordered / Administered: Current meds ordered / Administered Generic Name Dose Route Start Last Admin Trade Name Vicenteq PRN Reason Stop Dose Admin Acetaminophen 650 mg 05/11/24 04:07 Acetaminophen 650 Mg Suppository RC Q4H PRN PRN Fever, pain 1-10 w/ NPO Acetaminophen 650 mg 05/11/24 04:07 Acetaminophen 325 Mg Tablet PO Q4H PRN PRN Fever, pain 1-10/10 Al Hydrox/Mg Hydrox/Simethicone 30 ml 05/11/24 04:07 Mag /Aluminum/Simeth Wch Udc 30 Ml Oral.Susp PO Q6H PRN PRN Gastric Burning Albuterol Sulfate 2.5 mg 05/11/24 04:07 Albuterol 2.5 Mg/3 Ml Vial.Neb. INHALATION Q2H PRN PRN Dyspnea, wheezing Albuterol/Ipratropium 3 ml 05/11/24 04:07 05/11/24 11:46 Ipratropium/Albuterol Sulfate 3 Ml Ampul.Neb INHALATION 3 ml Q4HWA.RT ADWOA Administration Calamine/Phenol 1 applic 05/11/24 10:00 05/11/24 13:54 Menthol/Lanolin/Calamine/Znox 113 Gm Tube TOPICAL 1 applic 4X/DAY ADWOA Administration Protocol Chlorhexidine Gluconate 15 ml 05/11/24 04:07 05/11/24 08:30 Chlorhexidine 15 Ml PO 15 ml BID ADWOA Administration Enoxaparin Sodium 40 mg 05/11/24 10:00 05/11/24 08:30 Enoxaparin 40 Mg/0.4 Ml Syringe SC 40 mg DAILY ADWOA Administration Guaifenesin 10 ml 05/11/24 04:07 Guaifenesin 10 Ml Udc (200mg/10ml) PO Q4H PRN PRN COUGH Hydralazine HCl 10 mg 05/11/24 04:07 Hydralazine 20 Mg/Ml Vial IV Q4H PRN PRN SBP > 160 Protocol Pantoprazole Sodium 40 mg/ 110 mls @ 330 mls/hr 05/11/24 04:07 05/11/24 10:16 Sodium Chloride IV Infused Q12 ADWOA Infusion Propofol 1,000 mg in 100 mls @ 2.208 mls/hr 05/11/24 04:07 05/11/24 14:00 Diprivan CONT INF 15 mcg/kg/min .Q12H ADWOA 3.3 mls/hr Titration Protocol 10 MCG/KG/MIN Fentanyl 100 mls @ 5 mls/hr 05/11/24 04:07 05/11/24 04:48 CONT INF Not Given UD ADWOA Protocol 50 MCG/HR Sodium Chloride 250 mls @ 15 mls/hr 05/11/24 04:28 IV .[id number] PRN Additional IVPB Infusion Sodium Chloride 250 mls @ 15 mls/hr 05/11/24 04:28 IV .[id number] PRN Saline Flush Melatonin 3 mg 05/11/24 04:07 Melatonin 3 Mg Tablet PO QHS PRN PRN INSOMNIA Methylprednisolone 40 mg 05/11/24 06:00 05/11/24 13:54 Methylprednisolone 40 Mg/Ml Vial IV 40 mg Q8 ADWOA Administration Ondansetron HCl 4 mg 05/11/24 04:07 Ondansetron 4 Mg/2 Ml Vial IV Q8H PRN PRN NAUSEA/VOMITING Prochlorperazine Edisylate 5 mg 05/11/24 04:07 Prochlorperazine 10 Mg/2 Ml Vial IV Q4H PRN PRN Breakthrough Nausea/Vomiting Senna/Docusate Sodium 2 tablet 05/11/24 04:07 Senna/Docusate Sodium 1 Tablet PO BID PRN PRN Constipation Sodium Chloride 5 ml 05/11/24 04:07 Sodium Cl For Inhalation 15 Ml Vial.Neb. INHALATION Q5M PRN Suctioning Sodium Chloride 10 - 40 ml 05/11/24 04:28 05/11/24 05:07 0.9% Saline Lock 10 Ml Syringe IV 20 ml UD PRN Administration SALINE FLUSH Lab / Micro Data 05/11/24 05:12 05/11/24 05:12 Labs: Laboratory Results - last 24 hr 05/11/24 00:40: WBC 10.2, RBC 4.47, Hgb 13.4, Hct 41.8, MCV 93.5, MCH 30.0, MCHC 32.1, RDW Std Deviation 42.8, RDW Coeff of Stephanie 12.4, Plt Count 396, MPV 8.3, Immature Gran % (Auto) 0.600, Neut % (Auto) 59.0, Lymph % (Auto) 29.5, [place] % (Auto) 9.7, Eos % (Auto) 0.4, Baso % (Auto) 0.8, Absolute Neuts (auto) 6.0, Absolute Lymphs (auto) 3.01, Nucleated RBC % 0, Sodium 134 L, Potassium 4.1, Chloride 98, Carbon Dioxide 31.0, Anion Gap 5, BUN 8, Creatinine 0.37 L, Estim Creat Clear Calc 92.76, Est GFR (MDRD) Af Amer 226, Est GFR (MDRD) Non-Af 186, BUN/Creatinine Ratio 21.4 H, Glucose 166 H, Hemoglobin A1c 5.2, Calcium 9.6, Phosphorus 4.7, Magnesium 2.1, Total Creatine Kinase 30, Troponin I High Sens < 3 L, B-Natriuretic Peptide 13.1, Triglycerides 101 05/11/24 03:23: Procalcitonin 0.04 05/11/24 05:12: WBC 18.3 H, RBC 3.94 L, Hgb 11.8 L, Hct 36.6 L, MCV 92.9, MCH 29.9, MCHC 32.2, RDW Std Deviation 42.0, RDW Coeff of Stephanie 12.3, Plt Count 280, MPV 8.6, Immature Gran % (Auto) 0.300, Neut % (Auto) 70.9 H, Lymph % (Auto) 1.8 L, [place] % (Auto) 1.8, Eos % (Auto) 25.0 H, Baso % (Auto) 0.2, Absolute Neuts (auto) 13.0 H, Absolute Lymphs (auto) 0.32 L, Nucleated RBC % 0, Differential Comment SCANNED, Sodium 134 L, Potassium 4.8, Chloride 102, Carbon Dioxide 26.0, Anion Gap 6, BUN 9, Creatinine 0.43 L, Estim Creat Clear Calc 79.17, Est GFR (MDRD) Af Amer 190, Est GFR (MDRD) Non-Af 157, BUN/Creatinine Ratio 20.8 H, Glucose 129 H, Calcium 8.4 L, Total Bilirubin 1.50 H, AST 59 H, ALT 37, Alkaline Phosphatase 52, Total Protein 5.7 L, Albumin 3.0 L, Globulin 2.7, Albumin/Globulin Ratio 1.1 Micro: Microbiology 05/11/24 04:30 Nasal Secretion MRSA (PCR) - Final 05/11/24 03:22 Mucosa - Nasopharyngeal Respiratory Panel (PCR) - Final 05/11/24 00:35 Mucosa - Nasopharyngeal SARS-CoV-2, Influenza & RSV (PCR) - Final ABG Data ABG results: ABG 05/11/24 05/11/24 00:37 04:57 Specimen Type ART ART Sample Site R Radial L Brach pH 7.24 L 7.35 Bicarbonate Actual 32.1 H 27.6 H Total CO2 34 29 Base Excess 5 H 2 O2 Saturation 97 91 L O2 % 3.0 30.0 ABG pCO2 74.4 H* 49.9 H ABG pO2 105 H 65 L Pj Test Positive N/A Respiration Rate 12 O2 Delivery Device Cannula Adult Vent Vent Mode Not entered AC Tidal Volume 400.0 POC PEEP 5 Crit Call To/Read Back Yes Blood Gas Notified Whom Luli Blood Gas Notified Time 00:39:09 Imaging Radiology Impression Chest X-Ray 05/11/24 00:27 IMPRESSION: Moderate right lateral pneumothorax with underlying chronic obstructive pulmonary disease Electronically Signed: Tung Mercer MD at 1:51 EDT Reading Location ID and State: [facility] / [place] Tel , Service support , ADDENDUM: 05/11/24 0205 IMPRESSION: Moderate right lateral pneumothorax with underlying chronic obstructive pulmonary disease N.B. : The above Results were Read Back by Tung Mercer MD to Dr. Kulwinder Rockwell DO, and understanding confirmed on 05/11/2024 01:58:55 (ET). Electronically Signed: Tung Mercer MD at 1:51 EDT Reading Location ID and State: [facility] / [place] Tel , Service support , Chest X-Ray 05/11/24 02:19 IMPRESSION: Increased, large right pneumothorax with partial right lung atelectasis. Underlying chronic obstructive pulmonary disease. Support apparatus as above.. Electronically Signed: Tung Mercer MD at 3:47 EDT Reading Location ID and State: [facility] / [place] Tel , Service support , Chest X-Ray 05/11/24 03:08 IMPRESSION: Right thoracostomy tube placement with significantly decreased pneumothorax and right lung reexpansion. Mild right basilar atelectasis. Electronically Signed: Tung Mercer MD at 3:49 EDT Reading Location ID and State: [facility] / [place] Tel , Service support , Chest X-Ray 05/11/24 08:10 IMPRESSION: 1. Small recurrent right upper peripheral pneumothorax, not visible on comparison chest 05/11/2024. 2. 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 3. Mild increase in right lateral chest wall soft tissue air emphysema when compared to 05/11/2024. Electronically Signed: Rajinder Tolentino MD at 9:03 EDT , Assessment and Plan . Assessment and plan: Patient seen and examined Chart and data reviewed She is awake and alert Modest MV requirement pCXR reviewed Intermittent air leak She tolerates SBT quite well Likely extubate today Leave catheter/tube to (-) pressure pCXR in am She needs pleurodesis at some point The entirety of this encounter was done via Telemedicine
[2024-05-11] MEDS: fentaNYL drip 100 ML 5 MCG CONT INF (16:15)
[2024-05-11] MEDS: Acetaminophen 325 MG Tablet 650 MG PO (19:53)
[2024-05-11] MEDS: fentaNYL 100 MCG/2 ML Ampul 25 MCG IV (22:37)
[2024-05-12] VITALS (30 sets, daily range): BP systolic 86–138; BP diastolic 54–92; PULSE 86–131; RESP 9–22; TEMP 36.6–36.9; O2SAT 90–99; BMI 15.3
[2024-05-12] MEDS: Ipratropium/Albuterol Sulfate 3 ML AMPUL.NEB INHALATION ×6 (02:26→23:49)
[2024-05-12] MEDS: fentaNYL 100 MCG/2 ML Ampul 25 MCG IV ×6 (04:26→23:34)
[2024-05-12 04:40] LABS: Absolute Lymphocyte Count 0.53 X10^3/uL (0.83-4.51); Basophil# 0.01 X10^3/uL; Basophil% 0.1 % (0-1); Hemoglobin 10.8 g/dL (12.0-15.0); Lymphocyte # 0.53 X10^3/ul (0.83-4.51); Lymphocyte % 4.9 % (19-41); Mean Corp Hgb Conc 32.7 g/dL (32-36); Mean Corpuscular Hgb 30.3 pg (27.0-32.0); Mean Corpuscular Volume 92.4 fL (81-99); Mean Platelet Vol. 8.6 fl (6.2-12.0); Monocyte# 0.35 X10^3/uL; Monocyte% 3.2 % (0-10); NRBC Flagged by Analyzer 0 % (0-5); Neutrophil # 9.97 X10^3/uL (2.7-7.7); Neutrophil % 91.3 % (47-70); POSITIVE DIFFERENTIAL YES; Platelet Count 228 K/mm3 (150-450); RBC Distribution Width SD 40.8 fl (35.1-43.9); Red Blood Count 3.57 M/mm3 (4.2-5.4); White Blood Count 10.9 K/mm3 (4.4-11.0)
[2024-05-12 05:00] LABS: ALB/GLOB Ratio 1.1 RATIO (0.9-2.4); AST(SGOT) 27 U/L (15-37); Alanine Aminotransfer ALT/SGPT 27 U/L (13-56); Albumin, Serum 2.9 g/dL (3.2-5.0); Alkaline Phosphatase 48 U/L (45-117); Anion Gap 4 (5-15); BUN 9 mg/dL (7-18); BUN/Creat Ratio 23.1 RATIO (10-20); Calcium,Total 8.6 mg/dL (8.5-10.1); Chloride 103 mmol/L (98-107); Creatinine, Serum 0.39 mg/dL (0.55-1.02); EST Glomerular Filtration Rate 178 mL/min (>60); Est Glom Filt Rate - Afr Amer 215 mL/min (>60); Estimated Creatinine Clearance 84.61 ml/min; Globulin 2.7 g/dL (2.2-4.2); Glucose 116 mg/dL (74-106); Potassium 3.9 mmol/L (3.5-5.1); Protein, Total 5.6 g/dL (6.4-8.2); Sodium Level 136 mmol/L (136-145)
--- NOTE | 2024-05-12 05:55 | RAD_ITS ---
INDICATION: PTX / COPD EXAMINATION/TECHNIQUE: X-RAY - XR Chest 1 View COMPARISON: May 11, 2024. FINDINGS: LINES/DEVICES: Right thoracostomy tube remains in place. LUNGS: Lungs are hyperexpanded with coarsened interstitium. Trace residual right basilar pneumothorax, decreased from prior. No left pneumothorax. No consolidation, edema or effusion. . MEDIASTINUM AND CARDIOVASCULAR STRUCTURES: Cardiac silhouette not enlarged. [Prior to BONES AND SOFT TISSUES: Increased right chest wall subcutaneous emphysema.. RAD/Chest 1 View (Portable) IMPRESSION: Right thoracostomy tube remains in place with decreased trace right basilar pneumothorax Increased right chest wall subcutaneous emphysema. Electronically Signed: Tung Mercer MD at 6:41 EDT ,
[2024-05-12] MEDS: Enoxaparin 40 MG/0.4 ML Syringe SC (08:11)
[2024-05-12] MEDS: Menthol/Lanolin/Calamine/Znox 113 GM Tube 1 APPLIC TOPICAL ×4 (08:17→21:09)
[2024-05-12] MEDS: Pantoprazole Sodium 40 MG in 0.9% Normal Saline (100mL MB+) 100 ML 330 MG IV ×2 (09:44→21:09)
--- NOTE | 2024-05-12 10:44 | PCM.PN.SRG ---
Subjective Subjective Patient is extubated this morning. She states that her breathing is greatly improved since admission. She complains of some pain at the right chest tube insertion site. Objective Data Objective Data Vital Signs: Vital Signs Temp Pulse Resp BP Pulse Ox O2 Del Method O2 Flow Rate 98.5 F 119 H 18 124/75 H 92 Nasal Cannula 2 05/12/24 08:00 05/12/24 08:00 05/12/24 08:00 05/12/24 08:00 05/12/24 08:00 05/12/24 08:00 05/12/24 08:00 FiO2 2 05/12/24 07:00 Oxygen Flow Rate (L/min) 2 Oxygen Delivery Method Nasal Cannula Weight: 78 lb Body Mass Index (BMI) 15.3 Intake & Output: Intake and Output for Last 24 Hours 05/10/24 05/11/24 05/12/24 23:59 23:59 23:59 Intake Total 2991.02 / 2991.02 320 / 320 Output Total 1700 / 1700 550 / 550 Balance 1291.02 / 1291.02 -230 / -230 Lab / Micro Data 05/12/24 04:29 05/12/24 04:29 Labs: Laboratory Results - last 24 hr 05/12/24 04:29: WBC 10.9, RBC 3.57 L, Hgb 10.8 L, Hct 33.0 L, MCV 92.4, MCH 30.3, MCHC 32.7, RDW Std Deviation 40.8, RDW Coeff of Stephanie 12.0, Plt Count 228, MPV 8.6, Immature Gran % (Auto) 0.500, Neut % (Auto) 91.3 H, Lymph % (Auto) 4.9 L, [place] % (Auto) 3.2, Eos % (Auto) 0.0, Baso % (Auto) 0.1, Absolute Neuts (auto) 10.0 H, Absolute Lymphs (auto) 0.53 L, Nucleated RBC % 0, Sodium 136, Potassium 3.9, Chloride 103, Carbon Dioxide 29.0, Anion Gap 4 L, BUN 9, Creatinine 0.39 L, Estim Creat Clear Calc 84.61, Est GFR (MDRD) Af Amer 215, Est GFR (MDRD) Non-Af 178, BUN/Creatinine Ratio 23.1 H, Glucose 116 H, Calcium 8.6, Total Bilirubin 0.80, AST 27, ALT 27, Alkaline Phosphatase 48, Total Protein 5.6 L, Albumin 2.9 L, Globulin 2.7, Albumin/Globulin Ratio 1.1 Micro: Microbiology 05/11/24 04:30 Nasal Secretion MRSA (PCR) - Final 05/11/24 03:22 Mucosa - Nasopharyngeal Respiratory Panel (PCR) - Final 05/11/24 00:35 Mucosa - Nasopharyngeal SARS-CoV-2, Influenza & RSV (PCR) - Final Radiography Diagnostic Testing: Radiology Impression Chest X-Ray 05/12/24 05:55 IMPRESSION: Right thoracostomy tube remains in place with decreased trace right basilar pneumothorax Increased right chest wall subcutaneous emphysema. Electronically Signed: Tung Mercer MD at 6:41 EDT , Physical Exam Const oriented x3 and no apparent distress Resp normal respiratory effort Resp Narrative: Right-sided chest tube remains in place. Dressing clean dry and intact. Chest tube remains at -20 suction. She does have an air leak present Assessment & Plan Assessment/Plan (1) Pneumothorax on right: PLAN: Patient is a 63-year-old female with multiple pulmonary issues who presents with respiratory failure and another spontaneous right-sided pneumothorax. She was hospitalized about a month ago for a previous right-sided pneumothorax. She continues to have an air leak. There appears to be a tiny residual pneumothorax present on this chest x-ray this morning. Would recommend continued chest tube suction. I would suspect given her recent spontaneous pneumothorax on the same side and the condition of her lungs, she may ultimately require pleurodesis or thoracic surgery if this continues to be an issue. If the current pneumothorax cannot be resolved during this admission, she may need to be transferred to a tertiary center where thoracic surgery is available. We will continue to follow and advise accordingly. Charges/Coding Visit Charges Inpatient E&M: 70237 Subs Hosp L3
--- NOTE | 2024-05-12 11:18 | PN.CC_ITS ---
Objective Data Objective Data Vital Signs: Vital Signs Last response 3 Temperature 36.9 C 05/12/24 08:00 Temperature Source Temporal 05/12/24 08:00 Pulse Rate 119 H 05/12/24 08:00 Pulse Strength Normal (2+) 05/12/24 08:26 Respiratory Rate 18 05/12/24 08:00 Respiratory Effort Non-Labored, Short of Breath 05/12/24 07:57 Respiratory Depth Normal 05/12/24 07:57 Respiratory Pattern Normal 05/12/24 07:57 Blood Pressure 124/75 H 05/12/24 08:00 Blood Pressure Mean 91 05/12/24 08:00 Blood Pressure Source Monitor 05/12/24 08:00 Blood Pressure Position Semi-Fowlers 05/12/24 08:00 Blood Pressure Location Right Arm 05/12/24 08:00 Pulse Ox 92 05/12/24 08:00 Oxygen Delivery Method Nasal Cannula 05/12/24 08:00 Oxygen Flow Rate (L/min) 2 05/12/24 08:00 Fraction of Inspired Oxygen (FIO2) 2 05/12/24 07:00 I&O: I&O Last 24 Hours 3 05/11/24 05/11/24 05/12/24 11:59 23:59 11:59 Intake Total 1569.92 / 2991.02 1421.10 / 2991.02 320 / 320 Output Total 700 / 1700 1000 / 1700 550 / 550 Balance 869.92 / 1291.02 421.10 / 1291.02 -230 / -230 I&O: Total Stay 3 05/11/24 00:14 thru 05/12/24 10:05 Intake Total 3311.02 Output Total 2250 Balance 1061.02 Current Meds Ordered / Administered: Current meds ordered / Administered 3 Generic Name Dose Route Start Last Admin Trade Name Freq PRN Reason Stop Dose Admin Acetaminophen 650 mg 05/11/24 04:07 Acetaminophen 650 Mg Suppository RC Q4H PRN PRN Fever, pain 1-10 w/ NPO Acetaminophen 650 mg 05/11/24 04:07 05/11/24 19:53 Acetaminophen 325 Mg Tablet PO 650 mg Q4H PRN PRN Administration Fever, pain 1-10/10 Al Hydrox/Mg Hydrox/Simethicone 30 ml 05/11/24 04:07 Mag /Aluminum/Simeth Wch Udc 30 Ml Oral.Susp PO Q6H PRN PRN Gastric Burning Albuterol Sulfate 2.5 mg 05/11/24 04:07 Albuterol 2.5 Mg/3 Ml Vial.Neb. INHALATION Q2H PRN PRN Dyspnea, wheezing Albuterol/Ipratropium 3 ml 05/11/24 04:07 05/12/24 06:58 Ipratropium/Albuterol Sulfate 3 Ml Ampul.Neb INHALATION 3 ml Q4HWA.RT ADWOA Administration Calamine/Phenol 1 applic 05/11/24 10:00 05/12/24 08:17 Menthol/Lanolin/Calamine/Znox 113 Gm Tube TOPICAL 1 applic 4X/DAY ADWOA Administration Protocol Enoxaparin Sodium 40 mg 05/11/24 10:00 05/12/24 08:11 Enoxaparin 40 Mg/0.4 Ml Syringe SC 40 mg DAILY ADWOA Administration Fentanyl Citrate 25 mcg 05/11/24 20:19 05/12/24 06:42 Fentanyl 100 Mcg/2 Ml Ampul IV 25 mcg Q2H PRN PRN Administration pain 6-10 Guaifenesin 10 ml 05/11/24 04:07 Guaifenesin 10 Ml Udc (200mg/10ml) PO Q4H PRN PRN COUGH Hydralazine HCl 10 mg 05/11/24 04:07 Hydralazine 20 Mg/Ml Vial IV Q4H PRN PRN SBP > 160 Protocol Pantoprazole Sodium 40 mg/ 110 mls @ 330 mls/hr 05/11/24 04:07 05/12/24 10:05 Sodium Chloride IV Infused Q12 ADWOA Infusion Sodium Chloride 250 mls @ 15 mls/hr 05/11/24 04:28 IV .[id number] PRN Additional IVPB Infusion Sodium Chloride 250 mls @ 15 mls/hr 05/11/24 04:28 IV .[id number] PRN Saline Flush Melatonin 3 mg 05/11/24 04:07 Melatonin 3 Mg Tablet PO QHS PRN PRN INSOMNIA Methylprednisolone 40 mg 05/11/24 06:00 05/12/24 06:34 Methylprednisolone 40 Mg/Ml Vial IV 40 mg Q8 ADWOA Administration Ondansetron HCl 4 mg 05/11/24 04:07 Ondansetron 4 Mg/2 Ml Vial IV Q8H PRN PRN NAUSEA/VOMITING Prochlorperazine Edisylate 5 mg 05/11/24 04:07 Prochlorperazine 10 Mg/2 Ml Vial IV Q4H PRN PRN Breakthrough Nausea/Vomiting Senna/Docusate Sodium 2 tablet 05/11/24 04:07 Senna/Docusate Sodium 1 Tablet PO BID PRN PRN Constipation Sodium Chloride 5 ml 05/11/24 04:07 Sodium Cl For Inhalation 15 Ml Vial.Neb. INHALATION Q5M PRN Suctioning Sodium Chloride 10 - 40 ml 05/11/24 04:28 05/11/24 22:02 0.9% Saline Lock 10 Ml Syringe IV 40 ml UD PRN Administration SALINE FLUSH Lab / Micro Data 05/12/24 04:29 05/12/24 04:29 Labs: Laboratory Results - last 24 hr 05/12/24 04:29: WBC 10.9, RBC 3.57 L, Hgb 10.8 L, Hct 33.0 L, MCV 92.4, MCH 30.3, MCHC 32.7, RDW Std Deviation 40.8, RDW Coeff of Stephanie 12.0, Plt Count 228, MPV 8.6, Immature Gran % (Auto) 0.500, Neut % (Auto) 91.3 H, Lymph % (Auto) 4.9 L, [place] % (Auto) 3.2, Eos % (Auto) 0.0, Baso % (Auto) 0.1, Absolute Neuts (auto) 10.0 H, Absolute Lymphs (auto) 0.53 L, Nucleated RBC % 0, Sodium 136, Potassium 3.9, Chloride 103, Carbon Dioxide 29.0, Anion Gap 4 L, BUN 9, Creatinine 0.39 L, Estim Creat Clear Calc 84.61, Est GFR (MDRD) Af Amer 215, Est GFR (MDRD) Non-Af 178, BUN/Creatinine Ratio 23.1 H, Glucose 116 H, Calcium 8.6, Total Bilirubin 0.80, AST 27, ALT 27, Alkaline Phosphatase 48, Total Protein 5.6 L, Albumin 2.9 L, Globulin 2.7, Albumin/Globulin Ratio 1.1 Micro: Microbiology 05/11/24 04:30 Nasal Secretion MRSA (PCR) - Final Imaging Radiology Impression Chest X-Ray 05/12/24 05:55 IMPRESSION: Right thoracostomy tube remains in place with decreased trace right basilar pneumothorax Increased right chest wall subcutaneous emphysema. Electronically Signed: Tung Mercer MD at 6:41 EDT , Assessment and Plan . Assessment and plan: 63 year-old female with severe emphysematous COPD, chronic hypoxemic and hypercapnic respiratory failure, GERD, active tobacco abuse and dependence, and cachexia who presents with acute on chronic hypoxemic and hypercapnic respiratory failure and recurrent right-sided pneumothorax. She was recently discharged on 04/07 after an admission at [facility] for a right-sided pneumothorax, COPD exacerbation, and pseudomonas pneumonia vs. tracheitis, and she returns today after experiencing acute shortness of breath. Upon arrival to [facility], imaging was remarkable for another right-sided pneumothorax in the setting of respiratory distress and increased work of breathing, therefore she was transitioned from BiPAP to invasive mechanical ventilation after an ABG on supplemental oxygen revealed 7.24/72/105. Chest tube was subsequently placed on the right side. On my examination, she is intubated, sedated, and with stable vital signs. 05/12/24 Patient seen and examined Chart and data reviewed She is awake and alert Extubated 05/11 - O2 via N/C currently pCXR reviewed Intermittent air leak persists Leave catheter/tube to (-) pressure pCXR in am She needs pleurodesis at some point EXAM GEN NAD VS as above HEENT o/p clear NECK no JVD COR RRR CHEST diminished ABD soft EXT no edema SKIN w/d DAHLIA NF ASSESSMENT 1. Acute on Chronic Hypercapnic and Hypoxemic Respiratory Failure 2. Recurrent Right-Sided Pneumothorax 3. Acute on Chronic Emphysematous COPD Exacerbation 4. Pulmonary Nodule 5. Gastroesophageal Reflux Disease 6. Active Tobacco Abuse and Dependence 1. O2 as needed 2. Steroids + Duonebs 3. Respiratory viral panel negative; MRSA pending; sputum pending; hold on antibiotics for now - CXR without airspace disease 4. Continue chest tube to suction; there is active air leak; recommend pleurodesis prior to discharge as she has terrible structural lung disease with now a second spontaneous PTX 5. Pulmonary Nodule needs follow-up with PET scan 6. Smoking cessation The entirety of this encounter was done via Telemedicine
--- NOTE | 2024-05-12 15:02 | PCM.PN.HOSP ---
Subjective Subjective Doing well, no issues overnight. She was extubated last evening and has tolerated this situation well. She did have some issues with her chest tube Objective Data Objective Data Vital Signs: Vital Signs Temp Pulse Resp BP Pulse Ox O2 Del Method O2 Flow Rate 98.4 F 127 H 20 H 117/67 91 Nasal Cannula 2 05/12/24 11:00 05/12/24 12:00 05/12/24 12:00 05/12/24 12:00 05/12/24 12:00 05/12/24 14:00 05/12/24 14:00 FiO2 2 05/12/24 07:00 Oxygen Flow Rate (L/min) 2 Oxygen Delivery Method Nasal Cannula Weight: 78 lb Body Mass Index (BMI) 15.3 Intake & Output: Intake and Output for Last 24 Hours 05/11/24 05/12/24 05/13/24 03:59 03:59 03:59 Intake Total 1000.42 / 1000.42 1990.60 / 1990.60 320 / 320 Output Total 1700 / 1700 1000 / 1000 Balance 1000.42 / 1000.42 290.60 / 290.60 -680 / -680 Lab / Micro Data 05/12/24 04:29 05/12/24 04:29 Labs: Laboratory Results - last 24 hr 05/12/24 04:29: WBC 10.9, RBC 3.57 L, Hgb 10.8 L, Hct 33.0 L, MCV 92.4, MCH 30.3, MCHC 32.7, RDW Std Deviation 40.8, RDW Coeff of Stephanie 12.0, Plt Count 228, MPV 8.6, Immature Gran % (Auto) 0.500, Neut % (Auto) 91.3 H, Lymph % (Auto) 4.9 L, [place] % (Auto) 3.2, Eos % (Auto) 0.0, Baso % (Auto) 0.1, Absolute Neuts (auto) 10.0 H, Absolute Lymphs (auto) 0.53 L, Nucleated RBC % 0, Sodium 136, Potassium 3.9, Chloride 103, Carbon Dioxide 29.0, Anion Gap 4 L, BUN 9, Creatinine 0.39 L, Estim Creat Clear Calc 84.61, Est GFR (MDRD) Af Amer 215, Est GFR (MDRD) Non-Af 178, BUN/Creatinine Ratio 23.1 H, Glucose 116 H, Calcium 8.6, Total Bilirubin 0.80, AST 27, ALT 27, Alkaline Phosphatase 48, Total Protein 5.6 L, Albumin 2.9 L, Globulin 2.7, Albumin/Globulin Ratio 1.1 Micro: Microbiology 05/11/24 02:34 Sputum, Tracheal Aspirate Gram Stain - Final 05/11/24 04:30 Nasal Secretion MRSA (PCR) - Final 05/11/24 03:22 Mucosa - Nasopharyngeal Respiratory Panel (PCR) - Final 05/11/24 00:35 Mucosa - Nasopharyngeal SARS-CoV-2, Influenza & RSV (PCR) - Final Radiography Diagnostic Testing: Radiology Impression Chest X-Ray 05/12/24 05:55 IMPRESSION: Right thoracostomy tube remains in place with decreased trace right basilar pneumothorax Increased right chest wall subcutaneous emphysema. Electronically Signed: Tung Mercer MD at 6:41 EDT Reading Location ID and State: [facility] / [place] Tel , Service support , Physical Exam Narrative General: Alert, Oriented x3, Cooperative, No apparent distress HEENT: Atraumatic, PERRLA, EOMI, Normocephalic Oral: Moist Mucosa Neck: Supple, No JVD Lungs: Diminished, Normal air movement, No rhonchi, scattered wheeze, No rales, chest tube in place Cardiovascular: Regular rate, Regular Rhythm, Normal S1, Normal S2, No murmurs Abdomen: Soft, Non Tender, Non-Distended, No Hepato-splenomegaly Extremities: No edema, Capillary Refill Less than 3 Seconds Skin: No rashes, No breakdown Musculoskeletal: No Tenderness to Palpation of Joints or Extremities Neurological: No focal neurological deficits, Motor Exam 5/5 strength throughout, Sensory exam intact to light touch and pain Psych/Mental Status: Normal Affect, Appropriate Assessment & Plan Assessment/Plan (1) Acute hypoxic on chronic hypercapnic respiratory failure: (2) COPD exacerbation: (3) Pneumothorax on right: PLAN: Plan 1. Acute on chronic hypoxic and hypercapnic respiratory failure secondary to COPD exacerbation and right-sided pneumothorax ? Status post tube placement ? Extubated 05/11/2024 ? Continue with steroids and breathing treatments ? Will leave chest tube to suction 1 more day as she has a continued air leak ? As she does have increased subcutaneous emphysema on the chest x-ray and nursing states that they were having issues with the chest tube last night ? She does have a known lung mass being evaluated as an outpatient 2. 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 Continue with nutrition DVT: SCDs Charges/Coding Visit Charges Inpatient E&M: 59187 Subs Hosp L2
[2024-05-12] MEDS: Mag /Aluminum/Simeth WCH UDC 30 ML ORAL.SUSP PO (21:09)
[2024-05-12] MEDS: 0.9% Saline Lock 10 ML Syringe IV (23:34)
[2024-05-13] VITALS (24 sets, daily range): BP systolic 95–136; BP diastolic 65–96; PULSE 81–119; RESP 11–26; TEMP 36.1–36.7; O2SAT 91–98; BMI 15.6
[2024-05-13] MEDS: 0.9% Saline Lock 10 ML Syringe IV ×3 (04:36→20:13)
[2024-05-13] MEDS: fentaNYL 100 MCG/2 ML Ampul 25 MCG IV ×5 (04:36→20:13)
[2024-05-13 05:05] LABS: Absolute Lymphocyte Count 0.52 X10^3/uL (0.83-4.51); Absolute Neutrophil Count 5.9 X10^3/uL (2.0-7.7); Eosinophil# 0.01 X10^3/uL; Eosinophils% 0.1 % (0-5); Hematocrit 33.3 % (37-47); Hemoglobin 10.9 g/dL (12.0-15.0); Lymphocyte # 0.52 X10^3/ul (0.83-4.51); Lymphocyte % 7.7 % (19-41); Mean Corp Hgb Conc 32.7 g/dL (32-36); Mean Corpuscular Hgb 30.3 pg (27.0-32.0); Mean Corpuscular Volume 92.5 fL (81-99); Monocyte# 0.32 X10^3/uL; Monocyte% 4.7 % (0-10); NRBC Flagged by Analyzer 0 % (0-5); Neutrophil # 5.87 X10^3/uL (2.7-7.7); Neutrophil % 87.1 % (47-70); POSITIVE COUNT YES; POSITIVE DIFFERENTIAL YES; Platelet Count 181 K/mm3 (150-450); RBC Distribution Width CV 12.1 % (11.6-14.6); White Blood Count 6.8 K/mm3 (4.4-11.0)
[2024-05-13] MEDS: Albuterol 2.5 MG/3 ML VIAL.NEB. INHALATION ×2 (05:15→21:42)
[2024-05-13 05:18] LABS: Differential Indicated SCAN CRITERIA MET
[2024-05-13 05:21] LABS: Anion Gap 4 (5-15); BUN 8 mg/dL (7-18); BUN/Creat Ratio 27.8 RATIO (10-20); Calcium,Total 8.6 mg/dL (8.5-10.1); Chloride 103 mmol/L (98-107); Creatinine, Serum 0.29 mg/dL (0.55-1.02); EST Glomerular Filtration Rate 251 mL/min (>60); Est Glom Filt Rate - Afr Amer 304 mL/min (>60); Estimated Creatinine Clearance 113.78 ml/min; Glucose 120 mg/dL (74-106); Potassium 3.4 mmol/L (3.5-5.1); Sodium Level 137 mmol/L (136-145)
[2024-05-13 05:23] LABS: Differential Comment SCANNED
--- NOTE | 2024-05-13 06:35 | RAD_ITS ---
EXAM: XR CHEST, 1 VIEW CLINICAL INDICATION: ptx TECHNIQUE: Frontal view of the chest. COMPARISON: Portable chest radiograph of 05/12/2024. FINDINGS: LUNGS AND PLEURAL SPACES: Small caliber right thoracostomy tube remains in place, slightly withdrawn, with its tip projected just lateral to the right lung hilum, overlying the right midlung. Lungs remain hyperinflated secondary to severe pulmonary emphysema. The trace of pneumothorax previously seen in the right lung base has is almost completely resolved. No new or increasing pneumothorax is identified. Costophrenic angles remain blunted. Atelectasis noted at the right lung base. HEART: Heart size remains within normal limits. There is chronic pruning of the peripheral pulmonary vascular markings due to pulmonary emphysema. MEDIASTINUM: Minimal pneumomediastinum is again noted within the superior aspect of the mediastinum, unchanged. No mediastinal shift. BONES/JOINTS: Unremarkable. No acute fracture. SOFT TISSUES: Extensive soft tissue emphysema is again seen about the right ribs, within the right axilla, within the right supraclavicular fossa and extending into the lower neck. A small amount of soft tissue emphysema is seen in the left shoulder region, inferior to the mid left clavicle. RAD/Chest 1 View (Portable) IMPRESSION: Right thoracostomy tube remains in place with subtotal resolution of the right basilar pneumothorax. Stable extensive chest wall emphysema with stable pneumomediastinum. No new or increasing pneumothorax identified. Electronically Signed: Curtis Mendez MD at 7:58 EDT ,
[2024-05-13] MEDS: Ipratropium/Albuterol Sulfate 3 ML AMPUL.NEB INHALATION ×4 (07:31→19:22)
[2024-05-13] MEDS: Senna/Docusate Sodium 1 Tablet 2 TABLET PO ×2 (07:58→20:32)
--- NOTE | 2024-05-13 08:23 | PCM.PN.HOSP ---
Subjective Subjective Continues to have an air leak, chest x-ray is stable compared to yesterday Objective Data Objective Data Vital Signs: Vital Signs Temp Pulse Resp BP Pulse Ox O2 Del Method O2 Flow Rate 97.7 F L 99 15 122/87 H 94 Nasal Cannula 2 05/13/24 08:00 05/13/24 08:00 05/13/24 08:00 05/13/24 08:00 05/13/24 08:00 05/13/24 08:00 05/13/24 08:00 FiO2 2 05/12/24 07:00 Oxygen Flow Rate (L/min) 2 Oxygen Delivery Method Nasal Cannula Weight: 80 lb Body Mass Index (BMI) 15.6 Intake & Output: Intake and Output for Last 24 Hours 05/12/24 05/13/24 05/14/24 03:59 03:59 03:59 Intake Total 1989.60 / 1989.60 430 / 430 Output Total 1700 / 1700 2200 / 2450 250 / 250 Balance 290.60 / 290.60 -1770 / -2020 -250 / -250 Lab / Micro Data 05/13/24 04:56 05/13/24 04:56 Labs: Laboratory Results - last 24 hr 05/13/24 04:56: WBC 6.8, RBC 3.60 L, Hgb 10.9 L, Hct 33.3 L, MCV 92.5, MCH 30.3, MCHC 32.7, RDW Std Deviation 41.0, RDW Coeff of Stephanie 12.1, Plt Count 181, MPV 9.0, Immature Gran % (Auto) 0.400, Neut % (Auto) 87.1 H, Lymph % (Auto) 7.7 L, [place] % (Auto) 4.7, Eos % (Auto) 0.1, Baso % (Auto) 0.0, Absolute Neuts (auto) 5.9, Absolute Lymphs (auto) 0.52 L, Nucleated RBC % 0, Differential Comment SCANNED, Sodium 137, Potassium 3.4 L, Chloride 103, Carbon Dioxide 30.0, Anion Gap 4 L, BUN 8, Creatinine 0.29 L, Estim Creat Clear Calc 113.78, Est GFR (MDRD) Af Amer 304, Est GFR (MDRD) Non-Af 251, BUN/Creatinine Ratio 27.8 H, Glucose 120 H, Calcium 8.6 Micro: Microbiology 05/11/24 02:34 Sputum, Tracheal Aspirate Gram Stain - Final 05/11/24 04:30 Nasal Secretion MRSA (PCR) - Final 05/11/24 03:22 Mucosa - Nasopharyngeal Respiratory Panel (PCR) - Final 05/11/24 00:35 Mucosa - Nasopharyngeal SARS-CoV-2, Influenza & RSV (PCR) - Final Radiography Diagnostic Testing: Radiology Impression Chest X-Ray 05/13/24 06:35 IMPRESSION: Right thoracostomy tube remains in place with subtotal resolution of the right basilar pneumothorax. Stable extensive chest wall emphysema with stable pneumomediastinum. No new or increasing pneumothorax identified. Electronically Signed: Curtis Mendez MD at 7:58 EDT , Physical Exam Narrative General: Alert, Oriented x3, Cooperative, No apparent distress HEENT: Atraumatic, PERRLA, EOMI, Normocephalic Oral: Moist Mucosa Neck: Supple, No JVD Lungs: Diminished, Normal air movement, No rhonchi, scattered wheeze, No rales, chest tube in place Cardiovascular: Regular rate, Regular Rhythm, Normal S1, Normal S2, No murmurs Abdomen: Soft, Non Tender, Non-Distended, No Hepato-splenomegaly Extremities: No edema, Capillary Refill Less than 3 Seconds Skin: No rashes, No breakdown Musculoskeletal: No Tenderness to Palpation of Joints or Extremities Neurological: No focal neurological deficits, Motor Exam 5/5 strength throughout, Sensory exam intact to light touch and pain Psych/Mental Status: Normal Affect, Appropriate Assessment & Plan Assessment/Plan (1) Acute hypoxic on chronic hypercapnic respiratory failure: (2) COPD exacerbation: (3) Pneumothorax on right: PLAN: Plan 1. Acute on chronic hypoxic and hypercapnic respiratory failure secondary to COPD exacerbation and right-sided pneumothorax ? Status post tube placement ? Extubated 05/11/2024 ? Continue with steroids and breathing treatments ? Will leave chest tube to suction 1 more day as she has a continued air leak ? As she does have increased subcutaneous emphysema on the chest x-ray, continues to have an air leak will discuss with surgery and ICU about next steps ? She does have a known lung mass being evaluated as an outpatient 2. 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 Continue with nutrition DVT: SCDs Charges/Coding Visit Charges Inpatient E&M: 18408 Subs Hosp L2
[2024-05-13] MEDS: predniSONE 20 MG Tablet 40 MG PO (08:26)
--- NOTE | 2024-05-13 08:31 | PN.SURG_ITS ---
Subjective Subjective Patient is evaluated resting comfortably in bed. She notes some shortness of breath, however overall she is resting comfortably. She notes the breathing is better when sitting back. She is on 4 liters of nasal canula. Objective Data Objective Data Vital Signs: Vital Signs Temp Pulse Resp BP Pulse Ox O2 Del Method O2 Flow Rate 97.7 F L 99 15 122/87 H 94 Nasal Cannula 2 05/13/24 08:00 05/13/24 08:00 05/13/24 08:00 05/13/24 08:00 05/13/24 08:00 05/13/24 08:00 05/13/24 08:00 FiO2 2 05/12/24 07:00 Oxygen Flow Rate (L/min) 2 Oxygen Delivery Method Nasal Cannula Weight: 80 lb Body Mass Index (BMI) 15.6 Intake & Output: Intake and Output for Last 24 Hours 05/11/24 05/12/24 05/13/24 23:59 23:59 23:59 Intake Total 2991.02 / 2991.02 430 / 430 Output Total 1700 / 1700 2200 / 2200 250 / 250 Balance 1291.02 / 1291.02 -1770 / -1770 -250 / -250 Lab / Micro Data 05/13/24 04:56 05/13/24 04:56 Labs: Laboratory Results - last 24 hr 05/13/24 04:56: WBC 6.8, RBC 3.60 L, Hgb 10.9 L, Hct 33.3 L, MCV 92.5, MCH 30.3, MCHC 32.7, RDW Std Deviation 41.0, RDW Coeff of Stephanie 12.1, Plt Count 181, MPV 9.0, Immature Gran % (Auto) 0.400, Neut % (Auto) 87.1 H, Lymph % (Auto) 7.7 L, [place] % (Auto) 4.7, Eos % (Auto) 0.1, Baso % (Auto) 0.0, Absolute Neuts (auto) 5.9, Absolute Lymphs (auto) 0.52 L, Nucleated RBC % 0, Differential Comment SCANNED, Sodium 137, Potassium 3.4 L, Chloride 103, Carbon Dioxide 30.0, Anion Gap 4 L, BUN 8, Creatinine 0.29 L, Estim Creat Clear Calc 113.78, Est GFR (MDRD) Af Amer 304, Est GFR (MDRD) Non-Af 251, BUN/Creatinine Ratio 27.8 H, Glucose 120 H, Calcium 8.6 Micro: Microbiology 05/11/24 02:34 Sputum, Tracheal Aspirate Gram Stain - Final 05/11/24 04:30 Nasal Secretion MRSA (PCR) - Final 05/11/24 03:22 Mucosa - Nasopharyngeal Respiratory Panel (PCR) - Final 05/11/24 00:35 Mucosa - Nasopharyngeal SARS-CoV-2, Influenza & RSV (PCR) - Final Radiography Diagnostic Testing: Radiology Impression Chest X-Ray 05/13/24 06:35 IMPRESSION: Right thoracostomy tube remains in place with subtotal resolution of the right basilar pneumothorax. Stable extensive chest wall emphysema with stable pneumomediastinum. No new or increasing pneumothorax identified. Electronically Signed: Curtis Mendez MD at 7:58 EDT , Physical Exam Chest Chest Narrative: Right chest- chest tube intact. Active air leak noted. Palpable crepitus noted in the right upper chest. No breath sounds noted in the upper portion of the lung. Breath sounds noted mid portion and lower lung. Assessment & Plan Assessment/Plan (1) Pneumothorax on right: PLAN: I am following this patient in conjunction with Dr. Terry. He will independently evaluate this patient. CXR demonstrated subtotal resolution of the right basilar pneumothorax, stable extensive chest wall emphysema with stable pneumomediastinum. No new or increasing pneumothorax identified. Will place to waterseal today Repeat CXR tomorrow morning If patient becomes short of breath on waterseal, place back on suction If patient continues to fail treatment, may need consideration for transfer to thoracic surgery at tertiary facility We will continue to monitor this patient Charges/Coding Visit Charges Inpatient E&M: 76898 [facility] Hosp L1
[2024-05-13] MEDS: Menthol/Lanolin/Calamine/Znox 113 GM Tube 1 APPLIC TOPICAL ×2 (09:55→20:27)
[2024-05-13] MEDS: Enoxaparin 40 MG/0.4 ML Syringe SC (09:55)
[2024-05-13] MEDS: Pantoprazole Sodium 40 MG in 0.9% Normal Saline (100mL MB+) 100 ML 330 MG IV ×2 (09:56→20:13)
[2024-05-13] MEDS: Acetaminophen 325 MG Tablet 650 MG PO (09:58)
--- NOTE | 2024-05-13 11:36 | CASEMGMT ---
Insurance review for hospitals in network with?JAME/Yuriy if transfer is recommended is as follows: [facility], Swathi, [facility], [place], [facility], [facility], [facility], [facility], [place], [facility]), and . Gina Monge, Discharge Planning Asst
--- NOTE | 2024-05-13 13:10 | PCM.PN.INT ---
Assessment & Plan Assessment/Plan (1) Pulmonary cachexia due to COPD: (2) Acute on chronic respiratory failure with hypoxia and hypercapnia: (3) Pneumothorax on right: (4) COPD with acute exacerbation: PLAN: Plan RECOMMENDATIONS: 1. Continue supplemental oxygen at 3 L/min, per baseline requirement. 2. Continue bronchodilators and steroids. 3. Continue chest tube to wall suction. 4. Recommend transfer to tertiary care facility for thoracic surgery evaluation. IMPRESSIONS: 1. Acute on chronic respiratory failure with hypoxemia and hypercapnia/spontaneous pneumothorax The patient presented to the hospital with shortness of breath in the setting of a known history of end-stage obstructive lung disease and chronic hypoxemic respiratory failure with a baseline 3 L/min oxygen requirement. The patient presented with a right-sided pneumothorax, having recently been hospitalized in March under similar circumstances. She did require intubation, but was ultimately able to be weaned from invasive mechanical ventilatory support on May 11. She is stable from a respiratory perspective, but continues to have a significant air leak noted in her Pleur-evac. Given the patient's extensive pulmonary history, recommend transfer to a tertiary care facility to be evaluated by thoracic surgery. 2. End-stage COPD with pulmonary cachexia and known lung mass The patient would certainly be a candidate for referral to palliative care medicine and/or initiation of hospice care services, based upon her limited lung function and residual symptoms, despite being on maximum therapy. This note was generated with [employer] dictation software. It may contain incorrect words, spelling, and punctuation that were not noted in checking the note before signing. Subjective Subjective The patient was seen and examined at the bedside this morning. Events from the last 24 hours have been reviewed. The patient is currently afebrile, hemodynamically stable and maintaining appropriate oxygen saturations on 2 L/min via nasal cannula. The patient continues to have a profuse airleak noted in her Pleur-evac. She continues to have unresolving pneumothorax on chest imaging. She is otherwise clinically stable. I did call and speak with [facility] regarding a potential transfer for thoracic surgery evaluation. They were noncommittal regarding bed availability, but did request a facesheet be faxed. Objective Data Objective Data The patient's most recent lab work, culture data and imaging studies have all been personally reviewed. Vital Signs: Vital Signs Temp Pulse Resp BP Pulse Ox O2 Del Method O2 Flow Rate 96.9 F L 104 H 24 H 120/75 91 Nasal Cannula 2 05/13/24 11:00 05/13/24 11:00 05/13/24 11:00 05/13/24 11:00 05/13/24 11:00 05/13/24 11:00 05/13/24 11:00 FiO2 2 05/12/24 07:00 Oxygen Flow Rate (L/min) 2 Oxygen Delivery Method Nasal Cannula Weight: 80 lb Body Mass Index (BMI) 15.6 Intake & Output: Intake and Output for Last 24 Hours 05/11/24 05/12/24 05/13/24 23:59 23:59 23:59 Intake Total 2991.02 / 2991.02 430 / 430 110 / 110 Output Total 1700 / 1700 2200 / 2200 1105 / 1105 Balance 1291.02 / 1291.02 -1770 / -1770 -995 / -995 Lab / Micro Data Attestation: I reviewed the patient's lab results. 05/13/24 04:56 05/13/24 04:56 Labs: Laboratory Results - last 24 hr 05/13/24 04:56: WBC 6.8, RBC 3.60 L, Hgb 10.9 L, Hct 33.3 L, MCV 92.5, MCH 30.3, MCHC 32.7, RDW Std Deviation 41.0, RDW Coeff of Stephanie 12.1, Plt Count 181, MPV 9.0, Immature Gran % (Auto) 0.400, Neut % (Auto) 87.1 H, Lymph % (Auto) 7.7 L, [place] % (Auto) 4.7, Eos % (Auto) 0.1, Baso % (Auto) 0.0, Absolute Neuts (auto) 5.9, Absolute Lymphs (auto) 0.52 L, Nucleated RBC % 0, Differential Comment SCANNED, Sodium 137, Potassium 3.4 L, Chloride 103, Carbon Dioxide 30.0, Anion Gap 4 L, BUN 8, Creatinine 0.29 L, Estim Creat Clear Calc 113.78, Est GFR (MDRD) Af Amer 304, Est GFR (MDRD) Non-Af 251, BUN/Creatinine Ratio 27.8 H, Glucose 120 H, Calcium 8.6 Micro: Microbiology 05/11/24 02:34 Sputum, Tracheal Aspirate Gram Stain - Final 05/11/24 02:34 Sputum, Tracheal Aspirate Respiratory Culture - Preliminary Gram negative danielle 05/11/24 04:30 Nasal Secretion MRSA (PCR) - Final 05/11/24 03:22 Mucosa - Nasopharyngeal Respiratory Panel (PCR) - Final 05/11/24 00:35 Mucosa - Nasopharyngeal SARS-CoV-2, Influenza & RSV (PCR) - Final Radiography Diagnostic Testing: Radiology Impression Chest X-Ray 05/13/24 06:35 IMPRESSION: Right thoracostomy tube remains in place with subtotal resolution of the right basilar pneumothorax. Stable extensive chest wall emphysema with stable pneumomediastinum. No new or increasing pneumothorax identified. Electronically Signed: Curtis Mendez MD at 7:58 EDT , Physical Exam Const alert and no apparent distress General Appearance: cooperative and frail HEENT normocephalic, head/scalp atraumatic and moist oral mucous membranes Eyes PERRL, EOMs intact bilaterally and conjunctivae normal Neck supple General: trachea midline Chest Chest Narrative: Increased AP diameter Chest: chest tube Resp Resp Narrative: Significant air leak noted in Pleur-evac Auscultation: diminished lung sounds; Negative for rales, rhonchi or wheezes Cardio regular rate and regular rhythm GI normal to inspection, nondistended, normoactive bowel sounds Extremity no clubbing, cyanosis or edema Skin no rashes or lesions noted Neuro oriented x3, CN's II-XII intact bilaterally and moves all extremities Psych Mood & Affect: anxious Charges/Coding Visit Charges Inpatient E&M: 18311 Subs Hosp L3
[2024-05-13] MEDS: Mag /Aluminum/Simeth WCH UDC 30 ML ORAL.SUSP PO (17:22)
[2024-05-13] MEDS: Potassium Chloride Oral Soln 20 MEQ/15 ML UDC 40 MEQ PO (17:46)
[2024-05-14] VITALS (14 sets, daily range): BP systolic 104–124; BP diastolic 75–84; PULSE 72–117; RESP 12–23; TEMP 36–36.8; O2SAT 94–97; BMI 14.6
[2024-05-14] MEDS: fentaNYL 100 MCG/2 ML Ampul 25 MCG IV ×4 (01:50→15:40)
[2024-05-14] MEDS: Acetaminophen 325 MG Tablet 650 MG PO (01:50)
[2024-05-14] MEDS: Albuterol 2.5 MG/3 ML VIAL.NEB. INHALATION (02:29)
[2024-05-14 04:27] LABS: Anion Gap 3 (5-15); BUN 12 mg/dL (7-18); BUN/Creat Ratio 43.5 RATIO (10-20); Calcium,Total 8.9 mg/dL (8.5-10.1); Chloride 103 mmol/L (98-107); Creatinine, Serum 0.28 mg/dL (0.55-1.02); EST Glomerular Filtration Rate 264 mL/min (>60); Est Glom Filt Rate - Afr Amer 319 mL/min (>60); Estimated Creatinine Clearance 120.87 ml/min; Glucose 103 mg/dL (74-106); Sodium Level 136 mmol/L (136-145)
--- NOTE | 2024-05-14 05:55 | RAD_ITS ---
EXAM: XR CHEST, 1 VIEW CLINICAL INDICATION: right pneumothorax -- PORTABLE right pneumothorax -- PORTABLE TECHNIQUE: Frontal view of the chest. COMPARISON: Chest x-ray 05/13/2024. FINDINGS: LUNGS AND PLEURAL SPACES: The lungs are hyperexpanded, consistent with COPD. There is blunting of the lateral costophrenic angles which is probably due to hyperexpansion of the lungs. Pleural effusion cannot be excluded but is thought to be less likely. There is no visualized pneumothorax. HEART: Unremarkable. Cardiac silhouette not enlarged. MEDIASTINUM: Central airways and mediastinal contour are unremarkable. BONES/JOINTS: There are old healed rib fractures bilaterally. SOFT TISSUES: Soft tissue emphysema in the right lateral chest wall as well as in the right side of the neck, similar to previous study. TUBES, LINES AND DEVICES: There is chest tube with its tip overlying the right midlung field. RAD/Chest 1 View (Portable) IMPRESSION: 1. Chest tube is in stable position. No currently visualized pneumothorax. 2. Soft tissue emphysema in the right chest wall and right side of the neck, unchanged. 3. Emphysema noted. Emphysema is an independent risk factor for lung cancer. Recommend that the patient be considered for low dose CT lung cancer screening in the future. Electronically Signed: Sanchez Painting MD at 6:06 EDT Reading Location ID and State: [facility] / [place] , Service support ,
[2024-05-14] MEDS: Mag /Aluminum/Simeth WCH UDC 30 ML ORAL.SUSP PO ×2 (06:31→12:52)
--- NOTE | 2024-05-14 06:57 | PCM.PN.INT ---
Assessment & Plan Assessment/Plan (1) Pulmonary cachexia due to COPD: (2) Acute on chronic respiratory failure with hypoxia and hypercapnia: (3) Pneumothorax on right: (4) COPD with acute exacerbation: PLAN: Plan RECOMMENDATIONS: 1. Continue supplemental oxygen at 3 L/min, per baseline requirement. 2. Continue bronchodilators and steroids. 3. Continue chest tube to wall suction. 4. Recommend transfer to tertiary care facility for thoracic surgery evaluation. IMPRESSIONS: 1. Acute on chronic respiratory failure with hypoxemia and hypercapnia/spontaneous pneumothorax The patient presented to the hospital with shortness of breath in the setting of a known history of end-stage obstructive lung disease and chronic hypoxemic respiratory failure with a baseline 3 L/min oxygen requirement. The patient presented with a right-sided pneumothorax, having recently been hospitalized in March under similar circumstances. She did require intubation, but was ultimately able to be weaned from invasive mechanical ventilatory support on May 11. She is stable from a respiratory perspective, but continues to have a significant air leak noted in her Pleur-evac. Given the patient's extensive pulmonary history, recommend transfer to a tertiary care facility to be evaluated by thoracic surgery. 2. End-stage COPD with pulmonary cachexia and known lung mass The patient would certainly be a candidate for referral to palliative care medicine and/or initiation of hospice care services, based upon her limited lung function and residual symptoms, despite being on maximum therapy. This note was generated with [employer] dictation software. It may contain incorrect words, spelling, and punctuation that were not noted in checking the note before signing. Subjective Subjective The patient was seen and examined at the bedside this morning. Events from the last 24 hours have been reviewed. The patient is currently afebrile, hemodynamically stable and maintaining appropriate oxygen saturations on 4 L/min via nasal cannula. No overnight issues were identified by the nursing staff. Morning labs are stable. The patient continues to have a significant air leak from her chest tube. Objective Data Objective Data The patient's most recent lab work, culture data and imaging studies have all been personally reviewed. Vital Signs: Vital Signs Temp Pulse Resp BP Pulse Ox O2 Del Method O2 Flow Rate 96.9 F L 91 21 H 109/78 96 Nasal Cannula 4 05/14/24 05:00 05/14/24 05:00 05/14/24 05:00 05/14/24 05:00 05/14/24 05:00 05/14/24 05:00 05/14/24 05:00 FiO2 2 05/12/24 07:00 Oxygen Flow Rate (L/min) 4 Oxygen Delivery Method Nasal Cannula Weight: 75 lb Body Mass Index (BMI) 14.6 Intake & Output: Intake and Output for Last 24 Hours 05/12/24 05/13/24 05/14/24 23:59 23:59 23:59 Intake Total 430 / 430 220 / 220 200 / 200 Output Total 2200 / 2200 3060 / 3060 475 / 475 Balance -1770 / -1770 -2840 / -2840 -275 / -275 Lab / Micro Data Attestation: I reviewed the patient's lab results. 05/13/24 04:56 05/14/24 04:05 Labs: Laboratory Results - last 24 hr 05/14/24 04:05: Sodium 136, Potassium 4.0, Chloride 103, Carbon Dioxide 30.0, Anion Gap 3 L, BUN 12, Creatinine 0.28 L, Estim Creat Clear Calc 120.87, Est GFR (MDRD) Af Amer 319, Est GFR (MDRD) Non-Af 264, BUN/Creatinine Ratio 43.5 H, Glucose 103, Calcium 8.9 Micro: Microbiology 05/11/24 02:34 Sputum, Tracheal Aspirate Gram Stain - Final 05/11/24 02:34 Sputum, Tracheal Aspirate Respiratory Culture - Preliminary Gram negative danielle 05/11/24 04:30 Nasal Secretion MRSA (PCR) - Final 05/11/24 03:22 Mucosa - Nasopharyngeal Respiratory Panel (PCR) - Final 05/11/24 00:35 Mucosa - Nasopharyngeal SARS-CoV-2, Influenza & RSV (PCR) - Final Radiography Diagnostic Testing: Radiology Impression Chest X-Ray 05/13/24 06:35 IMPRESSION: Right thoracostomy tube remains in place with subtotal resolution of the right basilar pneumothorax. Stable extensive chest wall emphysema with stable pneumomediastinum. No new or increasing pneumothorax identified. Electronically Signed: Curtis Mendez MD at 7:58 EDT , Chest X-Ray 05/14/24 05:55 IMPRESSION: 1. Chest tube is in stable position. No currently visualized pneumothorax. 2. Soft tissue emphysema in the right chest wall and right side of the neck, unchanged. 3. Emphysema noted. Emphysema is an independent risk factor for lung cancer. Recommend that the patient be considered for low dose CT lung cancer screening in the future. Electronically Signed: Sanchez Painting MD at 6:06 EDT , Physical Exam Const alert and no apparent distress General Appearance: cooperative and frail HEENT normocephalic, head/scalp atraumatic and moist oral mucous membranes Eyes PERRL, EOMs intact bilaterally and conjunctivae normal Neck supple General: trachea midline Chest Chest Narrative: Increased AP diameter Chest: chest tube Resp Resp Narrative: Significant air leak noted in Pleur-evac Auscultation: diminished lung sounds; Negative for rales, rhonchi or wheezes Cardio regular rate and regular rhythm GI normal to inspection, nondistended, normoactive bowel sounds Extremity no clubbing, cyanosis or edema Skin no rashes or lesions noted Neuro oriented x3, CN's II-XII intact bilaterally and moves all extremities Psych Mood & Affect: anxious Charges/Coding Visit Charges Inpatient E&M: 36214 Subs Hosp L2
[2024-05-14] MEDS: Ipratropium/Albuterol Sulfate 3 ML AMPUL.NEB INHALATION ×3 (07:19→14:52)
--- NOTE | 2024-05-14 08:10 | PN.SURG_ITS ---
Subjective Subjective Patient is evaluated resting comfortably in bed. She states her breathing is at her baseline. She notes in the morning her breathing is slightly more difficult. Objective Data Objective Data Vital Signs: Vital Signs Temp Pulse Resp BP Pulse Ox O2 Del Method O2 Flow Rate 96.9 F L 92 18 109/78 94 Nasal Cannula 3 05/14/24 05:00 05/14/24 07:18 05/14/24 07:18 05/14/24 05:00 05/14/24 07:18 05/14/24 07:18 05/14/24 07:18 FiO2 2 05/12/24 07:00 Oxygen Flow Rate (L/min) 3 Oxygen Delivery Method Nasal Cannula Weight: 75 lb Body Mass Index (BMI) 14.6 Intake & Output: Intake and Output for Last 24 Hours 05/12/24 05/13/24 05/14/24 23:59 23:59 23:59 Intake Total 430 / 430 220 / 220 200 / 200 Output Total 2200 / 2200 3060 / 3060 475 / 475 Balance -1770 / -1770 -2840 / -2840 -275 / -275 Lab / Micro Data 05/13/24 04:56 05/14/24 04:05 Labs: Laboratory Results - last 24 hr 05/14/24 04:05: Sodium 136, Potassium 4.0, Chloride 103, Carbon Dioxide 30.0, A nion Gap 3 L, BUN 12, Creatinine 0.28 L, Estim Creat Clear Calc 120.87, Est GFR (MDRD) Af Amer 319, Est GFR (MDRD) Non-Af 264, BUN/Creatinine Ratio 43.5 H, Glucose 103, Calcium 8.9 Micro: Microbiology 05/11/24 02:34 Sputum, Tracheal Aspirate Gram Stain - Final 05/11/24 02:34 Sputum, Tracheal Aspirate Respiratory Culture - Preliminary Gram negative danielle 05/11/24 04:30 Nasal Secretion MRSA (PCR) - Final 05/11/24 03:22 Mucosa - Nasopharyngeal Respiratory Panel (PCR) - Final 05/11/24 00:35 Mucosa - Nasopharyngeal SARS-CoV-2, Influenza & RSV (PCR) - Final Radiography Diagnostic Testing: Radiology Impression Chest X-Ray 05/14/24 05:55 IMPRESSION: 1. Chest tube is in stable position. No currently visualized pneumothorax. 2. Soft tissue emphysema in the right chest wall and right side of the neck, unchanged. 3. Emphysema noted. Emphysema is an independent risk factor for lung cancer. Recommend that the patient be considered for low dose CT lung cancer screening in the future. Electronically Signed: Sanchez Painting MD at 6:06 EDT , Physical Exam Chest Chest Narrative: Right chest- chest tube intact. Diminished apical breath sounds bilaterally. Breath sounds auscultated in the mid and lower lobes of right lung. Continuous airleak noted at rest Assessment & Plan Assessment/Plan (1) Pneumothorax on right: (2) COPD exacerbation: PLAN: Plan I am following this patient in conjunction with Dr. Terry. He will independently evaluate this patient. Continue chest tube to suction with the continuous airleak CXR demonstrated no pneumothorax is visualized Transfer has been requested for patient to go to [facility] for evaluation by thoracic surgery due to the patient's extensive pulmonary history and continuous airleak Patient verbally understands and agrees with the plan We will continue to monitor this patient Charges/Coding Visit Charges Inpatient E&M: 47444 Subs Hosp L1
[2024-05-14] MEDS: 0.9% Saline Lock 10 ML Syringe IV (09:02)
[2024-05-14] MEDS: predniSONE 20 MG Tablet 40 MG PO (09:04)
--- NOTE | 2024-05-14 09:16 | PCM.PN.HOSP ---
Subjective Subjective Continues to have a significant air leak, [facility] a lot of the hospitals in this region are so Objective Data Objective Data Vital Signs: Vital Signs Temp Pulse Resp BP Pulse Ox O2 Del Method O2 Flow Rate 96.9 F L 92 18 109/78 94 Nasal Cannula 3 05/14/24 05:00 05/14/24 07:18 05/14/24 07:18 05/14/24 05:00 05/14/24 07:18 05/14/24 07:18 05/14/24 07:18 FiO2 2 05/12/24 07:00 Oxygen Flow Rate (L/min) 3 Oxygen Delivery Method Nasal Cannula Weight: 75 lb Body Mass Index (BMI) 14.6 Intake & Output: Intake and Output for Last 24 Hours 05/13/24 05/14/24 05/15/24 03:59 03:59 03:59 Intake Total 430 / 430 220 / 220 200 / 200 Output Total 2200 / 2450 3060 / 3060 475 / 475 Balance -1770 / -2020 -2840 / -2840 -275 / -275 Lab / Micro Data 05/13/24 04:56 05/14/24 04:05 Labs: Laboratory Results - last 24 hr 05/14/24 04:05: Sodium 136, Potassium 4.0, Chloride 103, Carbon Dioxide 30.0, Anion Gap 3 L, BUN 12, Creatinine 0.28 L, Estim Creat Clear Calc 120.87, Est GFR (MDRD) Af Amer 319, Est GFR (MDRD) Non-Af 264, BUN/Creatinine Ratio 43.5 H, Glucose 103, Calcium 8.9 Micro: Microbiology 05/11/24 02:34 Sputum, Tracheal Aspirate Gram Stain - Final 05/11/24 02:34 Sputum, Tracheal Aspirate Respiratory Culture - Preliminary Gram negative danielle 05/11/24 04:30 Nasal Secretion MRSA (PCR) - Final 05/11/24 03:22 Mucosa - Nasopharyngeal Respiratory Panel (PCR) - Final 05/11/24 00:35 Mucosa - Nasopharyngeal SARS-CoV-2, Influenza & RSV (PCR) - Final Radiography Diagnostic Testing: Radiology Impression Chest X-Ray 05/14/24 05:55 IMPRESSION: 1. Chest tube is in stable position. No currently visualized pneumothorax. 2. Soft tissue emphysema in the right chest wall and right side of the neck, unchanged. 3. Emphysema noted. Emphysema is an independent risk factor for lung cancer. Recommend that the patient be considered for low dose CT lung cancer screening in the future. Electronically Signed: Sanchez Painting MD at 6:06 EDT Reading Location ID and State: [facility] / [place] , Service support , Physical Exam Narrative General: Alert, Oriented x3, Cooperative, No apparent distress pulmonary cachexia HEENT: Atraumatic, PERRLA, EOMI, Normocephalic Oral: Moist Mucosa Neck: Supple, No JVD Lungs: Diminished, Normal air movement, No rhonchi, scattered wheeze, No rales, chest tube in place with airleak Cardiovascular: Regular rate, Regular Rhythm, Normal S1, Normal S2, No murmurs Abdomen: Soft, Non Tender, Non-Distended, No Hepato-splenomegaly Extremities: No edema, Capillary Refill Less than 3 Seconds Skin: No rashes, No breakdown Musculoskeletal: No Tenderness to Palpation of Joints or Extremities Neurological: No focal neurological deficits, Motor Exam 5/5 strength throughout, Sensory exam intact to light touch and pain Psych/Mental Status: Normal Affect, Appropriate Assessment & Plan Assessment/Plan (1) Acute hypoxic on chronic hypercapnic respiratory failure: (2) COPD exacerbation: (3) Pneumothorax on right: PLAN: Plan 1. Acute on chronic hypoxic and hypercapnic respiratory failure secondary to COPD exacerbation and right-sided pneumothorax ? Status post tube placement, continues to have consistent air leak will work on transfer ? Extubated 05/11/2024 ? Continue with steroids and breathing treatments ? Will leave chest tube to suction 1 more day as she has a continued air leak ? As she does have increased subcutaneous emphysema on the chest x-ray, continues to have an air leak will discuss with surgery and ICU about next steps ? She does have a known lung mass being evaluated as an outpatient 2. 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 Continue with nutrition DVT: SCDs Charges/Coding Visit Charges Inpatient E&M: 96699 Subs Hosp L2
--- NOTE | 2024-05-14 09:18 | PCM.PN.BLA ---
Progress Note I called and spoke directly with Dr. Lockett of thoracic surgery at [facility] regarding the patient and her current clinical state. He is agreeable to evaluating her for surgical intervention. I explained to him that a facesheet was faxed to his hospital yesterday but we have not heard anything in return. He indicated that he would reach out to the regional transfer center to help facilitate her transfer to their facility.
[2024-05-14] MEDS: Menthol/Lanolin/Calamine/Znox 113 GM Tube 1 APPLIC TOPICAL (10:00)
[2024-05-14] MEDS: oxyCODONE 5 MG Tablet PO ×2 (12:47→16:48)
[2024-05-14] MEDS: Enoxaparin 40 MG/0.4 ML Syringe SC (12:48)
[2024-05-14] MEDS: Pantoprazole Sodium 40 MG in 0.9% Normal Saline (100mL MB+) 100 ML 330 MG IV (12:49)
[2024-05-14] MEDS: Senna/Docusate Sodium 1 Tablet 2 TABLET PO (12:52)
--- NOTE | 2024-05-14 17:36 | DS.PCM_ITS ---
Providers Date of Admission: 05/11/24 Primary Care Physician: Maci Thibodeaux, RICARDOC Consultations 05/11/24 04:07 Consult: General Surgery Routine Consulting Provider: Tawanda Terry Reason for Consult: Chest tube management EMERGENT Consult: No Notified: Yes Date Notified: 05/11/24 Time Notified: 03:36 Method of Notification: ED Physician Initiated Consult: Java Groovy Developer / Pulmonary Medicine Routine Consulting Provider: Pulmonary Medicine kaur [place] Reason for Consult: Vent management EMERGENT Consult: No Notified: Yes Date Notified: 05/11/24 Time Notified: 03:09 Method of Notification: Text Reason For Visit: RESP FAILURE, COPD EXAC, R SIDED PTX Diagnosis Discharge Diagnosis (1) Acute hypoxic on chronic hypercapnic respiratory failure: Status: Acute Code(s): J96.01 - Acute respiratory failure with hypoxia; J96.12 - Chronic respiratory failure with hypercapnia (2) COPD exacerbation: Status: Chronic Code(s): J44.1 - Chronic obstructive pulmonary disease with (acute) exacerbation (3) Pneumothorax on right: Status: Acute Code(s): J93.9 - Pneumothorax, unspecified Medications at Discharge Home Medications albuterol sulfate 2.5 mg/3 mL (0.083 %) solution for nebulization 2.5 mg inhalation Q4H PRN Sob &/Or Wheezing 10/03/18 albuterol sulfate 90 mcg/actuation aerosol inhaler (Ventolin HFA) 2 puff inhalation Q4H PRN Sob &/Or Wheezing 10/03/18 ipratropium 0.5 mg-albuterol 3 mg (2.5 mg base)/3 mL nebulization soln 3 ml inhalation Q8H 10/03/18 calcium carbonate 1,200 mg (2 x 600 mg calcium (1,500 mg)) PO DAILY #20 tabs 06/03/23 acetaminophen 650 mg/20.3 mL oral solution 1,000 mg (31.2308 mL) PO Q8H PRN PRN Pain 1-10 Or Fever #0 mL 04/07/24 food supplemt, lactose-reduced 0.08 gram-1.5 kcal/mL oral liquid (Ensure Plus High Protein) 120 ml PO 4X/DAY #30 mL 04/07/24 levofloxacin 500 mg tablet 500 mg PO DAILY #2 tabs 04/07/24 morphine concentrate 10 mg/0.5 mL oral syringe (FOR ORAL USE ONLY) 10 mg (0.5 mL) PO/SL Q2H PRN PRN dyspnea 5 days #50 ea 04/07/24 prednisone 10 mg tablet 10 mg PO DAILY #30 tabs 04/07/24 Hospital Course Operations None Procedures None Summary of Care Provided Minutes Spent on Discharge: 36 Hospital Course: Per HPI: The patient is a 63 y/o F w/ PMHx: Severe protein calorie malnutrition, COPD w/ Chronic Hypoxic Respiratory Failure (home 3L NC baseline), Anxiety and Depression, GERD, Former tobacco use, recent discharge 04/07/2024 following acute on chronic hypoxic and hypercapnic respiratory failure presentation with a right pneumothorax with COPD acute exacerbation requiring transient intubation with associated concurrent gram-negative Pseudomonas pneumonia who presents to the [facility] ED on 05/11/24 with history of sudden acute onset dyspnea prompting EMS call noted to be 80% on 4 L nasal cannula with administration of DuoNeb on route with also noted right sided chest discomfort with no recent fevers, markedly changed or productive cough or chills prompting eventual ED evaluation. In the ED upon arrival patient was reported to have increased work of breathing with accessory muscle usage and conversational dyspnea with BiPAP initiated and ABG obtained with respiratory acidosis evident. Additional workup in the ED included T98.2, heart rate 126, BP 151/114, respiratory rate 25, knee 3% on BiPAP with 100% FiO2, T97.7, heart rate 121, BP 163/117, respiratory rate 30, 96% on 4 L initially, CBC with WBC 10.2, hemoglobin 13.4, MCV 8.3 without marked shift, ABG with pH 7.24, bicarb 32.1, pCO2 74.4, pO2 105 on nasal cannula, BMP with sodium 134, BUN/creatinine 8/0.37, glucose 166, troponin less than 3, BNP 13.1, chest x-ray with a moderate right lateral pneumothorax with underlying chronic obstructive pulmonary disease, rapid SARS COVID/influenza/RSV negative. In the ED patient ministered DuoNeb therapy as well as IV Solu-Medrol. Given patient's significant respiratory distress despite BiPAP usage patient administered Sustol choline as well as etomidate 30 mg IV x 1 and intubated and Gray catheter also placed. ED discussed case with General surgery and plan of care will be placement of pigtail for PTX per ED and surgery to manage on the floor with plan for chest tube to low intermittent wall suction. Hospital Course: 1. Acute on chronic hypoxic and hypercapnic respiratory failure secondary to COPD exacerbation and right-sided pneumothorax?63-year-old female presented to the hospital initially was intubated due to her respiratory failure. She was extubated on 05/11/2024 after about 18 hours. She has been maintaining her oxygen saturations with nasal cannula however during her hospitalization she continued to have an air leak that was not lessening after chest tube insertion for her right pneumothorax. Chest x-ray was demonstrating almost complete resolution of her pneumothorax but she also had subcu emphysema so this was discussed with thoracic surgery at [facility] who accepted her in transfer. I discussed with the plan for discharge to a tertiary center and she expressed understanding there is benefits of going and would like to go if possible. 2. Pulmonary cachexia with severe protein calorie malnutrition Physical Exam Narrative General: Alert, Oriented x3, Cooperative, No apparent distress pulmonary cachexia HEENT: Atraumatic, PERRLA, EOMI, Normocephalic Oral: Moist Mucosa Neck: Supple, No JVD Lungs: Diminished, Normal air movement, No rhonchi, scattered wheeze, No rales, chest tube in place with airleak Cardiovascular: Regular rate, Regular Rhythm, Normal S1, Normal S2, No murmurs Abdomen: Soft, Non Tender, Non-Distended, No Hepato-splenomegaly Extremities: No edema, Capillary Refill Less than 3 Seconds Skin: No rashes, No breakdown Musculoskeletal: No Tenderness to Palpation of Joints or Extremities Neurological: No focal neurological deficits, Motor Exam 5/5 strength throughout, Sensory exam intact to light touch and pain Psych/Mental Status: Normal Affect, Appropriate Weight / BMI Weight Weight: 75 lb Body Mass Index (BMI) 14.6 ABG / Lab / Microbiology Data 05/13/24 04:56 05/14/24 04:05 Laboratory: Laboratory Results - last 24 hr 05/14/24 04:05: Sodium 136, Potassium 4.0, Chloride 103, Carbon Dioxide 30.0, A nion Gap 3 L, BUN 12, Creatinine 0.28 L, Estim Creat Clear Calc 120.87, Est GFR (MDRD) Af Amer 319, Est GFR (MDRD) Non-Af 264, BUN/Creatinine Ratio 43.5 H, Glucose 103, Calcium 8.9 Microbiology: Microbiology 05/11/24 02:34 Sputum, Tracheal Aspirate Gram Stain - Final 05/11/24 02:34 Sputum, Tracheal Aspirate Respiratory Culture - Final Pseudomonas aeruginosa 05/11/24 04:30 Nasal Secretion MRSA (PCR) - Final 05/11/24 03:22 Mucosa - Nasopharyngeal Respiratory Panel (PCR) - Final 05/11/24 00:35 Mucosa - Nasopharyngeal SARS-CoV-2, Influenza & RSV (PCR) - Final Radiography Diagnostic Testing: Radiology Impression Chest X-Ray 05/14/24 05:55 IMPRESSION: 1. Chest tube is in stable position. No currently visualized pneumothorax. 2. Soft tissue emphysema in the right chest wall and right side of the neck, unchanged. 3. Emphysema noted. Emphysema is an independent risk factor for lung cancer. Recommend that the patient be considered for low dose CT lung cancer screening in the future. Electronically Signed: Sanchez Painting MD at 6:06 EDT Reading Location ID and State: [facility] / [place] , Service support , Meaningful Use Info Meaningful Use Meaningful Use Diagnoses (Choose all that apply): None applicable Ischemic Stroke Statin Dosing Therapy Reference: STATIN DOSE THERAPY REFERENCE: * Patients > 75 years receive moderate or high dose statin therapy. * Patients 75 years or YOUNGER should receive HIGH intensity statin dose unless contraindicated. You will be required to document reason for non-treatment if statin daily dose does not meet guidelines. HIGH DOSE STATIN THERAPY DAILY Atorvastatin > than or = to 40 mg Rosuvastatin > than or = to 20 mg Amlodipine + Atorvastatin > than or = to 2.5/40 mg Ezetimibe + Simvastatin 10/80 mg Simvastatin 80mg Discharge Plan Admission Admit Date/Time: 05/11/24 03:04 Attending Provider: Uvaldo Medeiros Primary Care Provider: Maci Thibodeaux NP Consulting Providers: Tawanda Terry; Salo Louie; Ezra Phoenix; Manish Castillo; Stan Stewart; Michael Singh; Wade Saba; Michelle Terrazas; Harley Maloney; Agapito Juarez; Lesley Leyva; Carlos Dietz; Ravindra Higuera; Cristian Russo; Viet Christianson; Wesley Jane; Mino Quiroga; Juan Segovia; James Brennan; Leona Reeder WORKDAY CONSULTANT; Bouchra Randall Discharge Orders/Prescriptions Prescriptions: No Action ipratropium-albuterol 0.5 mg-3 mg(2.5 mg base)/3 mL solution for nebulization 3 ml INHALATION Q8H albuterol sulfate 2.5 mg /3 mL (0.083 %) solution for nebulization 2.5 mg INHALATION Q4H PRN (Reason: Sob &/Or Wheezing) Ventolin HFA 90 mcg/actuation HFA aerosol inhaler 2 puff INHALATION Q4H PRN (Reason: Sob &/Or Wheezing) calcium carbonate 600 mg calcium (1,500 mg) tablet 1,200 mg PO DAILY Qty: 20 0RF acetaminophen 650 mg/20.3 mL Solution 1,000 mg PO Q8H PRN PRN (Reason: Pain 1-10 Or Fever) Qty: 0 0RF Ensure Plus High Protein 0.08 gram-1.5 kcal/mL Liquid 120 ml PO 4X/DAY Qty: 30 0RF morphine concentrate 10 mg/0.5 mL Syringe 10 mg PO/SL Q2H PRN PRN (Reason: dyspnea) 5 Days Qty: 50 0RF levofloxacin 500 mg tablet 500 mg PO DAILY Qty: 2 0RF prednisone 10 mg tablet 10 mg PO DAILY Qty: 30 0RF Rx Instructions: 4 tabs daily for 3 days, then 3 tabs daily for 3 days, then 2 tabs daily for 3 days, then 1 tab daily for 3 days Referrals / Follow Up: Maci Thibodeaux NP, WORKDAY CONSULTANT-C [Primary Care Provider] - Charges/Coding Visit Charges Inpatient E&M: 69058 Disch Hosp >30min
== END 2024-05-14 18:30 | disposition short-term general hospital (02) | DRG 133 ==
LOC: ED 00:41 → ICU 03:04
PROVIDERS: Admitting Provider Family Medicine; Emergency Provider Emergency Medicine; PCP Nurse Practitioner Family; Visit Provider Family Medicine
DX: J96.22 Acute and chronic respiratory failure with hypercapnia (principal); J44.1 Chronic obstructive pulmonary disease with (acute) exacerbation; E43 Unspecified severe protein-calorie malnutrition; R64 Cachexia; F32.A Depression, unspecified; J93.83 Other pneumothorax; J96.21 Acute and chronic respiratory failure with hypoxia; K21.9 Gastro-esophageal reflux disease without esophagitis; F41.9 Anxiety disorder, unspecified; F17.200 Nicotine dependence, unspecified, uncomplicated; Z80.0 Family history of malignant neoplasm of digestive organs; Z79.2 Long term (current) use of antibiotics; R73.9 Hyperglycemia, unspecified; Z68.1 Body mass index [BMI] 19.9 or less, adult
CPT/HCPCS: 31500; 31720; 32551; 36600; 71045; 80048; 80053; 82550; 82803; 83036; 83735; 83880; 84100; 84145; 84478; 84484; 85025; 87070; 87077; 87184; 87186; 87205; 87631; 87633; 87641; 93005; 94002; 94640; 94660; 94668; 94762; 97162; 97166; 97530; 97535; 97802; 97803; 99252; 99285; J7030; A4216; G0463

== ENCOUNTER 2024-06-18 20:33 | Inpatient (IN) | payer MEDICAID, SELFPAY ==
[2019-04-26 09:42] VITALS: BMI 20.8
[2024-06-18] VITALS (10 sets, daily range): BP systolic 93–146; BP diastolic 67–103; PULSE 109–133; RESP 19–26; TEMP 36–36.9; O2SAT 93–99; BMI 15.3
--- NOTE | 2024-06-18 21:06 | EKG12_ITS ---
Test Reason : DYSRHYTHMIA Blood Pressure : */* mmHG Vent. Rate : 128 BPM Atrial Rate : 128 BPM P-R Int : 124 ms QRS Dur : 86 ms QT Int : 310 ms P-R-T Axes : 92 74 77 degrees QTcB Int : 452 ms Sinus tachycardia Inferior infarct , age undetermined Possible Anterolateral infarct , age undetermined Abnormal ECG Confirmed by PHILIP SAHA, DIONNA ([id number]), purchasing expeditor VLAD LU ([id number]) on 06/20/2024 11:30:51 AM Referred By: Confirmed By: DIONNA PALACIOS MD
--- NOTE | 2024-06-18 21:07 | ED.VIS.DYS ---
HPI History of Present Illness Chief Complaint: Shortness of Breath Informant: patient and EMS Onset/Context/Timing Onset: Today Context: sudden Timing: Continuous Current Severity: Severe Maximum Severity: Severe Worsened by: Nothing Narrative Narrative: 63-year-old female on hospice for severe COPD suddenly became dyspneic today and revoked hospice prior to coming here to the ER. Respiratory is already given her a couple of breathing treatments before my evaluation and done an ABG. She states the breathing treatments have helped some. She is having pain on the right lateral chest as well that started with this. She has a history of pneumothorax in the past. [facility] Medical History (Updated 06/18/24 @ 23:[address] Venkata Llamas MD) Pulmonary cachexia due to COPD Respiratory failure Severe chronic obstructive pulmonary disease Nicotine dependence, cigarettes, in remission Chronic hypoxemic respiratory failure Unintentional weight loss Wasting generalized Anxiety Otalgia of right ear Rhinosinusitis Bronchitis Acute exacerbation of emphysema COPD (chronic obstructive pulmonary disease) GERD (gastroesophageal reflux disease) Arthritis Neck pain Osteoporosis Osteopenia Mass of multiple sites of right breast Breast mass Palate abnormality Wheezing Rib pain Atypical chest pain Acute abdominal pain Bacteremia Lung nodule Lung mass Tick bite Rib fracture Pre-operative cardiovascular examination Dependence on supplemental oxygen Home Medications ?Medication ?Instructions ?Recorded ?Last Taken ?Type albuterol sulfate 2.5 mg/3 mL 2.5 mg inhalation Q4H PRN Sob &/Or 10/03/18 Unknown History (0.083 %) solution for nebulization Wheezing albuterol sulfate 90 mcg/actuation 2 puff inhalation Q4H PRN Sob &/Or 10/03/18 Unknown History aerosol inhaler (Ventolin HFA) Wheezing ipratropium 0.5 mg-albuterol 3 mg 3 ml inhalation Q8H 10/03/18 Unknown History (2.5 mg base)/3 mL nebulization soln calcium carbonate 1,200 mg (2 x 600 mg calcium 06/03/23 Unknown Rx (1,500 mg)) PO DAILY #20 tabs acetaminophen 650 mg/20.3 mL oral 1,000 mg (31.2308 mL) PO Q8H PRN 04/07/24 Unknown Rx solution PRN Pain 1-10 Or Fever #0 mL food supplemt, lactose-reduced 120 ml PO 4X/DAY #30 mL 04/07/24 Unknown Rx 0.08 gram-1.5 kcal/mL oral liquid (Ensure Plus High Protein) levofloxacin 500 mg tablet 500 mg PO DAILY #2 tabs 04/07/24 Unknown Rx morphine concentrate 10 mg/0.5 mL 10 mg (0.5 mL) PO/SL Q2H PRN PRN 04/07/24 Unknown Rx oral syringe (FOR ORAL USE ONLY) dyspnea 5 days #50 ea prednisone 10 mg tablet 10 mg PO DAILY #30 tabs 04/07/24 Unknown Rx bisacodyl 10 mg rectal suppository 10 mg MD DAILY PRN constipation 06/18/24 Unknown History docusate sodium 100 mg capsule 100 mg PO DAILY 06/18/24 Unknown History ipratropium bromide 0.02 % 1 inhalation Q6H PRN PRN wheezing 06/18/24 Unknown History solution for inhalation lorazepam 0.5 mg tablet 0.5 mg PO Q4H PRN PRN anxiety 06/18/24 Unknown History ondansetron 4 mg disintegrating 4 mg PO Q8H PRN PRN nausea and 06/18/24 Unknown History tablet vomiting oxycodone 5 mg tablet PO 06/18/24 Unknown History pantoprazole 40 mg tablet,delayed 40 mg PO DAILY 06/18/24 Unknown History release roflumilast 250 mcg tablet 250 mcg PO DAILY 06/18/24 Unknown History tiotropium bromide 2.5 2 puff inhalation DAILY 06/18/24 Unknown History mcg/actuation mist for inhalation (Spiriva Respimat) Allergy/AdvReac Type Severity Reaction Status Date / Time ciprofloxacin (From Cipro) Allergy Intermediate SOB Verified 06/18/24 20:41 fluticasone (From Advair Allergy Mild Ashtma, Verified 06/18/24 20:41 Diskus) Itching, Pruritus, Rash metronidazole (From Flagyl) Allergy Mild Verified 06/18/24 20:41 penicillin G Allergy Mild Verified 06/18/24 20:41 salmeterol (From Advair Allergy Mild Ashtma, Verified 06/18/24 20:41 Diskus) Itching, Pruritus, Rash sulfamethoxazole (From Allergy Mild Rash Verified 06/18/24 20:41 Bactrim) trimethoprim (From Bactrim) Allergy Mild Rash Verified 06/18/24 20:41 Penicillins Allergy Swelling Verified 06/18/24 20:41 Family History Father Colon cancer Mother Heart disease Surgical History History of colonoscopy History of bilateral tubal ligation History of partial colectomy Social History household members: spouse Smoking Status: Former smoker Tobacco: How many years used: 20 how long ago did patient quit smokin years second hand exposure: No alcohol intake: current alcohol intake frequency: holidays/special occasions only substance use type: does not use caffeine: Yes ROS ROS ED Constitutional Constitutional ED: Denies chills or fever(s) Eyes Eyes: Denies change in vision or diplopia ENT ENT ED: Denies rhinorrhea or sore throat Cardiovascular Cardiovascular: Reports chest pain; Denies palpitations or racing heartbeat Respiratory/Chest Respiratory/Chest: Reports dyspnea; Denies cough or sputum Gastrointestinal Gastrointestinal: Denies abdominal pain, diarrhea, nausea or vomiting Genitourinary Genitourinary ED: Denies dysuria or hematuria Musculoskeletal Musculoskeletal: Denies back pain or neck pain Integumentary Denies abscess or rash Neurologic Neurologic: Denies headache(s), paresthesias or weakness Psychiatric Psychiatric: Reports anxiety; Denies suicidal thoughts EXAM Physical Exam Const Vital Signs: 06/18/24 20:33 06/18/24 20:39 06/18/24 20:41 Temperature 96.8 F L 96.8 F L Temperature Source Temporal Temporal Pulse Rate 131 H 130 H Respiratory Rate 22 H 21 H Respiratory Effort Short of Breath Labored Accessory Muscle Use Pursed Lip Retracting Respiratory Pattern Tachypnea Blood Pressure 136/100 H 136/100 H Blood Pressure Mean 112 112 Pulse Ox 93 94 Oxygen Delivery Method Nasal Cannula Nasal Cannula Nasal Cannula Oxygen Flow Rate (L/min) 4 4 4 06/18/24 21:10 06/18/24 21:17 06/18/24 21:33 Temperature Temperature Source Pulse Rate 129 H 128 H Respiratory Rate 26 H 21 H Respiratory Effort Respiratory Pattern Tachypnea Blood Pressure 146/103 H Blood Pressure Mean 117 Pulse Ox 97 Oxygen Delivery Method Nasal Cannula Nasal Cannula Oxygen Flow Rate (L/min) 4 4 06/18/24 21:39 06/18/24 21:53 06/18/24 22:00 Temperature 98.4 F 98.4 F Temperature Source Oral Oral Pulse Rate 129 H 128 H 133 H Respiratory Rate 19 H 24 H 19 H Respiratory Effort Respiratory Pattern Tachypnea Blood Pressure 146/103 H 134/71 H Blood Pressure Mean 117 92 Pulse Ox 96 95 Oxygen Delivery Method Nasal Cannula Nasal Cannula Oxygen Flow Rate (L/min) 4 4 06/18/24 23:00 Temperature 98.4 F Temperature Source Oral Pulse Rate 113 H Respiratory Rate 19 H Respiratory Effort Respiratory Pattern Blood Pressure 95/69 Blood Pressure Mean 77 Pulse Ox 99 Oxygen Delivery Method Nasal Cannula Oxygen Flow Rate (L/min) 4 Positive well nourished, well developed and cachectic Constitutional Narrative: Acute respiratory distress General Appearance ED: well developed and cachectic Nutritional Appearance: cachectic HEENT Reports moist mucous membranes normocephalic and atraumatic Eyes PERRL and EOMs intact bilaterally Neck full ROM, supple and no JVD Resp Resp Narrative: Diminished severely throughout, sound symmetric. Trachea midline. Accessory muscle use and respiratory distress speaking 1-3 word sentences Cardio regular rate and regular rhythm Rate: tachycardic GI non-tender and non-distended Auscultation: normoactive bowel sounds Palpation: soft Back/Spine no CVA tenderness General Back: other FROM Extremity normal to inspection General Extremety ED: Negative for edema, pulses abnormal or tenderness General Extremity: Negative for edema or pulses abnormal Neuro oriented x3, CN's II-XII intact bilaterally and no sensory deficits noted Sensorium / Orientation: awake and alert Motor Exam: strength 5/5 throughout Psych mental status grossly normal Skin no rashes or lesions noted and no wounds MDM MDM MDM Narrative Medical decision making narrative: After the first 2 nebulizer treatments patient states she is having subjective improvement. She is breathing in the low 20s, and holding her own oxygen levels on a 4 L nasal cannula she is at 3 L at baseline. I think reasonable to get a stat portable chest x-ray to see if she has a pneumothorax, she is already refusing any type of BiPAP treatment, and states that if things get worse she wants to be intubated, fully understanding that if she gets intubated there is a chance that she may not be able to get off of the ventilator. Her ABG shows an acute respiratory acidosis. I am holding off on intubating her for now until we see the chest x-ray, and we may give her more albuterol treatments after that if she does not have a pneumothorax. 1 view stat portable chest x-ray indeed shows a large right pneumothorax. Patient is in mild respiratory and painful distress with each breath, complaining of pain on the right hemithorax. She is tachycardic in the 1 20-1 30 range. She verbally consented to thoracostomy and procedural sedation. See the procedure note. This went well, was uncomplicated and her heart rate came down to the 110-113 range, she felt much better as she awakened and was breathing better with less discomfort. Lab Data Attestation: I reviewed the patient's lab results. Labs: Laboratory Results - last 24 hr 06/18/24 20:30 WBC 12.6 H RBC 4.54 Hgb 13.9 Hct 42.5 MCV 93.6 MCH 30.6 MCHC 32.7 RDW Std Deviation 42.4 RDW Coeff of Stephanie 12.2 Plt Count 388 MPV 9.4 Immature Gran % (Auto) 0.500 Neut % (Auto) 66.4 Lymph % (Auto) 22.4 Wharton % (Auto) 10.2 H Eos % (Auto) 0.1 Baso % (Auto) 0.4 Absolute Neuts (auto) 8.3 H Absolute Lymphs (auto) 2.81 Nucleated RBC % 0 Sodium 136 Potassium 3.9 Chloride 101 Carbon Dioxide 31.0 Anion Gap 5 BUN 8 Creatinine 0.49 L Estim Creat Clear Calc 67.95 Est GFR (MDRD) Af Amer 165 Est GFR (MDRD) Non-Af 137 BUN/Creatinine Ratio 16.4 Glucose 169 H Calcium 9.3 Troponin I High Sens 3 B-Natriuretic Peptide 23.4 ABG Data ABG results: ABG 06/18/24 20:52 Specimen Type ART Sample Site L Radial pH 7.21 L Bicarbonate Actual 31.8 H Total CO2 34 Base Excess 4 H O2 Saturation 97 O2 % 4.0 ABG pCO2 80.0 H* ABG pO2 108 H Pj Test Positive O2 Delivery Device Cannula Vent Mode Not entered Crit Call To/Read Back Yes Blood Gas Notified Whom harriett Blood Gas Notified Time 20:54:21 Radiography Diagnostic Testing: Clinical Impression(s) from Imaging Studies Chest X-Ray 06/18/24 21:22 IMPRESSION: Moderate right pneumothorax. Electronically Signed: Bo Charles DO at 22:29 EDT , ADDENDUM: 06/18/246 IMPRESSION: Moderate right pneumothorax. N.B. : Evie Berrios RN, confirmed on 06/18/2024 22:39:50 (ET) that the referring physician received the results and does not require a verbal communication. Electronically Signed: Bo Charles DO at 22:29 EDT , Rhythm Strip Rhythm Strip: Sinus Tach Rate: 130 Ectopy: None EKG Initial EKG: Attestation: I personally reviewed and interpreted this EKG as follows: Interpretation: No Acute Injury Pattern and Sinus Tachycardia Comments: Nml axis & intervals Management Discussion w/another healthcare provider: Hospitalist and Refuse Driver (Dillon Terry) Procedures Procedural Sedation 1 (Initial Baseline): Consent Signed: Yes (Consent given verbally, patient in distress not able to sign) Any Problems With Anesthesia: No Sedation medication: Versed (2 mg in addition to fentanyl 50 mcg) Route: IV Total Moderate Sedation Units: 11 Maliampati Score: Class II ASA Classification: III Comment:: On monitor with prophylactic nasal cannula oxygenation and IV fluids, end-tidal CO2 monitoring, airway equipment at the bedside. Tolerated well with no complications. Other Procedures Procedure(s): Right thoracostomy: Due to the atraumatic nature of this, patient's pneumothorax should not need a large bore chest tube, so the arrow pneumothorax kit was used at the anterior approach second intercostal space, just above the third rib, which was locally anesthetized after sterile prep and drape with chlorhexidine, 1.5 cc of plain 1% lidocaine, a small incision was made with scalpel and the chest tube was placed via modified Seldinger technique over top of the third rib, aspirated air slid the catheter in without resistance, hooked up to a Pleur-evac and then sutured the catheter in place with silk and placed a Tegaderm over the site. With the Pleur-evac, there was air bubbling with each breath for 5 or 10 minutes until that eventually stopped. Repeat chest x-ray 1 view on my interpretation shows good chest tube placement and resolution of the pneumothorax. Critical Care Time Critical Care Time: Yes Critical care time (excluding procedures): 30-74 minutes (36 min, not including procedure time), Including time spent:, Discussing w/Patient &/or Family/Manager Camp, Discussing w/Consultants, Arranging Admission or Transfer and Performing Direct Patient Care at Bedside Discharge Plan Dx/Rx/DC Orders Clinical Impression: Pneumothorax on right, COPD, severe, Acute respiratory distress Disposition Disposition: Acute Care Hospital [facility]
[2024-06-18] MEDS: Ipratropium/Albuterol Sulfate 3 ML AMPUL.NEB INHALATION (21:10)
[2024-06-18] MEDS: Albuterol 2.5 MG/3 ML VIAL.NEB. INHALATION ×4 (21:10→21:53)
[2024-06-18 21:18] LABS: Absolute Lymphocyte Count 2.81 X10^3/uL (0.83-4.51); Absolute Neutrophil Count 8.3 X10^3/uL (2.0-7.7); Basophil# 0.05 X10^3/uL; Basophil% 0.4 % (0-1); Eosinophil# 0.01 X10^3/uL; Eosinophils% 0.1 % (0-5); Hematocrit 42.5 % (37-47); Hemoglobin 13.9 g/dL (12.0-15.0); Lymphocyte # 2.81 X10^3/ul (0.83-4.51); Lymphocyte % 22.4 % (19-41); Mean Corp Hgb Conc 32.7 g/dL (32-36); Mean Corpuscular Hgb 30.6 pg (27.0-32.0); Mean Corpuscular Volume 93.6 fL (81-99); Mean Platelet Vol. 9.4 fl (6.2-12.0); Monocyte# 1.28 X10^3/uL; Monocyte% 10.2 % (0-10); NRBC Flagged by Analyzer 0 % (0-5); Neutrophil # 8.34 X10^3/uL (2.7-7.7); Neutrophil % 66.4 % (47-70); Platelet Count 388 K/mm3 (150-450); RBC Distribution Width CV 12.2 % (11.6-14.6); RBC Distribution Width SD 42.4 fl (35.1-43.9); Red Blood Count 4.54 M/mm3 (4.2-5.4); White Blood Count 12.6 K/mm3 (4.4-11.0)
--- NOTE | 2024-06-18 21:22 | RAD_ITS ---
We are attempting to reach an attending provider to discuss findings. An addendum with communication details will be sent when the communication is complete. INDICATION: sob EXAMINATION/TECHNIQUE: X-RAY - XR Chest 1 View COMPARISON: FINDINGS: LINES/DEVICES: None. LUNGS: Interstitial prominence. Hyperaerated lungs. There is a moderate right pneumothorax. MEDIASTINUM AND CARDIOVASCULAR STRUCTURES: Cardiac silhouette not enlarged. Central airways and mediastinal contour are unremarkable. BONES AND SOFT TISSUES: Unremarkable. RAD/Chest 1 View (Portable) IMPRESSION: Moderate right pneumothorax. Electronically Signed: Bo Charles DO at 22:29 EDT ,
[2024-06-18 21:25] LABS: Allen Test Positive; Base Excess 4 mmol/L (-2 to +2); Bicarbonate 31.8 mmol/L (22-26); Blood Gas Specimen Type ART; Mode Not entered; O2 Delivery Device Cannula; PO2 108 mmHG (75-100); SITE L Radial; SO2 97 % (95-99); Total Carbon Dioxide 34 mmol/L; pH 7.21 (7.35-7.45)
[2024-06-18 21:34] LABS: Anion Gap 5 (5-15); BUN 8 mg/dL (7-18); BUN/Creat Ratio 16.4 RATIO (10-20); Calcium,Total 9.3 mg/dL (8.5-10.1); Chloride 101 mmol/L (98-107); Creatinine, Serum 0.49 mg/dL (0.55-1.02); EST Glomerular Filtration Rate 137 mL/min (>60); Est Glom Filt Rate - Afr Amer 165 mL/min (>60); Estimated Creatinine Clearance 67.95 ml/min; Glucose 169 mg/dL (74-106); Potassium 3.9 mmol/L (3.5-5.1); Sodium Level 136 mmol/L (136-145); Troponin-I HS 3 pg/mL (3.0-54.0)
[2024-06-18 21:37] LABS: BNP,B-Type NATRIURETIC PEPTIDE 23.4 pg/mL (0-100)
--- NOTE | 2024-06-18 21:48 | CPS ---
x3 Albuterol given to pt. in ER as well
[2024-06-18] MEDS: Ondansetron 4 MG/2 ML Vial IV (22:42)
[2024-06-18] MEDS: Midazolam 2 MG/2 ML Syringe IV (22:43)
[2024-06-18] MEDS: fentaNYL 100 MCG/2 ML Ampul 50 MCG IV (22:44)
--- NOTE | 2024-06-18 23:08 | RAD_ITS ---
INDICATION: chest tube placement/ptx EXAMINATION/TECHNIQUE: X-RAY - XR Chest 1 View COMPARISON: June 18, 2024 at 21:29 hours FINDINGS: LINES/DEVICES: This is a small caliber percutaneous catheter over the right upper lung field.. LUNGS: Hyperaeration. Interval resolution of right pneumothorax. MEDIASTINUM AND CARDIOVASCULAR STRUCTURES: Cardiac silhouette not enlarged. Central airways and mediastinal contour are unremarkable. BONES AND SOFT TISSUES: Unremarkable. RAD/Chest 1 View (Portable) IMPRESSION: Interval resolution of right pneumothorax. Electronically Signed: Bo Charles DO at 0:02 EDT Reading Location ID and State: [facility] / [place] Tel [phone], Service support ,
--- NOTE | 2024-06-18 23:45 | PCM.HP.STD ---
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 The EMS provider met hospice outside patient's home and patient revoked hospice. On 4 L of home oxygen. Patient denies she became very short of breath and not able to breathe and was very labored breathing. She said she had similar condition in the past with pneumothorax when she required intubation. BP was 144/97 heart rate 131 and tachypneic RR 36 to 41/min. End-tidal CO2 27 mmHg. In ED chest x-ray was done which shows a right-sided pneumothorax. Patient had chest tube by ED physician and repeat chest x-ray shows inflation of lung parenchyma and patient back on 4 L of oxygen. [facility] Medical History Pulmonary cachexia due to COPD Respiratory failure Severe chronic obstructive pulmonary disease Nicotine dependence, cigarettes, in remission Chronic hypoxemic respiratory failure Unintentional weight loss Wasting generalized Anxiety Otalgia of right ear Rhinosinusitis Bronchitis Acute exacerbation of emphysema COPD (chronic obstructive pulmonary disease) GERD (gastroesophageal reflux disease) Arthritis Neck pain Osteoporosis Osteopenia Mass of multiple sites of right breast Breast mass Palate abnormality Wheezing Rib pain Atypical chest pain Acute abdominal pain Bacteremia Lung nodule Lung mass Tick bite Rib fracture Pre-operative cardiovascular examination Dependence on supplemental oxygen Home Medications ?Medication ?Instructions ?Recorded ?Last Taken ?Type albuterol sulfate 2.5 mg/3 mL 2.5 mg inhalation Q4H PRN Sob &/Or 10/03/18 Unknown History (0.083 %) solution for nebulization Wheezing albuterol sulfate 90 mcg/actuation 2 puff inhalation Q4H PRN Sob &/Or 10/03/18 Unknown History aerosol inhaler (Ventolin HFA) Wheezing ipratropium 0.5 mg-albuterol 3 mg 3 ml inhalation Q8H 10/03/18 Unknown History (2.5 mg base)/3 mL nebulization soln calcium carbonate 1,200 mg (2 x 600 mg calcium 06/03/23 Unknown Rx (1,500 mg)) PO DAILY #20 tabs acetaminophen 650 mg/20.3 mL oral 1,000 mg (31.2308 mL) PO Q8H PRN 04/07/24 Unknown Rx solution PRN Pain 1-10 Or Fever #0 mL food supplemt, lactose-reduced 120 ml PO 4X/DAY #30 mL 04/07/24 Unknown Rx 0.08 gram-1.5 kcal/mL oral liquid (Ensure Plus High Protein) levofloxacin 500 mg tablet 500 mg PO DAILY #2 tabs 04/07/24 Unknown Rx morphine concentrate 10 mg/0.5 mL 10 mg (0.5 mL) PO/SL Q2H PRN PRN 04/07/24 Unknown Rx oral syringe (FOR ORAL USE ONLY) dyspnea 5 days #50 ea prednisone 10 mg tablet 10 mg PO DAILY #30 tabs 04/07/24 Unknown Rx bisacodyl 10 mg rectal suppository 10 mg DC DAILY PRN constipation 06/18/24 Unknown History docusate sodium 100 mg capsule 100 mg PO DAILY 06/18/24 Unknown History ipratropium bromide 0.02 % 1 inhalation Q6H PRN PRN wheezing 06/18/24 Unknown History solution for inhalation lorazepam 0.5 mg tablet 0.5 mg PO Q4H PRN PRN anxiety 06/18/24 Unknown History ondansetron 4 mg disintegrating 4 mg PO Q8H PRN PRN nausea and 06/18/24 Unknown History tablet vomiting oxycodone 5 mg tablet PO 06/18/24 Unknown History pantoprazole 40 mg tablet,delayed 40 mg PO DAILY 06/18/24 Unknown History release roflumilast 250 mcg tablet 250 mcg PO DAILY 06/18/24 Unknown History tiotropium bromide 2.5 2 puff inhalation DAILY 06/18/24 Unknown History mcg/actuation mist for inhalation (Spiriva Respimat) Allergy/AdvReac Type Severity Reaction Status Date / Time ciprofloxacin (From Cipro) Allergy Intermediate SOB Verified 06/18/24 20:41 fluticasone (From Advair Allergy Mild Ashtma, Verified 06/18/24 20:41 Diskus) Itching, Pruritus, Rash metronidazole (From Flagyl) Allergy Mild Verified 06/18/24 20:41 penicillin G Allergy Mild Verified 06/18/24 20:41 salmeterol (From Advair Allergy Mild Ashtma, Verified 06/18/24 20:41 Diskus) Itching, Pruritus, Rash sulfamethoxazole (From Allergy Mild Rash Verified 06/18/24 20:41 Bactrim) trimethoprim (From Bactrim) Allergy Mild Rash Verified 06/18/24 20:41 Penicillins Allergy Swelling Verified 06/18/24 20:41 Family History Father Colon cancer Mother Heart disease Surgical History History of colonoscopy History of bilateral tubal ligation History of partial colectomy Social History household members: spouse Smoking Status: Former smoker Tobacco: How many years used: 20 how long ago did patient quit smokin years second hand exposure: No alcohol intake: current alcohol intake frequency: holidays/special occasions only substance use type: does not use caffeine: Yes ROS ROS Narrative Constitutional: Reports chronic fatigue and weakness. No fever. Low body weight HEENT: Reports systems reviewed and no addt'l complaints, except as documented Respiratory/Chest: Dyspnea at rest. Chronic dyspnea on exertion. End-stage COPD on home oxygen. Denies cough or sputum production. CVS: Had mild chest pain, right-sided at home but has resolved. Gastrointestinal: Denies coffee ground emesis, hematemesis or vomiting Genitourinary: Denies burning urination or new urinary tract symptoms Musculoskeletal: Denies acute joint pain or limited range of motion. No acute injury Neurologic: Mild headache. Denies seizure-like symptoms. skin: No ulcer. No rash Endocrinology: Reports systems reviewed and no addt'l complaints, except as documented Hematologic/Lymphatic: Reports systems reviewed and no addt'l complaints, except as documented Rest 14 ROS are negative except as mentioned in HPI Vital Signs Vital Signs Vital Signs: 06/18/24 20:33 06/18/24 20:39 06/18/24 20:41 Temperature 96.8 F L 96.8 F L Temperature Source Temporal Temporal Pulse Rate 131 H 130 H Respiratory Rate 22 H 21 H Respiratory Effort Short of Breath Labored Accessory Muscle Use Pursed Lip Retracting Respiratory Pattern Tachypnea Blood Pressure 136/100 H 136/100 H Blood Pressure Mean 112 112 Pulse Ox 93 94 Oxygen Delivery Method Nasal Cannula Nasal Cannula Nasal Cannula Oxygen Flow Rate (L/min) 4 4 4 06/18/24 21:10 06/18/24 21:17 06/18/24 21:33 Temperature Temperature Source Pulse Rate 129 H 128 H Respiratory Rate 26 H 21 H Respiratory Effort Respiratory Pattern Tachypnea Blood Pressure 146/103 H Blood Pressure Mean 117 Pulse Ox 97 Oxygen Delivery Method Nasal Cannula Nasal Cannula Oxygen Flow Rate (L/min) 4 4 06/18/24 21:39 06/18/24 21:53 06/18/24 22:00 Temperature 98.4 F 98.4 F Temperature Source Oral Oral Pulse Rate 129 H 128 H 133 H Respiratory Rate 19 H 24 H 19 H Respiratory Effort Respiratory Pattern Tachypnea Blood Pressure 146/103 H 134/71 H Blood Pressure Mean 117 92 Pulse Ox 96 95 Oxygen Delivery Method Nasal Cannula Nasal Cannula Oxygen Flow Rate (L/min) 4 4 06/18/24 23:00 06/18/24 23:47 Temperature 98.4 F 98.1 F Temperature Source Oral Pulse Rate 113 H 109 H Respiratory Rate 19 H 20 H Respiratory Effort Respiratory Pattern Blood Pressure 95/69 93/67 Blood Pressure Mean 77 75 Pulse Ox 99 95 Oxygen Delivery Method Nasal Cannula Oxygen Flow Rate (L/min) 4 Weight Weight: 78 lb 11.28 oz Body Mass Index (BMI) 15.3 Physical Exam Narrative General: Alert, Oriented x3, Cooperative, chronic severe malnutrition. BMI 15.4 kg/m? HEENT: Atraumatic, PERRLA, EOMI, Normocephalic Oral: Oral mucosa dry. No Gingival or Mucosal Lesions/ Ulcerations Neck: Supple, No JVD, Negative Carotid Bruits Chest wall/Lungs: Small thin chest tube present on right side. No air bubble noticed on under waterseal. Air entry severely diminished in bilateral lungs. No crepitation/rhonchi/wheezing Cardiovascular: Sinus tachycardia, Normal S1, Normal S2, No M/G/R Abdomen: Bowel Sounds Present, Soft, Non Tender, Non-Distended : No dysuria. No renal angle tenderness. No suprapubic tenderness. Extremities: No edema, Capillary Refill Less than 3 Seconds Skin: No rashes, No breakdown Musculoskeletal: No Tenderness to Palpation of Joints or Extremities. Severe chronic muscle atrophy of extremities, intervertebral and craniofacial muscles. Neurological: Cranial nerves II-XII grossly intact, DTR 2+/4. No acute focal neurological deficit. Psych/Mental Status: Normal Affect, Appropriate. Results Lab / Micro Data 06/18/24 20:30 06/18/24 20:30 Labs: Laboratory Results - last 24 hr 06/18/24 20:30: WBC 12.6 H, RBC 4.54, Hgb 13.9, Hct 42.5, MCV 93.6, MCH 30.6, MCHC 32.7, RDW Std Deviation 42.4, RDW Coeff of Stephanie 12.2, Plt Count 388, MPV 9.4, Immature Gran % (Auto) 0.500, Neut % (Auto) 66.4, Lymph % (Auto) 22.4, Donley % (Auto) 10.2 H, Eos % (Auto) 0.1, Baso % (Auto) 0.4, Absolute Neuts (auto) 8.3 H, Absolute Lymphs (auto) 2.81, Nucleated RBC % 0, Sodium 136, Potassium 3.9, Chloride 101, Carbon Dioxide 31.0, Anion Gap 5, BUN 8, Creatinine 0.49 L, Estim Creat Clear Calc 67.95, Est GFR (MDRD) Af Amer 165, Est GFR (MDRD) Non-Af 137, BUN/Creatinine Ratio 16.4, Glucose 169 H, Calcium 9.3, Troponin I High Sens 3, B-Natriuretic Peptide 23.4 ABG Data ABG results: ABG 06/18/24 20:52 Specimen Type ART Sample Site L Radial pH 7.21 L Bicarbonate Actual 31.8 H Total CO2 34 Base Excess 4 H O2 Saturation 97 O2 % 4.0 ABG pCO2 80.0 H* ABG pO2 108 H Pj Test Positive O2 Delivery Device Cannula Vent Mode Not entered Crit Call To/Read Back Yes Blood Gas Notified Whom harriett Blood Gas Notified Time 20:54:21 Rhythm Strip Rhythm Strip: Sinus Tach Rate: 130 Ectopy: None Imaging Radiology Impression Chest X-Ray 06/18/24 21:22 IMPRESSION: Moderate right pneumothorax. Electronically Signed: Bo Charles DO at 22:29 EDT Reading Location ID and State: [facility] / [place] Tel [phone], Service support , ADDENDUM: 06/18/24 2246 IMPRESSION: Moderate right pneumothorax. N.B. : Evie Berrios RN, confirmed on 06/18/2024 22:39:50 (ET) that the referring physician received the results and does not require a verbal communication. Electronically Signed: Bo Charles, at 22:29 EDT Reading Location ID and State: [facility] / [place] Tel [phone], Service support , Assessment & Plan Assessment/Plan (1) Pneumothorax on right: (2) COPD exacerbation: PLAN: Plan This 63-year-old female was admitted with sudden onset of shortness of breath and some chest pain from spontaneous right-sided pneumothorax. 1. Spontaneous secondary right-sided pneumothorax: Patient is being admitted in PCU. ED physician inserted thin chest tube. Patient was last admitted in April 2024 for pneumothorax on the right and prior to that in March 2024 when She required intubation and mechanical ventilator. During previous admission in April patient was transferred to [facility]. Crude Oil Driver and surgeon is consulted. For now I do not see air leak in underwater seal container. 2. Mild COPD exacerbation: Patient is being managed on scheduled bronchodilator, IV Solu-Medrol, Mucinex, incentive spirometry and Pep. 3. Pulmonary cachexia, severe chronic malnutrition: BMI 15.4 kg/m?. Diffuse chronic muscle atrophy of extremities, craniofacial muscle, paravertebral muscles. Block Breaker consult. Living will/advanced directive/end of life care: Patient does have living will or advanced directive. Her daughter is power of district attorney for health. After discussion of benefits/risks procedures involved with full code, DNR CC arrest and DNR CC, the patient opted for DNR CC arrest with no intubation although she earlier revoked home hospice care before admission Patient does want artificial life support including intubation, tube feed, ventilator and/chest compression, central venous catheter, vasopressor and DC shock if needed Total time spent in [id number] encounter in discussion of advanced directive 17 minutes. Laboratory Results 06/18/24 20:30: WBC 12.6 H, RBC 4.54, Hgb 13.9, Hct 42.5, MCV 93.6, MCH 30.6, MCHC 32.7, RDW Std Deviation 42.4, RDW Coeff of Stephanie 12.2, Plt Count 388, MPV 9.4, Immature Gran % (Auto) 0.500, Neut % (Auto) 66.4, Lymph % (Auto) 22.4, Donley % (Auto) 10.2 H, Eos % (Auto) 0.1, Baso % (Auto) 0.4, Absolute Neuts (auto) 8.3 H, Absolute Lymphs (auto) 2.81, Nucleated RBC % 0, Sodium 136, Potassium 3.9, Chloride 101, Carbon Dioxide 31.0, Anion Gap 5, BUN 8, Creatinine 0.49 L, Estim Creat Clear Calc 67.95, Est GFR (MDRD) Af Amer 165, Est GFR (MDRD) Non-Af 137, BUN/Creatinine Ratio 16.4, Glucose 169 H, Calcium 9.3, Troponin I High Sens 3, B-Natriuretic Peptide 23.4 06/18/24 20:52: Specimen Type ART, Sample Site L Radial, pH 7.21 L, Bicarbonate Actual 31.8 H, Total CO2 34, Base Excess 4 H, O2 Saturation 97, O2 % 4.0, ABG pCO2 80.0 H*, ABG pO2 108 H, Pj Test Positive, O2 Delivery Device Cannula, Vent Mode Not entered, Crit Call To/Read Back Yes, Blood Gas Notified Whom harriett, Blood Gas Notified Time 20:54:21 Charges/Coding Visit Charges Inpatient E&M: 22653 Init Hosp L3 Procedures Hospitalists Procedures: 87178 Advncd Care Plan 30 Min
[2024-06-19] VITALS (15 sets, daily range): BP systolic 89–122; BP diastolic 64–83; PULSE 93–116; RESP 16–22; TEMP 36.6–37.1; O2SAT 87–97; BMI 13.9
[2024-06-19] MEDS: Ipratropium/Albuterol Sulfate 3 ML AMPUL.NEB INHALATION ×6 (02:51→23:45)
[2024-06-19] MEDS: 0.9% Normal Saline (1000mL) 1,000 ML 100 ML IV (02:57)
[2024-06-19] MEDS: oxyCODONE 5 MG Tablet PO ×4 (04:27→20:46)
[2024-06-19] MEDS: Enoxaparin 40 MG/0.4 ML Syringe SC (05:05)
[2024-06-19 06:05] LABS: Absolute Lymphocyte Count 0.75 X10^3/uL (0.83-4.51); Basophil# 0.02 X10^3/uL; Basophil% 0.2 % (0-1); Hematocrit 36.1 % (37-47); Hemoglobin 11.9 g/dL (12.0-15.0); Lymphocyte # 0.75 X10^3/ul (0.83-4.51); Lymphocyte % 6.7 % (19-41); Mean Corpuscular Hgb 30.1 pg (27.0-32.0); Mean Corpuscular Volume 91.4 fL (81-99); Mean Platelet Vol. 9.3 fl (6.2-12.0); Monocyte# 0.43 X10^3/uL; Monocyte% 3.8 % (0-10); NRBC Flagged by Analyzer 0 % (0-5); Neutrophil # 9.95 X10^3/uL (2.7-7.7); Neutrophil % 88.9 % (47-70); Platelet Count 253 K/mm3 (150-450); RBC Distribution Width CV 11.9 % (11.6-14.6); RBC Distribution Width SD 40.4 fl (35.1-43.9); Red Blood Count 3.95 M/mm3 (4.2-5.4); White Blood Count 11.2 K/mm3 (4.4-11.0)
[2024-06-19 06:23] LABS: Anion Gap 4 (5-15); BUN 9 mg/dL (7-18); BUN/Creat Ratio 19.2 RATIO (10-20); Chloride 102 mmol/L (98-107); Creatinine, Serum 0.47 mg/dL (0.55-1.02); EST Glomerular Filtration Rate 143 mL/min (>60); Est Glom Filt Rate - Afr Amer 174 mL/min (>60); Estimated Creatinine Clearance 68.66 ml/min; Glucose 123 mg/dL (74-106); Potassium 3.8 mmol/L (3.5-5.1); Sodium Level 135 mmol/L (136-145)
--- NOTE | 2024-06-19 07:36 | RAD_ITS ---
INDICATION: right PTX EXAMINATION/TECHNIQUE: X-RAY - XR Chest 1 View COMPARISON: Prior study dated: 06/18/2024 FINDINGS: LINES/DEVICES: Small caliber chest tube in right upper chest in stable position. LUNGS: The lungs remain markedly hyperinflated. No new infiltrate is seen. No evidence of pneumothorax. MEDIASTINUM AND CARDIOVASCULAR STRUCTURES: Cardiac silhouette not enlarged. Central airways and mediastinal contour are unremarkable. BONES AND SOFT TISSUES: Unchanged osseous structures. RAD/Chest 1 View (Portable) IMPRESSION: No significant change. Electronically Signed: Guerrero Alegre MD at 13:13 EDT ,
--- NOTE | 2024-06-19 07:40 | EX.PCM.CON.S ---
Assessment & Plan Assessment/Plan (1) Pneumothorax on right: PLAN: Plan The patient is a 63-year-old female with another recurrent right pneumothorax. This is her third pneumothorax in the past 3 months. At this point I am recommending continued chest tube management. Would recommend keeping her chest tube to -20 suction and repeat chest x-ray. Hopefully this will resolve with chest tube management, if not she may need to be again transferred to a tertiary center or reconsider hospice. Will continue to follow. HPI Consult Data Date of Consult: 06/19/24 HPI Narrative Reason for Consultation: Recurrent right spontaneous pneumothorax HPI Narrative: KENA CORONA, is a 63 F who is well-known to our surgical services with recurring issues with spontaneous pneumothorax. She has been hospitalized now 3 times in the last few months with recurrent spontaneous pneumothorax. During her last admission she was admitted and was intubated for period of time. Her pneumothorax did not readily respond to chest tube management as she had a persistent air leak. She was subsequently transferred to [facility]. It sounds as though a large bore chest tube was placed and this provided resolution of the pneumothorax. She did not require any type of surgery at that time. She was discharged home with hospice. She does have a pretty extensive pulmonary history of COPD and again recurring pneumothoraces. She became acutely short of breath yesterday and presented to the emergency room. She revoked her hospice designation. She was found to have he had another spontaneous right pneumothorax. Chest tube was placed last night by the ER staff. Chest x-ray showed resolution. This morning she states that she is doing better. No significant pulmonary complaints. Surgical consult was obtained for the spontaneous pneumothorax. [facility] Medical History Pulmonary cachexia due to COPD Respiratory failure Severe chronic obstructive pulmonary disease Nicotine dependence, cigarettes, in remission Chronic hypoxemic respiratory failure Unintentional weight loss Wasting generalized Anxiety Otalgia of right ear Rhinosinusitis Bronchitis Acute exacerbation of emphysema COPD (chronic obstructive pulmonary disease) GERD (gastroesophageal reflux disease) Arthritis Neck pain Osteoporosis Osteopenia Mass of multiple sites of right breast Breast mass Palate abnormality Wheezing Rib pain Atypical chest pain Acute abdominal pain Bacteremia Lung nodule Lung mass Tick bite Rib fracture Pre-operative cardiovascular examination Dependence on supplemental oxygen Home Medications ?Medication ?Instructions ?Recorded ?Last Taken ?Type albuterol sulfate 2.5 mg/3 mL 2.5 mg inhalation Q4H PRN Sob &/Or 10/03/18 Unknown History (0.083 %) solution for nebulization Wheezing albuterol sulfate 90 mcg/actuation 2 puff inhalation Q4H PRN Sob &/Or 10/03/18 Unknown History aerosol inhaler (Ventolin HFA) Wheezing ipratropium 0.5 mg-albuterol 3 mg 3 ml inhalation Q8H 10/03/18 Unknown History (2.5 mg base)/3 mL nebulization soln calcium carbonate 1,200 mg (2 x 600 mg calcium 06/03/23 Unknown Rx (1,500 mg)) PO DAILY #20 tabs acetaminophen 650 mg/20.3 mL oral 1,000 mg (31.2308 mL) PO Q8H PRN 04/07/24 Unknown Rx solution PRN Pain 1-10 Or Fever #0 mL food supplemt, lactose-reduced 120 ml PO 4X/DAY #30 mL 04/07/24 Unknown Rx 0.08 gram-1.5 kcal/mL oral liquid (Ensure Plus High Protein) levofloxacin 500 mg tablet 500 mg PO DAILY #2 tabs 04/07/24 Unknown Rx morphine concentrate 10 mg/0.5 mL 10 mg (0.5 mL) PO/SL Q2H PRN PRN 04/07/24 Unknown Rx oral syringe (FOR ORAL USE ONLY) dyspnea 5 days #50 ea prednisone 10 mg tablet 10 mg PO DAILY #30 tabs 04/07/24 Unknown Rx bisacodyl 10 mg rectal suppository 10 mg ND DAILY PRN constipation 06/18/24 Unknown History docusate sodium 100 mg capsule 100 mg PO DAILY 06/18/24 Unknown History ipratropium bromide 0.02 % 1 inhalation Q6H PRN PRN wheezing 06/18/24 Unknown History solution for inhalation lorazepam 0.5 mg tablet 0.5 mg PO Q4H PRN PRN anxiety 06/18/24 Unknown History ondansetron 4 mg disintegrating 4 mg PO Q8H PRN PRN nausea and 06/18/24 Unknown History tablet vomiting oxycodone 5 mg tablet PO 06/18/24 Unknown History pantoprazole 40 mg tablet,delayed 40 mg PO DAILY 06/18/24 Unknown History release roflumilast 250 mcg tablet 250 mcg PO DAILY 06/18/24 Unknown History tiotropium bromide 2.5 2 puff inhalation DAILY 06/18/24 Unknown History mcg/actuation mist for inhalation (Spiriva Respimat) Allergy/AdvReac Type Severity Reaction Status Date / Time ciprofloxacin (From Cipro) Allergy Intermediate SOB Verified 06/18/24 20:41 fluticasone (From Advair Allergy Mild Ashtma, Verified 06/18/24 20:41 Diskus) Itching, Pruritus, Rash metronidazole (From Flagyl) Allergy Mild Verified 06/18/24 20:41 penicillin G Allergy Mild Verified 06/18/24 20:41 salmeterol (From Advair Allergy Mild Ashtma, Verified 06/18/24 20:41 Diskus) Itching, Pruritus, Rash sulfamethoxazole (From Allergy Mild Rash Verified 06/18/24 20:41 Bactrim) trimethoprim (From Bactrim) Allergy Mild Rash Verified 06/18/24 20:41 Penicillins Allergy Swelling Verified 06/18/24 20:41 Family History Father Colon cancer Mother Heart disease Surgical History History of colonoscopy History of bilateral tubal ligation History of partial colectomy Social History household members: spouse Smoking Status: Former smoker Tobacco: How many years used: 20 how long ago did patient quit smokin years second hand exposure: No alcohol intake: current alcohol intake frequency: holidays/special occasions only substance use type: does not use caffeine: Yes ROS Eyes Eyes: Reports systems reviewed and no addt'l complaints, except as documented ENT HEENT: Reports systems reviewed and no addt'l complaints, except as documented Cardiovascular Cardiovascular: Reports systems reviewed and no addt'l complaints, except as documented Respiratory/Chest Respiratory/Chest: Reports systems reviewed and no addt'l complaints, except as documented Gastrointestinal Gastrointestinal: Reports systems reviewed and no addt'l complaints, except as documented Physical Exam Narrative She is alert and oriented x 3. She is in no acute distress. Head is normocephalic and atraumatic. Right-sided chest tube appears to be in place. I do not appreciate any obvious air leak on suction or waterseal at the present time. Lab / Micro Data 06/19/24 05:21 06/19/24 05:21 Labs: Laboratory Results - last 24 hr 06/18/24 20:30: WBC 12.6 H, RBC 4.54, Hgb 13.9, Hct 42.5, MCV 93.6, MCH 30.6, MCHC 32.7, RDW Std Deviation 42.4, RDW Coeff of Stephanie 12.2, Plt Count 388, MPV 9.4, Immature Gran % (Auto) 0.500, Neut % (Auto) 66.4, Lymph % (Auto) 22.4, Milam % (Auto) 10.2 H, Eos % (Auto) 0.1, Baso % (Auto) 0.4, Absolute Neuts (auto) 8.3 H, Absolute Lymphs (auto) 2.81, Nucleated RBC % 0, Sodium 136, Potassium 3.9, Chloride 101, Carbon Dioxide 31.0, Anion Gap 5, BUN 8, Creatinine 0.49 L, Estim Creat Clear Calc 67.95, Est GFR (MDRD) Af Amer 165, Est GFR (MDRD) Non-Af 137, BUN/Creatinine Ratio 16.4, Glucose 169 H, Calcium 9.3, Troponin I High Sens 3, B-Natriuretic Peptide 23.4 06/19/24 05:21: WBC 11.2 H, RBC 3.95 L, Hgb 11.9 L, Hct 36.1 L, MCV 91.4, MCH 30.1, MCHC 33.0, RDW Std Deviation 40.4, RDW Coeff of Stephanie 11.9, Plt Count 253, MPV 9.3, Immature Gran % (Auto) 0.400, Neut % (Auto) 88.9 H, Lymph % (Auto) 6.7 L, Milam % (Auto) 3.8, Eos % (Auto) 0.0, Baso % (Auto) 0.2, Absolute Neuts (auto) 10.0 H, Absolute Lymphs (auto) 0.75 L, Nucleated RBC % 0, Sodium 135 L, Potassium 3.8, Chloride 102, Carbon Dioxide 29.0, Anion Gap 4 L, BUN 9, Creatinine 0.47 L, Estim Creat Clear Calc 68.66, Est GFR (MDRD) Af Amer 174, Est GFR (MDRD) Non-Af 143, BUN/Creatinine Ratio 19.2, Glucose 123 H, Calcium 9.0 Micro: Microbiology 06/19/24 02:44 Mucosa - Nasopharyngeal SARS-CoV-2, Influenza & RSV (PCR) - Final ABG Data ABG results: ABG 06/18/24 20:52 Specimen Type ART Sample Site L Radial pH 7.21 L Bicarbonate Actual 31.8 H Total CO2 34 Base Excess 4 H O2 Saturation 97 O2 % 4.0 ABG pCO2 80.0 H* ABG pO2 108 H Pj Test Positive O2 Delivery Device Cannula Vent Mode Not entered Crit Call To/Read Back Yes Blood Gas Notified Whom harriett Blood Gas Notified Time 20:54:21 Rhythm Strip Rhythm Strip: Sinus Tach Rate: 130 Ectopy: None Imaging Radiology Impression Chest X-Ray 06/18/24 21:22 IMPRESSION: Moderate right pneumothorax. Electronically Signed: Bo Charles DO at 22:29 EDT , ADDENDUM: 06/18/24 2246 IMPRESSION: Moderate right pneumothorax. N.B. : Evie Berrios RN, confirmed on 06/18/2024 22:39:50 (ET) that the referring physician received the results and does not require a verbal communication. Electronically Signed: Bo Charles DO at 22:29 EDT , Chest X-Ray 06/18/24 23:08 IMPRESSION: Interval resolution of right pneumothorax. Electronically Signed: Bo Charles DO at 0:02 EDT , Charges/Coding Visit Charges Inpatient E&M: 98523 Init Hosp L3
[2024-06-19] MEDS: Pantoprazole Sodium 40 MG Tablet PO (09:14)
[2024-06-19] MEDS: Ensure Plus High Protein 120 ML LIQUID PO ×3 (09:14→17:28)
[2024-06-19] MEDS: Senna/Docusate Sodium 1 Tablet 2 TABLET PO ×2 (09:14→21:06)
[2024-06-19] MEDS: Calcium Carbonate 500 MG Tablet PO (09:14)
[2024-06-19] MEDS: Polyethylene Glycol 3350 17 GM PACKET PO (09:14)
[2024-06-19] MEDS: Acetaminophen 325 MG Tablet 650 MG PO ×2 (09:15→15:59)
--- NOTE | 2024-06-19 10:00 | CASEMGMT ---
SERGIO ESPINAL Face to Face with patient for initial transition planning/care coordination assessment. SERGIO ESPINAL introduced self and role at [facility]. Patient lying in bed, alert and oriented. Patient willing to participate in assessment and is able to answer all questions appropriately. Care providers, pharmacy, and demographics verified. Strata: 2 PCP: Carlos Eduardo Specialists: none Preferred Pharmacy: [facility] Insurance: [employer] Prescription Benefit: yes Living Will/HPOA: none LNOK: , sister Living Arrangements: Patient lives with in a single story home with 4-5 steps to enter the home. Patient is independent at home. Transportation: DME/HHC: Patient has shower chair, BSC, rollator, nebulizer, pulse ox, and home oxygen through Hospice with portability. No previous HHC or SNF. Patient was active with [facility]. Patient wishes to discharge home with resumption of Hospice care. Patient states she has no further needs or concerns at this time. SERGIO ESPINAL updated SW regarding resumption of Hospice care at discharge. CM to follow for discharge planning needs that may arise. Disposition Plan: Patient to return home with resumption of Hospice Care. Lucia MORENON, RN, CM
--- NOTE | 2024-06-19 12:05 | CASEMGMT ---
Patient revoked [facility]. Per RN CM patient plans on resuming Hospice at discharge. SW will communicate with Hospice regarding patient. Angelina BROWN
[2024-06-19] MEDS: 0.9% Saline Lock 10 ML Syringe IV ×2 (13:08→21:08)
--- NOTE | 2024-06-19 15:33 | PCM.PN.HOSP ---
Reason for Visit Reason for Visit: Diagnoses Chronic obstructive pulmonary disease with (acute) exacerbation (06/18/24) Pneumothorax, unspecified (06/18/24) Subjective Subjective Patient was seen and examined today, she does not complain of any shortness of breath at rest. Patient has had several recurrent right pneumothorax episodes. Objective Data Objective Data Vital Signs: Vital Signs Temp Pulse Resp BP Pulse Ox O2 Del Method O2 Flow Rate 98.1 F 104 H 20 H 103/79 96 Nasal Cannula 2 06/19/24 10:18 06/19/24 15:03 06/19/24 15:03 06/19/24 10:18 06/19/24 10:18 06/19/24 14:00 06/19/24 14:00 Oxygen Flow Rate (L/min) 2 Oxygen Delivery Method Nasal Cannula Weight: 34.6 kg Body Mass Index (BMI) 13.9 Intake & Output: Intake and Output for Last 24 Hours 06/17/24 06/18/24 06/19/24 23:59 23:59 23:59 Intake Total 0 / 0 1000 / 1000 Output Total 1000 / 1000 Balance 0 / 0 0 / 0 Medical Nutrition Assessment Dietitian: Malnutrition Criteria Met Start: 06/19/24 15:20 Freq: Status: Active Protocol: Document 06/19/24 15:20 SB (Rec: 06/19/24 15:20 SB [id number]) Nutrition Malnutrition Evidence of Malnutrition Exists Yes Malnutrition (severe): Chronic Evidenced By Weight Loss (Severe),Physical Changes (Severe) Clinical Problem Chronic Disease or Condition Related Malnutrition Etiology severe related to inadequate oral/energy intake and increase energy needs in the setting of Pulmonary cachexia d/t COPD Signs/Symptoms as evidenced by 13% unintentional weight loss x 2. 5 months, severe muscle wasting (roman catholic, clavicle) and subcutaneous fat loss ( orbital region). Status Active Problem Recommendation Dietitian Recommendations/Changes Continue regular diet and 120ml ensure plus high protein 4x daily with medpass. Will order chocolate fortified pudding with lunch and dinner . Will monitor weight, as available. Reviewed and approved by Onelia Barksdale RD, LD. Lab / Micro Data 06/19/24 05:21 06/19/24 05:21 Labs: Laboratory Results - last 24 hr 06/18/24 20:30: WBC 12.6 H, RBC 4.54, Hgb 13.9, Hct 42.5, MCV 93.6, MCH 30.6, MCHC 32.7, RDW Std Deviation 42.4, RDW Coeff of Stephanie 12.2, Plt Count 388, MPV 9.4, Immature Gran % (Auto) 0.500, Neut % (Auto) 66.4, Lymph % (Auto) 22.4, [place] % (Auto) 10.2 H, Eos % (Auto) 0.1, Baso % (Auto) 0.4, Absolute Neuts (auto) 8.3 H, Absolute Lymphs (auto) 2.81, Nucleated RBC % 0, Sodium 136, Potassium 3.9, Chloride 101, Carbon Dioxide 31.0, Anion Gap 5, BUN 8, Creatinine 0.49 L, Estim Creat Clear Calc 67.95, Est GFR (MDRD) Af Amer 165, Est GFR (MDRD) Non-Af 137, BUN/Creatinine Ratio 16.4, Glucose 169 H, Calcium 9.3, Troponin I High Sens 3, B-Natriuretic Peptide 23.4 06/19/24 05:21: WBC 11.2 H, RBC 3.95 L, Hgb 11.9 L, Hct 36.1 L, MCV 91.4, MCH 30.1, MCHC 33.0, RDW Std Deviation 40.4, RDW Coeff of Stephanie 11.9, Plt Count 253, MPV 9.3, Immature Gran % (Auto) 0.400, Neut % (Auto) 88.9 H, Lymph % (Auto) 6.7 L, [place] % (Auto) 3.8, Eos % (Auto) 0.0, Baso % (Auto) 0.2, Absolute Neuts (auto) 10.0 H, Absolute Lymphs (auto) 0.75 L, Nucleated RBC % 0, Sodium 135 L, Potassium 3.8, Chloride 102, Carbon Dioxide 29.0, Anion Gap 4 L, BUN 9, Creatinine 0.47 L, Estim Creat Clear Calc 68.66, Est GFR (MDRD) Af Amer 174, Est GFR (MDRD) Non-Af 143, BUN/Creatinine Ratio 19.2, Glucose 123 H, Calcium 9.0 Micro: Microbiology 06/19/24 02:44 Mucosa - Nasopharyngeal SARS-CoV-2, Influenza & RSV (PCR) - Final ABG Data ABG results: ABG 06/18/24 20:52 Specimen Type ART Sample Site L Radial pH 7.21 L Bicarbonate Actual 31.8 H Total CO2 34 Base Excess 4 H O2 Saturation 97 O2 % 4.0 ABG pCO2 80.0 H* ABG pO2 108 H Pj Test Positive O2 Delivery Device Cannula Vent Mode Not entered Crit Call To/Read Back Yes Blood Gas Notified Whom harriett Blood Gas Notified Time 20:54:21 Radiography Diagnostic Testing: Radiology Impression Chest X-Ray 06/18/24 21:22 IMPRESSION: Moderate right pneumothorax. Electronically Signed: Bo Charles DO at 22:29 EDT , ADDENDUM: 06/18/24 [id number] IMPRESSION: Moderate right pneumothorax. N.B. : Evie Berrios RN, confirmed on 06/18/2024 22:39:50 (ET) that the referring physician received the results and does not require a verbal communication. Electronically Signed: Bo Charles DO at 22:29 EDT , Chest X-Ray 06/18/24 23:08 IMPRESSION: Interval resolution of right pneumothorax. Electronically Signed: Bo Charles DO at 0:02 EDT , Chest X-Ray 06/19/24 07:36 IMPRESSION: No significant change. Electronically Signed: Guerrero Alegre MD at 13:13 EDT , Rhythm Strip Rhythm Strip: Sinus Tach Rate: 130 Ectopy: None Physical Exam Const alert, oriented x3 and no apparent distress Constitutional Narrative: Patient is very cachectic General Appearance: cooperative, well kempt and well developed Orientation / Consciousness: awake, oriented to person, oriented to place and oriented to time HEENT normocephalic, head/scalp atraumatic and moist oral mucous membranes Eyes PERRL, EOMs intact bilaterally and conjunctivae normal Neck supple, no JVD, thyroid normal and no carotid bruits General: trachea midline Resp normal respiratory effort, no retractions, no use of accessory muscles and clear to auscultation bilaterally Auscultation: Negative for rales, rhonchi or wheezes Cardio regular rate, regular rhythm, S1 normal heart sound, S2 normal heart sound, no murmurs, no rub and no gallops GI normal to inspection, nondistended, normoactive bowel sounds, soft to palpation, non-tender and non-distended Extremity no clubbing, cyanosis or edema Skin no rashes or lesions noted General Skin Exam: no breakdown Neuro oriented x3, CN's II-XII intact bilaterally, moves all extremities, no focal motor deficits and no sensory deficits noted Sensorium / Orientation: awake and alert Speech: speech normal Psych affect normal Assessment & Plan Assessment/Plan (1) Pneumothorax on right: PLAN: Plan 1. Right pneumothorax-secondary to COPD with bleb formation-continue use of chest tube as monitored by general surgery #2 severe [id number]-complicates care, management, recovery, and prognosis #3 severely reduced to BMI-complicates care, management, recovery, and prognosis #4 chronic hypoxic respiratory failure secondary to COPD-patient's pulse ox will be monitored Total clinical time spent by myself addressing the patient's medical issues, reviewing all of her data, and collaborating with patient's care team: 35 minutes Charges/Coding Visit Charges Inpatient E&M: 77147 Subs Hosp L2
--- NOTE | 2024-06-19 15:41 | PCMCONS.TICU ---
HPI Consult Data Date of Consult: 06/20/24 HPI Narrative HPI Narrative: KENA CORONA, is a 63 F who presents [facility] Medical History Pulmonary cachexia due to COPD Respiratory failure Severe chronic obstructive pulmonary disease Nicotine dependence, cigarettes, in remission Chronic hypoxemic respiratory failure Unintentional weight loss Wasting generalized Anxiety Otalgia of right ear Rhinosinusitis Bronchitis Acute exacerbation of emphysema COPD (chronic obstructive pulmonary disease) GERD (gastroesophageal reflux disease) Arthritis Neck pain Osteoporosis Osteopenia Mass of multiple sites of right breast Breast mass Palate abnormality Wheezing Rib pain Atypical chest pain Acute abdominal pain Bacteremia Lung nodule Lung mass Tick bite Rib fracture Pre-operative cardiovascular examination Dependence on supplemental oxygen Home Medications ?Medication ?Instructions ?Recorded ?Last Taken ?Type albuterol sulfate 2.5 mg/3 mL 2.5 mg inhalation Q4H PRN Sob &/Or 10/03/18 Unknown History (0.083 %) solution for nebulization Wheezing albuterol sulfate 90 mcg/actuation 2 puff inhalation Q4H PRN Sob &/Or 10/03/18 Unknown History aerosol inhaler (Ventolin HFA) Wheezing ipratropium 0.5 mg-albuterol 3 mg 3 ml inhalation Q8H 10/03/18 Unknown History (2.5 mg base)/3 mL nebulization soln calcium carbonate 1,200 mg (2 x 600 mg calcium 06/03/23 Unknown Rx (1,500 mg)) PO DAILY #20 tabs acetaminophen 650 mg/20.3 mL oral 1,000 mg (31.2308 mL) PO Q8H PRN 04/07/24 Unknown Rx solution PRN Pain 1-10 Or Fever #0 mL food supplemt, lactose-reduced 120 ml PO 4X/DAY #30 mL 04/07/24 Unknown Rx 0.08 gram-1.5 kcal/mL oral liquid (Ensure Plus High Protein) levofloxacin 500 mg tablet 500 mg PO DAILY #2 tabs 04/07/24 Unknown Rx morphine concentrate 10 mg/0.5 mL 10 mg (0.5 mL) PO/SL Q2H PRN PRN 04/07/24 Unknown Rx oral syringe (FOR ORAL USE ONLY) dyspnea 5 days #50 ea prednisone 10 mg tablet 10 mg PO DAILY #30 tabs 04/07/24 Unknown Rx bisacodyl 10 mg rectal suppository 10 mg NH DAILY PRN constipation 06/18/24 Unknown History docusate sodium 100 mg capsule 100 mg PO DAILY 06/18/24 Unknown History ipratropium bromide 0.02 % 1 inhalation Q6H PRN PRN wheezing 06/18/24 Unknown History solution for inhalation lorazepam 0.5 mg tablet 0.5 mg PO Q4H PRN PRN anxiety 06/18/24 Unknown History ondansetron 4 mg disintegrating 4 mg PO Q8H PRN PRN nausea and 06/18/24 Unknown History tablet vomiting oxycodone 5 mg tablet PO 06/18/24 Unknown History pantoprazole 40 mg tablet,delayed 40 mg PO DAILY 06/18/24 Unknown History release roflumilast 250 mcg tablet 250 mcg PO DAILY 06/18/24 Unknown History tiotropium bromide 2.5 2 puff inhalation DAILY 06/18/24 Unknown History mcg/actuation mist for inhalation (Spiriva Respimat) Allergy/AdvReac Type Severity Reaction Status Date / Time ciprofloxacin (From Cipro) Allergy Intermediate SOB Verified 06/18/24 20:41 fluticasone (From Advair Allergy Mild Ashtma, Verified 06/18/24 20:41 Diskus) Itching, Pruritus, Rash metronidazole (From Flagyl) Allergy Mild Verified 06/18/24 20:41 penicillin G Allergy Mild Verified 06/18/24 20:41 salmeterol (From Advair Allergy Mild Ashtma, Verified 06/18/24 20:41 Diskus) Itching, Pruritus, Rash sulfamethoxazole (From Allergy Mild Rash Verified 06/18/24 20:41 Bactrim) trimethoprim (From Bactrim) Allergy Mild Rash Verified 06/18/24 20:41 Penicillins Allergy Swelling Verified 06/18/24 20:41 Family History Father Colon cancer Mother Heart disease Surgical History History of colonoscopy History of bilateral tubal ligation History of partial colectomy Social History household members: spouse Smoking Status: Former smoker Tobacco: How many years used: 20 how long ago did patient quit smokin years second hand exposure: No alcohol intake: current alcohol intake frequency: holidays/special occasions only substance use type: does not use caffeine: Yes Objective Data Objective Data Vital Signs: Vital Signs Last response Temperature 36.7 C 06/19/24 10:18 Temperature Source Temporal 06/19/24 10:18 Pulse Rate 104 H 06/19/24 15:03 Respiratory Rate 20 H 06/19/24 15:03 Respiratory Effort Normal, Non-Labored 06/19/24 14:00 Respiratory Depth Normal 06/19/24 14:00 Respiratory Pattern Normal 06/19/24 15:03 Blood Pressure 103/79 06/19/24 10:18 Blood Pressure Mean 87 06/19/24 10:18 Blood Pressure Source Monitor 06/19/24 02:20 Blood Pressure Position Semi-Fowlers 06/19/24 02:20 Blood Pressure Location Right Arm 06/19/24 02:20 Pulse Ox 96 06/19/24 10:18 Oxygen Delivery Method Nasal Cannula 06/19/24 14:00 Oxygen Flow Rate (L/min) 2 06/19/24 14:00 I&O: I&O Last 24 Hours 06/18/24 06/19/24 06/19/24 23:59 11:59 23:59 Intake Total 0 / 0 1000 / 1000 Output Total 1000 / 1000 Balance 0 / 0 0 / 0 I&O: Total Stay 06/18/24 20:33 thru 06/19/24 14:28 Intake Total 1000 Output Total 1000 Balance 0 Current Meds Ordered / Administered: Current meds ordered / Administered Generic Name Dose Route Start Last Admin Trade Name Vicenteq PRN Reason Stop Dose Admin Acetaminophen 650 mg 06/19/24 02:26 06/19/24 09:15 Acetaminophen 325 Mg Tablet PO 650 mg Q6H PRN PRN Administration Pain 1-10 Or Fever>100.7 Acetaminophen 1,000 mg 06/19/24 03:49 Acetaminophen 650 Mg/20 Ml Udc PO Q8H PRN PRN Pain 1-10 Or Fever Albuterol/Ipratropium 3 ml 06/19/24 02:30 06/19/24 15:02 Ipratropium/Albuterol Sulfate 3 Ml Ampul.Neb INHALATION 3 ml Q4H.RT ADWOA Administration Bisacodyl 5 mg 06/19/24 02:26 Bisacodyl 5 Mg Tablet PO DAILY PRN PRN Constipation Calcium Carbonate 500 mg 06/19/24 10:00 06/19/24 09:14 Calcium Carbonate 500 Mg Tablet PO 500 mg DAILY ADWOA Administration Enoxaparin Sodium 40 mg 06/19/24 06:00 06/19/24 05:05 Enoxaparin 40 Mg/0.4 Ml Syringe SC 40 mg DAILY@0600 ADWOA Administration Sodium Chloride 500 mls @ 15 mls/hr 06/19/24 02:44 IV .[id number] PRN Saline Flush Sodium Chloride 500 mls @ 15 mls/hr 06/19/24 02:44 IV .[id number] PRN Additional IVPB Infusion Methylprednisolone 40 mg 06/19/24 06:00 06/19/24 13:08 Methylprednisolone 40 Mg/Ml Vial IV 40 mg Q8 ADWOA Administration Nitroglycerin 0.4 mg 06/19/24 02:26 Nitroglycerin (Inpatient Use) 0.4 Mg Tab.Subl SL Q5M PRN CARDIAC/CHEST PAIN Nutritional Formula (Lactose Free) 120 ml 06/19/24 10:00 06/19/24 13:08 Ensure Plus High Protein 120 Ml Liquid PO 120 ml 4X/DAY ADWOA Administration Oxycodone HCl 2.5 - 5 mg 06/19/24 03:49 06/19/24 09:15 Oxycodone 5 Mg Tablet PO 5 mg Q4H PRN PRN Administration Pain Score 4-10 or Pre PT/OT Pantoprazole Sodium 40 mg 06/19/24 10:00 06/19/24 09:14 Pantoprazole Sodium 40 Mg Tablet PO 40 mg DAILY ADWOA Administration Polyethylene Glycol 17 gm 06/19/24 10:00 06/19/24 09:14 Polyethylene Glycol 3350 17 Gm Packet PO 17 gm DAILY ADWOA Administration Prochlorperazine Edisylate 5 mg 06/19/24 02:26 Prochlorperazine 10 Mg/2 Ml Vial IV Q4H PRN PRN Breakthrough Nausea/Vomiting Senna/Docusate Sodium 2 tablet 06/19/24 10:00 06/19/24 09:14 Senna/Docusate Sodium 1 Tablet PO 2 tablet BID ADWOA Administration Sodium Chloride 10 - 40 ml 06/19/24 02:44 06/19/24 13:08 0.9% Saline Lock 10 Ml Syringe IV 10 ml UD PRN Administration SALINE FLUSH Medical Records Data Medical Nutrition Assessment Dietitian: Malnutrition Criteria Met Start: 06/19/24 15:20 Freq: Status: Active Protocol: Document 06/19/24 15:20 SB (Rec: 06/19/24 15:20 SB [id number]) Nutrition Malnutrition Evidence of Malnutrition Exists Yes Malnutrition (severe): Chronic Evidenced By Weight Loss (Severe),Physical Changes (Severe) Clinical Problem Chronic Disease or Condition Related Malnutrition Etiology severe related to inadequate oral/energy intake and increase energy needs in the setting of Pulmonary cachexia d/t COPD Signs/Symptoms as evidenced by 13% unintentional weight loss x 2. 5 months, severe muscle wasting (evangelical, clavicle) and subcutaneous fat loss ( orbital region). Status Active Problem Recommendation Dietitian Recommendations/Changes Continue regular diet and 120ml ensure plus high protein 4x daily with medpass. Will order chocolate fortified pudding with lunch and dinner . Will monitor weight, as available. Reviewed and approved by Onelia Barksdale, MARKOS, LD. Lab / Micro Data 06/19/24 05:21 06/19/24 05:21 Labs: Laboratory Results - last 24 hr 06/18/24 20:30: WBC 12.6 H, RBC 4.54, Hgb 13.9, Hct 42.5, MCV 93.6, MCH 30.6, MCHC 32.7, RDW Std Deviation 42.4, RDW Coeff of Stephanie 12.2, Plt Count 388, MPV 9.4, Immature Gran % (Auto) 0.500, Neut % (Auto) 66.4, Lymph % (Auto) 22.4, [place] % (Auto) 10.2 H, Eos % (Auto) 0.1, Baso % (Auto) 0.4, Absolute Neuts (auto) 8.3 H, Absolute Lymphs (auto) 2.81, Nucleated RBC % 0, Sodium 136, Potassium 3.9, Chloride 101, Carbon Dioxide 31.0, Anion Gap 5, BUN 8, Creatinine 0.49 L, Estim Creat Clear Calc 67.95, Est GFR (MDRD) Af Amer 165, Est GFR (MDRD) Non-Af 137, BUN/Creatinine Ratio 16.4, Glucose 169 H, Calcium 9.3, Troponin I High Sens 3, B-Natriuretic Peptide 23.4 06/19/24 05:21: WBC 11.2 H, RBC 3.95 L, Hgb 11.9 L, Hct 36.1 L, MCV 91.4, MCH 30.1, MCHC 33.0, RDW Std Deviation 40.4, RDW Coeff of Stephanie 11.9, Plt Count 253, MPV 9.3, Immature Gran % (Auto) 0.400, Neut % (Auto) 88.9 H, Lymph % (Auto) 6.7 L, [place] % (Auto) 3.8, Eos % (Auto) 0.0, Baso % (Auto) 0.2, Absolute Neuts (auto) 10.0 H, Absolute Lymphs (auto) 0.75 L, Nucleated RBC % 0, Sodium 135 L, Potassium 3.8, Chloride 102, Carbon Dioxide 29.0, Anion Gap 4 L, BUN 9, Creatinine 0.47 L, Estim Creat Clear Calc 68.66, Est GFR (MDRD) Af Amer 174, Est GFR (MDRD) Non-Af 143, BUN/Creatinine Ratio 19.2, Glucose 123 H, Calcium 9.0 Micro: Microbiology 06/19/24 02:44 Mucosa - Nasopharyngeal SARS-CoV-2, Influenza & RSV (PCR) - Final ABG Data ABG results: ABG 06/18/24 20:52 Specimen Type ART Sample Site L Radial pH 7.21 L Bicarbonate Actual 31.8 H Total CO2 34 Base Excess 4 H O2 Saturation 97 O2 % 4.0 ABG pCO2 80.0 H* ABG pO2 108 H Pj Test Positive O2 Delivery Device Cannula Vent Mode Not entered Crit Call To/Read Back Yes Blood Gas Notified Whom harriett Blood Gas Notified Time 20:54:21 Rhythm Strip Rhythm Strip: Sinus Tach Rate: 130 Ectopy: None Imaging Radiology Impression Chest X-Ray 06/18/24 21:22 IMPRESSION: Moderate right pneumothorax. Electronically Signed: Bo Charles DO at 22:29 EDT , ADDENDUM: 06/18/24 [id number] IMPRESSION: Moderate right pneumothorax. N.B. : Evie Berrios RN, confirmed on 06/18/2024 22:39:50 (ET) that the referring physician received the results and does not require a verbal communication. Electronically Signed: Bo CharlesDO at 22:29 EDT , Chest X-Ray 06/18/24 23:08 IMPRESSION: Interval resolution of right pneumothorax. Electronically Signed: Bo Charles DO at 0:02 EDT , Chest X-Ray 06/19/24 07:36 IMPRESSION: No significant change. Electronically Signed: Guerrero Alegre MD at 13:13 EDT , Assessment and Plan . Assessment and plan: HPI 63 yo woman w/ advanced bullous emphysema admitted 06/19/24 w/ dyspnea d/t spontaneous PTX on the right. This is apparently the 3rd PTX she has had on the right. Small-bore pleural catheter has been placed - PTX appears resolved. No obvious ongoing air leak currently. She reports that chemical pleurodesis was apparently attempted at the time of the prior PTX. Apparently she is receiving hospice care at home. PHYSICAL EXAM GEN NAD - looks chronically ill VS as above HEENT o/p clear NECK supple COR RRR CHEST markedly decreased ABD soft EXT poor muscle mass SKIN w/d DAHLIA globally weak ASSESSMENT 1. Recurrent spontaneous PTX on the right 2. Advanced bullous emphysema 3. Cachexia TREATMENT PLAN -supplemental O2 as needed -Pleural catheter to suction -pCXR in am -I would send her to a tertiary center w/ thoracic surgery service The entirety of this encounter was done via Telemedicine
[2024-06-20] VITALS (14 sets, daily range): BP systolic 105–145; BP diastolic 70–85; PULSE 78–118; RESP 18–20; TEMP 36.5–37.1; O2SAT 94–97
[2024-06-20] MEDS: Enoxaparin 40 MG/0.4 ML Syringe SC (05:18)
[2024-06-20] MEDS: Ipratropium/Albuterol Sulfate 3 ML AMPUL.NEB INHALATION ×6 (05:37→23:36)
--- NOTE | 2024-06-20 06:00 | RAD_ITS ---
STUDY: X-RAY CHEST REASON FOR EXAM: Female, 63 years old patient with right-sided pneumothorax. TECHNIQUE: Single AP portable view of the chest. COMPARISON: Chest radiograph dated June 19, 2024. FINDINGS: A right-sided small caliber thoracostomy tube is visible near the right lung apex. There is hyperinflation of the lungs consistent with chronic obstructive lung disease (COPD). There is blunting of bilateral costophrenic angles suggesting possible small pleural effusions. There is increased lucency within the upper lobes probably secondary to severe emphysema. Normal size heart. Normal mediastinum and scarlet. Normal visualized pulmonary arteries. There is atherosclerotic calcification of the aortic arch with tortuosity. There is demineralization of the osseous structures. Normal visualized ribs, clavicles, and shoulders. There is no demonstrated abnormality of the visualized soft tissue structures of the upper abdomen. RAD/Chest 1 View (Portable) IMPRESSION: 1. No radiographic evidence suggest recurrent pneumothorax. 2. COPD. Electronically Signed: Molly Meier MD at 6:32 EDT ,
--- NOTE | 2024-06-20 07:47 | PN.SURG_ITS ---
Subjective Subjective Patient is evaluated resting comfortably sitting in bed. She notes her breathing is back to her baseline. CXR this AM demonstrated no pneumothorax. Objective Data Objective Data Vital Signs: Vital Signs Temp Pulse Resp BP Pulse Ox O2 Del Method O2 Flow Rate 98.2 F 97 20 H 105/70 96 Nasal Cannula 2 06/20/24 03:15 06/20/24 05:38 06/20/24 05:38 06/20/24 03:15 06/20/24 05:38 06/20/24 05:38 06/20/24 05:38 Oxygen Flow Rate (L/min) 2 Oxygen Delivery Method Nasal Cannula Weight: 76 lb 4.479 oz Body Mass Index (BMI) 13.9 Intake & Output: Intake and Output for Last 24 Hours 06/18/24 06/19/24 06/20/24 23:59 23:59 23:59 Intake Total 0 / 0 1000 / 1000 Output Total 1600 / 1600 500 / 500 Balance 0 / 0 -600 / -600 -500 / -500 Medical Nutrition Assessment Dietitian: Malnutrition Criteria Met Start: 06/19/24 15:20 Freq: Status: Active Protocol: Document 06/19/24 15:20 SB (Rec: 06/19/24 15:20 SB [id number]) Nutrition Malnutrition Evidence of Malnutrition Exists Yes Malnutrition (severe): Chronic Evidenced By Weight Loss (Severe),Physical Changes (Severe) Clinical Problem Chronic Disease or Condition Related Malnutrition Etiology severe related to inadequate oral/energy intake and increase energy needs in the setting of Pulmonary cachexia d/t COPD Signs/Symptoms as evidenced by 13% unintentional weight loss x 2. 5 months, severe muscle wasting (judaism, clavicle) and subcutaneous fat loss ( orbital region). Status Active Problem Recommendation Dietitian Recommendations/Changes Continue regular diet and 120ml ensure plus high protein 4x daily with medpass. Will order chocolate fortified pudding with lunch and dinner . Will monitor weight, as available. Reviewed and approved by Onelia Barksdale RD, LD. Lab / Micro Data 06/19/24 05:21 06/19/24 05:21 Micro: Microbiology 06/19/24 02:44 Mucosa - Nasopharyngeal SARS-CoV-2, Influenza & RSV (PCR) - Final Radiography Diagnostic Testing: Radiology Impression Chest X-Ray 06/19/24 07:36 IMPRESSION: No significant change. Electronically Signed: Guerrero Alegre MD at 13:13 EDT , Chest X-Ray 06/20/24 06:00 IMPRESSION: 1. No radiographic evidence suggest recurrent pneumothorax. 2. COPD. Electronically Signed: Molly Meier MD at 6:32 EDT , Rhythm Strip Rhythm Strip: Sinus Tach Rate: 130 Ectopy: None Physical Exam Chest Chest Narrative: Chest- right chest tube intact. No active bleeding noted. Breath sounds bilaterally auscultated. No bubbling or active air leak within the canister. Assessment & Plan Assessment/Plan (1) Pneumothorax on right: PLAN: I am following this patient in conjunction with Dr. Gomez in Dr. Terry's absence. I have discussed this patient with him. Plan to place chest tube to waterseal for today Repeat CXR tomorrow morning. If she becomes short of breath, we may have to repeat a CXR sooner. No plans to remove chest tube today especially with the patient's past history of recurrent pneumothorax on the right side for the last 2 months We will continue to monitor this patient Charges/Coding Visit Charges Inpatient E&M: 93129 [facility] L1
[2024-06-20] MEDS: oxyCODONE 5 MG Tablet PO ×3 (10:11→20:32)
[2024-06-20] MEDS: Ensure Plus High Protein 120 ML LIQUID PO ×2 (10:12→17:29)
[2024-06-20] MEDS: Senna/Docusate Sodium 1 Tablet 2 TABLET PO ×2 (10:13→23:44)
[2024-06-20] MEDS: Polyethylene Glycol 3350 17 GM PACKET PO (10:13)
[2024-06-20] MEDS: Pantoprazole Sodium 40 MG Tablet PO (10:13)
[2024-06-20] MEDS: Calcium Carbonate 500 MG Tablet PO (10:13)
--- NOTE | 2024-06-20 12:25 | PCM.PN.HOSP ---
Reason for Visit Reason for Visit: Diagnoses Chronic obstructive pulmonary disease with (acute) exacerbation (06/18/24) Pneumothorax, unspecified (06/18/24) Subjective Subjective Patient was seen and examined today, her chest tubes to waterseal at the moment, she does not complain of any shortness of breath or chest discomfort. Objective Data Objective Data Vital Signs: Vital Signs Temp Pulse Resp BP Pulse Ox O2 Del Method O2 Flow Rate 97.7 F L 89 18 120/82 H 95 Nasal Cannula 2 06/20/24 10:11 06/20/24 11:42 06/20/24 11:42 06/20/24 10:11 06/20/24 10:11 06/20/24 10:11 06/20/24 10:11 Oxygen Flow Rate (L/min) 2 Oxygen Delivery Method Nasal Cannula Weight: 34.6 kg Body Mass Index (BMI) 13.9 Intake & Output: Intake and Output for Last 24 Hours 06/18/24 06/19/24 06/20/24 23:59 23:59 23:59 Intake Total 0 / 0 1000 / 1000 480 / 480 Output Total 1600 / 1600 1000 / 1000 Balance 0 / 0 -600 / -600 -520 / -520 Medical Nutrition Assessment Dietitian: Malnutrition Criteria Met Start: 06/19/24 15:20 Freq: Status: Active Protocol: Document 06/19/24 15:20 SB (Rec: 06/19/24 15:20 SB [id number]) Nutrition Malnutrition Evidence of Malnutrition Exists Yes Malnutrition (severe): Chronic Evidenced By Weight Loss (Severe),Physical Changes (Severe) Clinical Problem Chronic Disease or Condition Related Malnutrition Etiology severe related to inadequate oral/energy intake and increase energy needs in the setting of Pulmonary cachexia d/t COPD Signs/Symptoms as evidenced by 13% unintentional weight loss x 2. 5 months, severe muscle wasting (episcopal, clavicle) and subcutaneous fat loss ( orbital region). Status Active Problem Recommendation Dietitian Recommendations/Changes Continue regular diet and 120ml ensure plus high protein 4x daily with medpass. Will order chocolate fortified pudding with lunch and dinner . Will monitor weight, as available. Reviewed and approved by Onelia Barksdale, RD, LD. Lab / Micro Data 06/19/24 05:21 06/19/24 05:21 Micro: Microbiology 06/19/24 02:44 Mucosa - Nasopharyngeal SARS-CoV-2, Influenza & RSV (PCR) - Final Radiography Diagnostic Testing: Radiology Impression Chest X-Ray 06/19/24 07:36 IMPRESSION: No significant change. Electronically Signed: Guerrero Alegre MD at 13:13 EDT , Chest X-Ray 06/20/24 06:00 IMPRESSION: 1. No radiographic evidence suggest recurrent pneumothorax. 2. COPD. Electronically Signed: Molly Meier MD at 6:32 EDT , Rhythm Strip Rhythm Strip: Sinus Tach Rate: 130 Ectopy: None Physical Exam Narrative alert, oriented x3 and no apparent distress Constitutional Narrative: Patient is very cachectic General Appearance: cooperative, well kempt and well developed Orientation / Consciousness: awake, oriented to person, oriented to place and oriented to time HEENT normocephalic, head/scalp atraumatic and moist oral mucous membranes Eyes PERRL, EOMs intact bilaterally and conjunctivae normal Neck supple, no JVD, thyroid normal and no carotid bruits General: trachea midline Resp normal respiratory effort, no retractions, no use of accessory muscles and clear to auscultation bilaterally Auscultation: Negative for rales, rhonchi or wheezes Cardio regular rate, regular rhythm, S1 normal heart sound, S2 normal heart sound, no murmurs, no rub and no gallops GI normal to inspection, nondistended, normoactive bowel sounds, soft to palpation, non-tender and non-distended Extremity no clubbing, cyanosis or edema Skin no rashes or lesions noted General Skin Exam: no breakdown Neuro oriented x3, CN's II-XII intact bilaterally, moves all extremities, no focal motor deficits and no sensory deficits noted Sensorium / Orientation: awake and alert Speech: speech normal Psych affect normal Assessment & Plan Assessment/Plan (1) Pneumothorax on right: PLAN: Plan 1. Right pneumothorax-secondary to COPD with bleb formation-continue use of chest tube as monitored by general surgery #2 severe [id number]-complicates care, management, recovery, and prognosis #3 Chronic severe protein and caloric malnutrition-related to inadequate oral/energy intake and increase energy needs in the setting of pulmonary cachexia due to COPD as evidenced by 13% unintentional weight loss x 2 to 5 months, severe muscle wasting, and subcutaneous fat loss-continue regular diet and 120 cc Ensure Plus high-protein 4 times daily with med roundCorner chocolate fortified pudding with lunch and dinner was ordered, nutritional services will continue to participate in the patient's care #4 chronic hypoxic respiratory failure secondary to COPD-patient's pulse ox will be monitored Total clinical time spent by myself addressing the patient's medical issues, reviewing all of her data, and collaborating with patient's care team: 35 minutes Charges/Coding Visit Charges Inpatient E&M: 76121 Subs Hosp L2
[2024-06-20] MEDS: 0.9% Saline Lock 10 ML Syringe IV ×2 (13:11→23:45)
[2024-06-20] MEDS: Mag Hydrox/Al Hydrox/Simeth 30 ML UDC PO ×2 (16:06→23:44)
--- NOTE | 2024-06-20 22:55 | PN.CC_ITS ---
Objective Data Objective Data Vital Signs: Vital Signs Last response 3 Temperature 36.7 C 06/20/24 20:38 Temperature Source Oral 06/20/24 20:38 Pulse Rate 110 H 06/20/24 20:38 Respiratory Rate 20 H 06/20/24 20:38 Respiratory Effort Labored, Accessory Muscle Use, Pursed Lip 06/20/24 20:43 Respiratory Depth Deep 06/20/24 20:43 Respiratory Pattern Tachypnea 06/20/24 20:43 Blood Pressure 128/85 H 06/20/24 20:38 Blood Pressure Mean 99 06/20/24 20:38 Blood Pressure Source Monitor 06/20/24 20:38 Blood Pressure Position Sitting 06/20/24 20:38 Blood Pressure Location Right Arm 06/20/24 20:38 Pulse Ox 95 06/20/24 20:38 Oxygen Delivery Method Nasal Cannula 06/20/24 20:43 Oxygen Flow Rate (L/min) 2 06/20/24 20:43 I&O: I&O Last 24 Hours 3 06/19/24 06/20/24 06/20/24 23:59 11:59 23:59 Intake Total 1000 / 1000 480 / 480 Output Total 1600 / 1600 1000 / 1700 700 / 1700 Balance -600 / -600 -520 / -1220 -700 / -1220 I&O: Total Stay 3 06/18/24 20:33 thru 06/20/24 18:57 Intake Total 1480 Output Total 3300 Balance -1820 Current Meds Ordered / Administered: Current meds ordered / Administered 3 Generic Name Dose Route Start Last Admin Trade Name Freq PRN Reason Stop Dose Admin Acetaminophen 650 mg 06/19/24 02:26 06/19/24 15:59 Acetaminophen 325 Mg Tablet PO 650 mg Q6H PRN PRN Administration Pain 1-10 Or Fever>100.7 Acetaminophen 1,000 mg 06/19/24 03:49 Acetaminophen 650 Mg/20 Ml Udc PO Q8H PRN PRN Pain 1-10 Or Fever Al Hydroxide/Mg Hydroxide 30 ml 06/19/24 17:45 06/20/24 16:06 Mag Hydrox/Al Hydrox/Simeth 30 Ml Udc PO 30 ml Q4H PRN PRN Administration DYSPEPSIA Albuterol/Ipratropium 3 ml 06/19/24 02:30 06/20/24 18:56 Ipratropium/Albuterol Sulfate 3 Ml Ampul.Neb INHALATION 3 ml Q4H.RT ADWOA Administration Bisacodyl 5 mg 06/19/24 02:26 Bisacodyl 5 Mg Tablet PO DAILY PRN PRN Constipation Calcium Carbonate 500 mg 06/19/24 10:00 06/20/24 10:13 Calcium Carbonate 500 Mg Tablet PO 500 mg DAILY ADWOA Administration Enoxaparin Sodium 40 mg 06/19/24 06:00 06/20/24 05:18 Enoxaparin 40 Mg/0.4 Ml Syringe SC 40 mg DAILY@0600 ADWOA Administration Sodium Chloride 500 mls @ 15 mls/hr 06/19/24 02:44 IV .[id number] PRN Saline Flush Sodium Chloride 500 mls @ 15 mls/hr 06/19/24 02:44 IV .[id number] PRN Additional IVPB Infusion Methylprednisolone 40 mg 06/19/24 06:00 06/20/24 13:11 Methylprednisolone 40 Mg/Ml Vial IV 40 mg Q8 ADWOA Administration Nitroglycerin 0.4 mg 06/19/24 02:26 Nitroglycerin (Inpatient Use) 0.4 Mg Tab.Subl SL Q5M PRN CARDIAC/CHEST PAIN Nutritional Formula (Lactose Free) 120 ml 06/19/24 10:00 06/20/24 20:31 Ensure Plus High Protein 120 Ml Liquid PO Not Given 4X/DAY [facility] Oxycodone HCl 2.5 - 5 mg 06/19/24 03:49 06/20/24 20:32 Oxycodone 5 Mg Tablet PO 5 mg Q4H PRN PRN Administration Pain Score 4-10 or Pre PT/OT Pantoprazole Sodium 40 mg 06/19/24 10:00 06/20/24 10:13 Pantoprazole Sodium 40 Mg Tablet PO 40 mg DAILY ADWOA Administration Polyethylene Glycol 17 gm 06/19/24 10:00 06/20/24 10:13 Polyethylene Glycol 3350 17 Gm Packet PO 17 gm DAILY ADWOA Administration Prochlorperazine Edisylate 5 mg 06/19/24 02:26 Prochlorperazine 10 Mg/2 Ml Vial IV Q4H PRN PRN Breakthrough Nausea/Vomiting Senna/Docusate Sodium 2 tablet 06/19/24 10:00 06/20/24 10:13 Senna/Docusate Sodium 1 Tablet PO 2 tablet BID ADWOA Administration Sodium Chloride 10 - 40 ml 06/19/24 02:44 06/20/24 13:11 0.9% Saline Lock 10 Ml Syringe IV 10 ml UD PRN Administration SALINE FLUSH Medical Records Data Medical Nutrition Assessment Dietitian: Malnutrition Criteria Met Start: 06/19/24 15:20 Freq: Status: Active Protocol: Document 06/19/24 15:20 SB (Rec: 06/19/24 15:20 SB [id number]) Nutrition Malnutrition Evidence of Malnutrition Exists Yes Malnutrition (severe): Chronic Evidenced By Weight Loss (Severe),Physical Changes (Severe) Clinical Problem Chronic Disease or Condition Related Malnutrition Etiology severe related to inadequate oral/energy intake and increase energy needs in the setting of Pulmonary cachexia d/t COPD Signs/Symptoms as evidenced by 13% unintentional weight loss x 2. 5 months, severe muscle wasting (sikhism, clavicle) and subcutaneous fat loss ( orbital region). Status Active Problem Recommendation Dietitian Recommendations/Changes Continue regular diet and 120ml ensure plus high protein 4x daily with medpass. Will order chocolate fortified pudding with lunch and dinner . Will monitor weight, as available. Reviewed and approved by Onelia Barksdale RD, LD. Lab / Micro Data 06/19/24 05:21 06/19/24 05:21 Rhythm Strip Rhythm Strip: Sinus Tach Rate: 130 Ectopy: None Imaging Radiology Impression Chest X-Ray 06/20/24 06:00 IMPRESSION: 1. No radiographic evidence suggest recurrent pneumothorax. 2. COPD. Electronically Signed: Molly Meier MD at 6:32 EDT , Assessment and Plan . Assessment and plan: Chart and data reviewed Surgery managing pleural catheter CXR noted Would transfer her for thoracic surgery evaluation and possible definitive intervention. We will be available as needed.
[2024-06-21] VITALS (11 sets, daily range): BP systolic 111–144; BP diastolic 77–90; PULSE 103–120; RESP 14–24; TEMP 36.3–36.8; O2SAT 95–99
[2024-06-21] MEDS: Ipratropium/Albuterol Sulfate 3 ML AMPUL.NEB INHALATION ×4 (03:23→15:40)
[2024-06-21] MEDS: Acetaminophen 325 MG Tablet 650 MG PO (03:49)
[2024-06-21] MEDS: oxyCODONE 5 MG Tablet PO ×2 (03:49→08:22)
--- NOTE | 2024-06-21 05:44 | PCM.HOSP.N ---
Hospitalist Note Nurse informed that patient is new onset respiratory distress. Chest x-ray was done, individually reviewed which shows tiny right apical pneumothorax. Patient on bronchodilator DuoNeb. Advised manipulation of
--- NOTE | 2024-06-21 06:00 | RAD_ITS ---
INDICATION: right pneumothorax -- PORTABLE; on waterseal last 24 H EXAMINATION/TECHNIQUE: X-RAY - XR Chest 1 View COMPARISON: Chest radiograph previous day. Findings: Single frontal view of the chest. LUNG PARENCHYMA: Diffuse parenchymal lucency with flattening of the hemidiaphragms consistent with emphysematous lung changes trapping. No acute focal airspace disease or mass lesion. PLEURA: No pleural effusion. Tiny right apical pneumothorax with small bore chest tube in place. HEART/GREAT VESSELS: Cardiomediastinal silhouette is unremarkable. BONES: Osseous structures are unremarkable for age. RAD/Chest 1 View (Portable) IMPRESSION: Stable chest with tiny right apical pneumothorax and small bore chest tube in place. Electronically Signed: Juanito Gupta MD at 5:19 EDT ,
[2024-06-21] MEDS: Enoxaparin 40 MG/0.4 ML Syringe SC (06:08)
[2024-06-21] MEDS: 0.9% Saline Lock 10 ML Syringe IV (06:09)
--- NOTE | 2024-06-21 09:48 | PN.SURG_ITS ---
Subjective Subjective Patient notes some increased right-sided chest discomfort and increased work of breathing overnight. Patient has been on waterseal for about 24 hours and the chest x-ray this morning shows a tiny right sided apical pneumothorax. Clinically she does have an air leak that is readily apparent today. It sounds as though this airleak likely developed overnight. She was placed to -20 suction after I saw her earlier this morning and she had immediate improvement of her chest discomfort and breathing. Objective Data Objective Data Vital Signs: Vital Signs Temp Pulse Resp BP Pulse Ox O2 Del Method O2 Flow Rate 98.2 F 109 H 14 117/77 99 Nasal Cannula 2 06/21/24 07:42 06/21/24 07:42 06/21/24 07:42 06/21/24 07:42 06/21/24 03:54 06/21/24 07:42 06/21/24 06:02 Oxygen Flow Rate (L/min) 2 Oxygen Delivery Method Nasal Cannula Weight: 76 lb 4.479 oz Body Mass Index (BMI) 13.9 Intake & Output: Intake and Output for Last 24 Hours 06/19/24 06/20/24 06/21/24 23:59 23:59 23:59 Intake Total 1000 / 1000 480 / 480 Output Total 1600 / 1600 1700 / 1700 400 / 400 Balance -600 / -600 -1220 / -1220 -400 / -400 Medical Nutrition Assessment Dietitian: Malnutrition Criteria Met Start: 06/19/24 15:20 Freq: Status: Active Protocol: Document 06/19/24 15:20 SB (Rec: 06/19/24 15:20 SB [id number]) Nutrition Malnutrition Evidence of Malnutrition Exists Yes Malnutrition (severe): Chronic Evidenced By Weight Loss (Severe),Physical Changes (Severe) Clinical Problem Chronic Disease or Condition Related Malnutrition Etiology severe related to inadequate oral/energy intake and increase energy needs in the setting of Pulmonary cachexia d/t COPD Signs/Symptoms as evidenced by 13% unintentional weight loss x 2. 5 months, severe muscle wasting (yazidism, clavicle) and subcutaneous fat loss ( orbital region). Status Active Problem Recommendation Dietitian Recommendations/Changes Continue regular diet and 120ml ensure plus high protein 4x daily with medpass. Will order chocolate fortified pudding with lunch and dinner . Will monitor weight, as available. Reviewed and approved by Onelia Barksdale RD, LD. Lab / Micro Data 06/19/24 05:21 06/19/24 05:21 Micro: Microbiology 06/19/24 02:44 Mucosa - Nasopharyngeal SARS-CoV-2, Influenza & RSV (PCR) - Final Radiography Diagnostic Testing: Radiology Impression Chest X-Ray 06/21/24 06:00 IMPRESSION: Stable chest with tiny right apical pneumothorax and small bore chest tube in place. Electronically Signed: Juanito Gupta MD at 5:19 EDT , Rhythm Strip Rhythm Strip: Sinus Tach Rate: 130 Ectopy: None Physical Exam Narrative She is alert and oriented x 3. She is in no acute distress. Nasal cannula oxygen in place. Patient initially with prolonged expiration with pursed lips along with associated air leak. Breathing improved after being placed to -20 suction. Airleak still present on suction Chest tube on the right remains in place with appropriate dressing. Airleak appears to be coming from the lung and not tubing/dressing Assessment & Plan Assessment/Plan (1) Pneumothorax on right: PLAN: Plan The patient is a 64-year-old female with significant pulmonary issues most notably COPD who has presented each month for the last 3 months with a spontaneous right-sided pneumothorax. Last month she was transferred to [facility] where it sounds as though a chemical pleurodesis was performed. However unfortunately she has since developed another recurrent right-sided pneumothorax. Initially she has responded to conservative chest tube management and was advanced to [facility] for the past 24 hours. Unfortunately she has developed an air leak as well as a tiny pneumothorax on this morning's chest x- ray. Clinically she had increased discomfort with breathing overnight which resolved with return to -20 suction. I would anticipate she may need further thoracic intervention and believe that repeat transfer to a tertiary center may be in her best interest at this point. I did send a message to who I believe was the thoracic surgeon who treated her at [facility]. I am currently awaiting a reply. At this point I would continue -20 suction. Charges/Coding Visit Charges Inpatient E&M: 84445 Subs Hosp L2
[2024-06-21] MEDS: Polyethylene Glycol 3350 17 GM PACKET PO (10:25)
[2024-06-21] MEDS: Senna/Docusate Sodium 1 Tablet 2 TABLET PO (10:25)
[2024-06-21] MEDS: Pantoprazole Sodium 40 MG Tablet PO (10:25)
[2024-06-21] MEDS: Ensure Plus High Protein 120 ML LIQUID PO ×2 (10:25→14:40)
[2024-06-21] MEDS: Calcium Carbonate 500 MG Tablet PO (10:25)
--- NOTE | 2024-06-21 13:40 | CASEMGMT ---
Patient is being transferred to [facility]. GUI emailed Ara at [facility] and let her know this information. Angelina Martinez MSW KEVIN
--- NOTE | 2024-06-21 13:56 | DS.PCM_ITS ---
Providers Date of Admission: 06/18/24 Date of Discharge: 06/21/24 Primary Care Physician: Maci Thibodeaux, MEDICAL DONATION PROFESSIONAL-C Consultations 06/19/24 02:20 Consult: Pellet Press Operator / Pulmonary Medicine Routine Consulting Provider: Intensivists/Pulmonary Med Reason for Consult: RIGHT pneumothorax, COPD EMERGENT Consult: No Notified: Yes Date Notified: 06/19/24 Time Notified: 02:20 Method of Notification: Verbal 06/19/24 02:20 Consult: General Surgery Routine Consulting Provider: Tawanda Terry Reason for Consult: Pneumothorax, chest tube management EMERGENT Consult: No Notified: Yes Date Notified: 06/18/24 Time Notified: 23:59 Method of Notification: ED Physician Initiated 06/19/24 02:21 Consult: General Surgery Routine Consulting Provider: Tawanda Terry Reason for Consult: Right pneumothorax, management of chest tube EMERGENT Consult: No Notified: Yes Date Notified: 06/19/24 Time Notified: 00:21 Method of Notification: ED Physician Initiated Reason For Visit: PNEUMOTHORAX Diagnosis Discharge Diagnosis (1) Pneumothorax on right: Status: Acute Code(s): J93.9 - Pneumothorax, unspecified Plan 1. Right pneumothorax-secondary to COPD with bleb formation-continue use of chest tube as monitored by general surgery #2 severe [id number]-complicates care, management, recovery, and prognosis #3 Chronic severe protein and caloric malnutrition-related to inadequate oral/energy intake and increase energy needs in the setting of pulmonary cachexia due to COPD as evidenced by 13% unintentional weight loss x 2 to 5 months, severe muscle wasting, and subcutaneous fat loss-continue regular diet and 120 cc Ensure Plus high-protein 4 times daily with med Pass chocolate fortified pudding with lunch and dinner was ordered, nutritional services will continue to participate in the patient's care #4 chronic hypoxic respiratory failure secondary to COPD-patient's pulse ox will be monitored Total clinical time spent by myself addressing the patient's medical issues, reviewing all of her data, and collaborating with patient's care team: 35 minutes Medications at Discharge Home Medications albuterol sulfate 2.5 mg/3 mL (0.083 %) solution for nebulization 2.5 mg inhalation Q4H PRN Sob &/Or Wheezing 10/03/18 albuterol sulfate 90 mcg/actuation aerosol inhaler (Ventolin HFA) 2 puff inhalation Q4H PRN Sob &/Or Wheezing 10/03/18 ipratropium 0.5 mg-albuterol 3 mg (2.5 mg base)/3 mL nebulization soln 3 ml inhalation Q8H 10/03/18 calcium carbonate 1,200 mg (2 x 600 mg calcium (1,500 mg)) PO DAILY #20 tabs 06/03/23 acetaminophen 650 mg/20.3 mL oral solution 1,000 mg (31.2308 mL) PO Q8H PRN PRN Pain 1-10 Or Fever #0 mL 04/07/24 food supplemt, lactose-reduced 0.08 gram-1.5 kcal/mL oral liquid (Ensure Plus High Protein) 120 ml PO 4X/DAY #30 mL 04/07/24 levofloxacin 500 mg tablet 500 mg PO DAILY #2 tabs 04/07/24 morphine concentrate 10 mg/0.5 mL oral syringe (FOR ORAL USE ONLY) 10 mg (0.5 mL) PO/SL Q2H PRN PRN dyspnea 5 days #50 ea 04/07/24 prednisone 10 mg tablet 10 mg PO DAILY #30 tabs 04/07/24 bisacodyl 10 mg rectal suppository 10 mg NH DAILY PRN constipation 06/18/24 docusate sodium 100 mg capsule 100 mg PO DAILY 06/18/24 ipratropium bromide 0.02 % solution for inhalation 1 inhalation Q6H PRN PRN wheezing 06/18/24 lorazepam 0.5 mg tablet 0.5 mg PO Q4H PRN PRN anxiety 06/18/24 ondansetron 4 mg disintegrating tablet 4 mg PO Q8H PRN PRN nausea and vomiting 06/18/24 oxycodone 5 mg tablet PO 06/18/24 pantoprazole 40 mg tablet,delayed release 40 mg PO DAILY 06/18/24 roflumilast 250 mcg tablet 250 mcg PO DAILY 06/18/24 tiotropium bromide 2.5 mcg/actuation mist for inhalation (Spiriva Respimat) 2 puff inhalation DAILY 06/18/24 Hospital Course Operations None Procedures None Summary of Care Provided Minutes Spent on Discharge: 31 Hospital Course: This 64-year-old white female was seen in the emergency room at [facility] with complaints of increased shortness of breath, she had recently had a recurrent right pneumothorax and had undergone a pleurodesis at [facility]. Workup in the emergency room here showed the patient to have a right pneumothorax, chest tube was inserted in the emergency room, and the patient was admitted to PCU and seen by general surgery. Patient required supplemental oxygen at a low flow rate during her hospital stay, attempts were made to adjust the chest tube from suction to waterseal, unfortunately the patient did not tolerate this and a recurrent small pneumothorax occurred. General surgery recommended transfer to a tertiary facility for consultation with thoracic surgery. [facility] in [facility] agreed to accept the patient and a bed was available. On 06/21/2024, patient was seen and examined: alert, oriented x3 and no apparent distress Constitutional Narrative: Patient is very cachectic General Appearance: cooperative, well kempt and well developed Orientation / Consciousness: awake, oriented to person, oriented to place and oriented to time HEENT normocephalic, head/scalp atraumatic and moist oral mucous membranes Eyes PERRL, EOMs intact bilaterally and conjunctivae normal Neck supple, no JVD, thyroid normal and no carotid bruits General: trachea midline Resp normal respiratory effort, no retractions, no use of accessory muscles and clear to auscultation bilaterally Auscultation: Negative for rales, rhonchi or wheezes Cardio regular rate, regular rhythm, S1 normal heart sound, S2 normal heart sound, no murmurs, no rub and no gallops GI normal to inspection, nondistended, normoactive bowel sounds, soft to palpation, non-tender and non-distended Extremity no clubbing, cyanosis or edema Skin no rashes or lesions noted General Skin Exam: no breakdown Neuro oriented x3, CN's II-XII intact bilaterally, moves all extremities, no focal motor deficits and no sensory deficits noted Sensorium / Orientation: awake and alert Speech: speech normal Psych affect normal Patient was discharged [facility] for further care on 06/21/2024 in stable condition Medical Records Data Medical Nutrition Assessment Dietitian: Malnutrition Criteria Met Start: 06/19/24 15:20 Freq: Status: Active Protocol: Document 06/19/24 15:20 SB (Rec: 06/19/24 15:20 SB [id number]) Nutrition Malnutrition Evidence of Malnutrition Exists Yes Malnutrition (severe): Chronic Evidenced By Weight Loss (Severe),Physical Changes (Severe) Clinical Problem Chronic Disease or Condition Related Malnutrition Etiology severe related to inadequate oral/energy intake and increase energy needs in the setting of Pulmonary cachexia d/t COPD Signs/Symptoms as evidenced by 13% unintentional weight loss x 2. 5 months, severe muscle wasting (uatsdin, clavicle) and subcutaneous fat loss ( orbital region). Status Active Problem Recommendation Dietitian Recommendations/Changes Continue regular diet and 120ml ensure plus high protein 4x daily with medpass. Will order chocolate fortified pudding with lunch and dinner . Will monitor weight, as available. Reviewed and approved by Onelia Barksdale, RD, LD. Weight / BMI Weight Weight: 34.6 kg Body Mass Index (BMI) 13.9 ABG / Lab / Microbiology Data 06/19/24 05:21 06/19/24 05:21 Microbiology: Microbiology 06/19/24 02:44 Mucosa - Nasopharyngeal SARS-CoV-2, Influenza & RSV (PCR) - Final Radiography Diagnostic Testing: Radiology Impression Chest X-Ray 06/21/24 06:00 IMPRESSION: Stable chest with tiny right apical pneumothorax and small bore chest tube in place. Electronically Signed: Juanito Gupta MD at 5:19 EDT , Meaningful Use Info Meaningful Use Meaningful Use Diagnoses (Choose all that apply): None applicable Ischemic Stroke Statin Dosing Therapy Reference: STATIN DOSE THERAPY REFERENCE: * Patients > 75 years receive moderate or high dose statin therapy. * Patients 75 years or YOUNGER should receive HIGH intensity statin dose unless contraindicated. You will be required to document reason for non-treatment if statin daily dose does not meet guidelines. HIGH DOSE STATIN THERAPY DAILY Atorvastatin > than or = to 40 mg Rosuvastatin > than or = to 20 mg Amlodipine + Atorvastatin > than or = to 2.5/40 mg Ezetimibe + Simvastatin 10/80 mg Simvastatin 80mg Discharge Plan Admission Admit Date/Time: 06/18/24 23:58 Attending Provider: Vishal Feliciano Primary Care Provider: Maci Thibodeaux NP Consulting Providers: Tawanda Terry; Salo Louie; Ezra Phoenix; Khris Asencio; Manish Castillo; Stan Stewart; Michael Singh; Wade Saba; Michelle Terrazas; Harley Maloney; Agapito Juarez; Lesley Leyva; Carlos Dietz; Ravindra Higuera; Cristian Russo; Viet Christianson; Wesley Jane; Juan Segovia; James Brennan; Fan Valencia Discharge Orders/Prescriptions Prescriptions: No Action ipratropium-albuterol 0.5 mg-3 mg(2.5 mg base)/3 mL solution for nebulization 3 ml INHALATION Q8H albuterol sulfate 2.5 mg /3 mL (0.083 %) solution for nebulization 2.5 mg INHALATION Q4H PRN (Reason: Sob &/Or Wheezing) Ventolin HFA 90 mcg/actuation HFA aerosol inhaler 2 puff INHALATION Q4H PRN (Reason: Sob &/Or Wheezing) calcium carbonate 600 mg calcium (1,500 mg) tablet 1,200 mg PO DAILY Qty: 20 0RF acetaminophen 650 mg/20.3 mL Solution 1,000 mg PO Q8H PRN PRN (Reason: Pain 1-10 Or Fever) Qty: 0 0RF Ensure Plus High Protein 0.08 gram-1.5 kcal/mL Liquid 120 ml PO 4X/DAY Qty: 30 0RF morphine concentrate 10 mg/0.5 mL Syringe 10 mg PO/SL Q2H PRN PRN (Reason: dyspnea) 5 Days Qty: 50 0RF levofloxacin 500 mg tablet 500 mg PO DAILY Qty: 2 0RF prednisone 10 mg tablet 10 mg PO DAILY Qty: 30 0RF Rx Instructions: 4 tabs daily for 3 days, then 3 tabs daily for 3 days, then 2 tabs daily for 3 days, then 1 tab daily for 3 days lorazepam 0.5 mg tablet 0.5 mg PO Q4H PRN PRN (Reason: anxiety) bisacodyl 10 mg suppository 10 mg NH DAILY PRN (Reason: constipation) docusate sodium 100 mg capsule 100 mg PO DAILY ondansetron 4 mg tablet,disintegrating 4 mg PO Q8H PRN PRN (Reason: nausea and vomiting) pantoprazole 40 mg tablet,delayed release (DR/EC) 40 mg PO DAILY ipratropium bromide 0.02 % solution 1 inhalation Q6H PRN PRN (Reason: wheezing) oxycodone 5 mg tablet PO Spiriva Respimat 2.5 mcg/actuation mist 2 puff inhalation DAILY roflumilast 250 mcg tablet 250 mcg PO DAILY Referrals / Follow Up: Maci Thibodeaux NP, MEDICAL DONATION PROFESSIONAL-C [Primary Care Provider] - Disposition Discharge Orders: Discharge Patient (Routine); Ordered 06/21/24 Ordered By: Dr. Vishal Feliciano Charges/Coding Visit Charges Inpatient E&M: [id number] Disch Hosp >30min
== END 2024-06-21 17:21 | disposition short-term general hospital (02) | DRG 140 ==
LOC: ED 23:33 → PCU 06-19 00:11
PROVIDERS: Admitting Provider Internal Medicine; Emergency Provider Emergency Medicine; PCP Nurse Practitioner Family; Visit Provider Internal Medicine
DX: J43.9 Emphysema, unspecified (principal); E43 Unspecified severe protein-calorie malnutrition; J93.12 Secondary spontaneous pneumothorax; R64 Cachexia; Z66 Do not resuscitate; J44.1 Chronic obstructive pulmonary disease with (acute) exacerbation; J96.11 Chronic respiratory failure with hypoxia; Z87.891 Personal history of nicotine dependence; Z79.2 Long term (current) use of antibiotics; Z68.1 Body mass index [BMI] 19.9 or less, adult
CPT/HCPCS: 32551; 36415; 36600; 71045; 80048; 82803; 83880; 84484; 85025; 87631; 93005; 94640; 94762; 97162; 97166; 97802; 99285; A4216; J2405